=== PATIENT | female | born 1995 | race Caucasian/White ===

== ENCOUNTER 2018-05-13 01:26 | Inpatient (IN) | payer MEDICAID ==
--- NOTE | 2018-05-13 01:53 | ED Physician Chart ---
ED Chief Complaint/HPI - Patient Information Date Seen:: 05/13/18 Time Seen:: 01:49 Chief Complaint:: agitation psychosis History of Present Illness:: 22 yr old female with severe mental retardation and severe psychosis who ihas been putting her hands in her vaginal area and taking blood out and trying to swallow it she has her period Allergies:: Allergies Allergy/AdvReac Type Severity Reaction Status Date / Time No Known Allergies Allergy Verified 05/13/18 01:36 Vitals:: Vital Signs - 8 hr 05/13/18 01:35 Temp 98.7 F HR 72 RR 18 BP 107/53 O2 Sat % 98 ED Review of Systems - Review of Systems General/Constitutional: No fever Eyes: No loss of vision ENT: No earache Neck: No neck pain Cardio Vascular: No chest pain Pulmonary: No SOB GI: No vomiting G/U: No dysuria Endocrine: No polyuria Psychiatric: Prior psych history ED Past Medical History - Past Medical History Past Medical History: Other (convulsions cerebral palsy and severe mental retardation and gtube) Family Medical History - Family Member Mother History Unknown: Yes ED Physical Exam - Physical Examination Other Gen/Cons comments:: pt non verbal Head: Atraumatic ENMT: External ears, nose nl Neck: Nontender Respiratory: Nl effort/Exclusion Cardio Vascular: RRR GI: No tenderness/rebounding/guarding Extremities: No tenderness or effusion ED Assessment - Assessment General Assessment: severe mental retardation cerebral palsy and psychosis and agitation ED Septic Shock - . Is Septic Shock (SBP<90, OR Lactate>4 mmol\L) present?: No - <6hrs of presentation: Vital Signs: Vital Signs - 8 hr 05/13/18 01:35 Temp 98.7 F HR 72 RR 18 BP 107/53 O2 Sat % 98 ED Reassessment (Disposition) - Reassessment Reassessment:: cerebral palsy severe mental retardation psychosis and agitation - Diagnosis Diagnosis:: as above - Patient Disposition Discharge/Transfer:: Acute Care w/in this hosp Condition at Disposition:: Stable
[2018-05-13 02:23] LABS: HEMATOCRIT 42.1 % (41.0-60); HEMOGLOBIN 13.4 gm/dL (12-16); MEAN CELL VOLUME 84.5 fl (81-100); MEAN CORPUSCULAR HEMOGLOBIN 26.9 pg (27.0-31.0); MEAN CORPUSCULAR HGB CONC 31.8 pg (28.0-36.0); MEAN PLATELET VOLUME 8.9 fl; PLATELET COUNT 267 Th/cmm (150-400); RED BLOOD COUNT 4.98 Mil/cmm (3.80-5.10); RED CELL DISTRIBUTION WIDTH 14.8 % (11.5-20.0)
[2018-05-13 02:25] LABS: WHITE BLOOD COUNT 17.3 Th/cmm (4.8-10.8)
[2018-05-13 02:35] LABS: BAND NEUTROPHILE 3 % (0-10); LYMPHOCYTE 4 % (20-50); MONOCYTE 4 % (2-10); NEUTROPHILS 89 % (40-80)
[2018-05-13 02:36] LABS: PLATELET ESTIMATE ADEQUATE (NORMAL)
[2018-05-13 02:42] LABS: ALB/GLOB RATIO 1.2 (1.0-1.8); ALBUMIN 4.4 gm/dL (3.7-5.3); ALKALINE PHOSPHATASE 54 U/L (34-104); ANION GAP 21.4 (7.0-16.0); BILIRUBIN,TOTAL 0.3 mg/dL (0.3-1.0); BUN - UREA NITROGEN 17 mg/dL (7-25); CALCIUM SERUM 9.9 mg/dL (8.6-10.3); CARBON DIOXIDE 17.6 mEq/L (21.0-31.0); CHLORIDE 102 mEq/L (98-107); CREATININE - SERUM 0.5 mg/dL (0.6-1.2); GFR AFRICAN-AMERICAN > 60.0 ml/min (>90); GFR NON AFRICAN-AMERICAN > 60.0 ml/min; GLUCOSE 152 mg/dL (70-105); SGOT 13 U/L (13-39); SGPT/ALT 4 U/L (7-52); SODIUM SERUM 137 mEq/L (136-145); TOTAL PROTEIN,SERUM 8.2 gm/dL (6.0-8.3)
[2018-05-13] MEDS ORDERED: Sodium Chloride 0.9% 1,000 ML IV ONE ×5 (03:34→17:33)
[2018-05-13] MEDS ORDERED: cefTRIAXone 1 GM in Sodium Chloride 0.9% 50 ML IV ONE (03:35)
[2018-05-13 05:22] VITALS: BP 125/74
[2018-05-13] MEDS ORDERED: Piperacillin Sodium/Tazobact 3.375 gm Vial IV ONE (05:37)
[2018-05-13 07:39] LABS: HEMATOCRIT 39.8 % (41.0-60); HEMOGLOBIN 12.5 gm/dL (12-16); LYMPHOCYTE ABSOLUTE 0.5 Th/cmm (1.5-3.0); MEAN CELL VOLUME 82.8 fl (81-100); MEAN CORPUSCULAR HGB CONC 31.4 pg (28.0-36.0); MEAN PLATELET VOLUME 9.6 fl; MONOCYTE ABSOLUTE 0.7 Th/cmm (0.3-1.0); NEUTROPHILE ABSOLUTE 22.2 Th/cmm (1.8-8.0); PLATELET COUNT 224 Th/cmm (150-400); RED CELL DISTRIBUTION WIDTH 14.7 % (11.5-20.0)
[2018-05-13 07:52] LABS: WHITE BLOOD COUNT 23.4 Th/cmm (4.8-10.8)
[2018-05-13 08:09] LABS: NEUTROPHILS 96 % (40-80)
[2018-05-13 08:10] LABS: BAND NEUTROPHILE 0 % (0-10)
[2018-05-13 08:11] LABS: BASOPHIL 0 % (0-3); EOSINOPHIL 0 % (0-5); LYMPHOCYTE 2 % (20-50); MONOCYTE 2 % (2-10)
[2018-05-13 09:08] LABS: ANION GAP 23.2 (7.0-16.0); CARBON DIOXIDE 14.3 mEq/L (21.0-31.0); CHLORIDE 105 mEq/L (98-107); POTASSIUM SERUM 4.5 mEq/L (3.5-5.1); SODIUM SERUM 138 mEq/L (136-145)
[2018-05-13 09:09] LABS: ALB/GLOB RATIO 1.2 (1.0-1.8); ALBUMIN 3.9 gm/dL (3.7-5.3); BILIRUBIN,TOTAL 0.3 mg/dL (0.3-1.0); BUN - UREA NITROGEN 15 mg/dL (7-25); CALCIUM SERUM 9.1 mg/dL (8.6-10.3); CREATININE - SERUM 0.4 mg/dL (0.6-1.2); GFR AFRICAN-AMERICAN > 60.0 ml/min (>90); GFR NON AFRICAN-AMERICAN > 60.0 ml/min; GLUCOSE 148 mg/dL (70-105); SGOT 26 U/L (13-39); SGPT/ALT 3 U/L (7-52); TOTAL PROTEIN,SERUM 7.3 gm/dL (6.0-8.3)
[2018-05-13 09:10] LABS: ALKALINE PHOSPHATASE 46 U/L (34-104)
--- NOTE | 2018-05-13 09:50 | Diagnostic Imaging Report ---
CHEST X-RAY: AP view INDICATION: Sepsis COMPARISON: None FINDINGS: Suboptimal lung volumes are noted. There is no focal consolidation or pleural effusions The heart is normal in size. Gas distended stomach is noted. IMPRESSION: Suboptimal lung volumes with no focal consolidation identified.
[2018-05-13 10:44] LABS: URINE SOURCE RANDOM
[2018-05-13 10:51] LABS: URINE BILIRUBIN NEGATIVE (NEGATIVE); URINE BLOOD LARGE (NEGATIVE); URINE GLUCOSE (UA) NEGATIVE (NEGATIVE); URINE KETONE TRACE mg/dL (NEGATIVE); URINE LEUKOCYTE ESTERASE NEGATIVE (NEGATIVE); URINE MICROSCOPIC INDICATED? YES; URINE NITRATE NEGATIVE (NEGATIVE); URINE PH 5.5 (4.6 - 8.0); URINE PROTEIN 30 mg/dL (NEGATIVE)
[2018-05-13 11:02] LABS: URINE CLARITY CLOUDY (CLEAR); URINE COLOR YELLOW
[2018-05-13 11:04] LABS: URINE BACTERIA MANY /hpf (NONE SEEN); URINE EPITHELIAL CELLS FEW /lpf (FEW); URINE WBC 25-50 /hpf (0-5)
[2018-05-13] MEDS ORDERED: Magnesium Hydroxide (MOM) 30 mL UDC GT PRN (16:34)
[2018-05-13] MEDS ORDERED: Fleet Enema 135 mL RC PRN (16:34)
[2018-05-13] MEDS: Ferrous Sulfate 300 MG/5 ML UDC GT SCH (16:59)
[2018-05-13] MEDS: Levetiracetam 500 mg/5mL 5mL UDSyr *for ORAL USE ONLY GT SCH (16:59)
--- NOTE | 2018-05-13 17:26 | History & Physical ---
ADMIT DATE: 05/13/2018 DICTATED FOR: Dr. Kirby. CHIEF COMPLAINT: Agitation. HISTORY OF PRESENT ILLNESS: This is a 22-year-old female who is admitted to the telemetry unit, who has apparently been putting her hands in the vaginal area and taking blood out and trying to swallow. No reports of any fevers at the intermediate. PAST MEDICAL HISTORY: Convulsion, cerebral palsy, MR. FAMILY HISTORY: Noncontributory. SOCIAL HISTORY: The patient is a intermediate resident, requiring 24-hour nursing care. REVIEW OF SYSTEMS: Unable to obtain, the patient is nonverbal. PHYSICAL EXAMINATION: GENERAL: Young female, awake, alert, nonverbal, no apparent distress. VITAL SIGNS: Temperature 99.6, heart rate of 107, blood pressure 137/86, respirations 18, O2 of 98%. HEENT: Head: Normocephalic, atraumatic. NECK: Supple. No mass. LUNGS: Clear bilaterally. HEART: Regular rhythm. ABDOMEN: Soft, nontender. LABORATORY DATA: WBC 23.4, H and H 12.5 and 39.8, platelets of 224. Sodium 138, potassium 4.5, chloride 105, BUN 15, creatinine 0.4. Whole lactic acid at 3.15. The patient had a urinalysis done, positive for UTI. ASSESSMENT: Sepsis secondary to acute urinary tract infection, cerebral palsy, convulsions, severe mitral regurgitation, G-tube status. PLAN: The patient to be admitted to the telemetry unit. We will have ID consultation. We will send urine for culture. We will await for the patient's blood culture results. We will treat the patient with IV antibiotics of vancomycin and Zosyn. We will get followup labs for tomorrow morning. We will continue to monitor this patient. JOB# [id number]
[2018-05-14 05:41] LABS: HEMOGLOBIN 12.1 gm/dL (12-16)
[2018-05-14 05:47] LABS: MEAN CELL VOLUME 84.1 fl (81-100); MEAN CORPUSCULAR HEMOGLOBIN 27.5 pg (27.0-31.0); MEAN CORPUSCULAR HGB CONC 32.7 pg (28.0-36.0); MEAN PLATELET VOLUME 8.9 fl; RED BLOOD COUNT 4.41 Mil/cmm (3.80-5.10); RED CELL DISTRIBUTION WIDTH 14.9 % (11.5-20.0)
[2018-05-14 05:50] LABS: ALBUMIN 3.2 gm/dL (3.7-5.3); ANION GAP 12.4 (7.0-16.0); BILIRUBIN,TOTAL 0.7 mg/dL (0.3-1.0); CALCIUM SERUM 8.7 mg/dL (8.6-10.3); CARBON DIOXIDE 19.7 mEq/L (21.0-31.0); CREATININE - SERUM 1.5 mg/dL (0.6-1.2); GFR AFRICAN-AMERICAN 55.8 ml/min (>90); GFR NON AFRICAN-AMERICAN 46.2 ml/min; POTASSIUM SERUM 4.1 mEq/L (3.5-5.1); TOTAL PROTEIN,SERUM 6.3 gm/dL (6.0-8.3)
[2018-05-14 05:57] LABS: PLATELET COUNT 158 Th/cmm (150-400); WHITE BLOOD COUNT 23.1 Th/cmm (4.8-10.8)
[2018-05-14 06:32] LABS: BAND NEUTROPHILE 0 % (0-10); LYMPHOCYTE 5 % (20-50); MONOCYTE 4 % (2-10); NEUTROPHILS 90 % (40-80)
[2018-05-14 06:33] LABS: BASOPHIL 0 % (0-3); EOSINOPHIL 1 % (0-5); PLATELET ESTIMATE ADEQUATE (NORMAL)
[2018-05-14] MEDS ORDERED: Sodium Chloride 0.9% 1,000 ML IV SCH ×3 (07:00→21:00)
[2018-05-14] MEDS: Levetiracetam 500 mg/5mL 5mL UDSyr *for ORAL USE ONLY GT SCH ×2 (08:59→16:08)
[2018-05-14] MEDS: Ferrous Sulfate 300 MG/5 ML UDC GT SCH ×2 (08:59→16:08)
--- NOTE | 2018-05-14 09:05 | Internal Medicine Prog Note ---
Internal Medicine Subjective - Subjective Patient is:: confused, other (restless ) Per staff patient has:: confused, other (unable to comprehend commands ) Internal Medicine Objective - Results Result Diagrams: 05/14/18 05:20 05/14/18 05:20 Recent Labs: Laboratory Last Values WBC 23.1 Th/cmm (4.8-10.8) H* 05/14/18 05:20 RBC 4.41 Mil/cmm (3.80-5.10) 05/14/18 05:20 Hgb 12.1 gm/dL (12-16) 05/14/18 05:20 Hct 37.0 % (41.0-60) L 05/14/18 05:20 MCV 84.1 fl (81-100) 05/14/18 05:20 MCH 27.5 pg (27.0-31.0) 05/14/18 05:20 MCHC Differential 32.7 pg (28.0-36.0) 05/14/18 05:20 RDW 14.9 % (11.5-20.0) 05/14/18 05:20 Plt Count 158 Th/cmm (150-400) D 05/14/18 05:20 MPV 8.9 fl 05/14/18 05:20 Add Manual Diff YES 05/14/18 05:20 Band Neutrophils % 0 % (0-10) 05/14/18 05:20 Neutrophils (Manual) 90 % (40-80) H 05/14/18 05:20 Lymphocytes 5 % (20-50) L 05/14/18 05:20 Monocytes 4 % (2-10) 05/14/18 05:20 Eosinophils 1 % (0-5) 05/14/18 05:20 Basophils 0 % (0-3) 05/14/18 05:20 Platelet Estimate ADEQUATE (NORMAL) 05/14/18 05:20 Sodium 140 mEq/L (136-145) 05/14/18 05:20 Potassium 4.1 mEq/L (3.5-5.1) 05/14/18 05:20 Chloride 112 mEq/L (98-107) H 05/14/18 05:20 Carbon Dioxide 19.7 mEq/L (21.0-31.0) L 05/14/18 05:20 Anion Gap 12.4 (7.0-16.0) 05/14/18 05:20 BUN 21 mg/dL (7-25) 05/14/18 05:20 Creatinine 1.5 mg/dL (0.6-1.2) H 05/14/18 05:20 Est GFR ( Amer) 55.8 ml/min (>90) 05/14/18 05:20 Est GFR (Non-Af Amer) 46.2 ml/min 05/14/18 05:20 BUN/Creatinine Ratio 14.0 05/14/18 05:20 Glucose 144 mg/dL (70-105) H 05/14/18 05:20 Whole Bld Lactic Acid 2.35 mmol/L (0.60-1.99) H* 05/14/18 08:00 Calcium 8.7 mg/dL (8.6-10.3) 05/14/18 05:20 Total Bilirubin 0.7 mg/dL (0.3-1.0) 05/14/18 05:20 AST 19 U/L (13-39) 05/14/18 05:20 ALT 4 U/L (7-52) L 05/14/18 05:20 Alkaline Phosphatase 37 U/L (34-104) 05/14/18 05:20 Total Protein 6.3 gm/dL (6.0-8.3) 05/14/18 05:20 Albumin 3.2 gm/dL (3.7-5.3) L 05/14/18 05:20 Globulin 3.1 gm/dL 05/14/18 05:20 Albumin/Globulin Ratio 1.0 (1.0-1.8) 05/14/18 05:20 Urine Source RANDOM 05/13/18 10:35 Urine Color YELLOW 05/13/18 10:35 Urine Clarity CLOUDY (CLEAR) H 05/13/18 10:35 Urine pH 5.5 (4.6 - 8.0) 05/13/18 10:35 Ur Specific [place] >= 1.030 (1.005-1.030) 05/13/18 10:35 Urine Protein 30 mg/dL (NEGATIVE) H 05/13/18 10:35 Urine Glucose (UA) NEGATIVE mg/dL (NEGATIVE) 05/13/18 10:35 Urine Ketones TRACE mg/dL (NEGATIVE) 05/13/18 10:35 Urine Blood LARGE (NEGATIVE) H 05/13/18 10:35 Urine Nitrate NEGATIVE (NEGATIVE) 05/13/18 10:35 Urine Bilirubin NEGATIVE (NEGATIVE) 05/13/18 10:35 Urine Urobilinogen 1.0 E.U./dL (0.2 - 1.0) 05/13/18 10:35 Ur Leukocyte Esterase NEGATIVE (NEGATIVE) 05/13/18 10:35 Urine RBC 2-5 /hpf (0-5) 05/13/18 10:35 Urine WBC 25-50 /hpf (0-5) H 05/13/18 10:35 Ur Epithelial Cells FEW /lpf (FEW) 05/13/18 10:35 Urine Bacteria MANY /hpf (NONE SEEN) H 05/13/18 10:35 Vancomycin Trough 24.5 ug/mL (5-10) H 05/14/18 05:20 - Physical Exam Vitals and I&O: Vital Signs Temp 100.3 F 05/14/18 03:00 Pulse 127 05/14/18 03:00 Resp 20 05/14/18 03:00 BP 124/92 05/14/18 03:00 Pulse Ox 98 05/14/18 03:00 Intake & Output 05/13/18 05/14/18 05/14/18 18:59 06:59 18:59 Intake Total 400 300 0 Balance 400 300 0 Weight (lbs) 58.967 kg Intake: Intake, IV Amount 400 300 Piperacillin Sodium/ 150 50 Tazobact 3.375 gm In Sodium Chloride 0.9% 50 ml @ 100 mls/hr IV Q6HR [facility] Rx#:[id number] Vancomycin HCl 1 gm In 250 250 Sodium Chloride 0.9% 250 ml @ 165 mls/hr IV Q8H [facility] Rx#:[id number] Oral 0 Other: # Voids 4 # Bowel Movements 0 Weight Source Bedscale Active Medications: Current Medications Acetaminophen (Tylenol 650mg/20.3ml Suspension) 650 mg GT Q4HR PRN PRN Reason: Pain or Fever >101 Stop: 07/12/18 16:33 Last Admin: 05/13/18 21:07 Dose: 650 mg Bisacodyl (Dulcolax 10 Mg Supp) 10 mg RC DAILY PRN PRN Reason: Constipation Stop: 07/12/18 16:33 Docusate Sodium (Colace) 100 mg PO DAILY [facility] Stop: 07/13/18 08:59 Last Admin: 05/14/18 08:59 Dose: 100 mg Ferrous Sulfate (Iron) 450 mg GT BID [facility] Stop: 07/12/18 16:59 Last Admin: 05/14/18 08:59 Dose: 450 mg Piperacillin Sod/Tazobactam (Sod 3.375 gm/ Sodium Chloride) 50 mls @ 100 mls/ hr IV Q6HR [facility] Stop: 07/12/18 05:59 Last Admin: 05/14/18 05:49 Dose: 100 mls/hr Sodium Chloride (Nacl 0.9%) 1,000 mls @ 125 mls/hr IV .Q8H [facility] Stop: 07/13/18 06:59 Vancomycin HCl 1.25 gm/ Sodium (Chloride) 250 mls @ 165 mls/hr IV ONCE ONE Stop: 05/14/18 19:30 Vancomycin HCl 1.25 gm/ Sodium (Chloride) 250 mls @ 165 mls/hr IV Q12H [facility] Stop: 07/14/18 08:59 Levetiracetam (Keppra) 500 mg GT BID [facility] Stop: 07/12/18 16:59 Last Admin: 05/14/18 08:59 Dose: 500 mg Lorazepam (Ativan) 1 mg IVP Q6HR PRN; Protocol PRN Reason: Anxiety Stop: 07/12/18 04:24 Last Admin: 05/14/18 00:06 Dose: 1 mg Magnesium Hydroxide (Milk Of Magnesia) 30 ml GT Q72HR PRN PRN Reason: Constipation Stop: 07/12/18 16:33 Miscellaneous (Vancomycin Iv Per Pharmacy) 1 ea MC DAILY [facility] Stop: 07/12/18 08:59 Sodium Phosphate (Fleet Enema) 135 ml RC Q96HR PRN PRN Reason: IF DULCOLAX INEFFECTIVE Stop: 07/12/18 16:33 Valproate Sodium (Depakene) 500 mg GT Q12H [facility]; Protocol Stop: 07/12/18 16:59 Last Admin: 05/14/18 05:49 Dose: 500 mg
--- NOTE | 2018-05-14 09:26 | Consultation ---
DATE OF CONSULTATION: 05/13/2018 NEUROLOGY CONSULTATION REFERRING PHYSICIAN: Sherrell Kirby M.D. REASON FOR CONSULTATION: UTI, sepsis. HISTORY OF PRESENT ILLNESS: The patient is a 22-year-old female with a past medical history of severe mental retardation, psychosis, brought in from nursing facility for waiting for another day while assessing her with another hospitalist. On initial evaluation, the patient's temperature was 98.7. WBC count was 17,400. Lactic acid 5.71. ____ previous history of sepsis and vancomycin and Zosyn was started. IV fluid was started. ID consult was called for antibiotic management. PAST MEDICAL HISTORY: Includes mental retardation, cerebral palsy, seizure disorder, blindness. ALLERGIES: NKDA. MEDICATIONS: Per medication reconciliation sheet. Antibiotic-mooney, the patient is on vancomycin and Zosyn. SOCIAL HISTORY: The patient lives in a nursing facility. No history of smoking, alcohol or drug use. History so far, the patient has no fever. PHYSICAL EXAMINATION: VITAL SIGNS: Temperature is 98.4, pulse is 103, blood pressure is 125/74, oxygen saturation 100%, respiratory rate is 20. GENERAL: The patient is comfortable, in no distress. HEENT: Head is normocephalic, atraumatic. Oral cavity moist, pink. Eyes: No pallor, no icterus. PERRLA, EOMI. NECK: Supple. No JVD, no carotid bruit, no lymphadenopathy. CHEST: Bilateral breath sounds. No crackles or wheezing. HEART: S1, S2 within normal limits. Regular rhythm. No murmur, no gallop. ABDOMEN: Soft, nontender, nondistended. Bowel sounds present. EXTREMITIES: No cyanosis, no clubbing, no edema. NEUROLOGIC: Alert and awake, but unable to communicate. LABORATORY DATA: Current lab shows WBC count is 17,300, hemoglobin 13.4, hematocrit 42.1, platelets are 267,000, neutrophils 89%. Sodium 137, potassium 4, chloride 102, and glucose is 5.70. IMPRESSION: 1. Leukocytosis. 2. Sepsis with lactic acidosis. PLAN AND RECOMMENDATIONS: We will continue vancomycin and Zosyn. IV fluid to 125 mL per hour and check her lactic acid again. Thank you, Dr. Kirby, for involving me in taking care of this patient. JOB# [id number]
--- NOTE | 2018-05-14 23:18 | Infectious Disease Prog Note ---
Infectious Disease Subjective - Review of Systems Service Date: 05/14/18 Subjective: There is no new change, no fever. Infectious Disease Objective - Results Result Diagrams: 05/14/18 05:20 05/14/18 05:20 Recent Labs: Laboratory Last Values WBC 23.1 Th/cmm (4.8-10.8) H* 05/14/18 05:20 RBC 4.41 Mil/cmm (3.80-5.10) 05/14/18 05:20 Hgb 12.1 gm/dL (12-16) 05/14/18 05:20 Hct 37.0 % (41.0-60) L 05/14/18 05:20 MCV 84.1 fl (81-100) 05/14/18 05:20 MCH 27.5 pg (27.0-31.0) 05/14/18 05:20 MCHC Differential 32.7 pg (28.0-36.0) 05/14/18 05:20 RDW 14.9 % (11.5-20.0) 05/14/18 05:20 Plt Count 158 Th/cmm (150-400) D 05/14/18 05:20 MPV 8.9 fl 05/14/18 05:20 Add Manual Diff YES 05/14/18 05:20 Band Neutrophils % 0 % (0-10) 05/14/18 05:20 Neutrophils (Manual) 90 % (40-80) H 05/14/18 05:20 Lymphocytes 5 % (20-50) L 05/14/18 05:20 Monocytes 4 % (2-10) 05/14/18 05:20 Eosinophils 1 % (0-5) 05/14/18 05:20 Basophils 0 % (0-3) 05/14/18 05:20 Platelet Estimate ADEQUATE (NORMAL) 05/14/18 05:20 Sodium 140 mEq/L (136-145) 05/14/18 05:20 Potassium 4.1 mEq/L (3.5-5.1) 05/14/18 05:20 Chloride 112 mEq/L (98-107) H 05/14/18 05:20 Carbon Dioxide 19.7 mEq/L (21.0-31.0) L 05/14/18 05:20 Anion Gap 12.4 (7.0-16.0) 05/14/18 05:20 BUN 21 mg/dL (7-25) 05/14/18 05:20 Creatinine 1.5 mg/dL (0.6-1.2) H 05/14/18 05:20 Est GFR ( Amer) 55.8 ml/min (>90) 05/14/18 05:20 Est GFR (Non-Af Amer) 46.2 ml/min 05/14/18 05:20 BUN/Creatinine Ratio 14.0 05/14/18 05:20 Glucose 144 mg/dL (70-105) H 05/14/18 05:20 Whole Bld Lactic Acid 2.35 mmol/L (0.60-1.99) H* 05/14/18 08:00 Calcium 8.7 mg/dL (8.6-10.3) 05/14/18 05:20 Total Bilirubin 0.7 mg/dL (0.3-1.0) 05/14/18 05:20 AST 19 U/L (13-39) 05/14/18 05:20 ALT 4 U/L (7-52) L 05/14/18 05:20 Alkaline Phosphatase 37 U/L (34-104) 05/14/18 05:20 Total Protein 6.3 gm/dL (6.0-8.3) 05/14/18 05:20 Albumin 3.2 gm/dL (3.7-5.3) L 05/14/18 05:20 Globulin 3.1 gm/dL 05/14/18 05:20 Albumin/Globulin Ratio 1.0 (1.0-1.8) 05/14/18 05:20 Urine Source RANDOM 05/13/18 10:35 Urine Color YELLOW 05/13/18 10:35 Urine Clarity CLOUDY (CLEAR) H 05/13/18 10:35 Urine pH 5.5 (4.6 - 8.0) 05/13/18 10:35 Ur Specific [place] >= 1.030 (1.005-1.030) 05/13/18 10:35 Urine Protein 30 mg/dL (NEGATIVE) H 05/13/18 10:35 Urine Glucose (UA) NEGATIVE mg/dL (NEGATIVE) 05/13/18 10:35 Urine Ketones TRACE mg/dL (NEGATIVE) 05/13/18 10:35 Urine Blood LARGE (NEGATIVE) H 05/13/18 10:35 Urine Nitrate NEGATIVE (NEGATIVE) 05/13/18 10:35 Urine Bilirubin NEGATIVE (NEGATIVE) 05/13/18 10:35 Urine Urobilinogen 1.0 E.U./dL (0.2 - 1.0) 05/13/18 10:35 Ur Leukocyte Esterase NEGATIVE (NEGATIVE) 05/13/18 10:35 Urine RBC 2-5 /hpf (0-5) 05/13/18 10:35 Urine WBC 25-50 /hpf (0-5) H 05/13/18 10:35 Ur Epithelial Cells FEW /lpf (FEW) 05/13/18 10:35 Urine Bacteria MANY /hpf (NONE SEEN) H 05/13/18 10:35 Vancomycin Trough 24.5 ug/mL (5-10) H 05/14/18 05:20 - Physical Exam Vitals and I&O: Vital Signs Temp 99.9 F 05/14/18 18:31 Pulse 97 05/14/18 21:48 Resp 20 05/14/18 18:31 BP 137/97 05/14/18 21:48 Pulse Ox 98 05/14/18 18:31 Intake & Output 05/14/18 05/14/18 05/15/18 06:59 18:59 06:59 Intake Total 350 100 Balance 350 100 Weight (lbs) 58.967 kg Intake: Intake, IV Amount 350 100 Piperacillin Sodium/ 100 100 Tazobact 3.375 gm In Sodium Chloride 0.9% 50 ml @ 100 mls/hr IV Q6HR [facility] Rx#:[id number] Vancomycin HCl 1 gm In 250 Sodium Chloride 0.9% 250 ml @ 165 mls/hr IV Q8H [facility] Rx#:[id number] Oral 0 Other: # Voids 4 # Bowel Movements 0 Weight Source Bedscale Active Medications: Current Medications Acetaminophen (Tylenol 650mg/20.3ml Suspension) 650 mg GT Q4HR PRN PRN Reason: Pain or Fever >101 Stop: 07/12/18 16:33 Last Admin: 05/14/18 10:33 Dose: 650 mg Bisacodyl (Dulcolax 10 Mg Supp) 10 mg RC DAILY PRN PRN Reason: Constipation Stop: 07/12/18 16:33 Docusate Sodium (Colace) 100 mg PO DAILY [facility] Stop: 07/13/18 08:59 Last Admin: 05/14/18 08:59 Dose: 100 mg Ferrous Sulfate (Iron) 450 mg GT BID [facility] Stop: 07/12/18 16:59 Last Admin: 05/14/18 16:08 Dose: 450 mg Piperacillin Sod/Tazobactam (Sod 3.375 gm/ Sodium Chloride) 50 mls @ 100 mls/ hr IV Q6HR [facility] Stop: 07/12/18 05:59 Last Infusion: 05/14/18 17:58 Dose: Infused Vancomycin HCl 1.25 gm/ Sodium (Chloride) 250 mls @ 165 mls/hr IV Q12H [facility] Stop: 07/14/18 08:59 Sodium Chloride (Nacl 0.9%) 1,000 mls @ 100 mls/hr IV .Q10H [facility] Stop: 07/13/18 20:59 Last Admin: 05/14/18 20:44 Dose: 100 mls/hr Levetiracetam (Keppra) 500 mg GT BID [facility] Stop: 07/12/18 16:59 Last Admin: 05/14/18 16:08 Dose: 500 mg Lorazepam (Ativan) 1 mg IVP Q6HR PRN; Protocol PRN Reason: Anxiety Stop: 07/12/18 04:24 Last Admin: 05/14/18 00:06 Dose: 1 mg Magnesium Hydroxide (Milk Of Magnesia) 30 ml GT Q72HR PRN PRN Reason: Constipation Stop: 07/12/18 16:33 Miscellaneous (Vancomycin Iv Per Pharmacy) 1 ea MC DAILY [facility] Stop: 07/12/18 08:59 Mupirocin (Bactroban Oint) 1 appl NS BID [facility] Stop: 05/19/18 17:01 Sodium Phosphate (Fleet Enema) 135 ml RC Q96HR PRN PRN Reason: IF DULCOLAX INEFFECTIVE Stop: 07/12/18 16:33 Valproate Sodium (Depakene) 500 mg GT Q12H [facility]; Protocol Stop: 07/12/18 16:59 Last Admin: 05/14/18 16:09 Dose: 500 mg General: no acute distress, cachectic HEENT: atraumatic, normocephalic, PERRLA, EOMI, moist mucous membrane Neck: supple, no thyromegaly Cardiovascular: S1S2, no regular Lungs: clear to auscultation bilaterally, clear to percussion Abdomen: soft, no tender, no distended Extremities: no cyanosis, no clubbing, no edema Neurological: awake, other (heather interactive.) Infectious Disease Assmt/Plan - Assessment Assessment: 1. Leukocytosis. 2. Sepsis with lactic acidosis. 3. UTI. 4. Tachycardia. 5. cerebral palsy. 6. mental retardation. 7. Seizure disorder. - Plan Plan: Continue vanco IV and Zosyn. Follow up the sepsis w/u.
[2018-05-15] MEDS: Sodium Chloride 0.9% 1,000 ML IV SCH ×2 (02:00→08:30)
[2018-05-15 05:26] LABS: ANION GAP 13.6 (7.0-16.0); CALCIUM SERUM 8.5 mg/dL (8.6-10.3); CARBON DIOXIDE 18.2 mEq/L (21.0-31.0); CREATININE - SERUM 2.1 mg/dL (0.6-1.2); GFR AFRICAN-AMERICAN 37.9 ml/min (>90); GFR NON AFRICAN-AMERICAN 31.3 ml/min; POTASSIUM SERUM 3.8 mEq/L (3.5-5.1)
[2018-05-15 06:30] LABS: EOSINOPHILE ABSOLUTE 0.1 Th/cmm (0.1-0.4); HEMATOCRIT 32.8 % (41.0-60); HEMOGLOBIN 10.7 gm/dL (12-16); LYMPHOCYTE ABSOLUTE 0.7 Th/cmm (1.5-3.0); MEAN CELL VOLUME 83.6 fl (81-100); MEAN CORPUSCULAR HEMOGLOBIN 27.3 pg (27.0-31.0); MEAN CORPUSCULAR HGB CONC 32.7 pg (28.0-36.0); MEAN PLATELET VOLUME 8.8 fl; MONOCYTE ABSOLUTE 1.6 Th/cmm (0.3-1.0); NEUTROPHILE ABSOLUTE 18.4 Th/cmm (1.8-8.0); PLATELET COUNT 132 Th/cmm (150-400); RED BLOOD COUNT 3.92 Mil/cmm (3.80-5.10); RED CELL DISTRIBUTION WIDTH 14.9 % (11.5-20.0)
[2018-05-15 06:41] LABS: WHITE BLOOD COUNT 20.8 Th/cmm (4.8-10.8)
[2018-05-15 07:27] LABS: BAND NEUTROPHILE 7 % (0-10); EOSINOPHIL 1 % (0-5); LYMPHOCYTE 3 % (20-50); MONOCYTE 8 % (2-10); NEUTROPHILS 81 % (40-80); PLATELET ESTIMATE ADEQUATE (NORMAL)
[2018-05-15] MEDS: Levetiracetam 500 mg/5mL 5mL UDSyr *for ORAL USE ONLY GT SCH ×2 (08:31→16:03)
[2018-05-15] MEDS: Ferrous Sulfate 300 MG/5 ML UDC GT SCH ×2 (08:31→16:03)
--- NOTE | 2018-05-15 13:32 | Infectious Disease Prog Note ---
Infectious Disease Subjective - Review of Systems Service Date: 05/15/18 Subjective: There is no new change, no fever. Infectious Disease Objective - Results Result Diagrams: 05/15/18 04:25 05/15/18 04:25 Recent Labs: Laboratory Last Values WBC 20.8 Th/cmm (4.8-10.8) H* 05/15/18 04:25 RBC 3.92 Mil/cmm (3.80-5.10) 05/15/18 04:25 Hgb 10.7 gm/dL (12-16) L 05/15/18 04:25 Hct 32.8 % (41.0-60) L 05/15/18 04:25 MCV 83.6 fl (81-100) 05/15/18 04:25 MCH 27.3 pg (27.0-31.0) 05/15/18 04:25 MCHC Differential 32.7 pg (28.0-36.0) 05/15/18 04:25 RDW 14.9 % (11.5-20.0) 05/15/18 04:25 Plt Count 132 Th/cmm (150-400) L 05/15/18 04:25 MPV 8.8 fl 05/15/18 04:25 Add Manual Diff YES 05/15/18 04:25 Band Neutrophils % 7 % (0-10) 05/15/18 04:25 Neutrophils (Manual) 81 % (40-80) H 05/15/18 04:25 Lymphocytes 3 % (20-50) L 05/15/18 04:25 Monocytes 8 % (2-10) 05/15/18 04:25 Eosinophils 1 % (0-5) 05/15/18 04:25 Basophils 0 % (0-3) 05/14/18 05:20 Platelet Estimate ADEQUATE (NORMAL) 05/15/18 04:25 Sodium 144 mEq/L (136-145) 05/15/18 04:25 Potassium 3.8 mEq/L (3.5-5.1) 05/15/18 04:25 Chloride 116 mEq/L (98-107) H 05/15/18 04:25 Carbon Dioxide 18.2 mEq/L (21.0-31.0) L 05/15/18 04:25 Anion Gap 13.6 (7.0-16.0) 05/15/18 04:25 BUN 26 mg/dL (7-25) H 05/15/18 04:25 Creatinine 2.1 mg/dL (0.6-1.2) H 05/15/18 04:25 Est GFR ( Amer) 37.9 ml/min (>90) 05/15/18 04:25 Est GFR (Non-Af Amer) 31.3 ml/min 05/15/18 04:25 BUN/Creatinine Ratio 12.4 05/15/18 04:25 Glucose 166 mg/dL (70-105) H 05/15/18 04:25 POC Glucose 89 MG/DL (70 - 105) 05/15/18 12:13 Whole Bld Lactic Acid 1.61 mmol/L (0.60-1.99) 05/15/18 04:25 Calcium 8.5 mg/dL (8.6-10.3) L 05/15/18 04:25 Total Bilirubin 0.7 mg/dL (0.3-1.0) 05/14/18 05:20 AST 19 U/L (13-39) 05/14/18 05:20 ALT 4 U/L (7-52) L 05/14/18 05:20 Alkaline Phosphatase 37 U/L (34-104) 05/14/18 05:20 Total Protein 6.3 gm/dL (6.0-8.3) 05/14/18 05:20 Albumin 3.2 gm/dL (3.7-5.3) L 05/14/18 05:20 Globulin 3.1 gm/dL 05/14/18 05:20 Albumin/Globulin Ratio 1.0 (1.0-1.8) 05/14/18 05:20 Urine Source RANDOM 05/13/18 10:35 Urine Color YELLOW 05/13/18 10:35 Urine Clarity CLOUDY (CLEAR) H 05/13/18 10:35 Urine pH 5.5 (4.6 - 8.0) 05/13/18 10:35 Ur Specific [place] >= 1.030 (1.005-1.030) 05/13/18 10:35 Urine Protein 30 mg/dL (NEGATIVE) H 05/13/18 10:35 Urine Glucose (UA) NEGATIVE mg/dL (NEGATIVE) 05/13/18 10:35 Urine Ketones TRACE mg/dL (NEGATIVE) 05/13/18 10:35 Urine Blood LARGE (NEGATIVE) H 05/13/18 10:35 Urine Nitrate NEGATIVE (NEGATIVE) 05/13/18 10:35 Urine Bilirubin NEGATIVE (NEGATIVE) 05/13/18 10:35 Urine Urobilinogen 1.0 E.U./dL (0.2 - 1.0) 05/13/18 10:35 Ur Leukocyte Esterase NEGATIVE (NEGATIVE) 05/13/18 10:35 Urine RBC 2-5 /hpf (0-5) 05/13/18 10:35 Urine WBC 25-50 /hpf (0-5) H 05/13/18 10:35 Ur Epithelial Cells FEW /lpf (FEW) 05/13/18 10:35 Urine Bacteria MANY /hpf (NONE SEEN) H 05/13/18 10:35 Vancomycin Trough 24.5 ug/mL (5-10) H 05/14/18 05:20 - Physical Exam Vitals and I&O: Vital Signs Temp 99.1 F 05/15/18 11:45 Pulse 103 05/15/18 11:45 Resp 20 05/15/18 13:08 BP 135/96 05/15/18 11:45 Pulse Ox 94 05/15/18 11:45 Intake & Output 05/14/18 05/15/18 05/15/18 18:59 06:59 18:59 Intake Total 625 095 8046 Balance 328 971 5730 Weight (lbs) 58.967 kg 58.967 kg Intake: Intake, IV Amount 100 100 975 Piperacillin Sodium/ 100 100 Tazobact 3.375 gm In Sodium Chloride 0.9% 50 ml @ 100 mls/hr IV Q6HR [facility] Rx#:[id number] Sodium Chloride 0.9% 1, 975 000 ml @ 150 mls/hr IV . Q6H40M [facility] Rx#:[id number] Oral 0 0 Tube Feeding 660 Other 200 Other: # Voids 4 3 # Bowel Movements 0 0 Weight Source Bedscale Bedscale Active Medications: Current Medications Acetaminophen (Tylenol 650mg/20.3ml Suspension) 650 mg GT Q4HR PRN PRN Reason: Pain or Fever >101 Stop: 07/12/18 16:33 Last Admin: 05/15/18 01:01 Dose: 650 mg Bisacodyl (Dulcolax 10 Mg Supp) 10 mg RC DAILY PRN PRN Reason: Constipation Stop: 07/12/18 16:33 Docusate Sodium (Colace) 100 mg PO DAILY [facility] Stop: 07/13/18 08:59 Last Admin: 05/15/18 08:31 Dose: 100 mg Ferrous Sulfate (Iron) 450 mg GT BID [facility] Stop: 07/12/18 16:59 Last Admin: 05/15/18 08:31 Dose: 450 mg Piperacillin Sod/Tazobactam (Sod 3.375 gm/ Sodium Chloride) 50 mls @ 100 mls/ hr IV Q6HR [facility] Stop: 07/12/18 05:59 Last Admin: 05/15/18 11:19 Dose: 100 mls/hr Sodium Chloride (Nacl 0.9%) 1,000 mls @ 150 mls/hr IV .Q6H40M [facility] Stop: 07/14/18 01:26 Last Admin: 05/15/18 08:30 Dose: 150 mls/hr Levetiracetam (Keppra) 500 mg GT BID [facility] Stop: 07/12/18 16:59 Last Admin: 05/15/18 08:31 Dose: 500 mg Lorazepam (Ativan) 1 mg IVP Q6HR PRN; Protocol PRN Reason: Anxiety Stop: 07/12/18 04:24 Last Admin: 05/14/18 00:06 Dose: 1 mg Magnesium Hydroxide (Milk Of Magnesia) 30 ml GT Q72HR PRN PRN Reason: Constipation Stop: 07/12/18 16:33 Miscellaneous (Vancomycin Iv Per Pharmacy) 1 ea [facility] DAILY [facility] Stop: 07/12/18 08:59 Mupirocin (Bactroban Oint) 1 appl NS BID [facility] Stop: 05/19/18 17:01 Last Admin: 05/15/18 08:30 Dose: 1 appl Sodium Phosphate (Fleet Enema) 135 ml RC Q96HR PRN PRN Reason: IF DULCOLAX INEFFECTIVE Stop: 07/12/18 16:33 Valproate Sodium (Depakene) 500 mg GT Q12H [facility]; Protocol Stop: 07/12/18 16:59 Last Admin: 05/15/18 05:34 Dose: 500 mg General: no acute distress, other (short stature) HEENT: atraumatic, normocephalic, PERRLA, EOMI Neck: supple, no thyromegaly Cardiovascular: S1S2, regular Lungs: clear to auscultation bilaterally, clear to percussion Abdomen: soft, other (g tube), no tender, no distended Extremities: no cyanosis, no clubbing, no edema Skin: intact Infectious Disease Assmt/Plan - Assessment Assessment: 1. Leukocytosis. 2. Sepsis with lactic acidosis. 3. UTI. 4. Tachycardia. 5. cerebral palsy. 6. mental retardation. 7. Seizure disorder. - Plan Plan: Continue vanco IV and Zosyn. Follow up the sepsis w/u.CT A/p
--- NOTE | 2018-05-15 18:39 | Internal Medicine Prog Note ---
Internal Medicine Subjective - Subjective Service Date: 05/15/18 Patient is:: awake, non-verbal, confused Per staff patient has:: confused, other (unable to comprehend commands ) Internal Medicine Objective - Results Result Diagrams: 05/15/18 04:25 05/15/18 04:25 Recent Labs: Laboratory Last Values WBC 20.8 Th/cmm (4.8-10.8) H* 05/15/18 04:25 RBC 3.92 Mil/cmm (3.80-5.10) 05/15/18 04:25 Hgb 10.7 gm/dL (12-16) L 05/15/18 04:25 Hct 32.8 % (41.0-60) L 05/15/18 04:25 MCV 83.6 fl (81-100) 05/15/18 04:25 MCH 27.3 pg (27.0-31.0) 05/15/18 04:25 MCHC Differential 32.7 pg (28.0-36.0) 05/15/18 04:25 RDW 14.9 % (11.5-20.0) 05/15/18 04:25 Plt Count 132 Th/cmm (150-400) L 05/15/18 04:25 MPV 8.8 fl 05/15/18 04:25 Add Manual Diff YES 05/15/18 04:25 Band Neutrophils % 7 % (0-10) 05/15/18 04:25 Neutrophils (Manual) 81 % (40-80) H 05/15/18 04:25 Lymphocytes 3 % (20-50) L 05/15/18 04:25 Monocytes 8 % (2-10) 05/15/18 04:25 Eosinophils 1 % (0-5) 05/15/18 04:25 Basophils 0 % (0-3) 05/14/18 05:20 Platelet Estimate ADEQUATE (NORMAL) 05/15/18 04:25 Sodium 144 mEq/L (136-145) 05/15/18 04:25 Potassium 3.8 mEq/L (3.5-5.1) 05/15/18 04:25 Chloride 116 mEq/L (98-107) H 05/15/18 04:25 Carbon Dioxide 18.2 mEq/L (21.0-31.0) L 05/15/18 04:25 Anion Gap 13.6 (7.0-16.0) 05/15/18 04:25 BUN 26 mg/dL (7-25) H 05/15/18 04:25 Creatinine 2.1 mg/dL (0.6-1.2) H 05/15/18 04:25 Est GFR ( Amer) 37.9 ml/min (>90) 05/15/18 04:25 Est GFR (Non-Af Amer) 31.3 ml/min 05/15/18 04:25 BUN/Creatinine Ratio 12.4 05/15/18 04:25 Glucose 166 mg/dL (70-105) H 05/15/18 04:25 POC Glucose 120 MG/DL (70 - 105) H 05/15/18 16:58 Whole Bld Lactic Acid 1.61 mmol/L (0.60-1.99) 05/15/18 04:25 Calcium 8.5 mg/dL (8.6-10.3) L 05/15/18 04:25 Total Bilirubin 0.7 mg/dL (0.3-1.0) 05/14/18 05:20 AST 19 U/L (13-39) 05/14/18 05:20 ALT 4 U/L (7-52) L 05/14/18 05:20 Alkaline Phosphatase 37 U/L (34-104) 05/14/18 05:20 Total Protein 6.3 gm/dL (6.0-8.3) 05/14/18 05:20 Albumin 3.2 gm/dL (3.7-5.3) L 05/14/18 05:20 Globulin 3.1 gm/dL 05/14/18 05:20 Albumin/Globulin Ratio 1.0 (1.0-1.8) 05/14/18 05:20 Urine Source RANDOM 05/13/18 10:35 Urine Color YELLOW 05/13/18 10:35 Urine Clarity CLOUDY (CLEAR) H 05/13/18 10:35 Urine pH 5.5 (4.6 - 8.0) 05/13/18 10:35 Ur Specific [place] >= 1.030 (1.005-1.030) 05/13/18 10:35 Urine Protein 30 mg/dL (NEGATIVE) H 05/13/18 10:35 Urine Glucose (UA) NEGATIVE mg/dL (NEGATIVE) 05/13/18 10:35 Urine Ketones TRACE mg/dL (NEGATIVE) 05/13/18 10:35 Urine Blood LARGE (NEGATIVE) H 05/13/18 10:35 Urine Nitrate NEGATIVE (NEGATIVE) 05/13/18 10:35 Urine Bilirubin NEGATIVE (NEGATIVE) 05/13/18 10:35 Urine Urobilinogen 1.0 E.U./dL (0.2 - 1.0) 05/13/18 10:35 Ur Leukocyte Esterase NEGATIVE (NEGATIVE) 05/13/18 10:35 Urine RBC 2-5 /hpf (0-5) 05/13/18 10:35 Urine WBC 25-50 /hpf (0-5) H 05/13/18 10:35 Ur Epithelial Cells FEW /lpf (FEW) 05/13/18 10:35 Urine Bacteria MANY /hpf (NONE SEEN) H 05/13/18 10:35 Vancomycin Trough 24.5 ug/mL (5-10) H 05/14/18 05:20 - Physical Exam Vitals and I&O: Vital Signs Temp 99.3 F 05/15/18 16:12 Pulse 100 05/15/18 16:12 Resp 18 05/15/18 17:00 BP 150/96 05/15/18 16:12 Pulse Ox 94 05/15/18 16:12 Intake & Output 05/14/18 05/15/18 05/15/18 18:59 06:59 18:59 Intake Total 071 030 2742 Balance [phone] Weight (lbs) 130 lb 135 lb Intake: Intake, IV Amount [phone] Piperacillin Sodium/ 100 100 50 Tazobact 3.375 gm In Sodium Chloride 0.9% 50 ml @ 100 mls/hr IV Q6HR [facility] Rx#:[id number] Sodium Chloride 0.9% 1, 975 000 ml @ 150 mls/hr IV . Q6H40M [facility] Rx#:[id number] Oral 0 0 Tube Feeding 1100 Other 200 Other: # Voids 4 6 # Bowel Movements 0 2 Stool Characteristics Soft Weight Source Bedscale Bedscale Active Medications: Current Medications Acetaminophen (Tylenol 650mg/20.3ml Suspension) 650 mg GT Q4HR PRN PRN Reason: Pain or Fever >101 Stop: 07/12/18 16:33 Last Admin: 05/15/18 01:01 Dose: 650 mg Bisacodyl (Dulcolax 10 Mg Supp) 10 mg RC DAILY PRN PRN Reason: Constipation Stop: 07/12/18 16:33 Docusate Sodium (Colace) 100 mg PO DAILY [facility] Stop: 07/13/18 08:59 Last Admin: 05/15/18 08:31 Dose: 100 mg Ferrous Sulfate (Iron) 450 mg GT BID [facility] Stop: 07/12/18 16:59 Last Admin: 05/15/18 16:03 Dose: 450 mg Piperacillin Sod/Tazobactam (Sod 3.375 gm/ Sodium Chloride) 50 mls @ 100 mls/ hr IV Q6HR [facility] Stop: 07/12/18 05:59 Last Admin: 05/15/18 17:14 Dose: 100 mls/hr Sodium Chloride (Nacl 0.9%) 1,000 mls @ 150 mls/hr IV .Q6H40M [facility] Stop: 07/14/18 01:26 Last Admin: 05/15/18 08:30 Dose: 150 mls/hr Levetiracetam (Keppra) 500 mg GT BID [facility] Stop: 07/12/18 16:59 Last Admin: 05/15/18 16:03 Dose: 500 mg Lorazepam (Ativan) 1 mg IVP Q6HR PRN; Protocol PRN Reason: Anxiety Stop: 07/12/18 04:24 Last Admin: 05/14/18 00:06 Dose: 1 mg Magnesium Hydroxide (Milk Of Magnesia) 30 ml GT Q72HR PRN PRN Reason: Constipation Stop: 07/12/18 16:33 Miscellaneous (Vancomycin Iv Per Pharmacy) 1 ea MC DAILY [facility] Stop: 07/12/18 08:59 Mupirocin (Bactroban Oint) 1 appl NS BID [facility] Stop: 05/19/18 17:01 Last Admin: 05/15/18 16:10 Dose: 1 appl Sodium Phosphate (Fleet Enema) 135 ml RC Q96HR PRN PRN Reason: IF DULCOLAX INEFFECTIVE Stop: 07/12/18 16:33 Valproate Sodium (Depakene) 500 mg GT Q12H [facility]; Protocol Stop: 07/12/18 16:59 Last Admin: 05/15/18 16:04 Dose: 500 mg General: weak HEENT: NC/AT, PERRLA Neck: Supple Lungs: CTAB Abdomen: soft, non-tender, non-distended Extremities: excoriation Neurological: unable to follow command Internal Medicine Assmt/Plan - Assessment Assessment: Acute uti sepsis 2/2 above Leukocytosis Cerebral palsy MR seizure disorder - Plan Plan: continue iv vanco and zosyn am labs fall precautions continue current plan of care
[2018-05-16 06:20] LABS: ANION GAP 14.5 (7.0-16.0); CALCIUM SERUM 8.3 mg/dL (8.6-10.3); CARBON DIOXIDE 18.8 mEq/L (21.0-31.0); CREATININE - SERUM 2.4 mg/dL (0.6-1.2); GFR AFRICAN-AMERICAN 32.5 ml/min (>90); GFR NON AFRICAN-AMERICAN 26.8 ml/min; POTASSIUM SERUM 3.3 mEq/L (3.5-5.1)
[2018-05-16] MEDS ORDERED: KCL 20mEq/100mL Premix 20 MEQ/100 ML PIGGYBACK IV ONE (06:56)
[2018-05-16 07:02] LABS: HEMATOCRIT 29.9 % (41.0-60); HEMOGLOBIN 9.9 gm/dL (12-16); MEAN CORPUSCULAR HEMOGLOBIN 27.5 pg (27.0-31.0); MEAN CORPUSCULAR HGB CONC 33.1 pg (28.0-36.0); WHITE BLOOD COUNT 19.9 Th/cmm (4.8-10.8)
[2018-05-16 07:03] LABS: MEAN PLATELET VOLUME 8.6 fl; PLATELET COUNT 144 Th/cmm (150-400)
[2018-05-16 07:17] LABS: BAND NEUTROPHILE 5 % (0-10); BASOPHIL 0 % (0-3); EOSINOPHIL 0 % (0-5); LYMPHOCYTE 5 % (20-50); MONOCYTE 8 % (2-10); NEUTROPHILS 82 % (40-80)
[2018-05-16] MEDS: Ferrous Sulfate 300 MG/5 ML UDC GT SCH ×2 (11:21→17:14)
[2018-05-16] MEDS: Levetiracetam 500 mg/5mL 5mL UDSyr *for ORAL USE ONLY GT SCH ×2 (11:21→17:15)
--- NOTE | 2018-05-16 12:52 | Diagnostic Imaging Report ---
CT scan abdomen and pelvis without intravenous contrast HISTORY: Pain, abscess Total DLP equals 857 CTDI equals 21.0 Axial sections were obtained from the xiphoid process down to the pubic symphysis. Limited sections through the lower chest demonstrate the small to moderate bilateral pleural effusions. Pulmonary parenchymal changes noted within the lower lobes of the lungs consistent with atelectasis and/or consolidation. The liver exhibits a homogeneous parenchyma. No focal lesions. Gastrostomy tube is seen. The spleen appears normal. Small amount of ascites seen throughout the abdomen with somewhat more focal accumulation in the pelvis. Suboptimal delineation of the pancreatic margins. Questionable pancreatic fullness. No discrete focal lesions are seen. Pancreatitis cannot be excluded. Clinical correlation and correlation with laboratory data is needed. No abnormal soft tissue masses seen within the pelvis. IMPRESSION: 1. Limited exam due to patient motion 2. Small amount of ascites 3. Questionable pancreatic fullness. Changes associated with pancreatitis cannot be excluded. Clinical correlation and correlation with laboratory data needed. 4. Gastrostomy tube 5. Small bilateral pleural effusions along with pulmonary parenchymal changes within the lower lobes of the lungs consistent with atelectasis and/or consolidation. 6. Somewhat dilated gallbladder. Significance should be correlated clinically.
--- NOTE | 2018-05-16 14:28 | Internal Medicine Prog Note ---
Internal Medicine Subjective - Subjective Service Date: 05/16/18 Patient seen and examined:: chart reviewed Patient is:: awake, non-verbal, non-interactive, confused, other (restless) Per staff patient has:: noncompliant, confused, other (unable to comprehend commands ) Internal Medicine Objective - Results Result Diagrams: 05/16/18 05:25 05/16/18 05:25 Recent Labs: Laboratory Last Values WBC 19.9 Th/cmm (4.8-10.8) H 05/16/18 05:25 RBC 3.60 Mil/cmm (3.80-5.10) L 05/16/18 05:25 Hgb 9.9 gm/dL (12-16) L 05/16/18 05:25 Hct 29.9 % (41.0-60) L 05/16/18 05:25 MCV 83.0 fl (81-100) 05/16/18 05:25 MCH 27.5 pg (27.0-31.0) 05/16/18 05:25 MCHC Differential 33.1 pg (28.0-36.0) 05/16/18 05:25 RDW 15.0 % (11.5-20.0) 05/16/18 05:25 Plt Count 144 Th/cmm (150-400) L 05/16/18 05:25 MPV 8.6 fl 05/16/18 05:25 Add Manual Diff YES 05/16/18 05:25 Band Neutrophils % 5 % (0-10) 05/16/18 05:25 Neutrophils (Manual) 82 % (40-80) H 05/16/18 05:25 Lymphocytes 5 % (20-50) L 05/16/18 05:25 Monocytes 8 % (2-10) 05/16/18 05:25 Eosinophils 0 % (0-5) 05/16/18 05:25 Basophils 0 % (0-3) 05/16/18 05:25 Platelet Estimate ADEQUATE (NORMAL) 05/15/18 04:25 Sodium 152 mEq/L (136-145) H 05/16/18 05:25 Potassium 3.3 mEq/L (3.5-5.1) L 05/16/18 05:25 Chloride 122 mEq/L (98-107) H 05/16/18 05:25 Carbon Dioxide 18.8 mEq/L (21.0-31.0) L 05/16/18 05:25 Anion Gap 14.5 (7.0-16.0) 05/16/18 05:25 BUN 31 mg/dL (7-25) H 05/16/18 05:25 Creatinine 2.4 mg/dL (0.6-1.2) H 05/16/18 05:25 Est GFR ( Amer) 32.5 ml/min (>90) 05/16/18 05:25 Est GFR (Non-Af Amer) 26.8 ml/min 05/16/18 05:25 BUN/Creatinine Ratio 12.9 05/16/18 05:25 Glucose 102 mg/dL (70-105) 05/16/18 05:25 POC Glucose 120 MG/DL (70 - 105) H 05/15/18 16:58 Whole Bld Lactic Acid 1.61 mmol/L (0.60-1.99) 05/15/18 04:25 Calcium 8.3 mg/dL (8.6-10.3) L 05/16/18 05:25 Total Bilirubin 0.7 mg/dL (0.3-1.0) 05/14/18 05:20 AST 19 U/L (13-39) 05/14/18 05:20 ALT 4 U/L (7-52) L 05/14/18 05:20 Alkaline Phosphatase 37 U/L (34-104) 05/14/18 05:20 Total Protein 6.3 gm/dL (6.0-8.3) 05/14/18 05:20 Albumin 3.2 gm/dL (3.7-5.3) L 05/14/18 05:20 Globulin 3.1 gm/dL 05/14/18 05:20 Albumin/Globulin Ratio 1.0 (1.0-1.8) 05/14/18 05:20 Urine Source RANDOM 05/13/18 10:35 Urine Color YELLOW 05/13/18 10:35 Urine Clarity CLOUDY (CLEAR) H 05/13/18 10:35 Urine pH 5.5 (4.6 - 8.0) 05/13/18 10:35 Ur Specific [place] >= 1.030 (1.005-1.030) 05/13/18 10:35 Urine Protein 30 mg/dL (NEGATIVE) H 05/13/18 10:35 Urine Glucose (UA) NEGATIVE mg/dL (NEGATIVE) 05/13/18 10:35 Urine Ketones TRACE mg/dL (NEGATIVE) 05/13/18 10:35 Urine Blood LARGE (NEGATIVE) H 05/13/18 10:35 Urine Nitrate NEGATIVE (NEGATIVE) 05/13/18 10:35 Urine Bilirubin NEGATIVE (NEGATIVE) 05/13/18 10:35 Urine Urobilinogen 1.0 E.U./dL (0.2 - 1.0) 05/13/18 10:35 Ur Leukocyte Esterase NEGATIVE (NEGATIVE) 05/13/18 10:35 Urine RBC 2-5 /hpf (0-5) 05/13/18 10:35 Urine WBC 25-50 /hpf (0-5) H 05/13/18 10:35 Ur Epithelial Cells FEW /lpf (FEW) 05/13/18 10:35 Urine Bacteria MANY /hpf (NONE SEEN) H 05/13/18 10:35 Vancomycin Trough 42.4 ug/mL (5-10) H 05/15/18 20:00 Random Vancomycin 25.4 ug/mL (5.0-40.0) 05/16/18 05:25 - Physical Exam Vitals and I&O: Vital Signs Temp 98.7 F 05/16/18 12:00 Pulse 85 05/16/18 12:00 Resp 18 05/16/18 13:00 BP 149/97 05/16/18 12:00 Pulse Ox 93 05/16/18 12:00 Intake & Output 05/15/18 05/16/18 05/16/18 18:59 06:59 18:59 Intake Total 2375 100 Balance 2375 100 Weight (lbs) 61.235 kg 61.235 kg Intake: Intake, IV Amount 1075 100 Piperacillin Sodium/ 100 100 Tazobact 3.375 gm In Sodium Chloride 0.9% 50 ml @ 100 mls/hr IV Q6HR [facility] Rx#:[id number] Sodium Chloride 0.9% 1, 975 000 ml @ 150 mls/hr IV . Q6H40M [facility] Rx#:[id number] Oral 0 Tube Feeding 1100 Other 200 Other: # Voids 6 3 # Bowel Movements 2 1 Stool Characteristics Soft Soft Soft Weight Source Bedscale Bedscale Active Medications: Current Medications Acetaminophen (Tylenol 650mg/20.3ml Suspension) 650 mg GT Q4HR PRN PRN Reason: Pain or Fever >101 Stop: 07/12/18 16:33 Last Admin: 05/15/18 22:56 Dose: 650 mg Bisacodyl (Dulcolax 10 Mg Supp) 10 mg RC DAILY PRN PRN Reason: Constipation Stop: 07/12/18 16:33 Docusate Sodium (Colace) 100 mg PO DAILY [facility] Stop: 07/13/18 08:59 Last Admin: 05/16/18 11:22 Dose: 100 mg Ferrous Sulfate (Iron) 450 mg GT BID [facility] Stop: 07/12/18 16:59 Last Admin: 05/16/18 11:21 Dose: 450 mg Piperacillin Sod/Tazobactam (Sod 3.375 gm/ Sodium Chloride) 50 mls @ 100 mls/ hr IV Q6HR [facility] Stop: 07/12/18 05:59 Last Admin: 05/16/18 11:30 Dose: 100 mls/hr Sodium Chloride (Nacl 0.9%) 1,000 mls @ 150 mls/hr IV .Q6H40M [facility] Stop: 07/14/18 01:26 Last Admin: 05/15/18 08:30 Dose: 150 mls/hr Levetiracetam (Keppra) 500 mg GT BID [facility] Stop: 07/12/18 16:59 Last Admin: 05/16/18 11:21 Dose: 500 mg Lorazepam (Ativan) 1 mg IVP Q6HR PRN; Protocol PRN Reason: Anxiety Stop: 07/12/18 04:24 Last Admin: 05/14/18 00:06 Dose: 1 mg Magnesium Hydroxide (Milk Of Magnesia) 30 ml GT Q72HR PRN PRN Reason: Constipation Stop: 07/12/18 16:33 Miscellaneous (Vancomycin Iv Per Pharmacy) 1 ea MC DAILY [facility] Stop: 07/12/18 08:59 Mupirocin (Bactroban Oint) 1 appl NS BID [facility] Stop: 05/19/18 17:01 Last Admin: 05/16/18 08:52 Dose: 1 appl Sodium Phosphate (Fleet Enema) 135 ml RC Q96HR PRN PRN Reason: IF DULCOLAX INEFFECTIVE Stop: 07/12/18 16:33 Valproate Sodium (Depakene) 500 mg GT Q12H [facility]; Protocol Stop: 07/12/18 16:59 Last Admin: 05/16/18 05:24 Dose: Not Given General: weak HEENT: NC/AT, PERRLA Neck: Supple Lungs: CTAB Abdomen: soft, non-tender, non-distended Extremities: excoriation Neurological: unable to follow command
[2018-05-16] MEDS: Sodium Chloride 0.9% 1,000 ML IV SCH (23:40)
--- NOTE | 2018-05-17 00:56 | Infectious Disease Prog Note ---
Infectious Disease Subjective - Review of Systems Service Date: 05/16/18 Subjective: There is no new change, no fever. Infectious Disease Objective - Results Result Diagrams: 05/16/18 05:25 05/16/18 05:25 Recent Labs: Laboratory Last Values WBC 19.9 Th/cmm (4.8-10.8) H 05/16/18 05:25 RBC 3.60 Mil/cmm (3.80-5.10) L 05/16/18 05:25 Hgb 9.9 gm/dL (12-16) L 05/16/18 05:25 Hct 29.9 % (41.0-60) L 05/16/18 05:25 MCV 83.0 fl (81-100) 05/16/18 05:25 MCH 27.5 pg (27.0-31.0) 05/16/18 05:25 MCHC Differential 33.1 pg (28.0-36.0) 05/16/18 05:25 RDW 15.0 % (11.5-20.0) 05/16/18 05:25 Plt Count 144 Th/cmm (150-400) L 05/16/18 05:25 MPV 8.6 fl 05/16/18 05:25 Add Manual Diff YES 05/16/18 05:25 Band Neutrophils % 5 % (0-10) 05/16/18 05:25 Neutrophils (Manual) 82 % (40-80) H 05/16/18 05:25 Lymphocytes 5 % (20-50) L 05/16/18 05:25 Monocytes 8 % (2-10) 05/16/18 05:25 Eosinophils 0 % (0-5) 05/16/18 05:25 Basophils 0 % (0-3) 05/16/18 05:25 Platelet Estimate ADEQUATE (NORMAL) 05/15/18 04:25 Sodium 152 mEq/L (136-145) H 05/16/18 05:25 Potassium 3.3 mEq/L (3.5-5.1) L 05/16/18 05:25 Chloride 122 mEq/L (98-107) H 05/16/18 05:25 Carbon Dioxide 18.8 mEq/L (21.0-31.0) L 05/16/18 05:25 Anion Gap 14.5 (7.0-16.0) 05/16/18 05:25 BUN 31 mg/dL (7-25) H 05/16/18 05:25 Creatinine 2.4 mg/dL (0.6-1.2) H 05/16/18 05:25 Est GFR ( Amer) 32.5 ml/min (>90) 05/16/18 05:25 Est GFR (Non-Af Amer) 26.8 ml/min 05/16/18 05:25 BUN/Creatinine Ratio 12.9 05/16/18 05:25 Glucose 102 mg/dL (70-105) 05/16/18 05:25 POC Glucose 120 MG/DL (70 - 105) H 05/15/18 16:58 Whole Bld Lactic Acid 1.61 mmol/L (0.60-1.99) 05/15/18 04:25 Calcium 8.3 mg/dL (8.6-10.3) L 05/16/18 05:25 Total Bilirubin 0.7 mg/dL (0.3-1.0) 05/14/18 05:20 AST 19 U/L (13-39) 05/14/18 05:20 ALT 4 U/L (7-52) L 05/14/18 05:20 Alkaline Phosphatase 37 U/L (34-104) 05/14/18 05:20 Total Protein 6.3 gm/dL (6.0-8.3) 05/14/18 05:20 Albumin 3.2 gm/dL (3.7-5.3) L 05/14/18 05:20 Globulin 3.1 gm/dL 05/14/18 05:20 Albumin/Globulin Ratio 1.0 (1.0-1.8) 05/14/18 05:20 Urine Source RANDOM 05/13/18 10:35 Urine Color YELLOW 05/13/18 10:35 Urine Clarity CLOUDY (CLEAR) H 05/13/18 10:35 Urine pH 5.5 (4.6 - 8.0) 05/13/18 10:35 Ur Specific [place] >= 1.030 (1.005-1.030) 05/13/18 10:35 Urine Protein 30 mg/dL (NEGATIVE) H 05/13/18 10:35 Urine Glucose (UA) NEGATIVE mg/dL (NEGATIVE) 05/13/18 10:35 Urine Ketones TRACE mg/dL (NEGATIVE) 05/13/18 10:35 Urine Blood LARGE (NEGATIVE) H 05/13/18 10:35 Urine Nitrate NEGATIVE (NEGATIVE) 05/13/18 10:35 Urine Bilirubin NEGATIVE (NEGATIVE) 05/13/18 10:35 Urine Urobilinogen 1.0 E.U./dL (0.2 - 1.0) 05/13/18 10:35 Ur Leukocyte Esterase NEGATIVE (NEGATIVE) 05/13/18 10:35 Urine RBC 2-5 /hpf (0-5) 05/13/18 10:35 Urine WBC 25-50 /hpf (0-5) H 05/13/18 10:35 Ur Epithelial Cells FEW /lpf (FEW) 05/13/18 10:35 Urine Bacteria MANY /hpf (NONE SEEN) H 05/13/18 10:35 Vancomycin Trough 42.4 ug/mL (5-10) H 05/15/18 20:00 Random Vancomycin 25.4 ug/mL (5.0-40.0) 05/16/18 05:25 - Physical Exam Vitals and I&O: Vital Signs Temp 98.7 F 05/17/18 00:02 Pulse 97 05/17/18 00:02 Resp 19 05/17/18 00:02 BP 149/98 05/17/18 00:02 Pulse Ox 93 05/17/18 00:02 Intake & Output 05/16/18 05/16/18 05/17/18 06:59 18:59 06:59 Intake Total 100 100 50 Balance 100 100 50 Weight (lbs) 61.235 kg Intake: Intake, IV Amount 100 100 50 Piperacillin Sodium/ 100 100 50 Tazobact 3.375 gm In Sodium Chloride 0.9% 50 ml @ 100 mls/hr IV Q6HR [facility] Rx#:[id number] Other: # Voids 3 # Bowel Movements 1 Stool Characteristics Soft Soft Soft Weight Source Bedscale Active Medications: Current Medications Acetaminophen (Tylenol 650mg/20.3ml Suspension) 650 mg GT Q4HR PRN PRN Reason: Pain or Fever >101 Stop: 07/12/18 16:33 Last Admin: 05/15/18 22:56 Dose: 650 mg Bisacodyl (Dulcolax 10 Mg Supp) 10 mg RC DAILY PRN PRN Reason: Constipation Stop: 07/12/18 16:33 Docusate Sodium (Colace) 100 mg PO DAILY [facility] Stop: 07/13/18 08:59 Last Admin: 05/16/18 11:22 Dose: 100 mg Ferrous Sulfate (Iron) 450 mg GT BID [facility] Stop: 07/12/18 16:59 Last Admin: 05/16/18 17:14 Dose: 450 mg Piperacillin Sod/Tazobactam (Sod 3.375 gm/ Sodium Chloride) 50 mls @ 100 mls/ hr IV Q6HR [facility] Stop: 07/12/18 05:59 Last Infusion: 05/17/18 00:16 Dose: Infused Sodium Chloride (Nacl 0.9%) 1,000 mls @ 150 mls/hr IV .Q6H40M [facility] Stop: 07/14/18 01:26 Last Admin: 05/16/18 23:40 Dose: 150 mls/hr Levetiracetam (Keppra) 500 mg GT BID [facility] Stop: 07/12/18 16:59 Last Admin: 05/16/18 17:15 Dose: 500 mg Lorazepam (Ativan) 1 mg IVP Q6HR PRN; Protocol PRN Reason: Anxiety Stop: 07/12/18 04:24 Last Admin: 05/14/18 00:06 Dose: 1 mg Magnesium Hydroxide (Milk Of Magnesia) 30 ml GT Q72HR PRN PRN Reason: Constipation Stop: 07/12/18 16:33 Miscellaneous (Vancomycin Iv Per Pharmacy) 1 ea MC DAILY [facility] Stop: 07/12/18 08:59 Mupirocin (Bactroban Oint) 1 appl NS BID [facility] Stop: 05/19/18 17:01 Last Admin: 05/16/18 17:15 Dose: 1 appl Sodium Phosphate (Fleet Enema) 135 ml RC Q96HR PRN PRN Reason: IF DULCOLAX INEFFECTIVE Stop: 07/12/18 16:33 Valproate Sodium (Depakene) 500 mg GT Q12H [facility]; Protocol Stop: 07/12/18 16:59 Last Admin: 05/16/18 17:14 Dose: 500 mg General: no acute distress, well developed, well nourished HEENT: atraumatic, normocephalic, PERRLA, EOMI Neck: supple, no thyromegaly Cardiovascular: S1S2, regular Lungs: clear to auscultation bilaterally, clear to percussion Abdomen: soft, bowel sounds, no tender, no distended Extremities: no cyanosis, no clubbing, no edema Neurological: awake, alert, oriented Skin: intact Infectious Disease Assmt/Plan - Assessment Assessment: 1. Leukocytosis. 2. Sepsis with lactic acidosis. 3. UTI. 4. Tachycardia. 5. cerebral palsy. 6. mental retardation. 7. Seizure disorder. 8. JAYLIN. - Plan Plan: Continue Zosyn. CHELI hestero IV. Follow up the sepsis w/u.
[2018-05-17 05:26] LABS: HEMATOCRIT 28.5 % (41.0-60); HEMOGLOBIN 9.4 gm/dL (12-16); MEAN CELL VOLUME 82.7 fl (81-100); MEAN CORPUSCULAR HEMOGLOBIN 27.3 pg (27.0-31.0); MEAN PLATELET VOLUME 8.4 fl; RED BLOOD COUNT 3.44 Mil/cmm (3.80-5.10); RED CELL DISTRIBUTION WIDTH 15.1 % (11.5-20.0)
[2018-05-17 05:39] LABS: ANION GAP 12.9 (7.0-16.0); CALCIUM SERUM 8.3 mg/dL (8.6-10.3); CARBON DIOXIDE 18.3 mEq/L (21.0-31.0); CREATININE - SERUM 2.5 mg/dL (0.6-1.2); GFR NON AFRICAN-AMERICAN 25.6 ml/min; POTASSIUM SERUM 3.2 mEq/L (3.5-5.1)
[2018-05-17 05:43] LABS: WHITE BLOOD COUNT 17.3 Th/cmm (4.8-10.8)
[2018-05-17 07:09] LABS: BAND NEUTROPHILE 2 % (0-10); BASOPHIL 0 % (0-3); EOSINOPHIL 0 % (0-5); LYMPHOCYTE 6 % (20-50); METAMYELOCYTE 6 % (0-0); MONOCYTE 3 % (2-10); PLATELET COUNT 185 Th/cmm (150-400)
[2018-05-17 07:10] LABS: PLATELET ESTIMATE ADEQUATE (NORMAL)
[2018-05-17 08:38] LABS: NEUTROPHILS 83 % (40-80)
[2018-05-17] MEDS: Ferrous Sulfate 300 MG/5 ML UDC GT SCH ×2 (09:52→17:11)
[2018-05-17] MEDS: Levetiracetam 500 mg/5mL 5mL UDSyr *for ORAL USE ONLY GT SCH ×2 (09:52→17:11)
[2018-05-17] MEDS: Sodium Chloride 0.9% 1,000 ML IV SCH (13:55)
[2018-05-17] MEDS ORDERED: Potassium Chloride Elixir 20 mEq /15 mL UDC GT ONE (23:14)
[2018-05-17] MEDS: Sodium Chloride 0.45% 1,000 ML IV SCH (23:37)
[2018-05-18 06:35] LABS: HEMATOCRIT 28.4 % (41.0-60); HEMOGLOBIN 9.3 gm/dL (12-16); MEAN CORPUSCULAR HEMOGLOBIN 27.1 pg (27.0-31.0); MEAN CORPUSCULAR HGB CONC 32.7 pg (28.0-36.0); PLATELET COUNT 171 Th/cmm (150-400); RED BLOOD COUNT 3.42 Mil/cmm (3.80-5.10); RED CELL DISTRIBUTION WIDTH 15.3 % (11.5-20.0)
[2018-05-18 07:31] LABS: WHITE BLOOD COUNT 21.3 Th/cmm (4.8-10.8)
[2018-05-18 08:28] LABS: BAND NEUTROPHILE 4 % (0-10); BASOPHIL 0 % (0-3); EOSINOPHIL 1 % (0-5); LYMPHOCYTE 8 % (20-50); MONOCYTE 3 % (2-10); NEUTROPHILS 84 % (40-80)
[2018-05-18] MEDS: Levetiracetam 500 mg/5mL 5mL UDSyr *for ORAL USE ONLY GT SCH ×2 (09:25→17:18)
[2018-05-18] MEDS: Ferrous Sulfate 300 MG/5 ML UDC GT SCH ×2 (09:25→17:18)
[2018-05-18 09:29] LABS: ALBUMIN 2.9 gm/dL (3.7-5.3); ANION GAP 19.9 (7.0-16.0); BILIRUBIN,TOTAL 0.6 mg/dL (0.3-1.0); CALCIUM SERUM 8.4 mg/dL (8.6-10.3); CARBON DIOXIDE 13.7 mEq/L (21.0-31.0); CREATININE - SERUM 2.5 mg/dL (0.6-1.2); GFR NON AFRICAN-AMERICAN 25.6 ml/min; MAGNESIUM 2.9 mg/dL (1.9-2.7); POTASSIUM SERUM 3.6 mEq/L (3.5-5.1); TOTAL PROTEIN,SERUM 5.9 gm/dL (6.0-8.3)
[2018-05-18] MEDS: Sodium Chloride 0.45% 1,000 ML IV SCH (11:41)
[2018-05-18] MEDS ORDERED: Sodium Chloride 0.45% 1,000 ML IV SCH (13:00)
--- NOTE | 2018-05-18 13:56 | Internal Medicine Prog Note ---
Internal Medicine Subjective - Subjective Service Date: 05/18/18 Patient is:: awake, non-verbal, non-interactive, confused, other (restless) Per staff patient has:: noncompliant, confused, other (unable to comprehend commands ) Internal Medicine Objective - Results Result Diagrams: 05/18/18 05:35 05/18/18 05:35 Recent Labs: Laboratory Last Values WBC 21.3 Th/cmm (4.8-10.8) H* 05/18/18 05:35 RBC 3.42 Mil/cmm (3.80-5.10) L 05/18/18 05:35 Hgb 9.3 gm/dL (12-16) L 05/18/18 05:35 Hct 28.4 % (41.0-60) L 05/18/18 05:35 MCV 83.0 fl (81-100) 05/18/18 05:35 MCH 27.1 pg (27.0-31.0) 05/18/18 05:35 MCHC Differential 32.7 pg (28.0-36.0) 05/18/18 05:35 RDW 15.3 % (11.5-20.0) 05/18/18 05:35 Plt Count 171 Th/cmm (150-400) 05/18/18 05:35 MPV 9.0 fl 05/18/18 05:35 Add Manual Diff YES 05/18/18 05:35 Neutrophils % AUDIOVISUAL EQUIPMENT OPERATOR 05/17/18 05:00 Band Neutrophils % 4 % (0-10) 05/18/18 05:35 Lymphocytes % AUDIOVISUAL EQUIPMENT OPERATOR 05/17/18 05:00 Monocytes % AUDIOVISUAL EQUIPMENT OPERATOR 05/17/18 05:00 Eosinophils % AUDIOVISUAL EQUIPMENT OPERATOR 05/17/18 05:00 Basophils % AUDIOVISUAL EQUIPMENT OPERATOR 05/17/18 05:00 Neutrophils (Manual) 84 % (40-80) H 05/18/18 05:35 Lymphocytes 8 % (20-50) L 05/18/18 05:35 Monocytes 3 % (2-10) 05/18/18 05:35 Eosinophils 1 % (0-5) 05/18/18 05:35 Basophils 0 % (0-3) 05/18/18 05:35 Metamyelocytes 6 % (0-0) H 05/17/18 05:00 Platelet Estimate ADEQUATE (NORMAL) 05/17/18 05:00 Smear Path Review Y 05/17/18 05:00 Sodium 164 mEq/L (136-145) H* 05/18/18 05:35 Potassium 3.6 mEq/L (3.5-5.1) 05/18/18 05:35 Chloride 134 mEq/L (98-107) H 05/18/18 05:35 Carbon Dioxide 13.7 mEq/L (21.0-31.0) L 05/18/18 05:35 Anion Gap 19.9 (7.0-16.0) H 05/18/18 05:35 BUN 33 mg/dL (7-25) H 05/18/18 05:35 Creatinine 2.5 mg/dL (0.6-1.2) H 05/18/18 05:35 Est GFR ( Amer) 31.0 ml/min (>90) 05/18/18 05:35 Est GFR (Non-Af Amer) 25.6 ml/min 05/18/18 05:35 BUN/Creatinine Ratio 13.2 05/18/18 05:35 Glucose 101 mg/dL (70-105) 05/18/18 05:35 POC Glucose 120 MG/DL (70 - 105) H 05/15/18 16:58 Whole Bld Lactic Acid 1.61 mmol/L (0.60-1.99) 05/15/18 04:25 Calcium 8.4 mg/dL (8.6-10.3) L 05/18/18 05:35 Magnesium 2.9 mg/dL (1.9-2.7) H 05/18/18 05:35 Total Bilirubin 0.6 mg/dL (0.3-1.0) 05/18/18 05:35 AST 24 U/L (13-39) 05/18/18 05:35 ALT 5 U/L (7-52) L 05/18/18 05:35 Alkaline Phosphatase 96 U/L (34-104) 05/18/18 05:35 Total Protein 5.9 gm/dL (6.0-8.3) L 05/18/18 05:35 Albumin 2.9 gm/dL (3.7-5.3) L 05/18/18 05:35 Globulin 3.0 gm/dL 05/18/18 05:35 Albumin/Globulin Ratio 1.0 (1.0-1.8) 05/18/18 05:35 Urine Source RANDOM 05/13/18 10:35 Urine Color YELLOW 05/13/18 10:35 Urine Clarity CLOUDY (CLEAR) H 05/13/18 10:35 Urine pH 5.5 (4.6 - 8.0) 05/13/18 10:35 Ur Specific [place] >= 1.030 (1.005-1.030) 05/13/18 10:35 Urine Protein 30 mg/dL (NEGATIVE) H 05/13/18 10:35 Urine Glucose (UA) NEGATIVE mg/dL (NEGATIVE) 05/13/18 10:35 Urine Ketones TRACE mg/dL (NEGATIVE) 05/13/18 10:35 Urine Blood LARGE (NEGATIVE) H 05/13/18 10:35 Urine Nitrate NEGATIVE (NEGATIVE) 05/13/18 10:35 Urine Bilirubin NEGATIVE (NEGATIVE) 05/13/18 10:35 Urine Urobilinogen 1.0 E.U./dL (0.2 - 1.0) 05/13/18 10:35 Ur Leukocyte Esterase NEGATIVE (NEGATIVE) 05/13/18 10:35 Urine RBC 2-5 /hpf (0-5) 05/13/18 10:35 Urine WBC 25-50 /hpf (0-5) H 05/13/18 10:35 Ur Epithelial Cells FEW /lpf (FEW) 05/13/18 10:35 Urine Bacteria MANY /hpf (NONE SEEN) H 05/13/18 10:35 Vancomycin Trough 42.4 ug/mL (5-10) H 05/15/18 20:00 Random Vancomycin 22.3 ug/mL (5.0-40.0) 05/18/18 05:35 - Physical Exam Vitals and I&O: Vital Signs Temp 99.8 F 05/18/18 13:00 Pulse 102 05/18/18 13:00 Resp 18 05/18/18 13:00 BP 148/103 05/18/18 13:00 Pulse Ox 99 05/18/18 08:00 Intake & Output 05/17/18 05/18/18 05/18/18 18:59 06:59 18:59 Intake Total 877 026 5057 Balance 231 981 9775 Weight (lbs) 135 lb Intake: Intake, IV Amount 823 944 8793 Piperacillin Sodium/ 100 100 Tazobact 3.375 gm In Sodium Chloride 0.9% 50 ml @ 100 mls/hr IV Q6HR [facility] Rx#:[id number] Sodium Chloride 0.45% 1, 1000 000 ml @ 100 mls/hr IV . Q10H [facility] Rx#:[id number] Tube Feeding 540 Other: # Voids 2 # Bowel Movements 1 Stool Characteristics Soft Soft Soft Weight Source Bedscale Active Medications: Current Medications Acetaminophen (Tylenol 650mg/20.3ml Suspension) 650 mg GT Q4HR PRN PRN Reason: Pain or Fever >101 Stop: 07/12/18 16:33 Last Admin: 05/15/18 22:56 Dose: 650 mg Bisacodyl (Dulcolax 10 Mg Supp) 10 mg RC DAILY PRN PRN Reason: Constipation Stop: 07/12/18 16:33 Docusate Sodium (Colace) 100 mg PO DAILY [facility] Stop: 07/13/18 08:59 Last Admin: 05/18/18 09:25 Dose: 100 mg Ferrous Sulfate (Iron) 450 mg GT BID [facility] Stop: 07/12/18 16:59 Last Admin: 05/18/18 09:25 Dose: 450 mg Hydralazine HCl (Apresoline 20 Mg/Ml) 10 mg IV Q4HR PRN PRN Reason: SBP ABOVE 160 Stop: 07/17/18 11:46 Piperacillin Sod/Tazobactam (Sod 3.375 gm/ Sodium Chloride) 50 mls @ 100 mls/ hr IV Q6HR [facility] Stop: 07/12/18 05:59 Last Admin: 05/18/18 11:40 Dose: 100 mls/hr Sodium Chloride (Nacl 0.45%) 1,000 mls @ 500 mls/hr IV .Q2H [facility] Stop: 05/18/18 14:59 Last Admin: 05/18/18 12:34 Dose: 500 mls/hr Dextrose (D5w) 1,000 mls @ 100 mls/hr IV .Q10H [facility] Stop: 07/17/18 12:59 Linezolid (Zyvox) 600 mg in 300 mls @ 300 mls/hr IV Q12HR@0500,1700 [facility] Stop: 07/17/18 16:59 Levetiracetam (Keppra) 500 mg GT BID [facility] Stop: 07/12/18 16:59 Last Admin: 05/18/18 09:25 Dose: 500 mg Lorazepam (Ativan) 1 mg IVP Q6HR PRN; Protocol PRN Reason: Anxiety Stop: 07/12/18 04:24 Last Admin: 05/14/18 00:06 Dose: 1 mg Magnesium Hydroxide (Milk Of Magnesia) 30 ml GT Q72HR PRN PRN Reason: Constipation Stop: 07/12/18 16:33 Mupirocin (Bactroban Oint) 1 appl NS BID [facility] Stop: 05/19/18 17:01 Last Admin: 05/18/18 09:25 Dose: 1 appl Sodium Phosphate (Fleet Enema) 135 ml RC Q96HR PRN PRN Reason: IF DULCOLAX INEFFECTIVE Stop: 07/12/18 16:33 Valproate Sodium (Depakene) 500 mg GT Q12H [facility]; Protocol Stop: 07/12/18 16:59 Last Admin: 05/18/18 05:28 Dose: 500 mg General: weak HEENT: NC/AT, PERRLA Neck: Supple Lungs: CTAB Abdomen: soft, non-tender, non-distended Extremities: excoriation Neurological: unable to follow command Internal Medicine Assmt/Plan - Assessment Assessment: Acute uti sepsis 2/2 above Leukocytosis Cerebral palsy MR seizure disorder - Plan Plan: continue ivabx as per ID am labs fall precautions continue current plan of care
[2018-05-18] MEDS: Dextrose 5% 1,000 ML IV SCH (14:47)
[2018-05-18] MEDS ORDERED: Linezolid 600mg/300mL 600 MG/300 ML BAG IV SCH ×2 (15:00→21:00)
[2018-05-18 15:20] LABS: PaCO2 28.7 mmHg (35.0-45.0); pH 7.409 (7.35-7.45)
[2018-05-18 15:21] LABS: ALLEN TEST Positive; PaO2 60.5 mmHg (80.0-100.0)
[2018-05-18 16:02] LABS: URINE SOURCE MIDSTREAM
[2018-05-18 16:19] LABS: URINE BILIRUBIN NEGATIVE (NEGATIVE); URINE BLOOD LARGE (NEGATIVE); URINE GLUCOSE (UA) NEGATIVE (NEGATIVE); URINE KETONE NEGATIVE (NEGATIVE); URINE LEUKOCYTE ESTERASE NEGATIVE (NEGATIVE); URINE MICROSCOPIC INDICATED? YES; URINE NITRATE NEGATIVE (NEGATIVE); URINE PROTEIN 30 mg/dL (NEGATIVE); URINE UROBILINOGEN 0.2 E.U./dL (0.2 - 1.0)
[2018-05-18 17:13] LABS: URINE CLARITY HAZY (CLEAR); URINE COLOR RED
[2018-05-18 17:14] LABS: URINE BACTERIA MODERATE /hpf (NONE SEEN); URINE EPITHELIAL CELLS FEW /lpf (FEW); URINE RBC 25-50 /hpf (0-5)
[2018-05-18] MEDS: Linezolid 600mg/300mL 600 MG/300 ML BAG IV SCH (17:18)
[2018-05-18 17:59] LABS: EOSINOPHIL SMEAR SOURCE URINE; EOSINOPHILS SMEAR COUNT NONE SEEN (NONE SEEN)
--- NOTE | 2018-05-18 21:48 | Infectious Disease Prog Note ---
Infectious Disease Subjective - Review of Systems Service Date: 05/18/18 Subjective: There is no new change, no fever. Infectious Disease Objective - Results Result Diagrams: 05/18/18 05:35 05/18/18 05:35 Recent Labs: Laboratory Last Values WBC 21.3 Th/cmm (4.8-10.8) H* 05/18/18 05:35 RBC 3.42 Mil/cmm (3.80-5.10) L 05/18/18 05:35 Hgb 9.3 gm/dL (12-16) L 05/18/18 05:35 Hct 28.4 % (41.0-60) L 05/18/18 05:35 MCV 83.0 fl (81-100) 05/18/18 05:35 MCH 27.1 pg (27.0-31.0) 05/18/18 05:35 MCHC Differential 32.7 pg (28.0-36.0) 05/18/18 05:35 RDW 15.3 % (11.5-20.0) 05/18/18 05:35 Plt Count 171 Th/cmm (150-400) 05/18/18 05:35 MPV 9.0 fl 05/18/18 05:35 Add Manual Diff YES 05/18/18 05:35 Neutrophils % PAPER PROCESSING MACHINE HELPER 05/17/18 05:00 Band Neutrophils % 4 % (0-10) 05/18/18 05:35 Lymphocytes % PAPER PROCESSING MACHINE HELPER 05/17/18 05:00 Monocytes % PAPER PROCESSING MACHINE HELPER 05/17/18 05:00 Eosinophils % PAPER PROCESSING MACHINE HELPER 05/17/18 05:00 Basophils % PAPER PROCESSING MACHINE HELPER 05/17/18 05:00 Neutrophils (Manual) 84 % (40-80) H 05/18/18 05:35 Lymphocytes 8 % (20-50) L 05/18/18 05:35 Monocytes 3 % (2-10) 05/18/18 05:35 Eosinophils 1 % (0-5) 05/18/18 05:35 Basophils 0 % (0-3) 05/18/18 05:35 Metamyelocytes 6 % (0-0) H 05/17/18 05:00 Platelet Estimate ADEQUATE (NORMAL) 05/17/18 05:00 Smear Path Review Y 05/17/18 05:00 Eos Smear Source URINE 05/18/18 15:50 Eos Smear Total Cells NONE SEEN (NONE SEEN) 05/18/18 15:50 Specimen Source Arterial 05/18/18 14:48 Sample Site Right Radial 05/18/18 14:48 pH 7.409 (7.35-7.45) 05/18/18 14:48 pCO2 28.7 mmHg (35.0-45.0) L 05/18/18 14:48 pO2 60.5 mmHg (80.0-100.0) L 05/18/18 14:48 HCO3 17.7 mEq/L (20.0-26.0) L 05/18/18 14:48 Base Excess -5.4 mEq/L (-3.0-3.0) L 05/18/18 14:48 O2 Saturation 92.0 % (92.0-100.0) 05/18/18 14:48 Yoel Test Positive 05/18/18 14:48 Vent Rate NA 05/18/18 14:48 Inspired O2 21 05/18/18 14:48 Tidal Volume NA 05/18/18 14:48 PEEP NA 05/18/18 14:48 Pressure (ins/psv/peep) NA 05/18/18 14:48 Critical Value SH 05/18/18 14:48 Sodium 164 mEq/L (136-145) H* 05/18/18 05:35 Potassium 3.6 mEq/L (3.5-5.1) 05/18/18 05:35 Chloride 134 mEq/L (98-107) H 05/18/18 05:35 Carbon Dioxide 13.7 mEq/L (21.0-31.0) L 05/18/18 05:35 Anion Gap 19.9 (7.0-16.0) H 05/18/18 05:35 BUN 33 mg/dL (7-25) H 05/18/18 05:35 Creatinine 2.5 mg/dL (0.6-1.2) H 05/18/18 05:35 Est GFR ( Amer) 31.0 ml/min (>90) 05/18/18 05:35 Est GFR (Non-Af Amer) 25.6 ml/min 05/18/18 05:35 BUN/Creatinine Ratio 13.2 05/18/18 05:35 Glucose 101 mg/dL (70-105) 05/18/18 05:35 POC Glucose 120 MG/DL (70 - 105) H 05/15/18 16:58 Whole Bld Lactic Acid 0.81 mmol/L (0.60-1.99) 05/18/18 14:20 Calcium 8.4 mg/dL (8.6-10.3) L 05/18/18 05:35 Magnesium 2.9 mg/dL (1.9-2.7) H 05/18/18 05:35 Total Bilirubin 0.6 mg/dL (0.3-1.0) 05/18/18 05:35 AST 24 U/L (13-39) 05/18/18 05:35 ALT 5 U/L (7-52) L 05/18/18 05:35 Alkaline Phosphatase 96 U/L (34-104) 05/18/18 05:35 Total Protein 5.9 gm/dL (6.0-8.3) L 05/18/18 05:35 Albumin 2.9 gm/dL (3.7-5.3) L 05/18/18 05:35 Globulin 3.0 gm/dL 05/18/18 05:35 Albumin/Globulin Ratio 1.0 (1.0-1.8) 05/18/18 05:35 Urine Source MIDSTREAM 05/18/18 15:50 Urine Color RED 05/18/18 15:50 Urine Clarity HAZY (CLEAR) 05/18/18 15:50 Urine pH 6.0 (4.6 - 8.0) 05/18/18 15:50 Ur Specific [place] <= 1.005 (1.005-1.030) 05/18/18 15:50 Urine Protein 30 mg/dL (NEGATIVE) H 05/18/18 15:50 Urine Glucose (UA) NEGATIVE mg/dL (NEGATIVE) 05/18/18 15:50 Urine Ketones NEGATIVE mg/dL (NEGATIVE) 05/18/18 15:50 Urine Blood LARGE (NEGATIVE) H 05/18/18 15:50 Urine Nitrate NEGATIVE (NEGATIVE) 05/18/18 15:50 Urine Bilirubin NEGATIVE (NEGATIVE) 05/18/18 15:50 Urine Urobilinogen 0.2 E.U./dL (0.2 - 1.0) 05/18/18 15:50 Ur Leukocyte Esterase NEGATIVE (NEGATIVE) 05/18/18 15:50 Urine RBC 25-50 /hpf (0-5) H 05/18/18 15:50 Urine WBC 6-10 /hpf (0-5) H 05/18/18 15:50 Ur Epithelial Cells FEW /lpf (FEW) 05/18/18 15:50 Urine Bacteria MODERATE /hpf (NONE SEEN) H 05/18/18 15:50 Ur Random Sodium 69 mmol/L 05/18/18 15:50 Urine Creatinine 36.0 mg/dl (28.0-217.0) 05/18/18 15:50 Stool Occult Blood POSITIVE (NEGATIVE) H 05/18/18 15:50 Vancomycin Trough 42.4 ug/mL (5-10) H 05/15/18 20:00 Random Vancomycin 22.3 ug/mL (5.0-40.0) 05/18/18 05:35 - Physical Exam Vitals and I&O: Vital Signs Temp 99.4 F 05/18/18 20:00 Pulse 104 05/18/18 20:00 Resp 19 05/18/18 21:00 BP 144/98 05/18/18 20:00 Pulse Ox 99 05/18/18 20:00 Intake & Output 05/18/18 05/18/18 05/19/18 06:59 18:59 06:59 Intake Total 640 1999 50 Balance 640 1999 50 Weight (lbs) 61.235 kg 61.235 kg Intake: Intake, IV Amount 100 1050 50 Piperacillin Sodium/ 100 50 50 Tazobact 3.375 gm In Sodium Chloride 0.9% 50 ml @ 100 mls/hr IV Q6HR [facility] Rx#:[id number] Sodium Chloride 0.45% 1, 1000 000 ml @ 100 mls/hr IV . Q10H [facility] Rx#:[id number] Tube Feeding 540 650 Other 300 Other: # Voids 2 4 # Bowel Movements 1 2 Stool Characteristics Soft Soft Soft Weight Source Bedscale Bedscale Active Medications: Current Medications Acetaminophen (Tylenol 650mg/20.3ml Suspension) 650 mg GT Q4HR PRN PRN Reason: Pain or Fever >101 Stop: 07/12/18 16:33 Last Admin: 05/15/18 22:56 Dose: 650 mg Bisacodyl (Dulcolax 10 Mg Supp) 10 mg RC DAILY PRN PRN Reason: Constipation Stop: 07/12/18 16:33 Citric Acid/Sodium Citrate (Bicitra) 30 ml PO BID [facility] Stop: 07/17/18 16:59 Last Admin: 05/18/18 17:17 Dose: 30 ml Docusate Sodium (Colace) 100 mg PO DAILY [facility] Stop: 07/13/18 08:59 Last Admin: 05/18/18 09:25 Dose: 100 mg Ferrous Sulfate (Iron) 450 mg GT BID [facility] Stop: 07/12/18 16:59 Last Admin: 05/18/18 17:18 Dose: 450 mg Hydralazine HCl (Apresoline 20 Mg/Ml) 10 mg IV Q4HR PRN PRN Reason: SBP ABOVE 160 Stop: 07/17/18 11:46 Piperacillin Sod/Tazobactam (Sod 3.375 gm/ Sodium Chloride) 50 mls @ 100 mls/ hr IV Q6HR [facility] Stop: 07/12/18 05:59 Last Infusion: 05/18/18 19:37 Dose: Infused Dextrose (D5w) 1,000 mls @ 100 mls/hr IV .Q10H [facility] Stop: 07/17/18 12:59 Last Admin: 05/18/18 14:47 Dose: 100 mls/hr Linezolid (Zyvox) 600 mg in 300 mls @ 300 mls/hr IV Q12HR@0500,1700 [facility] Stop: 07/17/18 16:59 Last Admin: 05/18/18 17:18 Dose: 300 mls/hr Levetiracetam (Keppra) 500 mg GT BID [facility] Stop: 07/12/18 16:59 Last Admin: 05/18/18 17:18 Dose: 500 mg Lorazepam (Ativan) 1 mg IVP Q6HR PRN; Protocol PRN Reason: Anxiety Stop: 07/12/18 04:24 Last Admin: 05/14/18 00:06 Dose: 1 mg Magnesium Hydroxide (Milk Of Magnesia) 30 ml GT Q72HR PRN PRN Reason: Constipation Stop: 07/12/18 16:33 Metoprolol Succinate (Toprol Xl) 25 mg PO DAILY [facility] Stop: 07/17/18 14:44 Last Admin: 05/18/18 14:46 Dose: 25 mg Mupirocin (Bactroban Oint) 1 appl NS BID [facility] Stop: 05/19/18 17:01 Last Admin: 05/18/18 17:19 Dose: 1 appl Sodium Phosphate (Fleet Enema) 135 ml RC Q96HR PRN PRN Reason: IF DULCOLAX INEFFECTIVE Stop: 07/12/18 16:33 Valproate Sodium (Depakene) 500 mg GT Q12H [facility]; Protocol Stop: 07/12/18 16:59 Last Admin: 05/18/18 17:18 Dose: 500 mg General: no acute distress, other (short stature) HEENT: atraumatic, normocephalic, PERRLA Neck: supple, no thyromegaly Cardiovascular: S1S2, regular Lungs: clear to auscultation bilaterally, clear to percussion Abdomen: soft, no tender, no distended Extremities: no cyanosis, no clubbing, no edema Neurological: other (confused.) Skin: intact Infectious Disease Assmt/Plan - Assessment Assessment: 1. Leukocytosis. Sepsis 2. Lactic acidosis improved. 3. UTI. 4. Tachycardia. 5. cerebral palsy. 6. mental retardation. 7. Seizure disorder. 8. JAYLIN. 9. Pancreatitis. - Plan Plan: Continue Zosyn. start zyvox. blood cultures Follow up the sepsis w/u. check amylase and lipase.
[2018-05-19] MEDS: Dextrose 5% 1,000 ML IV SCH (01:00)
--- NOTE | 2018-05-19 04:16 | Consultation ---
DATE OF CONSULTATION: 05/18/2018 ATTENDING: Dr. Coby Kirby. HISTORY OF PRESENT ILLNESS: This is a 22-year-old female with past medical history of developmental delay, who came in because of unusual behavior. A few hours prior to admission, the patient was noted to be performing unusual behavior. Thus, she was brought to the Emergency Room. Her white count was 17.3 on admission, but increased to 23.1 after a few days. This gradually came down to 21.3 today. Her urine and blood culture x 2 were negative. However, she was also seen by Infectious Disease who started her on Zosyn as well as Zyvox. Chest x-ray showed no acute disease. CT scan of the abdomen/pelvis revealed questionable pancreatic fullness. She was admitted with a BUN/creatinine of 70/0.5 and today was up to 34/2.5. Her sodium also increased from 137 to 156. There was no nausea and vomiting nor any form of diarrhea. PAST MEDICAL HISTORY: 1. Developmental delay. 2. Severe intellectual disability. 3. Cerebral palsy. 4. Spina bifida. 5. History of convulsions. 6. Cortical blindness. CURRENT MEDICATIONS: She is currently on acetaminophen, bisacodyl, clonidine, ferrous sulfate, hydralazine, Keppra, linezolid, lorazepam, magnesium hydroxide, metoprolol, , valproic acid, Zosyn. ALLERGIES: No known drug allergies. SOCIAL AND FAMILY HISTORY: I was not able to obtain directly from the patient because she remains nonverbal. REVIEW OF SYSTEMS: Again, I was not able to decipher from the patient because of the same reason. PHYSICAL EXAMINATION: GENERAL: The patient is awake, but nonverbal, not in any distress. VITAL SIGNS: Her blood pressure is 162/103, pulse is 107, and temperature is 99.7 degrees. SKIN: Poor turgor, warm, no rash, no jaundice appreciated. HEENT: Head normocephalic, atraumatic. Eyes: Extraocular muscles intact. Pupils equal, round, reactive to light and accommodates. Anicteric sclerae. Pale conjunctivae. Nose, midline nasal septum. Mouth: Dry mucosa. Poor dentition. NECK: Supple, no adenopathy, no thyromegaly, no bruits. Trachea palpated in the midline. CHEST AND CARDIOVASCULAR: S1, S2, tachycardic, but no rub, murmur, nor gallop appreciated. Point of maximal impulse fifth intercostal space, left midclavicular line. No abdominal or femoral bruits appreciated. LUNGS: Equal expansion. No use of accessory muscles. No supraclavicular retractions. Decreased breath sounds, few rhonchi, but no rales nor wheezes appreciated. BREASTS: Symmetrical without any discharge. ABDOMEN: Globular, soft, positive for bowel sounds. No bruits either diastolic or systolic. RECTAL: Deferred. GENITOURINARY: Deferred. MUSCULOSKELETAL: No effusions present in her joints, but unable to assess her range of motion. EXTREMITIES: No evidence of any edema, cyanosis nor clubbing with palpable femoral, popliteal, and dorsalis pedis pulses. NEUROLOGIC: As mentioned, the patient is awake, but due to developmental delay unable to follow my neuro commands, so I was not able to pursue further my neuro exam. LABORATORY DATA: Did reveal sodium of 164, potassium 3.6, chloride 134, carbon dioxide of 13.7, BUN 33, creatinine 2.5, calcium 8.4, magnesium 2.9, albumin 2.9. White count 17.3, hemoglobin 9.4, hematocrit 28.5, platelets 185, polys 83%. IMPRESSION: 1. Acute kidney injury, MDRD GFR of 25.6 mL per minute. The patient has intellectual disability. Although, she has a G-tube feeding, her fluid intake may not be enough to replenish both sensible and insensible fluid losses. This was confirmed by presence of poor skin turgor, dry oral mucosa on her physical exam. Urinalysis revealed a very concentrated urine. She has prerenal azotemia, which eventually progressed to acute tubular injury. She also came in with a septic-like picture. Although her cultures are negative, she continued to be septic at this point. Thus, due to her ongoing sepsis, she could have developed acute interstitial nephritis. 2. Hyponatremia secondary to dehydration as well as saline infusions. 3. Anion gap metabolic acidosis with non-gap acidosis. 4. Severe malnutrition. 5. Leukocytosis possibly from underlying sepsis in the form of complicated UTI, but also has a concern about leukemoid reaction. The sudden changes in daily white count might be due to sepsis rather than leukemoid reaction. 6. Acute anemia, possibly lower GI bleed. 7. Essential hypertension. 8. Developmental delay. 9. Severe intellectual disability. 10. Cerebral palsy. 11. Spina bifida. 12. Convulsions. 13. Cortical blindness. PLAN: 1. Agree with changing IV fluids to D5W. 2. Urinalysis along with culture and sensitivity. 3. Urine sodium, eosinophils, and creatinine. 4. Renal ultrasound. 5. Sodium bicarbonate. 6. Stool for occult blood. 7. Electrolytes along with CBC. 8. Start the patient on metoprolol due to uncontrolled hypertension along with persistent tachycardia. 9. Start water flushes. JOB# [id number]
[2018-05-19] MEDS: Linezolid 600mg/300mL 600 MG/300 ML BAG IV SCH ×2 (04:27→17:19)
[2018-05-19 06:22] LABS: HEMATOCRIT 25.5 % (41.0-60); HEMOGLOBIN 8.4 gm/dL (12-16); MEAN CELL VOLUME 82.3 fl (81-100); MEAN CORPUSCULAR HGB CONC 32.9 pg (28.0-36.0); MEAN PLATELET VOLUME 8.4 fl; PLATELET COUNT 154 Th/cmm (150-400); RED CELL DISTRIBUTION WIDTH 15.4 % (11.5-20.0)
[2018-05-19 06:38] LABS: ANION GAP 13.9 (7.0-16.0); CARBON DIOXIDE 20.3 mEq/L (21.0-31.0); CREATININE - SERUM 2.6 mg/dL (0.6-1.2); GFR AFRICAN-AMERICAN 29.6 ml/min (>90); GFR NON AFRICAN-AMERICAN 24.5 ml/min; MAGNESIUM 2.7 mg/dL (1.9-2.7); PHOSPHOROUS 4.1 mg/dL (2.5-5.0); POTASSIUM SERUM 3.2 mEq/L (3.5-5.1); URIC ACID 6.3 mg/dL (2.3-6.6)
[2018-05-19 06:39] LABS: WHITE BLOOD COUNT 20.4 Th/cmm (4.8-10.8)
--- NOTE | 2018-05-19 07:54 | Diagnostic Imaging Report ---
Portable chest x-ray HISTORY: Leukocytosis, shortness of breath Compared with the prior exam of May 13, 2018, there is a very poor inspiration. Heart size difficult to assess. There is developed a small right pleural effusion. No focal pulmonary processes. IMPRESSION: 1. Interval development of a small right pleural effusion.
[2018-05-19 08:28] LABS: NEUTROPHILS 80 % (40-80)
[2018-05-19 08:29] LABS: BAND NEUTROPHILE 2 % (0-10); LYMPHOCYTE 8 % (20-50); MONOCYTE 10 % (2-10)
[2018-05-19] MEDS: Levetiracetam 500 mg/5mL 5mL UDSyr *for ORAL USE ONLY GT SCH ×2 (08:36→17:17)
[2018-05-19] MEDS: Ferrous Sulfate 300 MG/5 ML UDC GT SCH ×2 (08:38→17:17)
--- NOTE | 2018-05-19 12:13 | General Progress Note ---
Subjective - Review of Systems Service Date: 05/19/18 Subjective: Patient awake alert no complaints Objective - Results Result Diagrams: 05/19/18 06:11 05/19/18 06:11 Recent Labs: Laboratory Last Values WBC 20.4 Th/cmm (4.8-10.8) H* 05/19/18 06:11 RBC 3.10 Mil/cmm (3.80-5.10) L 05/19/18 06:11 Hgb 8.4 gm/dL (12-16) L 05/19/18 06:11 Hct 25.5 % (41.0-60) L 05/19/18 06:11 MCV 82.3 fl (81-100) 05/19/18 06:11 MCH 27.0 pg (27.0-31.0) 05/19/18 06:11 MCHC Differential 32.9 pg (28.0-36.0) 05/19/18 06:11 RDW 15.4 % (11.5-20.0) 05/19/18 06:11 Plt Count 154 Th/cmm (150-400) 05/19/18 06:11 MPV 8.4 fl 05/19/18 06:11 Add Manual Diff YES 05/19/18 06:11 Neutrophils % STAFF CLIMATE SCIENTIST 05/17/18 05:00 Band Neutrophils % 2 % (0-10) 05/19/18 06:11 Lymphocytes % STAFF CLIMATE SCIENTIST 05/17/18 05:00 Monocytes % STAFF CLIMATE SCIENTIST 05/17/18 05:00 Eosinophils % STAFF CLIMATE SCIENTIST 05/17/18 05:00 Basophils % STAFF CLIMATE SCIENTIST 05/17/18 05:00 Neutrophils (Manual) 80 % (40-80) 05/19/18 06:11 Lymphocytes 8 % (20-50) L 05/19/18 06:11 Monocytes 10 % (2-10) 05/19/18 06:11 Eosinophils 1 % (0-5) 05/18/18 05:35 Basophils 0 % (0-3) 05/18/18 05:35 Metamyelocytes 6 % (0-0) H 05/17/18 05:00 Platelet Estimate ADEQUATE (NORMAL) 05/17/18 05:00 Smear Path Review Y 05/17/18 05:00 Eos Smear Source URINE 05/18/18 15:50 Eos Smear Total Cells NONE SEEN (NONE SEEN) 05/18/18 15:50 Specimen Source Arterial 05/18/18 14:48 Sample Site Right Radial 05/18/18 14:48 pH 7.409 (7.35-7.45) 05/18/18 14:48 pCO2 28.7 mmHg (35.0-45.0) L 05/18/18 14:48 pO2 60.5 mmHg (80.0-100.0) L 05/18/18 14:48 HCO3 17.7 mEq/L (20.0-26.0) L 05/18/18 14:48 Base Excess -5.4 mEq/L (-3.0-3.0) L 05/18/18 14:48 O2 Saturation 92.0 % (92.0-100.0) 05/18/18 14:48 Yoel Test Positive 05/18/18 14:48 Vent Rate NA 05/18/18 14:48 Inspired O2 21 05/18/18 14:48 Tidal Volume NA 05/18/18 14:48 PEEP NA 05/18/18 14:48 Pressure (ins/psv/peep) NA 05/18/18 14:48 Critical Value SH 05/18/18 14:48 Sodium 158 mEq/L (136-145) H 05/19/18 06:11 Potassium 3.2 mEq/L (3.5-5.1) L 05/19/18 06:11 Chloride 127 mEq/L (98-107) H 05/19/18 06:11 Carbon Dioxide 20.3 mEq/L (21.0-31.0) L 05/19/18 06:11 Anion Gap 13.9 (7.0-16.0) 05/19/18 06:11 BUN 30 mg/dL (7-25) H 05/19/18 06:11 Creatinine 2.6 mg/dL (0.6-1.2) H 05/19/18 06:11 Est GFR ( Amer) 29.6 ml/min (>90) 05/19/18 06:11 Est GFR (Non-Af Amer) 24.5 ml/min 05/19/18 06:11 BUN/Creatinine Ratio 11.5 05/19/18 06:11 Glucose 139 mg/dL (70-105) H 05/19/18 06:11 POC Glucose 120 MG/DL (70 - 105) H 05/15/18 16:58 Whole Bld Lactic Acid 0.81 mmol/L (0.60-1.99) 05/18/18 14:20 Uric Acid 6.3 mg/dL (2.3-6.6) 05/19/18 06:11 Calcium 8.0 mg/dL (8.6-10.3) L 05/19/18 06:11 Phosphorus 4.1 mg/dL (2.5-5.0) 05/19/18 06:11 Magnesium 2.7 mg/dL (1.9-2.7) 05/19/18 06:11 Total Bilirubin 0.6 mg/dL (0.3-1.0) 05/18/18 05:35 AST 24 U/L (13-39) 05/18/18 05:35 ALT 5 U/L (7-52) L 05/18/18 05:35 Alkaline Phosphatase 96 U/L (34-104) 05/18/18 05:35 B-Natriuretic Peptide 404.0 pg/mL (5.0-100.0) H 05/19/18 06:11 Total Protein 5.9 gm/dL (6.0-8.3) L 05/18/18 05:35 Albumin 2.9 gm/dL (3.7-5.3) L 05/18/18 05:35 Globulin 3.0 gm/dL 05/18/18 05:35 Albumin/Globulin Ratio 1.0 (1.0-1.8) 05/18/18 05:35 Amylase 167 U/L (29-103) H 05/19/18 06:11 Lipase 364 U/L (11-82) H 05/19/18 06:11 TSH 3.59 uIU/ml (0.34-5.60) 05/19/18 06:11 Urine Source MIDSTREAM 05/18/18 15:50 Urine Color RED 05/18/18 15:50 Urine Clarity HAZY (CLEAR) 05/18/18 15:50 Urine pH 6.0 (4.6 - 8.0) 05/18/18 15:50 Ur Specific [place] <= 1.005 (1.005-1.030) 05/18/18 15:50 Urine Protein 30 mg/dL (NEGATIVE) H 05/18/18 15:50 Urine Glucose (UA) NEGATIVE mg/dL (NEGATIVE) 05/18/18 15:50 Urine Ketones NEGATIVE mg/dL (NEGATIVE) 05/18/18 15:50 Urine Blood LARGE (NEGATIVE) H 05/18/18 15:50 Urine Nitrate NEGATIVE (NEGATIVE) 05/18/18 15:50 Urine Bilirubin NEGATIVE (NEGATIVE) 05/18/18 15:50 Urine Urobilinogen 0.2 E.U./dL (0.2 - 1.0) 05/18/18 15:50 Ur Leukocyte Esterase NEGATIVE (NEGATIVE) 05/18/18 15:50 Urine RBC 25-50 /hpf (0-5) H 05/18/18 15:50 Urine WBC 6-10 /hpf (0-5) H 05/18/18 15:50 Ur Epithelial Cells FEW /lpf (FEW) 05/18/18 15:50 Urine Bacteria MODERATE /hpf (NONE SEEN) H 05/18/18 15:50 Ur Random Sodium 69 mmol/L 05/18/18 15:50 Urine Creatinine 36.0 mg/dl (28.0-217.0) 05/18/18 15:50 Stool Occult Blood POSITIVE (NEGATIVE) H 05/18/18 15:50 Vancomycin Trough 42.4 ug/mL (5-10) H 05/15/18 20:00 Random Vancomycin 11.1 ug/mL (5.0-40.0) 05/19/18 06:11 - Physical Exam Vitals and I&O: Vital Signs Temp 98.9 F 05/19/18 11:18 Pulse 97 05/19/18 11:18 Resp 18 05/19/18 11:18 BP 138/94 05/19/18 11:18 Pulse Ox 97 05/19/18 11:18 Intake & Output 05/18/18 05/19/18 05/19/18 18:59 06:59 18:59 Intake Total 2300 2510 Balance 2300 2510 Weight (lbs) 61.235 kg 61.235 kg Intake: Intake, IV Amount 1350 1450 Dextrose 5% 1,000 ml @ 1000 100 mls/hr IV .Q10H [facility] Rx#:[id number] Linezolid 600mg/300mL 600 300 300 mg In 300 ml @ 300 mls/ hr IV Q12HR@0500,1700 [facility] Rx#:[id number] Piperacillin Sodium/ 50 150 Tazobact 3.375 gm In Sodium Chloride 0.9% 50 ml @ 100 mls/hr IV Q6HR [facility] Rx#:[id number] Sodium Chloride 0.45% 1, 1000 000 ml @ 100 mls/hr IV . Q10H [facility] Rx#:[id number] Tube Feeding 650 660 Albumin 400 Other 300 Other: # Voids 4 2 # Bowel Movements 2 1 Stool Characteristics Soft Soft Soft Liquid Weight Source Bedscale Bedscale Active Medications: Current Medications Acetaminophen (Tylenol 650mg/20.3ml Suspension) 650 mg GT Q4HR PRN PRN Reason: Pain or Fever >101 Stop: 07/12/18 16:33 Last Admin: 05/19/18 02:21 Dose: 650 mg Bisacodyl (Dulcolax 10 Mg Supp) 10 mg RC DAILY PRN PRN Reason: Constipation Stop: 07/12/18 16:33 Citric Acid/Sodium Citrate (Bicitra) 30 ml PO BID [facility] Stop: 07/17/18 16:59 Last Admin: 05/19/18 11:54 Dose: 30 ml Docusate Sodium (Colace) 100 mg PO DAILY [facility] Stop: 07/13/18 08:59 Last Admin: 05/19/18 08:36 Dose: 100 mg Ferrous Sulfate (Iron) 450 mg GT BID [facility] Stop: 07/12/18 16:59 Last Admin: 05/19/18 08:38 Dose: 450 mg Hydralazine HCl (Apresoline 20 Mg/Ml) 10 mg IV Q4HR PRN PRN Reason: SBP ABOVE 160 Stop: 07/17/18 11:46 Piperacillin Sod/Tazobactam (Sod 3.375 gm/ Sodium Chloride) 50 mls @ 100 mls/ hr IV Q6HR [facility] Stop: 07/12/18 05:59 Last Admin: 05/19/18 11:54 Dose: 100 mls/hr Dextrose (D5w) 1,000 mls @ 100 mls/hr IV .Q10H [facility] Stop: 07/17/18 12:59 Last Admin: 05/19/18 01:00 Dose: 100 mls/hr Linezolid (Zyvox) 600 mg in 300 mls @ 300 mls/hr IV Q12HR@0500,1700 [facility] Stop: 07/17/18 16:59 Last Infusion: 05/19/18 05:50 Dose: Infused Levetiracetam (Keppra) 500 mg GT BID [facility] Stop: 07/12/18 16:59 Last Admin: 05/19/18 08:36 Dose: 500 mg Lorazepam (Ativan) 1 mg IVP Q6HR PRN; Protocol PRN Reason: Anxiety Stop: 07/12/18 04:24 Last Admin: 05/14/18 00:06 Dose: 1 mg Magnesium Hydroxide (Milk Of Magnesia) 30 ml GT Q72HR PRN PRN Reason: Constipation Stop: 07/12/18 16:33 Metoprolol Succinate (Toprol Xl) 25 mg PO DAILY [facility] Stop: 07/17/18 14:44 Last Admin: 05/19/18 08:36 Dose: 25 mg Mupirocin (Bactroban Oint) 1 appl NS BID [facility] Stop: 05/19/18 17:01 Last Admin: 05/19/18 08:36 Dose: 1 appl Sodium Phosphate (Fleet Enema) 135 ml RC Q96HR PRN PRN Reason: IF DULCOLAX INEFFECTIVE Stop: 07/12/18 16:33 Valproate Sodium (Depakene) 500 mg GT Q12H [facility]; Protocol Stop: 07/12/18 16:59 Last Admin: 05/19/18 05:00 Dose: 500 mg General: No acute distress HEENT: Mucous membr. 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
--- NOTE | 2018-05-19 12:26 | Internal Medicine Prog Note ---
Internal Medicine Subjective - Subjective Service Date: 05/19/18 (with diarrhea) Patient is:: awake, non-verbal, non-interactive, confused, other (restless) Per staff patient has:: noncompliant, confused, other (unable to comprehend commands ) Internal Medicine Objective - Results Result Diagrams: 05/19/18 06:11 05/19/18 06:11 Recent Labs: Laboratory Last Values WBC 20.4 Th/cmm (4.8-10.8) H* 05/19/18 06:11 RBC 3.10 Mil/cmm (3.80-5.10) L 05/19/18 06:11 Hgb 8.4 gm/dL (12-16) L 05/19/18 06:11 Hct 25.5 % (41.0-60) L 05/19/18 06:11 MCV 82.3 fl (81-100) 05/19/18 06:11 MCH 27.0 pg (27.0-31.0) 05/19/18 06:11 MCHC Differential 32.9 pg (28.0-36.0) 05/19/18 06:11 RDW 15.4 % (11.5-20.0) 05/19/18 06:11 Plt Count 154 Th/cmm (150-400) 05/19/18 06:11 MPV 8.4 fl 05/19/18 06:11 Add Manual Diff YES 05/19/18 06:11 Neutrophils % BORING AND FILLING MACHINE OPERATOR 05/17/18 05:00 Band Neutrophils % 2 % (0-10) 05/19/18 06:11 Lymphocytes % BORING AND FILLING MACHINE OPERATOR 05/17/18 05:00 Monocytes % BORING AND FILLING MACHINE OPERATOR 05/17/18 05:00 Eosinophils % BORING AND FILLING MACHINE OPERATOR 05/17/18 05:00 Basophils % BORING AND FILLING MACHINE OPERATOR 05/17/18 05:00 Neutrophils (Manual) 80 % (40-80) 05/19/18 06:11 Lymphocytes 8 % (20-50) L 05/19/18 06:11 Monocytes 10 % (2-10) 05/19/18 06:11 Eosinophils 1 % (0-5) 05/18/18 05:35 Basophils 0 % (0-3) 05/18/18 05:35 Metamyelocytes 6 % (0-0) H 05/17/18 05:00 Platelet Estimate ADEQUATE (NORMAL) 05/17/18 05:00 Smear Path Review Y 05/17/18 05:00 Eos Smear Source URINE 05/18/18 15:50 Eos Smear Total Cells NONE SEEN (NONE SEEN) 05/18/18 15:50 Specimen Source Arterial 05/18/18 14:48 Sample Site Right Radial 05/18/18 14:48 pH 7.409 (7.35-7.45) 05/18/18 14:48 pCO2 28.7 mmHg (35.0-45.0) L 05/18/18 14:48 pO2 60.5 mmHg (80.0-100.0) L 05/18/18 14:48 HCO3 17.7 mEq/L (20.0-26.0) L 05/18/18 14:48 Base Excess -5.4 mEq/L (-3.0-3.0) L 05/18/18 14:48 O2 Saturation 92.0 % (92.0-100.0) 05/18/18 14:48 Yoel Test Positive 05/18/18 14:48 Vent Rate NA 05/18/18 14:48 Inspired O2 21 05/18/18 14:48 Tidal Volume NA 05/18/18 14:48 PEEP NA 05/18/18 14:48 Pressure (ins/psv/peep) NA 05/18/18 14:48 Critical Value SH 05/18/18 14:48 Sodium 158 mEq/L (136-145) H 05/19/18 06:11 Potassium 3.2 mEq/L (3.5-5.1) L 05/19/18 06:11 Chloride 127 mEq/L (98-107) H 05/19/18 06:11 Carbon Dioxide 20.3 mEq/L (21.0-31.0) L 05/19/18 06:11 Anion Gap 13.9 (7.0-16.0) 05/19/18 06:11 BUN 30 mg/dL (7-25) H 05/19/18 06:11 Creatinine 2.6 mg/dL (0.6-1.2) H 05/19/18 06:11 Est GFR ( Amer) 29.6 ml/min (>90) 05/19/18 06:11 Est GFR (Non-Af Amer) 24.5 ml/min 05/19/18 06:11 BUN/Creatinine Ratio 11.5 05/19/18 06:11 Glucose 139 mg/dL (70-105) H 05/19/18 06:11 POC Glucose 120 MG/DL (70 - 105) H 05/15/18 16:58 Whole Bld Lactic Acid 0.81 mmol/L (0.60-1.99) 05/18/18 14:20 Uric Acid 6.3 mg/dL (2.3-6.6) 05/19/18 06:11 Calcium 8.0 mg/dL (8.6-10.3) L 05/19/18 06:11 Phosphorus 4.1 mg/dL (2.5-5.0) 05/19/18 06:11 Magnesium 2.7 mg/dL (1.9-2.7) 05/19/18 06:11 Total Bilirubin 0.6 mg/dL (0.3-1.0) 05/18/18 05:35 AST 24 U/L (13-39) 05/18/18 05:35 ALT 5 U/L (7-52) L 05/18/18 05:35 Alkaline Phosphatase 96 U/L (34-104) 05/18/18 05:35 B-Natriuretic Peptide 404.0 pg/mL (5.0-100.0) H 05/19/18 06:11 Total Protein 5.9 gm/dL (6.0-8.3) L 05/18/18 05:35 Albumin 2.9 gm/dL (3.7-5.3) L 05/18/18 05:35 Globulin 3.0 gm/dL 05/18/18 05:35 Albumin/Globulin Ratio 1.0 (1.0-1.8) 05/18/18 05:35 Amylase 167 U/L (29-103) H 05/19/18 06:11 Lipase 364 U/L (11-82) H 05/19/18 06:11 TSH 3.59 uIU/ml (0.34-5.60) 05/19/18 06:11 Urine Source MIDSTREAM 05/18/18 15:50 Urine Color RED 05/18/18 15:50 Urine Clarity HAZY (CLEAR) 05/18/18 15:50 Urine pH 6.0 (4.6 - 8.0) 05/18/18 15:50 Ur Specific [place] <= 1.005 (1.005-1.030) 05/18/18 15:50 Urine Protein 30 mg/dL (NEGATIVE) H 05/18/18 15:50 Urine Glucose (UA) NEGATIVE mg/dL (NEGATIVE) 05/18/18 15:50 Urine Ketones NEGATIVE mg/dL (NEGATIVE) 05/18/18 15:50 Urine Blood LARGE (NEGATIVE) H 05/18/18 15:50 Urine Nitrate NEGATIVE (NEGATIVE) 05/18/18 15:50 Urine Bilirubin NEGATIVE (NEGATIVE) 05/18/18 15:50 Urine Urobilinogen 0.2 E.U./dL (0.2 - 1.0) 05/18/18 15:50 Ur Leukocyte Esterase NEGATIVE (NEGATIVE) 05/18/18 15:50 Urine RBC 25-50 /hpf (0-5) H 05/18/18 15:50 Urine WBC 6-10 /hpf (0-5) H 05/18/18 15:50 Ur Epithelial Cells FEW /lpf (FEW) 05/18/18 15:50 Urine Bacteria MODERATE /hpf (NONE SEEN) H 05/18/18 15:50 Ur Random Sodium 69 mmol/L 05/18/18 15:50 Urine Creatinine 36.0 mg/dl (28.0-217.0) 05/18/18 15:50 Stool Occult Blood POSITIVE (NEGATIVE) H 05/18/18 15:50 Vancomycin Trough 42.4 ug/mL (5-10) H 05/15/18 20:00 Random Vancomycin 11.1 ug/mL (5.0-40.0) 05/19/18 06:11 - Physical Exam Vitals and I&O: Vital Signs Temp 98.9 F 05/19/18 11:18 Pulse 97 05/19/18 11:18 Resp 18 05/19/18 11:18 BP 138/94 05/19/18 11:18 Pulse Ox 97 05/19/18 11:18 Intake & Output 05/18/18 05/19/18 05/19/18 18:59 06:59 18:59 Intake Total 2300 2510 Balance 2300 2510 Weight (lbs) 135 lb 135 lb Intake: Intake, IV Amount 1350 1450 Dextrose 5% 1,000 ml @ 1000 100 mls/hr IV .Q10H [facility] Rx#:[id number] Linezolid 600mg/300mL 600 300 300 mg In 300 ml @ 300 mls/ hr IV Q12HR@0500,1700 [facility] Rx#:[id number] Piperacillin Sodium/ 50 150 Tazobact 3.375 gm In Sodium Chloride 0.9% 50 ml @ 100 mls/hr IV Q6HR [facility] Rx#:[id number] Sodium Chloride 0.45% 1, 1000 000 ml @ 100 mls/hr IV . Q10H [facility] Rx#:[id number] Tube Feeding 650 660 Albumin 400 Other 300 Other: # Voids 4 2 # Bowel Movements 2 1 Stool Characteristics Soft Soft Soft Liquid Weight Source Bedscale Bedscale Active Medications: Current Medications Acetaminophen (Tylenol 650mg/20.3ml Suspension) 650 mg GT Q4HR PRN PRN Reason: Pain or Fever >101 Stop: 07/12/18 16:33 Last Admin: 05/19/18 02:21 Dose: 650 mg Bisacodyl (Dulcolax 10 Mg Supp) 10 mg RC DAILY PRN PRN Reason: Constipation Stop: 07/12/18 16:33 Citric Acid/Sodium Citrate (Bicitra) 30 ml PO BID [facility] Stop: 07/17/18 16:59 Last Admin: 05/19/18 11:54 Dose: 30 ml Docusate Sodium (Colace) 100 mg PO DAILY [facility] Stop: 07/13/18 08:59 Last Admin: 05/19/18 08:36 Dose: 100 mg Ferrous Sulfate (Iron) 450 mg GT BID [facility] Stop: 07/12/18 16:59 Last Admin: 05/19/18 08:38 Dose: 450 mg Hydralazine HCl (Apresoline 20 Mg/Ml) 10 mg IV Q4HR PRN PRN Reason: SBP ABOVE 160 Stop: 07/17/18 11:46 Piperacillin Sod/Tazobactam (Sod 3.375 gm/ Sodium Chloride) 50 mls @ 100 mls/ hr IV Q6HR [facility] Stop: 07/12/18 05:59 Last Admin: 05/19/18 11:54 Dose: 100 mls/hr Dextrose (D5w) 1,000 mls @ 100 mls/hr IV .Q10H [facility] Stop: 07/17/18 12:59 Last Admin: 05/19/18 01:00 Dose: 100 mls/hr Linezolid (Zyvox) 600 mg in 300 mls @ 300 mls/hr IV Q12HR@0500,1700 [facility] Stop: 07/17/18 16:59 Last Infusion: 05/19/18 05:50 Dose: Infused Levetiracetam (Keppra) 500 mg GT BID [facility] Stop: 07/12/18 16:59 Last Admin: 05/19/18 08:36 Dose: 500 mg Lorazepam (Ativan) 1 mg IVP Q6HR PRN; Protocol PRN Reason: Anxiety Stop: 07/12/18 04:24 Last Admin: 05/14/18 00:06 Dose: 1 mg Magnesium Hydroxide (Milk Of Magnesia) 30 ml GT Q72HR PRN PRN Reason: Constipation Stop: 07/12/18 16:33 Metoprolol Succinate (Toprol Xl) 25 mg PO DAILY [facility] Stop: 07/17/18 14:44 Last Admin: 05/19/18 08:36 Dose: 25 mg Mupirocin (Bactroban Oint) 1 appl NS BID [facility] Stop: 05/19/18 17:01 Last Admin: 05/19/18 08:36 Dose: 1 appl Sodium Phosphate (Fleet Enema) 135 ml RC Q96HR PRN PRN Reason: IF DULCOLAX INEFFECTIVE Stop: 07/12/18 16:33 Valproate Sodium (Depakene) 500 mg GT Q12H [facility]; Protocol Stop: 07/12/18 16:59 Last Admin: 05/19/18 05:00 Dose: 500 mg General: weak HEENT: NC/AT, PERRLA Neck: Supple Lungs: CTAB Abdomen: soft, non-tender, non-distended Extremities: excoriation Neurological: unable to follow command Internal Medicine Assmt/Plan - Assessment Assessment: Acute uti sepsis 2/2 above Leukocytosis Cerebral palsy MR seizure disorder - Plan Plan: continue ivabx as per ID am labs fall precautions continue current plan of care
[2018-05-19] MEDS ORDERED: Potassium Chloride 20 mEq ER Tab PO ONE (12:27)
--- NOTE | 2018-05-19 13:15 | Diagnostic Imaging Report ---
Renal ultrasound HISTORY: Abnormal renal function test The right kidney is normal in size (10.9 x 6.7 x 6.7 cm). No focal lesions. No hydronephrosis. The left kidney is normal in size (11.8 x 6.7 x 6.2 cm). No focal lesions. No hydronephrosis. No intraluminal abnormality seen within an incompletely distended urinary bladder. IMPRESSION: Negative examination
--- NOTE | 2018-05-19 13:42 | General Progress Note ---
Subjective - Review of Systems Service Date: 05/19/18 Subjective: aleeping, comfortable Objective - Results Result Diagrams: 05/19/18 06:11 05/19/18 06:11 Recent Labs: Laboratory Last Values WBC 20.4 Th/cmm (4.8-10.8) H* 05/19/18 06:11 RBC 3.10 Mil/cmm (3.80-5.10) L 05/19/18 06:11 Hgb 8.4 gm/dL (12-16) L 05/19/18 06:11 Hct 25.5 % (41.0-60) L 05/19/18 06:11 MCV 82.3 fl (81-100) 05/19/18 06:11 MCH 27.0 pg (27.0-31.0) 05/19/18 06:11 MCHC Differential 32.9 pg (28.0-36.0) 05/19/18 06:11 RDW 15.4 % (11.5-20.0) 05/19/18 06:11 Plt Count 154 Th/cmm (150-400) 05/19/18 06:11 MPV 8.4 fl 05/19/18 06:11 Add Manual Diff YES 05/19/18 06:11 Neutrophils % [employer] 05/17/18 05:00 Band Neutrophils % 2 % (0-10) 05/19/18 06:11 Lymphocytes % [employer] 05/17/18 05:00 Monocytes % [employer] 05/17/18 05:00 Eosinophils % [employer] 05/17/18 05:00 Basophils % [employer] 05/17/18 05:00 Neutrophils (Manual) 80 % (40-80) 05/19/18 06:11 Lymphocytes 8 % (20-50) L 05/19/18 06:11 Monocytes 10 % (2-10) 05/19/18 06:11 Eosinophils 1 % (0-5) 05/18/18 05:35 Basophils 0 % (0-3) 05/18/18 05:35 Metamyelocytes 6 % (0-0) H 05/17/18 05:00 Platelet Estimate ADEQUATE (NORMAL) 05/17/18 05:00 Smear Path Review Y 05/17/18 05:00 Eos Smear Source URINE 05/18/18 15:50 Eos Smear Total Cells NONE SEEN (NONE SEEN) 05/18/18 15:50 Specimen Source Arterial 05/18/18 14:48 Sample Site Right Radial 05/18/18 14:48 pH 7.409 (7.35-7.45) 05/18/18 14:48 pCO2 28.7 mmHg (35.0-45.0) L 05/18/18 14:48 pO2 60.5 mmHg (80.0-100.0) L 05/18/18 14:48 HCO3 17.7 mEq/L (20.0-26.0) L 05/18/18 14:48 Base Excess -5.4 mEq/L (-3.0-3.0) L 05/18/18 14:48 O2 Saturation 92.0 % (92.0-100.0) 05/18/18 14:48 Yoel Test Positive 05/18/18 14:48 Vent Rate NA 05/18/18 14:48 Inspired O2 21 05/18/18 14:48 Tidal Volume NA 05/18/18 14:48 PEEP NA 05/18/18 14:48 Pressure (ins/psv/peep) NA 05/18/18 14:48 Critical Value SH 05/18/18 14:48 Sodium 158 mEq/L (136-145) H 05/19/18 06:11 Potassium 3.2 mEq/L (3.5-5.1) L 05/19/18 06:11 Chloride 127 mEq/L (98-107) H 05/19/18 06:11 Carbon Dioxide 20.3 mEq/L (21.0-31.0) L 05/19/18 06:11 Anion Gap 13.9 (7.0-16.0) 05/19/18 06:11 BUN 30 mg/dL (7-25) H 05/19/18 06:11 Creatinine 2.6 mg/dL (0.6-1.2) H 05/19/18 06:11 Est GFR ( Amer) 29.6 ml/min (>90) 05/19/18 06:11 Est GFR (Non-Af Amer) 24.5 ml/min 05/19/18 06:11 BUN/Creatinine Ratio 11.5 05/19/18 06:11 Glucose 139 mg/dL (70-105) H 05/19/18 06:11 POC Glucose 120 MG/DL (70 - 105) H 05/15/18 16:58 Whole Bld Lactic Acid 0.81 mmol/L (0.60-1.99) 05/18/18 14:20 Uric Acid 6.3 mg/dL (2.3-6.6) 05/19/18 06:11 Calcium 8.0 mg/dL (8.6-10.3) L 05/19/18 06:11 Phosphorus 4.1 mg/dL (2.5-5.0) 05/19/18 06:11 Magnesium 2.7 mg/dL (1.9-2.7) 05/19/18 06:11 Total Bilirubin 0.6 mg/dL (0.3-1.0) 05/18/18 05:35 AST 24 U/L (13-39) 05/18/18 05:35 ALT 5 U/L (7-52) L 05/18/18 05:35 Alkaline Phosphatase 96 U/L (34-104) 05/18/18 05:35 B-Natriuretic Peptide 404.0 pg/mL (5.0-100.0) H 05/19/18 06:11 Total Protein 5.9 gm/dL (6.0-8.3) L 05/18/18 05:35 Albumin 2.9 gm/dL (3.7-5.3) L 05/18/18 05:35 Globulin 3.0 gm/dL 05/18/18 05:35 Albumin/Globulin Ratio 1.0 (1.0-1.8) 05/18/18 05:35 Amylase 167 U/L (29-103) H 05/19/18 06:11 Lipase 364 U/L (11-82) H 05/19/18 06:11 TSH 3.59 uIU/ml (0.34-5.60) 05/19/18 06:11 Urine Source MIDSTREAM 05/18/18 15:50 Urine Color RED 05/18/18 15:50 Urine Clarity HAZY (CLEAR) 05/18/18 15:50 Urine pH 6.0 (4.6 - 8.0) 05/18/18 15:50 Ur Specific Kerrick <= 1.005 (1.005-1.030) 05/18/18 15:50 Urine Protein 30 mg/dL (NEGATIVE) H 05/18/18 15:50 Urine Glucose (UA) NEGATIVE mg/dL (NEGATIVE) 05/18/18 15:50 Urine Ketones NEGATIVE mg/dL (NEGATIVE) 05/18/18 15:50 Urine Blood LARGE (NEGATIVE) H 05/18/18 15:50 Urine Nitrate NEGATIVE (NEGATIVE) 05/18/18 15:50 Urine Bilirubin NEGATIVE (NEGATIVE) 05/18/18 15:50 Urine Urobilinogen 0.2 E.U./dL (0.2 - 1.0) 05/18/18 15:50 Ur Leukocyte Esterase NEGATIVE (NEGATIVE) 05/18/18 15:50 Urine RBC 25-50 /hpf (0-5) H 05/18/18 15:50 Urine WBC 6-10 /hpf (0-5) H 05/18/18 15:50 Ur Epithelial Cells FEW /lpf (FEW) 05/18/18 15:50 Urine Bacteria MODERATE /hpf (NONE SEEN) H 05/18/18 15:50 Ur Random Sodium 69 mmol/L 05/18/18 15:50 Urine Creatinine 36.0 mg/dl (28.0-217.0) 05/18/18 15:50 Stool Occult Blood POSITIVE (NEGATIVE) H 05/18/18 15:50 Vancomycin Trough 42.4 ug/mL (5-10) H 05/15/18 20:00 Random Vancomycin 11.1 ug/mL (5.0-40.0) 05/19/18 06:11 - Physical Exam Vitals and I&O: Vital Signs Temp 98.9 F 05/19/18 11:18 Pulse 97 05/19/18 11:18 Resp 18 05/19/18 13:00 BP 138/94 05/19/18 11:18 Pulse Ox 97 05/19/18 11:18 Intake & Output 05/18/18 05/19/18 05/19/18 18:59 06:59 18:59 Intake Total 2300 2510 Balance 2300 2510 Weight (lbs) 61.235 kg 61.235 kg Intake: Intake, IV Amount 1350 1450 Dextrose 5% 1,000 ml @ 1000 100 mls/hr IV .Q10H [facility] Rx#:[id number] Linezolid 600mg/300mL 600 300 300 mg In 300 ml @ 300 mls/ hr IV Q12HR@0500,1700 [facility] Rx#:[id number] Piperacillin Sodium/ 50 150 Tazobact 3.375 gm In Sodium Chloride 0.9% 50 ml @ 100 mls/hr IV Q6HR [facility] Rx#:[id number] Sodium Chloride 0.45% 1, 1000 000 ml @ 100 mls/hr IV . Q10H [facility] Rx#:[id number] Tube Feeding 650 660 Albumin 400 Other 300 Other: # Voids 4 2 # Bowel Movements 2 1 Stool Characteristics Soft Soft Soft Liquid Weight Source Bedscale Bedscale Active Medications: Current Medications Acetaminophen (Tylenol 650mg/20.3ml Suspension) 650 mg GT Q4HR PRN PRN Reason: Pain or Fever >101 Stop: 07/12/18 16:33 Last Admin: 05/19/18 02:21 Dose: 650 mg Bisacodyl (Dulcolax 10 Mg Supp) 10 mg RC DAILY PRN PRN Reason: Constipation Stop: 07/12/18 16:33 Citric Acid/Sodium Citrate (Bicitra) 30 ml PO BID [facility] Stop: 07/17/18 16:59 Last Admin: 05/19/18 11:54 Dose: 30 ml Docusate Sodium (Colace) 100 mg PO DAILY [facility] Stop: 07/13/18 08:59 Last Admin: 05/19/18 08:36 Dose: 100 mg Epoetin Vern (Epogen) 5,000 units SUBQ MoWeFr [facility] Stop: 07/18/18 13:44 Ferrous Sulfate (Iron) 450 mg GT BID [facility] Stop: 07/12/18 16:59 Last Admin: 05/19/18 08:38 Dose: 450 mg Hydralazine HCl (Apresoline 20 Mg/Ml) 10 mg IV Q4HR PRN PRN Reason: SBP ABOVE 160 Stop: 07/17/18 11:46 Piperacillin Sod/Tazobactam (Sod 3.375 gm/ Sodium Chloride) 50 mls @ 100 mls/ hr IV Q6HR [facility] Stop: 07/12/18 05:59 Last Admin: 05/19/18 11:54 Dose: 100 mls/hr Dextrose (D5w) 1,000 mls @ 100 mls/hr IV .Q10H [facility] Stop: 07/17/18 12:59 Last Admin: 05/19/18 01:00 Dose: 100 mls/hr Linezolid (Zyvox) 600 mg in 300 mls @ 300 mls/hr IV Q12HR@0500,1700 [facility] Stop: 07/17/18 16:59 Last Infusion: 05/19/18 05:50 Dose: Infused Levetiracetam (Keppra) 500 mg GT BID [facility] Stop: 07/12/18 16:59 Last Admin: 05/19/18 08:36 Dose: 500 mg Lorazepam (Ativan) 1 mg IVP Q6HR PRN; Protocol PRN Reason: Anxiety Stop: 07/12/18 04:24 Last Admin: 05/14/18 00:06 Dose: 1 mg Magnesium Hydroxide (Milk Of Magnesia) 30 ml GT Q72HR PRN PRN Reason: Constipation Stop: 07/12/18 16:33 Metoprolol Succinate (Toprol Xl) 25 mg PO DAILY [facility] Stop: 07/17/18 14:44 Last Admin: 05/19/18 08:36 Dose: 25 mg Mupirocin (Bactroban Oint) 1 appl NS BID [facility] Stop: 05/19/18 17:01 Last Admin: 05/19/18 08:36 Dose: 1 appl Potassium Chloride (Klor-Con) 20 meq PO DAILY [facility] Stop: 07/18/18 13:44 Sodium Phosphate (Fleet Enema) 135 ml RC Q96HR PRN PRN Reason: IF DULCOLAX INEFFECTIVE Stop: 07/12/18 16:33 Valproate Sodium (Depakene) 500 mg GT Q12H [facility]; Protocol Stop: 07/12/18 16:59 Last Admin: 05/19/18 05:00 Dose: 500 mg General: No acute distress HEENT: Atraumatic, Mucous membr. moist/pink Neck: Supple, JVD, +2 carotid pulse wo bruit (flat) Cardiovascular: Regular rate, Normal S1, Normal S2 Lungs: Clear to auscultation, Normal air movement Abdomen: Bowel sounds, Soft, Other (G-tube in place) Extremities: Pulses (normal) Neurological: Normal tone, Sensation intact, Reflexes 2+ Skin: Rash Psych/Mental Status: Mood NL Assessment/Plan - Assessment Assessment: JAYLIN Hypernatremia 2/2 dehydration Severe Malnutrition Leukocytosis possible LGI Bleed Ess Htn Dev Delay Cerebral Palsy Int. Disability - Plan Plan: Lab - Result Diagrams 05/19/18 06:11 05/19/18 06:11 Current Medications Acetaminophen (Tylenol 650mg/20.3ml Suspension) 650 mg GT Q4HR PRN PRN Reason: Pain or Fever >101 Stop: 07/12/18 16:33 Last Admin: 05/19/18 02:21 Dose: 650 mg Bisacodyl (Dulcolax 10 Mg Supp) 10 mg RC DAILY PRN PRN Reason: Constipation Stop: 07/12/18 16:33 Citric Acid/Sodium Citrate (Bicitra) 30 ml PO BID [facility] Stop: 07/17/18 16:59 Last Admin: 05/19/18 11:54 Dose: 30 ml Docusate Sodium (Colace) 100 mg PO DAILY [facility] Stop: 07/13/18 08:59 Last Admin: 05/19/18 08:36 Dose: 100 mg Epoetin Vern (Epogen) 5,000 units SUBQ MoWeFr [facility] Stop: 07/18/18 13:44 Ferrous Sulfate (Iron) 450 mg GT BID [facility] Stop: 07/12/18 16:59 Last Admin: 05/19/18 08:38 Dose: 450 mg Hydralazine HCl (Apresoline 20 Mg/Ml) 10 mg IV Q4HR PRN PRN Reason: SBP ABOVE 160 Stop: 07/17/18 11:46 Piperacillin Sod/Tazobactam (Sod 3.375 gm/ Sodium Chloride) 50 mls @ 100 mls/ hr IV Q6HR [facility] Stop: 07/12/18 05:59 Last Admin: 05/19/18 11:54 Dose: 100 mls/hr Dextrose (D5w) 1,000 mls @ 100 mls/hr IV .Q10H [facility] Stop: 07/17/18 12:59 Last Admin: 05/19/18 01:00 Dose: 100 mls/hr Linezolid (Zyvox) 600 mg in 300 mls @ 300 mls/hr IV Q12HR@0500,1700 [facility] Stop: 07/17/18 16:59 Last Infusion: 05/19/18 05:50 Dose: Infused Levetiracetam (Keppra) 500 mg GT BID [facility] Stop: 07/12/18 16:59 Last Admin: 05/19/18 08:36 Dose: 500 mg Lorazepam (Ativan) 1 mg IVP Q6HR PRN; Protocol PRN Reason: Anxiety Stop: 07/12/18 04:24 Last Admin: 05/14/18 00:06 Dose: 1 mg Magnesium Hydroxide (Milk Of Magnesia) 30 ml GT Q72HR PRN PRN Reason: Constipation Stop: 07/12/18 16:33 Metoprolol Succinate (Toprol Xl) 25 mg PO DAILY [facility] Stop: 07/17/18 14:44 Last Admin: 05/19/18 08:36 Dose: 25 mg Mupirocin (Bactroban Oint) 1 appl NS BID [facility] Stop: 05/19/18 17:01 Last Admin: 05/19/18 08:36 Dose: 1 appl Potassium Chloride (Klor-Con) 20 meq PO DAILY [facility] Stop: 07/18/18 13:44 Sodium Phosphate (Fleet Enema) 135 ml RC Q96HR PRN PRN Reason: IF DULCOLAX INEFFECTIVE Stop: 07/12/18 16:33 Valproate Sodium (Depakene) 500 mg GT Q12H [facility]; Protocol Stop: 07/12/18 16:59 Last Admin: 05/19/18 05:00 Dose: 500 mg Lab - Result Diagrams 05/19/18 06:11 05/19/18 06:11 Kidney fnc basically the same w/ BUN/CR of 30/2.6 FE Na 3.15% suggestive of intrinc renal involvement Na down to 158 continue water flushes, IVF replace K, start Epoen WBC stable @ 20.4 f/u electrolytes, cbc
[2018-05-19] MEDS ORDERED: Potassium Chloride 20 mEq ER Tab PO SCH (13:45)
[2018-05-19] MEDS: Epoetin Alfa 20000 Units/mL Vial SUBQ SCH (14:21)
--- NOTE | 2018-05-19 22:43 | Consultation ---
DATE OF CONSULTATION: 05/19/2018 INPATIENT GASTROINTESTINAL CONSULTATION CONSULTING PHYSICIAN: Dr. Kirby. REASON FOR CONSULTATION: Fecal occult blood positive stool, anemia. HISTORY OF PRESENT ILLNESS: The patient is a 22-year-old female with past medical history significant for cerebral palsy, severe developmental delay, dysphagia, G-tube dependent, seizure history, who was admitted to the hospital with fevers, leukocytosis, and now found to have fecal occult blood positive stool. The history is obtained almost entirely from the chart and the nursing staff as the patient is nonverbal. Apparently, the patient was admitted on 05/13/2018. At that point, she was noted to possibly be having vaginal bleeding and was exhibiting behaviors of putting her hands down in the vaginal area and come back with blood. Since that time, she has been found to have urinary tract infections, fevers and leukocytosis, and an ID consult has been placed and this patient is on antibiotic therapy. Additionally, her hemoglobin has been in the 8 to 9 range and a fecal occult blood was sent and comes back positive that is why GI consult was placed. There has been no overt GI bleeding, no melena, hematochezia, or hematemesis. Of note, the patient has a G-tube, which she is totally dependent on for feeding. PAST MEDICAL HISTORY: Cerebral palsy, developmental delay, seizure disorder, spina bifida. PAST SURGICAL HISTORY: Placement of a G-tube in the past. FAMILY HISTORY: Noncontributory. SOCIAL HISTORY: The patient is a permanent resident of the nursing facility. No other illicit drugs or alcoholism noted. ALLERGIES: No known drug allergies. REVIEW OF SYSTEMS: Not possible given the patient is not able to participate in the interview. CURRENT MEDICATIONS: Include Tylenol, Dulcolax, Bicitra, IV fluid, Colace, iron, Keppra, linezolid, Ativan, milk of magnesia, metoprolol, Zosyn, Depakote. PHYSICAL EXAMINATION: VITAL SIGNS: The blood pressure is 155/95, pulse 107 beats per minute, temperature 98.0, respiratory rate of 20, oxygenation 96% on 2 liters. GENERAL: The patient is lying in her back. She has 2-point restraints. Not in any acute distress. HEAD, EARS, EYES, NOSE AND THROAT: Normocephalic, atraumatic-appearing head. Pupils appear to be equal and reactive. Extraocular muscles are intact, although she does not track voluntarily. Oral mucous membranes are normal. NECK: Supple. No obvious JVD or thyromegaly. CHEST: There is some crackles bilaterally at the bases. CARDIOVASCULAR: S1, S2 are present, tachycardic. ABDOMEN: Soft and nontender to palpation. No guarding, rebound or fluid distention. EXTREMITIES: There is 1+ pitting edema bilaterally. Pulses are not present. SKIN: There is no obvious jaundice. LABORATORY DATA: White blood cell count 20.4, hemoglobin is 8.4, platelet count is 154. Sodium 158, BUN 30, creatinine 2.6, total bilirubin 0.6, AST 24, ALT 5. Lipase is 362. Occult blood is positive. IMAGING: Abdomen and pelvis CT scan was performed without contrast and this showed small amount of ascites, questionable pancreatic fullness, gastrostomy tube, dilated gallbladder. IMPRESSION: This is a 22-year-old female with history of cerebral palsy, developmental delay, seizure disorder, spina bifida, dysphagia with gastric tube, was admitted to the hospital with leukocytosis, fevers, anemia, possible vaginal bleeding. 1. Cerebral palsy. 2. Developmental delay. 3. Seizure disorder. 4. Spina bifida. 5. Anemia. 6. Dysphagia with a gastric tube. 7. Sepsis. 8. Acute kidney injury versus chronic kidney injury. 9. Hypernatremia. DISCUSSION: In terms of the patient's fecal occult blood test, I doubt this is reflecting an acute GI bleed. The patient is on iron and this could certainly cause test to be positive. Her anemia is very much multifactorial and likely has a strong component of chronic disease as well as acute kidney insufficiency. She is currently admitted with sepsis and leukocytosis and I do think performing upper or lower endoscopies in her best interest in the absence of acute GI bleeding, which would manifest itself overtly. Additionally, there is some history of vaginal bleeding as well, which could certainly also affect the fecal occult blood testing. In terms of the imaging findings of pancreatic fullness, I do not think she has a pancreatitis as she does not have any overt abdominal pain and her lipase is normal. Her gallbladder was bit distended, although her LFTs are normal without any right-sided upper quadrant pain, but I think these are incidental findings. RECOMMENDATIONS: 1. No plan for EGD or colonoscopy without any sign of overt GI bleeding in this debilitated patient. I think the risk outweighs any benefit in this setting. 2. Continue management of the patient's sepsis with antibiotics and ID consultation. 3. IV fluids and continue G-tube feeding, given she still is hypernatremic. Appreciate Nephrology recommendation. 4. I would not get any further fecal occult blood testing as this will surely be positive in the setting of iron use. 5. Trend hemoglobin. If there is overt bleeding in the form of hematochezia, melena or hematemesis, we will then revisit the idea of endoscopy while she is here. Thank you for allowing me to participate in this patient's care. Please call with any further questions. JOB# [id number]
--- NOTE | 2018-05-19 23:03 | Consultation ---
DATE OF CONSULTATION: 05/19/[address] Kirby. HISTORY OF PRESENT ILLNESS: This is a 22-year-old female patient who was brought to the hospital because the patient was found to have unusual behavior. The patient had elevated white count and hence, the patient is admitted. Cardiac consult is requested in view of hypertension. PAST MEDICAL HISTORY: Hyponatremia, iron-deficiency anemia, hypertension, mental retardation, Down syndrome, cerebral palsy, spina bifida, convulsions, cortical blindness, and acute renal failure. FAMILY HISTORY: Unremarkable. SOCIAL HISTORY: No history of smoking, alcohol abuse. ALLERGIES: No known allergies. PHYSICAL EXAMINATION: VITAL SIGNS: Blood pressure 160/80, pulse 70, and respirations 20. HEAD: Normocephalic. No lumps or bumps. EYES: Pupils equal, reactive to light. Fundi show AV nicking, sclerae white, conjunctivae pink. NECK: Carotid 2+. Normal upstroke. JVD flat. Thyroid not palpable. Lymph nodes not palpable. CHEST: Shows increased AP diameter. No kyphosis, scoliosis. LUNGS: Bilateral bronchovesicular breath sounds. Occasional wheeze. No rales. HEART: PMI fifth intercostal space with lateral to midclavicular line. S1, S2, S3, S4, soft systolic murmur. ABDOMEN: Soft. Liver, spleen not palpable. No organomegaly. Bowel sounds active. NEUROLOGIC: Cerebral palsy. EXTREMITIES: Peripheral pulses 1+. No pedal edema. CLINICAL IMPRESSION: Acute renal failure, hypertension, hyponatremia, iron deficiency anemia, mental retardation, Down syndrome, cerebral palsy, spina bifida, convulsions, cortical blindness, acute renal failure, and G-tube with protein calorie malnutrition. PLAN: The patient to continue present medication, IV antibiotics. Control the blood pressure. [facility]# [id number]
[2018-05-20] MEDS: Linezolid 600mg/300mL 600 MG/300 ML BAG IV SCH ×2 (05:46→16:51)
[2018-05-20] MEDS: Dextrose 5% 1,000 ML IV SCH (05:48)
[2018-05-20 06:17] LABS: HEMATOCRIT 25.5 % (41.0-60); HEMOGLOBIN 8.4 gm/dL (12-16); MEAN CELL VOLUME 82.7 fl (81-100); MEAN CORPUSCULAR HEMOGLOBIN 27.1 pg (27.0-31.0); MEAN CORPUSCULAR HGB CONC 32.7 pg (28.0-36.0); MEAN PLATELET VOLUME 8.5 fl; PLATELET COUNT 142 Th/cmm (150-400); RED BLOOD COUNT 3.08 Mil/cmm (3.80-5.10); RED CELL DISTRIBUTION WIDTH 15.5 % (11.5-20.0)
[2018-05-20 06:33] LABS: ANION GAP 14.1 (7.0-16.0); CALCIUM SERUM 8.3 mg/dL (8.6-10.3); CARBON DIOXIDE 23.2 mEq/L (21.0-31.0); CREATININE - SERUM 2.5 mg/dL (0.6-1.2); GFR NON AFRICAN-AMERICAN 25.6 ml/min; POTASSIUM SERUM 3.3 mEq/L (3.5-5.1)
[2018-05-20 07:51] LABS: BAND NEUTROPHILE 5 % (0-10); BASOPHIL 0 % (0-3); EOSINOPHIL 1 % (0-5); LYMPHOCYTE 9 % (20-50); MONOCYTE 5 % (2-10); NEUTROPHILS 80 % (40-80)
[2018-05-20] MEDS: Levetiracetam 500 mg/5mL 5mL UDSyr *for ORAL USE ONLY GT SCH ×2 (09:10→16:52)
[2018-05-20] MEDS: Potassium Chloride 20 mEq ER Tab PO SCH (09:10)
[2018-05-20] MEDS: Ferrous Sulfate 300 MG/5 ML UDC GT SCH ×2 (09:11→16:51)
--- NOTE | 2018-05-20 09:40 | GI Progress Note ---
Subjective - Review of Systems Service Date: 05/20/18 Subjective: RN reporting brown profuse diarrhea. No blood Objective - Results Result Diagrams: 05/20/18 05:30 05/20/18 05:30 Recent Labs: Laboratory Last Values WBC 20.0 Th/cmm (4.8-10.8) H 05/20/18 05:30 RBC 3.08 Mil/cmm (3.80-5.10) L 05/20/18 05:30 Hgb 8.4 gm/dL (12-16) L 05/20/18 05:30 Hct 25.5 % (41.0-60) L 05/20/18 05:30 MCV 82.7 fl (81-100) 05/20/18 05:30 MCH 27.1 pg (27.0-31.0) 05/20/18 05:30 MCHC Differential 32.7 pg (28.0-36.0) 05/20/18 05:30 RDW 15.5 % (11.5-20.0) 05/20/18 05:30 Plt Count 142 Th/cmm (150-400) L 05/20/18 05:30 MPV 8.5 fl 05/20/18 05:30 Add Manual Diff YES 05/20/18 05:30 Neutrophils % REMNANT SORTER 05/17/18 05:00 Band Neutrophils % 5 % (0-10) 05/20/18 05:30 Lymphocytes % REMNANT SORTER 05/17/18 05:00 Monocytes % REMNANT SORTER 05/17/18 05:00 Eosinophils % REMNANT SORTER 05/17/18 05:00 Basophils % REMNANT SORTER 05/17/18 05:00 Neutrophils (Manual) 80 % (40-80) 05/20/18 05:30 Lymphocytes 9 % (20-50) L 05/20/18 05:30 Monocytes 5 % (2-10) 05/20/18 05:30 Eosinophils 1 % (0-5) 05/20/18 05:30 Basophils 0 % (0-3) 05/20/18 05:30 Metamyelocytes 6 % (0-0) H 05/17/18 05:00 Platelet Estimate ADEQUATE (NORMAL) 05/17/18 05:00 Smear Path Review Y 05/17/18 05:00 Eos Smear Source URINE 05/18/18 15:50 Eos Smear Total Cells NONE SEEN (NONE SEEN) 05/18/18 15:50 Specimen Source Arterial 05/18/18 14:48 Sample Site Right Radial 05/18/18 14:48 pH 7.409 (7.35-7.45) 05/18/18 14:48 pCO2 28.7 mmHg (35.0-45.0) L 05/18/18 14:48 pO2 60.5 mmHg (80.0-100.0) L 05/18/18 14:48 HCO3 17.7 mEq/L (20.0-26.0) L 05/18/18 14:48 Base Excess -5.4 mEq/L (-3.0-3.0) L 05/18/18 14:48 O2 Saturation 92.0 % (92.0-100.0) 05/18/18 14:48 Yoel Test Positive 05/18/18 14:48 Vent Rate NA 05/18/18 14:48 Inspired O2 21 05/18/18 14:48 Tidal Volume NA 05/18/18 14:48 PEEP NA 05/18/18 14:48 Pressure (ins/psv/peep) NA 05/18/18 14:48 Critical Value SH 05/18/18 14:48 Sodium 157 mEq/L (136-145) H 05/20/18 05:30 Potassium 3.3 mEq/L (3.5-5.1) L 05/20/18 05:30 Chloride 123 mEq/L (98-107) H 05/20/18 05:30 Carbon Dioxide 23.2 mEq/L (21.0-31.0) 05/20/18 05:30 Anion Gap 14.1 (7.0-16.0) 05/20/18 05:30 BUN 27 mg/dL (7-25) H 05/20/18 05:30 Creatinine 2.5 mg/dL (0.6-1.2) H 05/20/18 05:30 Est GFR ( Amer) 31.0 ml/min (>90) 05/20/18 05:30 Est GFR (Non-Af Amer) 25.6 ml/min 05/20/18 05:30 BUN/Creatinine Ratio 10.8 05/20/18 05:30 Glucose 105 mg/dL (70-105) 05/20/18 05:30 POC Glucose 120 MG/DL (70 - 105) H 05/15/18 16:58 Whole Bld Lactic Acid 0.81 mmol/L (0.60-1.99) 05/18/18 14:20 Uric Acid 6.3 mg/dL (2.3-6.6) 05/19/18 06:11 Calcium 8.3 mg/dL (8.6-10.3) L 05/20/18 05:30 Phosphorus 4.1 mg/dL (2.5-5.0) 05/19/18 06:11 Magnesium 2.7 mg/dL (1.9-2.7) 05/19/18 06:11 Total Bilirubin 0.6 mg/dL (0.3-1.0) 05/18/18 05:35 AST 24 U/L (13-39) 05/18/18 05:35 ALT 5 U/L (7-52) L 05/18/18 05:35 Alkaline Phosphatase 96 U/L (34-104) 05/18/18 05:35 B-Natriuretic Peptide 404.0 pg/mL (5.0-100.0) H 05/19/18 06:11 Total Protein 5.9 gm/dL (6.0-8.3) L 05/18/18 05:35 Albumin 2.9 gm/dL (3.7-5.3) L 05/18/18 05:35 Globulin 3.0 gm/dL 05/18/18 05:35 Albumin/Globulin Ratio 1.0 (1.0-1.8) 05/18/18 05:35 Amylase 167 U/L (29-103) H 05/19/18 06:11 Lipase 364 U/L (11-82) H 05/19/18 06:11 TSH 3.59 uIU/ml (0.34-5.60) 05/19/18 06:11 Urine Source MIDSTREAM 05/18/18 15:50 Urine Color RED 05/18/18 15:50 Urine Clarity HAZY (CLEAR) 05/18/18 15:50 Urine pH 6.0 (4.6 - 8.0) 05/18/18 15:50 Ur Specific [place] <= 1.005 (1.005-1.030) 05/18/18 15:50 Urine Protein 30 mg/dL (NEGATIVE) H 05/18/18 15:50 Urine Glucose (UA) NEGATIVE mg/dL (NEGATIVE) 05/18/18 15:50 Urine Ketones NEGATIVE mg/dL (NEGATIVE) 05/18/18 15:50 Urine Blood LARGE (NEGATIVE) H 05/18/18 15:50 Urine Nitrate NEGATIVE (NEGATIVE) 05/18/18 15:50 Urine Bilirubin NEGATIVE (NEGATIVE) 05/18/18 15:50 Urine Urobilinogen 0.2 E.U./dL (0.2 - 1.0) 05/18/18 15:50 Ur Leukocyte Esterase NEGATIVE (NEGATIVE) 05/18/18 15:50 Urine RBC 25-50 /hpf (0-5) H 05/18/18 15:50 Urine WBC 6-10 /hpf (0-5) H 05/18/18 15:50 Ur Epithelial Cells FEW /lpf (FEW) 05/18/18 15:50 Urine Bacteria MODERATE /hpf (NONE SEEN) H 05/18/18 15:50 Urine Osmolality 171 mOsmol/kg 05/18/18 15:50 Ur Random Sodium 69 mmol/L 05/18/18 15:50 Urine Creatinine 36.0 mg/dl (28.0-217.0) 05/18/18 15:50 Stool Occult Blood POSITIVE (NEGATIVE) H 05/19/18 14:30 Vancomycin Trough 42.4 ug/mL (5-10) H 05/15/18 20:00 Random Vancomycin 11.1 ug/mL (5.0-40.0) 05/19/18 06:11 - Physical Exam Vitals and I&O: Vital Signs Temp 99.2 F 05/20/18 07:52 Pulse 98 05/20/18 09:10 Resp 18 05/20/18 07:52 BP 132/101 05/20/18 09:10 Pulse Ox 96 05/20/18 07:52 Intake & Output 05/19/18 05/20/18 05/20/18 18:59 06:59 18:59 Intake Total 1350 100 Balance 1350 100 Weight (lbs) 61.235 kg Intake: Intake, IV Amount 1350 100 Dextrose 5% 1,000 ml @ 1000 100 mls/hr IV .Q10H [facility] Rx#:[id number] Linezolid 600mg/300mL 600 300 mg In 300 ml @ 300 mls/ hr IV Q12HR@0500,1700 [facility] Rx#:[id number] Piperacillin Sodium/ 50 100 Tazobact 3.375 gm In Sodium Chloride 0.9% 50 ml @ 100 mls/hr IV Q6HR [facility] Rx#:[id number] Other: # Voids 3 # Bowel Movements 1 Stool Characteristics Soft Soft Liquid Liquid Weight Source Bedscale Active Medications: Current Medications Acetaminophen (Tylenol 650mg/20.3ml Suspension) 650 mg GT Q4HR PRN PRN Reason: Pain or Fever >101 Stop: 07/12/18 16:33 Last Admin: 05/19/18 23:26 Dose: 650 mg Bisacodyl (Dulcolax 10 Mg Supp) 10 mg RC DAILY PRN PRN Reason: Constipation Stop: 07/12/18 16:33 Citric Acid/Sodium Citrate (Bicitra) 30 ml PO BID [facility] Stop: 07/17/18 16:59 Last Admin: 05/20/18 09:09 Dose: 30 ml Docusate Sodium (Colace) 100 mg PO DAILY [facility] Stop: 07/13/18 08:59 Last Admin: 05/20/18 09:04 Dose: Not Given Epoetin Vern (Epogen) 5,000 units SUBQ MoWeFr [facility] Stop: 07/18/18 14:59 Last Admin: 05/19/18 14:21 Dose: 5,000 units Ferrous Sulfate (Iron) 450 mg GT BID [facility] Stop: 07/12/18 16:59 Last Admin: 05/20/18 09:11 Dose: 450 mg Hydralazine HCl (Apresoline 20 Mg/Ml) 10 mg IV Q4HR PRN PRN Reason: SBP ABOVE 160 Stop: 07/17/18 11:46 Piperacillin Sod/Tazobactam (Sod 3.375 gm/ Sodium Chloride) 50 mls @ 100 mls/ hr IV Q6HR [facility] Stop: 07/12/18 05:59 Last Admin: 05/20/18 06:51 Dose: 100 mls/hr Dextrose (D5w) 1,000 mls @ 100 mls/hr IV .Q10H [facility] Stop: 07/17/18 12:59 Last Admin: 05/20/18 05:48 Dose: 100 mls/hr Linezolid (Zyvox) 600 mg in 300 mls @ 300 mls/hr IV Q12HR@0500,1700 [facility] Stop: 07/17/18 16:59 Last Admin: 05/20/18 05:46 Dose: 300 mls/hr Levetiracetam (Keppra) 500 mg GT BID [facility] Stop: 07/12/18 16:59 Last Admin: 05/20/18 09:10 Dose: 500 mg Lorazepam (Ativan) 1 mg IVP Q6HR PRN; Protocol PRN Reason: Anxiety Stop: 07/12/18 04:24 Last Admin: 05/20/18 02:52 Dose: 1 mg Magnesium Hydroxide (Milk Of Magnesia) 30 ml GT Q72HR PRN PRN Reason: Constipation Stop: 07/12/18 16:33 Metoprolol Succinate (Toprol Xl) 25 mg PO DAILY [facility] Stop: 07/17/18 14:44 Last Admin: 05/20/18 09:10 Dose: 25 mg Potassium Chloride (Klor-Con) 20 meq PO DAILY [facility] Stop: 07/19/18 08:59 Last Admin: 05/20/18 09:10 Dose: 20 meq Sodium Phosphate (Fleet Enema) 135 ml RC Q96HR PRN PRN Reason: IF DULCOLAX INEFFECTIVE Stop: 07/12/18 16:33 Valproate Sodium (Depakene) 500 mg GT Q12H [facility]; Protocol Stop: 07/12/18 16:59 Last Admin: 05/20/18 05:45 Dose: 500 mg General: No acute distress HEENT: Atraumatic, Mucous membr. moist/pink Neck: Supple, JVD Cardiovascular: Regular rate Lungs: Clear to auscultation, Normal air movement Abdomen: Bowel sounds, Soft, Other (G-tube in place), no Tender, no Hepatomegaly , no Splenomegaly, no Distended, no Rebound, no Mass Extremities: Pulses (normal) Neurological: Normal tone, Sensation intact, Reflexes 2+ Skin: Rash Assessment/Plan - Assessment Assessment: # Anemia # Cerebral palsy # Dysphagia with G tube # Diarrhea # Leukocytosis Acute GI bleed is not suspected given the brown color of her stool. Would advise against using FOB testing as this is notoriously falsely positive for a litany of reasons, one of which being chronic iron therapy. She is having diarrhea, and CDiff should be ruled out given leukocytosis. Plan: - forego endoscopy unless she has overt bleeding - send CDiff from stool - cont tube feeding - sepsis mgmt as per ID
[2018-05-20] MEDS ORDERED: Potassium Chloride 20 mEq ER Tab PO ONE (11:19)
--- NOTE | 2018-05-20 11:19 | General Progress Note ---
Subjective - Review of Systems Service Date: 05/20/18 Subjective: Patient awake alert no complaints Patient has diarrhea Objective - Results Result Diagrams: 05/20/18 05:30 05/20/18 05:30 Recent Labs: Laboratory Last Values WBC 20.0 Th/cmm (4.8-10.8) H 05/20/18 05:30 RBC 3.08 Mil/cmm (3.80-5.10) L 05/20/18 05:30 Hgb 8.4 gm/dL (12-16) L 05/20/18 05:30 Hct 25.5 % (41.0-60) L 05/20/18 05:30 MCV 82.7 fl (81-100) 05/20/18 05:30 MCH 27.1 pg (27.0-31.0) 05/20/18 05:30 MCHC Differential 32.7 pg (28.0-36.0) 05/20/18 05:30 RDW 15.5 % (11.5-20.0) 05/20/18 05:30 Plt Count 142 Th/cmm (150-400) L 05/20/18 05:30 MPV 8.5 fl 05/20/18 05:30 Add Manual Diff YES 05/20/18 05:30 Neutrophils % [employer]INE [employer] OPERATOR 05/17/18 05:00 Band Neutrophils % 5 % (0-10) 05/20/18 05:30 Lymphocytes % [employer] OPERATOR 05/17/18 05:00 Monocytes % [employer] OPERATOR 05/17/18 05:00 Eosinophils % [employer] OPERATOR 05/17/18 05:00 Basophils % [employer] OPER[employer] 05/17/18 05:00 Neutrophils (Manual) 80 % (40-80) 05/20/18 05:30 Lymphocytes 9 % (20-50) L 05/20/18 05:30 Monocytes 5 % (2-10) 05/20/18 05:30 Eosinophils 1 % (0-5) 05/20/18 05:30 Basophils 0 % (0-3) 05/20/18 05:30 Metamyelocytes 6 % (0-0) H 05/17/18 05:00 Platelet Estimate ADEQUATE (NORMAL) 05/17/18 05:00 Smear Path Review Y 05/17/18 05:00 Eos Smear Source URINE 05/18/18 15:50 Eos Smear Total Cells NONE SEEN (NONE SEEN) 05/18/18 15:50 Specimen Source Arterial 05/18/18 14:48 Sample Site Right Radial 05/18/18 14:48 pH 7.409 (7.35-7.45) 05/18/18 14:48 pCO2 28.7 mmHg (35.0-45.0) L 05/18/18 14:48 pO2 60.5 mmHg (80.0-100.0) L 05/18/18 14:48 HCO3 17.7 mEq/L (20.0-26.0) L 05/18/18 14:48 Base Excess -5.4 mEq/L (-3.0-3.0) L 05/18/18 14:48 O2 Saturation 92.0 % (92.0-100.0) 05/18/18 14:48 Yoel Test Positive 05/18/18 14:48 Vent Rate NA 05/18/18 14:48 Inspired O2 21 05/18/18 14:48 Tidal Volume NA 05/18/18 14:48 PEEP NA 05/18/18 14:48 Pressure (ins/psv/peep) NA 05/18/18 14:48 Critical Value SH 05/18/18 14:48 Sodium 157 mEq/L (136-145) H 05/20/18 05:30 Potassium 3.3 mEq/L (3.5-5.1) L 05/20/18 05:30 Chloride 123 mEq/L (98-107) H 05/20/18 05:30 Carbon Dioxide 23.2 mEq/L (21.0-31.0) 05/20/18 05:30 Anion Gap 14.1 (7.0-16.0) 05/20/18 05:30 BUN 27 mg/dL (7-25) H 05/20/18 05:30 Creatinine 2.5 mg/dL (0.6-1.2) H 05/20/18 05:30 Est GFR ( Amer) 31.0 ml/min (>90) 05/20/18 05:30 Est GFR (Non-Af Amer) 25.6 ml/min 05/20/18 05:30 BUN/Creatinine Ratio 10.8 05/20/18 05:30 Glucose 105 mg/dL (70-105) 05/20/18 05:30 POC Glucose 120 MG/DL (70 - 105) H 05/15/18 16:58 Whole Bld Lactic Acid 0.81 mmol/L (0.60-1.99) 05/18/18 14:20 Uric Acid 6.3 mg/dL (2.3-6.6) 05/19/18 06:11 Calcium 8.3 mg/dL (8.6-10.3) L 05/20/18 05:30 Phosphorus 4.1 mg/dL (2.5-5.0) 05/19/18 06:11 Magnesium 2.7 mg/dL (1.9-2.7) 05/19/18 06:11 Total Bilirubin 0.6 mg/dL (0.3-1.0) 05/18/18 05:35 AST 24 U/L (13-39) 05/18/18 05:35 ALT 5 U/L (7-52) L 05/18/18 05:35 Alkaline Phosphatase 96 U/L (34-104) 05/18/18 05:35 B-Natriuretic Peptide 404.0 pg/mL (5.0-100.0) H 05/19/18 06:11 Total Protein 5.9 gm/dL (6.0-8.3) L 05/18/18 05:35 Albumin 2.9 gm/dL (3.7-5.3) L 05/18/18 05:35 Globulin 3.0 gm/dL 05/18/18 05:35 Albumin/Globulin Ratio 1.0 (1.0-1.8) 05/18/18 05:35 Amylase 167 U/L (29-103) H 05/19/18 06:11 Lipase 364 U/L (11-82) H 05/19/18 06:11 TSH 3.59 uIU/ml (0.34-5.60) 05/19/18 06:11 Urine Source MIDSTREAM 05/18/18 15:50 Urine Color RED 05/18/18 15:50 Urine Clarity HAZY (CLEAR) 05/18/18 15:50 Urine pH 6.0 (4.6 - 8.0) 05/18/18 15:50 Ur Specific [place] <= 1.005 (1.005-1.030) 05/18/18 15:50 Urine Protein 30 mg/dL (NEGATIVE) H 05/18/18 15:50 Urine Glucose (UA) NEGATIVE mg/dL (NEGATIVE) 05/18/18 15:50 Urine Ketones NEGATIVE mg/dL (NEGATIVE) 05/18/18 15:50 Urine Blood LARGE (NEGATIVE) H 05/18/18 15:50 Urine Nitrate NEGATIVE (NEGATIVE) 05/18/18 15:50 Urine Bilirubin NEGATIVE (NEGATIVE) 05/18/18 15:50 Urine Urobilinogen 0.2 E.U./dL (0.2 - 1.0) 05/18/18 15:50 Ur Leukocyte Esterase NEGATIVE (NEGATIVE) 05/18/18 15:50 Urine RBC 25-50 /hpf (0-5) H 05/18/18 15:50 Urine WBC 6-10 /hpf (0-5) H 05/18/18 15:50 Ur Epithelial Cells FEW /lpf (FEW) 05/18/18 15:50 Urine Bacteria MODERATE /hpf (NONE SEEN) H 05/18/18 15:50 Urine Osmolality 171 mOsmol/kg 05/18/18 15:50 Ur Random Sodium 69 mmol/L 05/18/18 15:50 Urine Creatinine 36.0 mg/dl (28.0-217.0) 05/18/18 15:50 Stool Occult Blood POSITIVE (NEGATIVE) H 05/20/18 10:20 Vancomycin Trough 42.4 ug/mL (5-10) H 05/15/18 20:00 Random Vancomycin 11.1 ug/mL (5.0-40.0) 05/19/18 06:11 - Physical Exam Vitals and I&O: Vital Signs Temp 99.2 F 05/20/18 07:52 Pulse 98 05/20/18 09:10 Resp 18 05/20/18 07:52 BP 132/101 05/20/18 09:10 Pulse Ox 96 05/20/18 07:52 Intake & Output 05/19/18 05/20/18 05/20/18 18:59 06:59 18:59 Intake Total 1350 100 Balance 1350 100 Weight (lbs) 61.235 kg Intake: Intake, IV Amount 1350 100 Dextrose 5% 1,000 ml @ 1000 100 mls/hr IV .Q10H [facility] Rx#:[id number] Linezolid 600mg/300mL 600 300 mg In 300 ml @ 300 mls/ hr IV Q12HR@0500,1700 [facility] Rx#:[id number] Piperacillin Sodium/ 50 100 Tazobact 3.375 gm In Sodium Chloride 0.9% 50 ml @ 100 mls/hr IV Q6HR [facility] Rx#:[id number] Other: # Voids 3 # Bowel Movements 1 Stool Characteristics Soft Soft Liquid Liquid Weight Source Bedscale Active Medications: Current Medications Acetaminophen (Tylenol 650mg/20.3ml Suspension) 650 mg GT Q4HR PRN PRN Reason: Pain or Fever >101 Stop: 07/12/18 16:33 Last Admin: 05/19/18 23:26 Dose: 650 mg Bisacodyl (Dulcolax 10 Mg Supp) 10 mg RC DAILY PRN PRN Reason: Constipation Stop: 07/12/18 16:33 Citric Acid/Sodium Citrate (Bicitra) 30 ml PO BID [facility] Stop: 07/17/18 16:59 Last Admin: 05/20/18 09:09 Dose: 30 ml Docusate Sodium (Colace) 100 mg PO DAILY [facility] Stop: 07/13/18 08:59 Last Admin: 05/20/18 09:04 Dose: Not Given Epoetin Vern (Epogen) 5,000 units SUBQ MoWeFr [facility] Stop: 07/18/18 14:59 Last Admin: 05/19/18 14:21 Dose: 5,000 units Ferrous Sulfate (Iron) 450 mg GT BID [facility] Stop: 07/12/18 16:59 Last Admin: 05/20/18 09:11 Dose: 450 mg Hydralazine HCl (Apresoline 20 Mg/Ml) 10 mg IV Q4HR PRN PRN Reason: SBP ABOVE 160 Stop: 07/17/18 11:46 Piperacillin Sod/Tazobactam (Sod 3.375 gm/ Sodium Chloride) 50 mls @ 100 mls/ hr IV Q6HR [facility] Stop: 07/12/18 05:59 Last Admin: 05/20/18 06:51 Dose: 100 mls/hr Dextrose (D5w) 1,000 mls @ 100 mls/hr IV .Q10H [facility] Stop: 07/17/18 12:59 Last Admin: 05/20/18 05:48 Dose: 100 mls/hr Linezolid (Zyvox) 600 mg in 300 mls @ 300 mls/hr IV Q12HR@0500,1700 [facility] Stop: 07/17/18 16:59 Last Admin: 05/20/18 05:46 Dose: 300 mls/hr Levetiracetam (Keppra) 500 mg GT BID [facility] Stop: 07/12/18 16:59 Last Admin: 05/20/18 09:10 Dose: 500 mg Lorazepam (Ativan) 1 mg IVP Q6HR PRN; Protocol PRN Reason: Anxiety Stop: 07/12/18 04:24 Last Admin: 05/20/18 02:52 Dose: 1 mg Magnesium Hydroxide (Milk Of Magnesia) 30 ml GT Q72HR PRN PRN Reason: Constipation Stop: 07/12/18 16:33 Metoprolol Succinate (Toprol Xl) 25 mg PO DAILY [facility] Stop: 07/17/18 14:44 Last Admin: 05/20/18 09:10 Dose: 25 mg Potassium Chloride (Klor-Con) 20 meq PO DAILY [facility] Stop: 07/19/18 08:59 Last Admin: 05/20/18 09:10 Dose: 20 meq Sodium Phosphate (Fleet Enema) 135 ml RC Q96HR PRN PRN Reason: IF DULCOLAX INEFFECTIVE Stop: 07/12/18 16:33 Valproate Sodium (Depakene) 500 mg GT Q12H [facility]; Protocol Stop: 07/12/18 16:59 Last Admin: 05/20/18 05:45 Dose: 500 mg General: No acute distress HEENT: Atraumatic, Mucous membr. 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 difficile colitis Hypokalemia - Plan Plan: Continue present management continue IV antibiotics controlled blood pressure Stool for C. difficile colitis potassium supplement
--- NOTE | 2018-05-20 18:38 | General Progress Note ---
Subjective - Review of Systems Service Date: 05/20/18 Subjective: sleeping, comfortable Objective - Results Result Diagrams: 05/20/18 05:30 05/20/18 05:30 Recent Labs: Laboratory Last Values WBC 20.0 Th/cmm (4.8-10.8) H 05/20/18 05:30 RBC 3.08 Mil/cmm (3.80-5.10) L 05/20/18 05:30 Hgb 8.4 gm/dL (12-16) L 05/20/18 05:30 Hct 25.5 % (41.0-60) L 05/20/18 05:30 MCV 82.7 fl (81-100) 05/20/18 05:30 MCH 27.1 pg (27.0-31.0) 05/20/18 05:30 MCHC Differential 32.7 pg (28.0-36.0) 05/20/18 05:30 RDW 15.5 % (11.5-20.0) 05/20/18 05:30 Plt Count 142 Th/cmm (150-400) L 05/20/18 05:30 MPV 8.5 fl 05/20/18 05:30 Add Manual Diff YES 05/20/18 05:30 Neutrophils % CERAMIC CAPACITOR PROCESSOR 05/17/18 05:00 Band Neutrophils % 5 % (0-10) 05/20/18 05:30 Lymphocytes % CERAMIC CAPACITOR PROCESSOR 05/17/18 05:00 Monocytes % CERAMIC CAPACITOR PROCESSOR 05/17/18 05:00 Eosinophils % CERAMIC CAPACITOR PROCESSOR 05/17/18 05:00 Basophils % CERAMIC CAPACITOR PROCESSOR 05/17/18 05:00 Neutrophils (Manual) 80 % (40-80) 05/20/18 05:30 Lymphocytes 9 % (20-50) L 05/20/18 05:30 Monocytes 5 % (2-10) 05/20/18 05:30 Eosinophils 1 % (0-5) 05/20/18 05:30 Basophils 0 % (0-3) 05/20/18 05:30 Metamyelocytes 6 % (0-0) H 05/17/18 05:00 Platelet Estimate ADEQUATE (NORMAL) 05/17/18 05:00 Smear Path Review Y 05/17/18 05:00 Eos Smear Source URINE 05/18/18 15:50 Eos Smear Total Cells NONE SEEN (NONE SEEN) 05/18/18 15:50 Specimen Source Arterial 05/18/18 14:48 Sample Site Right Radial 05/18/18 14:48 pH 7.409 (7.35-7.45) 05/18/18 14:48 pCO2 28.7 mmHg (35.0-45.0) L 05/18/18 14:48 pO2 60.5 mmHg (80.0-100.0) L 05/18/18 14:48 HCO3 17.7 mEq/L (20.0-26.0) L 05/18/18 14:48 Base Excess -5.4 mEq/L (-3.0-3.0) L 05/18/18 14:48 O2 Saturation 92.0 % (92.0-100.0) 05/18/18 14:48 Yoel Test Positive 05/18/18 14:48 Vent Rate NA 05/18/18 14:48 Inspired O2 21 05/18/18 14:48 Tidal Volume NA 05/18/18 14:48 PEEP NA 05/18/18 14:48 Pressure (ins/psv/peep) NA 05/18/18 14:48 Critical Value SH 05/18/18 14:48 Sodium 157 mEq/L (136-145) H 05/20/18 05:30 Potassium 3.3 mEq/L (3.5-5.1) L 05/20/18 05:30 Chloride 123 mEq/L (98-107) H 05/20/18 05:30 Carbon Dioxide 23.2 mEq/L (21.0-31.0) 05/20/18 05:30 Anion Gap 14.1 (7.0-16.0) 05/20/18 05:30 BUN 27 mg/dL (7-25) H 05/20/18 05:30 Creatinine 2.5 mg/dL (0.6-1.2) H 05/20/18 05:30 Est GFR ( Amer) 31.0 ml/min (>90) 05/20/18 05:30 Est GFR (Non-Af Amer) 25.6 ml/min 05/20/18 05:30 BUN/Creatinine Ratio 10.8 05/20/18 05:30 Glucose 105 mg/dL (70-105) 05/20/18 05:30 POC Glucose 120 MG/DL (70 - 105) H 05/15/18 16:58 Whole Bld Lactic Acid 0.81 mmol/L (0.60-1.99) 05/18/18 14:20 Uric Acid 6.3 mg/dL (2.3-6.6) 05/19/18 06:11 Calcium 8.3 mg/dL (8.6-10.3) L 05/20/18 05:30 Phosphorus 4.1 mg/dL (2.5-5.0) 05/19/18 06:11 Magnesium 2.7 mg/dL (1.9-2.7) 05/19/18 06:11 Total Bilirubin 0.6 mg/dL (0.3-1.0) 05/18/18 05:35 AST 24 U/L (13-39) 05/18/18 05:35 ALT 5 U/L (7-52) L 05/18/18 05:35 Alkaline Phosphatase 96 U/L (34-104) 05/18/18 05:35 B-Natriuretic Peptide 404.0 pg/mL (5.0-100.0) H 05/19/18 06:11 Total Protein 5.9 gm/dL (6.0-8.3) L 05/18/18 05:35 Albumin 2.9 gm/dL (3.7-5.3) L 05/18/18 05:35 Globulin 3.0 gm/dL 05/18/18 05:35 Albumin/Globulin Ratio 1.0 (1.0-1.8) 05/18/18 05:35 Amylase 167 U/L (29-103) H 05/19/18 06:11 Lipase 364 U/L (11-82) H 05/19/18 06:11 TSH 3.59 uIU/ml (0.34-5.60) 05/19/18 06:11 Urine Source MIDSTREAM 05/18/18 15:50 Urine Color RED 05/18/18 15:50 Urine Clarity HAZY (CLEAR) 05/18/18 15:50 Urine pH 6.0 (4.6 - 8.0) 05/18/18 15:50 Ur Specific [place] <= 1.005 (1.005-1.030) 05/18/18 15:50 Urine Protein 30 mg/dL (NEGATIVE) H 05/18/18 15:50 Urine Glucose (UA) NEGATIVE mg/dL (NEGATIVE) 05/18/18 15:50 Urine Ketones NEGATIVE mg/dL (NEGATIVE) 05/18/18 15:50 Urine Blood LARGE (NEGATIVE) H 05/18/18 15:50 Urine Nitrate NEGATIVE (NEGATIVE) 05/18/18 15:50 Urine Bilirubin NEGATIVE (NEGATIVE) 05/18/18 15:50 Urine Urobilinogen 0.2 E.U./dL (0.2 - 1.0) 05/18/18 15:50 Ur Leukocyte Esterase NEGATIVE (NEGATIVE) 05/18/18 15:50 Urine RBC 25-50 /hpf (0-5) H 05/18/18 15:50 Urine WBC 6-10 /hpf (0-5) H 05/18/18 15:50 Ur Epithelial Cells FEW /lpf (FEW) 05/18/18 15:50 Urine Bacteria MODERATE /hpf (NONE SEEN) H 05/18/18 15:50 Urine Osmolality 171 mOsmol/kg 05/18/18 15:50 Ur Random Sodium 69 mmol/L 05/18/18 15:50 Urine Creatinine 36.0 mg/dl (28.0-217.0) 05/18/18 15:50 Stool Occult Blood POSITIVE (NEGATIVE) H 05/20/18 10:20 Vancomycin Trough 42.4 ug/mL (5-10) H 05/15/18 20:00 Random Vancomycin 11.1 ug/mL (5.0-40.0) 05/19/18 06:11 - Physical Exam Vitals and I&O: Vital Signs Temp 99.4 F 05/20/18 15:51 Pulse 106 05/20/18 15:51 Resp 18 05/20/18 15:51 BP 141/97 05/20/18 15:51 Pulse Ox 98 05/20/18 15:51 Intake & Output 05/19/18 05/20/18 05/20/18 18:59 06:59 18:59 Intake Total 1350 400 50 Balance 1350 400 50 Weight (lbs) 61.235 kg Intake: Intake, IV Amount 1350 400 50 Dextrose 5% 1,000 ml @ 1000 100 mls/hr IV .Q10H [facility] Rx#:[id number] Linezolid 600mg/300mL 600 300 300 mg In 300 ml @ 300 mls/ hr IV Q12HR@0500,1700 [facility] Rx#:[id number] Piperacillin Sodium/ 50 100 50 Tazobact 3.375 gm In Sodium Chloride 0.9% 50 ml @ 100 mls/hr IV Q6HR [facility] Rx#:[id number] Other: # Voids 3 # Bowel Movements 1 Stool Characteristics Soft Soft Soft Liquid Liquid Liquid Weight Source Bedscale Active Medications: Current Medications Acetaminophen (Tylenol 650mg/20.3ml Suspension) 650 mg GT Q4HR PRN PRN Reason: Pain or Fever >101 Stop: 07/12/18 16:33 Last Admin: 05/19/18 23:26 Dose: 650 mg Bisacodyl (Dulcolax 10 Mg Supp) 10 mg RC DAILY PRN PRN Reason: Constipation Stop: 07/12/18 16:33 Citric Acid/Sodium Citrate (Bicitra) 30 ml PO BID [facility] Stop: 07/17/18 16:59 Last Admin: 05/20/18 16:52 Dose: 30 ml Docusate Sodium (Colace) 100 mg PO DAILY [facility] Stop: 07/13/18 08:59 Last Admin: 05/20/18 09:04 Dose: Not Given Epoetin Vern (Epogen) 5,000 units SUBQ MoWeFr [facility] Stop: 07/18/18 14:59 Last Admin: 05/19/18 14:21 Dose: 5,000 units Ferrous Sulfate (Iron) 450 mg GT BID [facility] Stop: 07/12/18 16:59 Last Admin: 05/20/18 16:51 Dose: 450 mg Hydralazine HCl (Apresoline 20 Mg/Ml) 10 mg IV Q4HR PRN PRN Reason: SBP ABOVE 160 Stop: 07/17/18 11:46 Dextrose (D5w) 1,000 mls @ 100 mls/hr IV .Q10H [facility] Stop: 07/17/18 12:59 Last Admin: 05/20/18 05:48 Dose: 100 mls/hr Linezolid (Zyvox) 600 mg in 300 mls @ 300 mls/hr IV Q12HR@0500,1700 [facility] Stop: 07/17/18 16:59 Last Admin: 05/20/18 16:51 Dose: 300 mls/hr Levetiracetam (Keppra) 500 mg GT BID [facility] Stop: 07/12/18 16:59 Last Admin: 05/20/18 16:52 Dose: 500 mg Magnesium Hydroxide (Milk Of Magnesia) 30 ml GT Q72HR PRN PRN Reason: Constipation Stop: 07/12/18 16:33 Metoprolol Succinate (Toprol Xl) 25 mg PO DAILY [facility] Stop: 07/17/18 14:44 Last Admin: 05/20/18 09:10 Dose: 25 mg Pantoprazole Sodium (Protonix) 40 mg PO DAILY [facility] Stop: 07/19/18 18:44 Potassium Chloride (Klor-Con) 20 meq PO DAILY [facility] Stop: 07/19/18 08:59 Last Admin: 05/20/18 09:10 Dose: 20 meq Sodium Phosphate (Fleet Enema) 135 ml RC Q96HR PRN PRN Reason: IF DULCOLAX INEFFECTIVE Stop: 07/12/18 16:33 Valproate Sodium (Depakene) 500 mg GT Q12H [facility]; Protocol Stop: 07/12/18 16:59 Last Admin: 05/20/18 16:51 Dose: 500 mg General: No acute distress HEENT: Atraumatic, Mucous membr. moist/pink Neck: Supple, JVD Cardiovascular: Regular rate Lungs: Clear to auscultation, Normal air movement Abdomen: Bowel sounds, Soft, Other (G-tube in place), no Tender, no Hepatomegaly , no Splenomegaly, no Distended, no Rebound, no Mass Extremities: Pulses (normal) Neurological: Normal tone, Sensation intact, Reflexes 2+ Skin: Rash Psych/Mental Status: Mood NL Assessment/Plan - Assessment Assessment: JAYLIN Hypernatremia 2/2 dehydration Severe Malnutrition Leukocytosis possible LGI Bleed, C. diff Ess Htn Dev Delay Cerebral Palsy Int. Disability Anemia of CD? - Plan Plan: Lab - Result Diagrams 05/19/18 06:11 05/19/18 06:11 Current Medications Acetaminophen (Tylenol 650mg/20.3ml Suspension) 650 mg GT Q4HR PRN PRN Reason: Pain or Fever >101 Stop: 07/12/18 16:33 Last Admin: 05/19/18 02:21 Dose: 650 mg Bisacodyl (Dulcolax 10 Mg Supp) 10 mg RC DAILY PRN PRN Reason: Constipation Stop: 07/12/18 16:33 Citric Acid/Sodium Citrate (Bicitra) 30 ml PO BID [facility] Stop: 07/17/18 16:59 Last Admin: 05/19/18 11:54 Dose: 30 ml Docusate Sodium (Colace) 100 mg PO DAILY [facility] Stop: 07/13/18 08:59 Last Admin: 05/19/18 08:36 Dose: 100 mg Epoetin Vern (Epogen) 5,000 units SUBQ MoWeFr [facility] Stop: 07/18/18 13:44 Ferrous Sulfate (Iron) 450 mg GT BID [facility] Stop: 07/12/18 16:59 Last Admin: 05/19/18 08:38 Dose: 450 mg Hydralazine HCl (Apresoline 20 Mg/Ml) 10 mg IV Q4HR PRN PRN Reason: SBP ABOVE 160 Stop: 07/17/18 11:46 Piperacillin Sod/Tazobactam (Sod 3.375 gm/ Sodium Chloride) 50 mls @ 100 mls/ hr IV Q6HR [facility] Stop: 07/12/18 05:59 Last Admin: 05/19/18 11:54 Dose: 100 mls/hr Dextrose (D5w) 1,000 mls @ 100 mls/hr IV .Q10H [facility] Stop: 07/17/18 12:59 Last Admin: 05/19/18 01:00 Dose: 100 mls/hr Linezolid (Zyvox) 600 mg in 300 mls @ 300 mls/hr IV Q12HR@0500,1700 [facility] Stop: 07/17/18 16:59 Last Infusion: 05/19/18 05:50 Dose: Infused Levetiracetam (Keppra) 500 mg GT BID [facility] Stop: 07/12/18 16:59 Last Admin: 05/19/18 08:36 Dose: 500 mg Lorazepam (Ativan) 1 mg IVP Q6HR PRN; Protocol PRN Reason: Anxiety Stop: 07/12/18 04:24 Last Admin: 05/14/18 00:06 Dose: 1 mg Magnesium Hydroxide (Milk Of Magnesia) 30 ml GT Q72HR PRN PRN Reason: Constipation Stop: 07/12/18 16:33 Metoprolol Succinate (Toprol Xl) 25 mg PO DAILY [facility] Stop: 07/17/18 14:44 Last Admin: 05/19/18 08:36 Dose: 25 mg Mupirocin (Bactroban Oint) 1 appl NS BID [facility] Stop: 05/19/18 17:01 Last Admin: 05/19/18 08:36 Dose: 1 appl Potassium Chloride (Klor-Con) 20 meq PO DAILY [facility] Stop: 07/18/18 13:44 Sodium Phosphate (Fleet Enema) 135 ml RC Q96HR PRN PRN Reason: IF DULCOLAX INEFFECTIVE Stop: 07/12/18 16:33 Valproate Sodium (Depakene) 500 mg GT Q12H [facility]; Protocol Stop: 07/12/18 16:59 Last Admin: 05/19/18 05:00 Dose: 500 mg Lab - Result Diagrams 05/20/18 05:30 05/20/18 05:30 Kidney fnc basically the same w/ BUN/CR of 27/2.5 FE Na 3.15% suggestive of intrinc renal involvement Na down to 157 continue water flushes, IVF w/ D5W replace K WBC stable @ 20.4 Hgb/Hct 8.4/25.5 on Protonix, Epo f/u electrolytes, cbc
[2018-05-21] MEDS: Pantoprazole 40 mg EC Tab PO SCH ×2 (02:25→08:36)
[2018-05-21] MEDS: Linezolid 600mg/300mL 600 MG/300 ML BAG IV SCH ×2 (05:00→16:06)
[2018-05-21 06:32] LABS: CALCIUM SERUM 8.4 mg/dL (8.6-10.3); CARBON DIOXIDE 25.5 mEq/L (21.0-31.0); CREATININE - SERUM 2.5 mg/dL (0.6-1.2); GFR NON AFRICAN-AMERICAN 25.6 ml/min; POTASSIUM SERUM 3.5 mEq/L (3.5-5.1)
[2018-05-21 06:37] LABS: HEMATOCRIT 21.3 % (41.0-60); RED CELL DISTRIBUTION WIDTH 15.7 % (11.5-20.0)
[2018-05-21 06:40] LABS: MEAN CELL VOLUME 81.9 fl (81-100); MEAN CORPUSCULAR HEMOGLOBIN 26.9 pg (27.0-31.0); MEAN CORPUSCULAR HGB CONC 32.9 pg (28.0-36.0); MEAN PLATELET VOLUME 8.8 fl; PLATELET COUNT 144 Th/cmm (150-400)
[2018-05-21 07:41] LABS: BAND NEUTROPHILE 2 % (0-10); LYMPHOCYTE 9 % (20-50); MONOCYTE 6 % (2-10); NEUTROPHILS 80 % (40-80)
[2018-05-21 07:42] LABS: BASOPHIL 0 % (0-3); EOSINOPHIL 3 % (0-5)
--- NOTE | 2018-05-21 08:25 | Infectious Disease Prog Note ---
Infectious Disease Subjective - Review of Systems Service Date: 05/21/18 Subjective: There is no new change, no fever. Infectious Disease Objective - Results Result Diagrams: 05/21/18 05:25 05/21/18 05:25 Recent Labs: Laboratory Last Values WBC 19.0 Th/cmm (4.8-10.8) H 05/21/18 05:25 RBC 2.60 Mil/cmm (3.80-5.10) L 05/21/18 05:25 Hgb 7.0 gm/dL (12-16) L* 05/21/18 05:25 Hct 21.3 % (41.0-60) L 05/21/18 05:25 MCV 81.9 fl (81-100) 05/21/18 05:25 MCH 26.9 pg (27.0-31.0) L 05/21/18 05:25 MCHC Differential 32.9 pg (28.0-36.0) 05/21/18 05:25 RDW 15.7 % (11.5-20.0) 05/21/18 05:25 Plt Count 144 Th/cmm (150-400) L 05/21/18 05:25 MPV 8.8 fl 05/21/18 05:25 Add Manual Diff YES 05/21/18 05:25 Neutrophils % STRATEGY DIRECTOR 05/17/18 05:00 Band Neutrophils % 2 % (0-10) 05/21/18 05:25 Lymphocytes % STRATEGY DIRECTOR 05/17/18 05:00 Monocytes % STRATEGY DIRECTOR 05/17/18 05:00 Eosinophils % STRATEGY DIRECTOR 05/17/18 05:00 Basophils % STRATEGY DIRECTOR 05/17/18 05:00 Neutrophils (Manual) 80 % (40-80) 05/21/18 05:25 Lymphocytes 9 % (20-50) L 05/21/18 05:25 Monocytes 6 % (2-10) 05/21/18 05:25 Eosinophils 3 % (0-5) 05/21/18 05:25 Basophils 0 % (0-3) 05/21/18 05:25 Metamyelocytes 6 % (0-0) H 05/17/18 05:00 Platelet Estimate ADEQUATE (NORMAL) 05/17/18 05:00 Smear Path Review 05/21/18 05:25 Eos Smear Source URINE 05/18/18 15:50 Eos Smear Total Cells NONE SEEN (NONE SEEN) 05/18/18 15:50 Specimen Source Arterial 05/18/18 14:48 Sample Site Right Radial 05/18/18 14:48 pH 7.409 (7.35-7.45) 05/18/18 14:48 pCO2 28.7 mmHg (35.0-45.0) L 05/18/18 14:48 pO2 60.5 mmHg (80.0-100.0) L 05/18/18 14:48 HCO3 17.7 mEq/L (20.0-26.0) L 05/18/18 14:48 Base Excess -5.4 mEq/L (-3.0-3.0) L 05/18/18 14:48 O2 Saturation 92.0 % (92.0-100.0) 05/18/18 14:48 Yoel Test Positive 05/18/18 14:48 Vent Rate NA 05/18/18 14:48 Inspired O2 21 05/18/18 14:48 Tidal Volume NA 05/18/18 14:48 PEEP NA 05/18/18 14:48 Pressure (ins/psv/peep) NA 05/18/18 14:48 Critical Value SH 05/18/18 14:48 Sodium 160 mEq/L (136-145) H* 05/21/18 05:25 Potassium 3.5 mEq/L (3.5-5.1) 05/21/18 05:25 Chloride 124 mEq/L (98-107) H 05/21/18 05:25 Carbon Dioxide 25.5 mEq/L (21.0-31.0) 05/21/18 05:25 Anion Gap 14.0 (7.0-16.0) 05/21/18 05:25 BUN 29 mg/dL (7-25) H 05/21/18 05:25 Creatinine 2.5 mg/dL (0.6-1.2) H 05/21/18 05:25 Est GFR ( Amer) 31.0 ml/min (>90) 05/21/18 05:25 Est GFR (Non-Af Amer) 25.6 ml/min 05/21/18 05:25 BUN/Creatinine Ratio 11.6 05/21/18 05:25 Glucose 170 mg/dL (70-105) H 05/21/18 05:25 POC Glucose 120 MG/DL (70 - 105) H 05/15/18 16:58 Whole Bld Lactic Acid 0.81 mmol/L (0.60-1.99) 05/18/18 14:20 Uric Acid 6.3 mg/dL (2.3-6.6) 05/19/18 06:11 Calcium 8.4 mg/dL (8.6-10.3) L 05/21/18 05:25 Phosphorus 4.1 mg/dL (2.5-5.0) 05/19/18 06:11 Magnesium 2.7 mg/dL (1.9-2.7) 05/19/18 06:11 Total Bilirubin 0.6 mg/dL (0.3-1.0) 05/18/18 05:35 AST 24 U/L (13-39) 05/18/18 05:35 ALT 5 U/L (7-52) L 05/18/18 05:35 Alkaline Phosphatase 96 U/L (34-104) 05/18/18 05:35 B-Natriuretic Peptide 404.0 pg/mL (5.0-100.0) H 05/19/18 06:11 Total Protein 5.9 gm/dL (6.0-8.3) L 05/18/18 05:35 Albumin 2.9 gm/dL (3.7-5.3) L 05/18/18 05:35 Globulin 3.0 gm/dL 05/18/18 05:35 Albumin/Globulin Ratio 1.0 (1.0-1.8) 05/18/18 05:35 Amylase 167 U/L (29-103) H 05/19/18 06:11 Lipase 364 U/L (11-82) H 05/19/18 06:11 TSH 3.59 uIU/ml (0.34-5.60) 05/19/18 06:11 Urine Source MIDSTREAM 05/18/18 15:50 Urine Color RED 05/18/18 15:50 Urine Clarity HAZY (CLEAR) 05/18/18 15:50 Urine pH 6.0 (4.6 - 8.0) 05/18/18 15:50 Ur Specific [place] <= 1.005 (1.005-1.030) 05/18/18 15:50 Urine Protein 30 mg/dL (NEGATIVE) H 05/18/18 15:50 Urine Glucose (UA) NEGATIVE mg/dL (NEGATIVE) 05/18/18 15:50 Urine Ketones NEGATIVE mg/dL (NEGATIVE) 05/18/18 15:50 Urine Blood LARGE (NEGATIVE) H 05/18/18 15:50 Urine Nitrate NEGATIVE (NEGATIVE) 05/18/18 15:50 Urine Bilirubin NEGATIVE (NEGATIVE) 05/18/18 15:50 Urine Urobilinogen 0.2 E.U./dL (0.2 - 1.0) 05/18/18 15:50 Ur Leukocyte Esterase NEGATIVE (NEGATIVE) 05/18/18 15:50 Urine RBC 25-50 /hpf (0-5) H 05/18/18 15:50 Urine WBC 6-10 /hpf (0-5) H 05/18/18 15:50 Ur Epithelial Cells FEW /lpf (FEW) 05/18/18 15:50 Urine Bacteria MODERATE /hpf (NONE SEEN) H 05/18/18 15:50 Urine Osmolality 171 mOsmol/kg 05/18/18 15:50 Ur Random Sodium 69 mmol/L 05/18/18 15:50 Urine Creatinine 36.0 mg/dl (28.0-217.0) 05/18/18 15:50 Stool Occult Blood POSITIVE (NEGATIVE) H 05/20/18 10:20 Vancomycin Trough 42.4 ug/mL (5-10) H 05/15/18 20:00 Random Vancomycin 11.1 ug/mL (5.0-40.0) 05/19/18 06:11 - Physical Exam Vitals and I&O: Vital Signs Temp 98.8 F 05/21/18 07:50 Pulse 93 05/21/18 07:50 Resp 17 05/21/18 07:50 BP 134/89 05/21/18 07:50 Pulse Ox 96 05/21/18 07:50 Intake & Output 05/20/18 05/21/18 05/21/18 18:59 06:59 18:59 Intake Total 950 2260 Balance 950 2260 Weight (lbs) 61.235 kg 61.235 kg Intake: Intake, IV Amount 350 300 Linezolid 600mg/300mL 600 300 300 mg In 300 ml @ 300 mls/ hr IV Q12HR@0500,1700 [facility] Rx#:[id number] Piperacillin Sodium/ 50 Tazobact 3.375 gm In Sodium Chloride 0.9% 50 ml @ 100 mls/hr IV Q6HR [facility] Rx#:[id number] Tube Feeding 600 660 Other 1300 Other: # Voids 3 3 # Bowel Movements 1 1 Stool Characteristics Soft Soft Liquid Liquid Weight Source Bedscale Bedscale Active Medications: Current Medications Acetaminophen (Tylenol 650mg/20.3ml Suspension) 650 mg GT Q4HR PRN PRN Reason: Pain or Fever >101 Stop: 07/12/18 16:33 Last Admin: 05/21/18 02:27 Dose: 650 mg Bisacodyl (Dulcolax 10 Mg Supp) 10 mg RC DAILY PRN PRN Reason: Constipation Stop: 07/12/18 16:33 Citric Acid/Sodium Citrate (Bicitra) 30 ml PO BID [facility] Stop: 07/17/18 16:59 Last Admin: 05/20/18 16:52 Dose: 30 ml Docusate Sodium (Colace) 100 mg PO DAILY [facility] Stop: 07/13/18 08:59 Last Admin: 05/20/18 09:04 Dose: Not Given Epoetin Vern (Epogen) 5,000 units SUBQ MoWeFr [facility] Stop: 07/18/18 14:59 Last Admin: 05/19/18 14:21 Dose: 5,000 units Ferrous Sulfate (Iron) 450 mg GT BID [facility] Stop: 07/12/18 16:59 Last Admin: 05/20/18 16:51 Dose: 450 mg Hydralazine HCl (Apresoline 20 Mg/Ml) 10 mg IV Q4HR PRN PRN Reason: SBP ABOVE 160 Stop: 07/17/18 11:46 Dextrose (D5w) 1,000 mls @ 100 mls/hr IV .Q10H [facility] Stop: 07/17/18 12:59 Last Admin: 05/20/18 05:48 Dose: 100 mls/hr Linezolid (Zyvox) 600 mg in 300 mls @ 300 mls/hr IV Q12HR@0500,1700 [facility] Stop: 07/17/18 16:59 Last Infusion: 05/21/18 06:10 Dose: Infused Levetiracetam (Keppra) 500 mg GT BID [facility] Stop: 07/12/18 16:59 Last Admin: 04/09/19 16:52 Dose: 500 mg Magnesium Hydroxide (Milk Of Magnesia) 30 ml GT Q72HR PRN PRN Reason: Constipation Stop: 07/12/18 16:33 Metoprolol Succinate (Toprol Xl) 25 mg PO DAILY [facility] Stop: 07/17/18 14:44 Last Admin: 05/20/18 09:10 Dose: 25 mg Pantoprazole Sodium (Protonix) 40 mg PO DAILY [facility] Stop: 07/19/18 19:59 Last Admin: 05/21/18 02:25 Dose: Not Given Potassium Chloride (Klor-Con) 20 meq PO DAILY [facility] Stop: 07/19/18 08:59 Last Admin: 05/20/18 09:10 Dose: 20 meq Sodium Phosphate (Fleet Enema) 135 ml RC Q96HR PRN PRN Reason: IF DULCOLAX INEFFECTIVE Stop: 07/12/18 16:33 Valproate Sodium (Depakene) 500 mg GT Q12H [facility]; Protocol Stop: 07/12/18 16:59 Last Admin: 05/21/18 05:00 Dose: 500 mg General: no acute distress, well developed, well nourished, other (short staute) HEENT: atraumatic, normocephalic, PERRLA, EOMI Neck: supple, no thyromegaly Cardiovascular: S1S2, regular Lungs: clear to auscultation bilaterally, clear to percussion Abdomen: soft, no tender, no distended, no mass, no hepatomegaly Extremities: no cyanosis, no clubbing, no edema Neurological: other (unable to communicate.) Skin: intact Infectious Disease Assmt/Plan - Assessment Assessment: 1. Leukocytosis. Sepsis 2. Lactic acidosis improved. 3. UTI. 4. Tachycardia. 5. cerebral palsy. 6. mental retardation. 7. Seizure disorder. 8. JAYLIN. 9. Pancreatitis. - Plan Plan: Continue Zosyn. continue zyvox. blood cultures Follow up the sepsis w/u. check amylase and lipase.
[2018-05-21] MEDS: Ferrous Sulfate 300 MG/5 ML UDC GT SCH ×2 (08:35→16:08)
[2018-05-21] MEDS: Potassium Chloride 20 mEq ER Tab PO SCH (08:36)
[2018-05-21] MEDS: Levetiracetam 500 mg/5mL 5mL UDSyr *for ORAL USE ONLY GT SCH ×2 (08:36→16:08)
--- NOTE | 2018-05-21 09:44 | GI Progress Note ---
Subjective - Review of Systems Service Date: 05/21/18 Subjective: Soft stool continues, no overt bleed Objective - Results Result Diagrams: 05/21/18 05:25 05/21/18 05:25 Recent Labs: Laboratory Last Values WBC 19.0 Th/cmm (4.8-10.8) H 05/21/18 05:25 RBC 2.60 Mil/cmm (3.80-5.10) L 05/21/18 05:25 Hgb 7.0 gm/dL (12-16) L* 05/21/18 05:25 Hct 21.3 % (41.0-60) L 05/21/18 05:25 MCV 81.9 fl (81-100) 05/21/18 05:25 MCH 26.9 pg (27.0-31.0) L 05/21/18 05:25 MCHC Differential 32.9 pg (28.0-36.0) 05/21/18 05:25 RDW 15.7 % (11.5-20.0) 05/21/18 05:25 Plt Count 144 Th/cmm (150-400) L 05/21/18 05:25 MPV 8.8 fl 05/21/18 05:25 Add Manual Diff YES 05/21/18 05:25 Neutrophils % INTERIOR DESIGNER 05/17/18 05:00 Band Neutrophils % 2 % (0-10) 05/21/18 05:25 Lymphocytes % INTERIOR DESIGNER 05/17/18 05:00 Monocytes % INTERIOR DESIGNER 05/17/18 05:00 Eosinophils % INTERIOR DESIGNER 05/17/18 05:00 Basophils % INTERIOR DESIGNER 05/17/18 05:00 Neutrophils (Manual) 80 % (40-80) 05/21/18 05:25 Lymphocytes 9 % (20-50) L 05/21/18 05:25 Monocytes 6 % (2-10) 05/21/18 05:25 Eosinophils 3 % (0-5) 05/21/18 05:25 Basophils 0 % (0-3) 05/21/18 05:25 Metamyelocytes 6 % (0-0) H 05/17/18 05:00 Platelet Estimate ADEQUATE (NORMAL) 05/17/18 05:00 Smear Path Review 05/21/18 05:25 Eos Smear Source URINE 05/18/18 15:50 Eos Smear Total Cells NONE SEEN (NONE SEEN) 05/18/18 15:50 Specimen Source Arterial 05/18/18 14:48 Sample Site Right Radial 05/18/18 14:48 pH 7.409 (7.35-7.45) 05/18/18 14:48 pCO2 28.7 mmHg (35.0-45.0) L 05/18/18 14:48 pO2 60.5 mmHg (80.0-100.0) L 05/18/18 14:48 HCO3 17.7 mEq/L (20.0-26.0) L 05/18/18 14:48 Base Excess -5.4 mEq/L (-3.0-3.0) L 05/18/18 14:48 O2 Saturation 92.0 % (92.0-100.0) 05/18/18 14:48 Yoel Test Positive 05/18/18 14:48 Vent Rate NA 05/18/18 14:48 Inspired O2 21 05/18/18 14:48 Tidal Volume NA 05/18/18 14:48 PEEP NA 05/18/18 14:48 Pressure (ins/psv/peep) NA 05/18/18 14:48 Critical Value SH 05/18/18 14:48 Sodium 160 mEq/L (136-145) H* 05/21/18 05:25 Potassium 3.5 mEq/L (3.5-5.1) 05/21/18 05:25 Chloride 124 mEq/L (98-107) H 05/21/18 05:25 Carbon Dioxide 25.5 mEq/L (21.0-31.0) 05/21/18 05:25 Anion Gap 14.0 (7.0-16.0) 05/21/18 05:25 BUN 29 mg/dL (7-25) H 05/21/18 05:25 Creatinine 2.5 mg/dL (0.6-1.2) H 05/21/18 05:25 Est GFR ( Amer) 31.0 ml/min (>90) 05/21/18 05:25 Est GFR (Non-Af Amer) 25.6 ml/min 05/21/18 05:25 BUN/Creatinine Ratio 11.6 05/21/18 05:25 Glucose 170 mg/dL (70-105) H 05/21/18 05:25 POC Glucose 120 MG/DL (70 - 105) H 05/15/18 16:58 Whole Bld Lactic Acid 0.81 mmol/L (0.60-1.99) 05/18/18 14:20 Uric Acid 6.3 mg/dL (2.3-6.6) 05/19/18 06:11 Calcium 8.4 mg/dL (8.6-10.3) L 05/21/18 05:25 Phosphorus 4.1 mg/dL (2.5-5.0) 05/19/18 06:11 Magnesium 2.7 mg/dL (1.9-2.7) 05/19/18 06:11 Total Bilirubin 0.6 mg/dL (0.3-1.0) 05/18/18 05:35 AST 24 U/L (13-39) 05/18/18 05:35 ALT 5 U/L (7-52) L 05/18/18 05:35 Alkaline Phosphatase 96 U/L (34-104) 05/18/18 05:35 B-Natriuretic Peptide 404.0 pg/mL (5.0-100.0) H 05/19/18 06:11 Total Protein 5.9 gm/dL (6.0-8.3) L 05/18/18 05:35 Albumin 2.9 gm/dL (3.7-5.3) L 05/18/18 05:35 Globulin 3.0 gm/dL 05/18/18 05:35 Albumin/Globulin Ratio 1.0 (1.0-1.8) 05/18/18 05:35 Amylase 167 U/L (29-103) H 05/19/18 06:11 Lipase 364 U/L (11-82) H 05/19/18 06:11 TSH 3.59 uIU/ml (0.34-5.60) 05/19/18 06:11 Urine Source MIDSTREAM 05/18/18 15:50 Urine Color RED 05/18/18 15:50 Urine Clarity HAZY (CLEAR) 05/18/18 15:50 Urine pH 6.0 (4.6 - 8.0) 05/18/18 15:50 Ur Specific [place] <= 1.005 (1.005-1.030) 05/18/18 15:50 Urine Protein 30 mg/dL (NEGATIVE) H 05/18/18 15:50 Urine Glucose (UA) NEGATIVE mg/dL (NEGATIVE) 05/18/18 15:50 Urine Ketones NEGATIVE mg/dL (NEGATIVE) 05/18/18 15:50 Urine Blood LARGE (NEGATIVE) H 05/18/18 15:50 Urine Nitrate NEGATIVE (NEGATIVE) 05/18/18 15:50 Urine Bilirubin NEGATIVE (NEGATIVE) 05/18/18 15:50 Urine Urobilinogen 0.2 E.U./dL (0.2 - 1.0) 05/18/18 15:50 Ur Leukocyte Esterase NEGATIVE (NEGATIVE) 05/18/18 15:50 Urine RBC 25-50 /hpf (0-5) H 05/18/18 15:50 Urine WBC 6-10 /hpf (0-5) H 05/18/18 15:50 Ur Epithelial Cells FEW /lpf (FEW) 05/18/18 15:50 Urine Bacteria MODERATE /hpf (NONE SEEN) H 05/18/18 15:50 Urine Osmolality 171 mOsmol/kg 05/18/18 15:50 Ur Random Sodium 69 mmol/L 05/18/18 15:50 Urine Creatinine 36.0 mg/dl (28.0-217.0) 05/18/18 15:50 Stool Occult Blood POSITIVE (NEGATIVE) H 05/20/18 10:20 Vancomycin Trough 42.4 ug/mL (5-10) H 05/15/18 20:00 Random Vancomycin 11.1 ug/mL (5.0-40.0) 05/19/18 06:11 - Physical Exam Vitals and I&O: Vital Signs Temp 98.8 F 05/21/18 07:50 Pulse 81 05/21/18 08:34 Resp 17 05/21/18 07:50 BP 134/76 05/21/18 08:34 Pulse Ox 96 05/21/18 07:50 Intake & Output 05/20/18 05/21/18 05/21/18 18:59 06:59 18:59 Intake Total 950 2260 Balance 950 2260 Weight (lbs) 61.235 kg 61.235 kg Intake: Intake, IV Amount 350 300 Linezolid 600mg/300mL 600 300 300 mg In 300 ml @ 300 mls/ hr IV Q12HR@0500,1700 [facility] Rx#:[id number] Piperacillin Sodium/ 50 Tazobact 3.375 gm In Sodium Chloride 0.9% 50 ml @ 100 mls/hr IV Q6HR [facility] Rx#:[id number] Tube Feeding 600 660 Other 1300 Other: # Voids 3 3 # Bowel Movements 1 1 Stool Characteristics Soft Soft Liquid Liquid Weight Source Bedscale Bedscale Active Medications: Current Medications Acetaminophen (Tylenol 650mg/20.3ml Suspension) 650 mg GT Q4HR PRN PRN Reason: Pain or Fever >101 Stop: 07/12/18 16:33 Last Admin: 05/21/18 02:27 Dose: 650 mg Bisacodyl (Dulcolax 10 Mg Supp) 10 mg RC DAILY PRN PRN Reason: Constipation Stop: 07/12/18 16:33 Citric Acid/Sodium Citrate (Bicitra) 30 ml PO BID [facility] Stop: 07/17/18 16:59 Last Admin: 05/21/18 08:53 Dose: 30 ml Docusate Sodium (Colace) 100 mg PO DAILY [facility] Stop: 07/13/18 08:59 Last Admin: 05/21/18 08:54 Dose: Not Given Epoetin Vern (Epogen) 5,000 units SUBQ MoWeFr [facility] Stop: 07/18/18 14:59 Last Admin: 05/19/18 14:21 Dose: 5,000 units Ferrous Sulfate (Iron) 450 mg GT BID [facility] Stop: 07/12/18 16:59 Last Admin: 05/21/18 08:35 Dose: 450 mg Hydralazine HCl (Apresoline 20 Mg/Ml) 10 mg IV Q4HR PRN PRN Reason: SBP ABOVE 160 Stop: 07/17/18 11:46 Dextrose (D5w) 1,000 mls @ 100 mls/hr IV .Q10H [facility] Stop: 07/17/18 12:59 Last Admin: 05/20/18 05:48 Dose: 100 mls/hr Linezolid (Zyvox) 600 mg in 300 mls @ 300 mls/hr IV Q12HR@0500,1700 [facility] Stop: 07/17/18 16:59 Last Infusion: 05/21/18 06:10 Dose: Infused Levetiracetam (Keppra) 500 mg GT BID [facility] Stop: 07/12/18 16:59 Last Admin: 05/21/18 08:36 Dose: 500 mg Magnesium Hydroxide (Milk Of Magnesia) 30 ml GT Q72HR PRN PRN Reason: Constipation Stop: 07/12/18 16:33 Metoprolol Succinate (Toprol Xl) 25 mg PO DAILY [facility] Stop: 07/17/18 14:44 Last Admin: 05/21/18 08:34 Dose: 25 mg Pantoprazole Sodium (Protonix) 40 mg PO DAILY [facility] Stop: 07/19/18 19:59 Last Admin: 05/21/18 08:36 Dose: 40 mg Potassium Chloride (Klor-Con) 20 meq PO DAILY [facility] Stop: 07/19/18 08:59 Last Admin: 05/21/18 08:36 Dose: 20 meq Sodium Phosphate (Fleet Enema) 135 ml RC Q96HR PRN PRN Reason: IF DULCOLAX INEFFECTIVE Stop: 07/12/18 16:33 Valproate Sodium (Depakene) 500 mg GT Q12H [facility]; Protocol Stop: 07/12/18 16:59 Last Admin: 05/21/18 05:00 Dose: 500 mg General: No acute distress HEENT: Atraumatic, Mucous membr. moist/pink Neck: Supple, JVD Cardiovascular: Regular rate Lungs: Clear to auscultation, Normal air movement Abdomen: Bowel sounds, Soft, Other (G-tube in place), no Tender, no Hepatomegaly , no Splenomegaly, no Distended, no Rebound, no Mass Extremities: Pulses (normal) Neurological: Normal tone, Sensation intact, Reflexes 2+ Skin: Rash Psych/Mental Status: Mood NL Assessment/Plan - Assessment Assessment: # Anemia # Cerebral palsy # Dysphagia with G tube # Diarrhea # Leukocytosis Acute GI bleed is not suspected given the brown color of her stool. Would advise against using FOB testing as this is notoriously falsely positive for a litany of reasons, one of which being chronic iron therapy. If diarrhea recurrs, will need to rule out CDiff As her anemia is worse, we will plan for EGD/colo due to the drop in hgb from 8.4 to 7.0 Plan: - CBC later today - plan for EGD and colo tomorrow with bowel prep tonight - send CDiff from stool if diarrhea - NPO at midnight - sepsis mgmt as per ID
[2018-05-21] MEDS ORDERED: Diatrizoate Meglumine/Diatri 30 mL Sol PO ONE (10:12)
--- NOTE | 2018-05-21 11:15 | Diagnostic Imaging Report ---
Upper GI with Gastrografin HISTORY: G-tube confirmation COMPARISON: None FINDINGS: Structural Welder view demonstrates generalized gas-filled loops of bowel. The second image demonstrates contrast opacification of the stomach and small bowel loops. IMPRESSION: Intraluminal confirmation of patient's percutaneous gastric feeding tube. Probable ileus.
[2018-05-21] MEDS: Dextrose 5% 1,000 ML IV SCH ×2 (11:46→16:19)
--- NOTE | 2018-05-21 13:41 | General Progress Note ---
Subjective - Review of Systems Service Date: 05/21/18 Subjective: Patient awake alert no complaints Patient has diarrhea Stool for occult blood positive Objective - Results Result Diagrams: 05/21/18 05:25 05/21/18 05:25 Recent Labs: Laboratory Last Values WBC 19.0 Th/cmm (4.8-10.8) H 05/21/18 05:25 RBC 2.60 Mil/cmm (3.80-5.10) L 05/21/18 05:25 Hgb 7.0 gm/dL (12-16) L* 05/21/18 05:25 Hct 21.3 % (41.0-60) L 05/21/18 05:25 MCV 81.9 fl (81-100) 05/21/18 05:25 MCH 26.9 pg (27.0-31.0) L 05/21/18 05:25 MCHC Differential 32.9 pg (28.0-36.0) 05/21/18 05:25 RDW 15.7 % (11.5-20.0) 05/21/18 05:25 Plt Count 144 Th/cmm (150-400) L 05/21/18 05:25 MPV 8.8 fl 05/21/18 05:25 Add Manual Diff YES 05/21/18 05:25 Neutrophils % MOTOR T[employer]E UP SPECIALIST 05/17/18 05:00 Band Neutrophils % 2 % (0-10) 05/21/18 05:25 Lymphocytes % [employer] T[employer]E UP SPECIALIST 05/17/18 05:00 Monocytes % MOTOR TUNE UP SPECIALIST 05/17/18 05:00 Eosinophils % [employer] T[employer]E UP SPECIALIST 05/17/18 05:00 Basophils % MOTOR TUNE UP SPECIALIST 05/17/18 05:00 Neutrophils (Manual) 80 % (40-80) 05/21/18 05:25 Lymphocytes 9 % (20-50) L 05/21/18 05:25 Monocytes 6 % (2-10) 05/21/18 05:25 Eosinophils 3 % (0-5) 05/21/18 05:25 Basophils 0 % (0-3) 05/21/18 05:25 Metamyelocytes 6 % (0-0) H 05/17/18 05:00 Platelet Estimate ADEQUATE (NORMAL) 05/17/18 05:00 Smear Path Review 05/21/18 05:25 Eos Smear Source URINE 05/18/18 15:50 Eos Smear Total Cells NONE SEEN (NONE SEEN) 05/18/18 15:50 Specimen Source Arterial 05/18/18 14:48 Sample Site Right Radial 05/18/18 14:48 pH 7.409 (7.35-7.45) 05/18/18 14:48 pCO2 28.7 mmHg (35.0-45.0) L 05/18/18 14:48 pO2 60.5 mmHg (80.0-100.0) L 05/18/18 14:48 HCO3 17.7 mEq/L (20.0-26.0) L 05/18/18 14:48 Base Excess -5.4 mEq/L (-3.0-3.0) L 05/18/18 14:48 O2 Saturation 92.0 % (92.0-100.0) 05/18/18 14:48 Yoel Test Positive 05/18/18 14:48 Vent Rate NA 05/18/18 14:48 Inspired O2 21 05/18/18 14:48 Tidal Volume NA 05/18/18 14:48 PEEP NA 05/18/18 14:48 Pressure (ins/psv/peep) NA 05/18/18 14:48 Critical Value SH 05/18/18 14:48 Sodium 160 mEq/L (136-145) H* 05/21/18 05:25 Potassium 3.5 mEq/L (3.5-5.1) 05/21/18 05:25 Chloride 124 mEq/L (98-107) H 05/21/18 05:25 Carbon Dioxide 25.5 mEq/L (21.0-31.0) 05/21/18 05:25 Anion Gap 14.0 (7.0-16.0) 05/21/18 05:25 BUN 29 mg/dL (7-25) H 05/21/18 05:25 Creatinine 2.5 mg/dL (0.6-1.2) H 05/21/18 05:25 Est GFR ( Amer) 31.0 ml/min (>90) 05/21/18 05:25 Est GFR (Non-Af Amer) 25.6 ml/min 05/21/18 05:25 BUN/Creatinine Ratio 11.6 05/21/18 05:25 Glucose 170 mg/dL (70-105) H 05/21/18 05:25 POC Glucose 120 MG/DL (70 - 105) H 05/15/18 16:58 Whole Bld Lactic Acid 0.81 mmol/L (0.60-1.99) 05/18/18 14:20 Uric Acid 6.3 mg/dL (2.3-6.6) 05/19/18 06:11 Calcium 8.4 mg/dL (8.6-10.3) L 05/21/18 05:25 Phosphorus 4.1 mg/dL (2.5-5.0) 05/19/18 06:11 Magnesium 2.7 mg/dL (1.9-2.7) 05/19/18 06:11 Total Bilirubin 0.6 mg/dL (0.3-1.0) 05/18/18 05:35 AST 24 U/L (13-39) 05/18/18 05:35 ALT 5 U/L (7-52) L 05/18/18 05:35 Alkaline Phosphatase 96 U/L (34-104) 05/18/18 05:35 B-Natriuretic Peptide 404.0 pg/mL (5.0-100.0) H 05/19/18 06:11 Total Protein 5.9 gm/dL (6.0-8.3) L 05/18/18 05:35 Albumin 2.9 gm/dL (3.7-5.3) L 05/18/18 05:35 Globulin 3.0 gm/dL 05/18/18 05:35 Albumin/Globulin Ratio 1.0 (1.0-1.8) 05/18/18 05:35 Amylase 167 U/L (29-103) H 05/19/18 06:11 Lipase 364 U/L (11-82) H 05/19/18 06:11 TSH 3.59 uIU/ml (0.34-5.60) 05/19/18 06:11 Urine Source MIDSTREAM 05/18/18 15:50 Urine Color RED 05/18/18 15:50 Urine Clarity HAZY (CLEAR) 05/18/18 15:50 Urine pH 6.0 (4.6 - 8.0) 05/18/18 15:50 Ur Specific [place] <= 1.005 (1.005-1.030) 05/18/18 15:50 Urine Protein 30 mg/dL (NEGATIVE) H 05/18/18 15:50 Urine Glucose (UA) NEGATIVE mg/dL (NEGATIVE) 05/18/18 15:50 Urine Ketones NEGATIVE mg/dL (NEGATIVE) 05/18/18 15:50 Urine Blood LARGE (NEGATIVE) H 05/18/18 15:50 Urine Nitrate NEGATIVE (NEGATIVE) 05/18/18 15:50 Urine Bilirubin NEGATIVE (NEGATIVE) 05/18/18 15:50 Urine Urobilinogen 0.2 E.U./dL (0.2 - 1.0) 05/18/18 15:50 Ur Leukocyte Esterase NEGATIVE (NEGATIVE) 05/18/18 15:50 Urine RBC 25-50 /hpf (0-5) H 05/18/18 15:50 Urine WBC 6-10 /hpf (0-5) H 05/18/18 15:50 Ur Epithelial Cells FEW /lpf (FEW) 05/18/18 15:50 Urine Bacteria MODERATE /hpf (NONE SEEN) H 05/18/18 15:50 Urine Osmolality 171 mOsmol/kg 05/18/18 15:50 Ur Random Sodium 69 mmol/L 05/18/18 15:50 Urine Creatinine 36.0 mg/dl (28.0-217.0) 05/18/18 15:50 Stool Occult Blood POSITIVE (NEGATIVE) H 05/20/18 10:20 Vancomycin Trough 42.4 ug/mL (5-10) H 05/15/18 20:00 Random Vancomycin 11.1 ug/mL (5.0-40.0) 05/19/18 06:11 Blood Type A POSITIVE 05/21/18 10:25 Antibody Screen NEGATIVE 05/21/18 10:25 Crossmatch See Detail 05/21/18 10:25 - Physical Exam Vitals and I&O: Vital Signs Temp 99 F 05/21/18 11:33 Pulse 96 05/21/18 11:33 Resp 18 05/21/18 11:33 BP 136/92 05/21/18 11:33 Pulse Ox 95 05/21/18 11:33 Intake & Output 05/20/18 05/21/18 05/21/18 18:59 06:59 18:59 Intake Total 1999 2259 Balance 1999 226 Weight (lbs) 61.235 kg 61.235 kg 61.144 kg Intake: Intake, IV Amount 1400 300 Dextrose 5% 1,000 ml @ 1000 100 mls/hr IV .Q10H [facility] Rx#:[id number] Linezolid 600mg/300mL 600 300 300 mg In 300 ml @ 300 mls/ hr IV Q12HR@0500,1700 [facility] Rx#:[id number] Piperacillin Sodium/ 100 Tazobact 3.375 gm In Sodium Chloride 0.9% 50 ml @ 100 mls/hr IV Q6HR [facility] Rx#:[id number] Tube Feeding 600 660 Other 1300 Other: # Voids 3 3 # Bowel Movements 1 1 Stool Characteristics Soft Soft Soft Liquid Liquid Liquid Weight Source Bedscale Bedscale Bedscale Active Medications: Current Medications Acetaminophen (Tylenol 650mg/20.3ml Suspension) 650 mg GT Q4HR PRN PRN Reason: Pain or Fever >101 Stop: 07/12/18 16:33 Last Admin: 05/21/18 02:27 Dose: 650 mg Bisacodyl (Dulcolax 10 Mg Supp) 10 mg RC DAILY PRN PRN Reason: Constipation Stop: 07/12/18 16:33 Bisacodyl (Dulcolax 5 Mg Ec Tab) 10 mg PO X1 ONE Stop: 05/21/18 16:01 Citric Acid/Sodium Citrate (Bicitra) 30 ml PO BID [facility] Stop: 07/17/18 16:59 Last Admin: 05/21/18 08:53 Dose: 30 ml Docusate Sodium (Colace) 100 mg PO DAILY [facility] Stop: 07/13/18 08:59 Last Admin: 05/21/18 08:54 Dose: Not Given Epoetin Vern (Epogen) 5,000 units SUBQ MoWeFr [facility] Stop: 07/18/18 14:59 Last Admin: 05/19/18 14:21 Dose: 5,000 units Ferrous Sulfate (Iron) 450 mg GT BID [facility] Stop: 07/12/18 16:59 Last Admin: 05/21/18 08:35 Dose: 450 mg Hydralazine HCl (Apresoline 20 Mg/Ml) 10 mg IV Q4HR PRN PRN Reason: SBP ABOVE 160 Stop: 07/17/18 11:46 Dextrose (D5w) 1,000 mls @ 100 mls/hr IV .Q10H [facility] Stop: 07/17/18 12:59 Last Admin: 05/21/18 11:46 Dose: 100 mls/hr Linezolid (Zyvox) 600 mg in 300 mls @ 300 mls/hr IV Q12HR@0500,1700 [facility] Stop: 07/17/18 16:59 Last Infusion: 05/21/18 06:10 Dose: Infused Levetiracetam (Keppra) 500 mg GT BID [facility] Stop: 07/12/18 16:59 Last Admin: 05/21/18 08:36 Dose: 500 mg Magnesium Hydroxide (Milk Of Magnesia) 30 ml GT Q72HR PRN PRN Reason: Constipation Stop: 07/12/18 16:33 Metoprolol Succinate (Toprol Xl) 25 mg PO DAILY [facility] Stop: 07/17/18 14:44 Last Admin: 05/21/18 08:34 Dose: 25 mg Pantoprazole Sodium (Protonix) 40 mg PO DAILY [facility] Stop: 07/19/18 19:59 Last Admin: 05/21/18 08:36 Dose: 40 mg Potassium Chloride (Klor-Con) 20 meq PO DAILY [facility] Stop: 07/19/18 08:59 Last Admin: 05/21/18 08:36 Dose: 20 meq Sodium Phosphate (Fleet Enema) 135 ml RC Q96HR PRN PRN Reason: IF DULCOLAX INEFFECTIVE Stop: 07/12/18 16:33 Valproate Sodium (Depakene) 500 mg GT Q12H [facility]; Protocol Stop: 07/12/18 16:59 Last Admin: 05/21/18 05:00 Dose: 500 mg General: No acute distress HEENT: Atraumatic, Mucous membr. 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 difficile colitis Hypokalemia - Plan Plan: Continue present management continue IV antibiotics controlled blood pressure Stool for C. difficile colitis potassium supplement A GI workup EGD colonoscope [place] transfusion
--- NOTE | 2018-05-21 14:28 | General Progress Note ---
Subjective - Review of Systems Service Date: 05/21/18 Subjective: sleeping, comfortable Objective - Results Result Diagrams: 05/21/18 05:25 05/21/18 05:25 Recent Labs: Laboratory Last Values WBC 19.0 Th/cmm (4.8-10.8) H 05/21/18 05:25 RBC 2.60 Mil/cmm (3.80-5.10) L 05/21/18 05:25 Hgb 7.0 gm/dL (12-16) L* 05/21/18 05:25 Hct 21.3 % (41.0-60) L 05/21/18 05:25 MCV 81.9 fl (81-100) 05/21/18 05:25 MCH 26.9 pg (27.0-31.0) L 05/21/18 05:25 MCHC Differential 32.9 pg (28.0-36.0) 05/21/18 05:25 RDW 15.7 % (11.5-20.0) 05/21/18 05:25 Plt Count 144 Th/cmm (150-400) L 05/21/18 05:25 MPV 8.8 fl 05/21/18 05:25 Add Manual Diff YES 05/21/18 05:25 Neutrophils % CERAMIC TILE SETTER 05/17/18 05:00 Band Neutrophils % 2 % (0-10) 05/21/18 05:25 Lymphocytes % CERAMIC TILE SETTER 05/17/18 05:00 Monocytes % CERAMIC TILE SETTER 05/17/18 05:00 Eosinophils % CERAMIC TILE SETTER 05/17/18 05:00 Basophils % CERAMIC TILE SETTER 05/17/18 05:00 Neutrophils (Manual) 80 % (40-80) 05/21/18 05:25 Lymphocytes 9 % (20-50) L 05/21/18 05:25 Monocytes 6 % (2-10) 05/21/18 05:25 Eosinophils 3 % (0-5) 05/21/18 05:25 Basophils 0 % (0-3) 05/21/18 05:25 Metamyelocytes 6 % (0-0) H 05/17/18 05:00 Platelet Estimate ADEQUATE (NORMAL) 05/17/18 05:00 Smear Path Review 05/21/18 05:25 Eos Smear Source URINE 05/18/18 15:50 Eos Smear Total Cells NONE SEEN (NONE SEEN) 05/18/18 15:50 Specimen Source Arterial 05/18/18 14:48 Sample Site Right Radial 05/18/18 14:48 pH 7.409 (7.35-7.45) 05/18/18 14:48 pCO2 28.7 mmHg (35.0-45.0) L 05/18/18 14:48 pO2 60.5 mmHg (80.0-100.0) L 05/18/18 14:48 HCO3 17.7 mEq/L (20.0-26.0) L 05/18/18 14:48 Base Excess -5.4 mEq/L (-3.0-3.0) L 05/18/18 14:48 O2 Saturation 92.0 % (92.0-100.0) 05/18/18 14:48 Yoel Test Positive 05/18/18 14:48 Vent Rate NA 05/18/18 14:48 Inspired O2 21 05/18/18 14:48 Tidal Volume NA 05/18/18 14:48 PEEP NA 05/18/18 14:48 Pressure (ins/psv/peep) NA 05/18/18 14:48 Critical Value SH 05/18/18 14:48 Sodium 160 mEq/L (136-145) H* 05/21/18 05:25 Potassium 3.5 mEq/L (3.5-5.1) 05/21/18 05:25 Chloride 124 mEq/L (98-107) H 05/21/18 05:25 Carbon Dioxide 25.5 mEq/L (21.0-31.0) 05/21/18 05:25 Anion Gap 14.0 (7.0-16.0) 05/21/18 05:25 BUN 29 mg/dL (7-25) H 05/21/18 05:25 Creatinine 2.5 mg/dL (0.6-1.2) H 05/21/18 05:25 Est GFR ( Amer) 31.0 ml/min (>90) 05/21/18 05:25 Est GFR (Non-Af Amer) 25.6 ml/min 05/21/18 05:25 BUN/Creatinine Ratio 11.6 05/21/18 05:25 Glucose 170 mg/dL (70-105) H 05/21/18 05:25 POC Glucose 120 MG/DL (70 - 105) H 05/15/18 16:58 Whole Bld Lactic Acid 0.81 mmol/L (0.60-1.99) 05/18/18 14:20 Uric Acid 6.3 mg/dL (2.3-6.6) 05/19/18 06:11 Calcium 8.4 mg/dL (8.6-10.3) L 05/21/18 05:25 Phosphorus 4.1 mg/dL (2.5-5.0) 05/19/18 06:11 Magnesium 2.7 mg/dL (1.9-2.7) 05/19/18 06:11 Total Bilirubin 0.6 mg/dL (0.3-1.0) 05/18/18 05:35 AST 24 U/L (13-39) 05/18/18 05:35 ALT 5 U/L (7-52) L 05/18/18 05:35 Alkaline Phosphatase 96 U/L (34-104) 05/18/18 05:35 B-Natriuretic Peptide 404.0 pg/mL (5.0-100.0) H 05/19/18 06:11 Total Protein 5.9 gm/dL (6.0-8.3) L 05/18/18 05:35 Albumin 2.9 gm/dL (3.7-5.3) L 05/18/18 05:35 Globulin 3.0 gm/dL 05/18/18 05:35 Albumin/Globulin Ratio 1.0 (1.0-1.8) 05/18/18 05:35 Amylase 167 U/L (29-103) H 05/19/18 06:11 Lipase 364 U/L (11-82) H 05/19/18 06:11 TSH 3.59 uIU/ml (0.34-5.60) 05/19/18 06:11 Urine Source MIDSTREAM 05/18/18 15:50 Urine Color RED 05/18/18 15:50 Urine Clarity HAZY (CLEAR) 05/18/18 15:50 Urine pH 6.0 (4.6 - 8.0) 05/18/18 15:50 Ur Specific [place] <= 1.005 (1.005-1.030) 05/18/18 15:50 Urine Protein 30 mg/dL (NEGATIVE) H 05/18/18 15:50 Urine Glucose (UA) NEGATIVE mg/dL (NEGATIVE) 05/18/18 15:50 Urine Ketones NEGATIVE mg/dL (NEGATIVE) 05/18/18 15:50 Urine Blood LARGE (NEGATIVE) H 05/18/18 15:50 Urine Nitrate NEGATIVE (NEGATIVE) 05/18/18 15:50 Urine Bilirubin NEGATIVE (NEGATIVE) 05/18/18 15:50 Urine Urobilinogen 0.2 E.U./dL (0.2 - 1.0) 05/18/18 15:50 Ur Leukocyte Esterase NEGATIVE (NEGATIVE) 05/18/18 15:50 Urine RBC 25-50 /hpf (0-5) H 05/18/18 15:50 Urine WBC 6-10 /hpf (0-5) H 05/18/18 15:50 Ur Epithelial Cells FEW /lpf (FEW) 05/18/18 15:50 Urine Bacteria MODERATE /hpf (NONE SEEN) H 05/18/18 15:50 Urine Osmolality 171 mOsmol/kg 05/18/18 15:50 Ur Random Sodium 69 mmol/L 05/18/18 15:50 Urine Creatinine 36.0 mg/dl (28.0-217.0) 05/18/18 15:50 Stool Occult Blood POSITIVE (NEGATIVE) H 05/20/18 10:20 Vancomycin Trough 42.4 ug/mL (5-10) H 05/15/18 20:00 Random Vancomycin 11.1 ug/mL (5.0-40.0) 05/19/18 06:11 Blood Type A POSITIVE 05/21/18 10:25 Antibody Screen NEGATIVE 05/21/18 10:25 Crossmatch See Detail 05/21/18 10:25 - Physical Exam Vitals and I&O: Vital Signs Temp 99 F 05/21/18 11:33 Pulse 96 05/21/18 11:33 Resp 18 05/21/18 11:33 BP 136/92 05/21/18 11:33 Pulse Ox 95 05/21/18 11:33 Intake & Output 05/20/18 05/21/18 05/21/18 18:59 06:59 18:59 Intake Total 1999 2259 Balance 1999 226 Weight (lbs) 61.235 kg 61.235 kg 61.144 kg Intake: Intake, IV Amount 1400 300 Dextrose 5% 1,000 ml @ 1000 100 mls/hr IV .Q10H [facility] Rx#:[id number] Linezolid 600mg/300mL 600 300 300 mg In 300 ml @ 300 mls/ hr IV Q12HR@0500,1700 [facility] Rx#:[id number] Piperacillin Sodium/ 100 Tazobact 3.375 gm In Sodium Chloride 0.9% 50 ml @ 100 mls/hr IV Q6HR [facility] Rx#:[id number] Tube Feeding 600 660 Other 1300 Other: # Voids 3 3 # Bowel Movements 1 1 Stool Characteristics Soft Soft Soft Liquid Liquid Liquid Weight Source Bedscale Bedscale Bedscale Active Medications: Current Medications Acetaminophen (Tylenol 650mg/20.3ml Suspension) 650 mg GT Q4HR PRN PRN Reason: Pain or Fever >101 Stop: 07/12/18 16:33 Last Admin: 05/21/18 02:27 Dose: 650 mg Bisacodyl (Dulcolax 10 Mg Supp) 10 mg RC DAILY PRN PRN Reason: Constipation Stop: 07/12/18 16:33 Bisacodyl (Dulcolax 5 Mg Ec Tab) 10 mg PO X1 ONE Stop: 05/21/18 16:01 Citric Acid/Sodium Citrate (Bicitra) 30 ml PO BID [facility] Stop: 07/17/18 16:59 Last Admin: 05/21/18 08:53 Dose: 30 ml Docusate Sodium (Colace) 100 mg PO DAILY [facility] Stop: 07/13/18 08:59 Last Admin: 05/21/18 08:54 Dose: Not Given Epoetin Vern (Epogen) 5,000 units SUBQ MoWeFr [facility] Stop: 07/18/18 14:59 Last Admin: 05/19/18 14:21 Dose: 5,000 units Ferrous Sulfate (Iron) 450 mg GT BID [facility] Stop: 07/12/18 16:59 Last Admin: 05/21/18 08:35 Dose: 450 mg Hydralazine HCl (Apresoline 20 Mg/Ml) 10 mg IV Q4HR PRN PRN Reason: SBP ABOVE 160 Stop: 07/17/18 11:46 Linezolid (Zyvox) 600 mg in 300 mls @ 300 mls/hr IV Q12HR@0500,1700 [facility] Stop: 07/17/18 16:59 Last Infusion: 05/21/18 06:10 Dose: Infused Dextrose (D5w) 1,000 mls @ 125 mls/hr IV .Q8H [facility] Stop: 07/20/18 14:29 Levetiracetam (Keppra) 500 mg GT BID [facility] Stop: 07/12/18 16:59 Last Admin: 05/21/18 08:36 Dose: 500 mg Magnesium Hydroxide (Milk Of Magnesia) 30 ml GT Q72HR PRN PRN Reason: Constipation Stop: 07/12/18 16:33 Metoprolol Succinate (Toprol Xl) 25 mg PO DAILY [facility] Stop: 07/17/18 14:44 Last Admin: 05/21/18 08:34 Dose: 25 mg Pantoprazole Sodium (Protonix) 40 mg PO DAILY [facility] Stop: 07/19/18 19:59 Last Admin: 05/21/18 08:36 Dose: 40 mg Potassium Chloride (Klor-Con) 20 meq PO DAILY [facility] Stop: 07/19/18 08:59 Last Admin: 05/21/18 08:36 Dose: 20 meq Sodium Phosphate (Fleet Enema) 135 ml RC Q96HR PRN PRN Reason: IF DULCOLAX INEFFECTIVE Stop: 07/12/18 16:33 Valproate Sodium (Depakene) 500 mg GT Q12H [facility]; Protocol Stop: 07/12/18 16:59 Last Admin: 05/21/18 05:00 Dose: 500 mg General: No acute distress HEENT: Atraumatic, Mucous membr. moist/pink Neck: Supple, JVD Cardiovascular: Regular rate Lungs: Clear to auscultation, Normal air movement Abdomen: Bowel sounds, Soft, Other (G-tube in place), no Tender, no Hepatomegaly , no Splenomegaly, no Distended, no Rebound, no Mass Extremities: Pulses (normal) Neurological: Normal tone, Sensation intact, Reflexes 2+ Skin: Rash Psych/Mental Status: Mood NL Assessment/Plan - Assessment Assessment: JAYLIN Hypernatremia 2/2 dehydration Severe Malnutrition Leukocytosis possible LGI Bleed, C. diff Ess Htn Dev Delay Cerebral Palsy Int. Disability Anemia of CD? - Plan Plan: Lab - Result Diagrams 05/19/18 06:11 05/19/18 06:11 Current Medications Acetaminophen (Tylenol 650mg/20.3ml Suspension) 650 mg GT Q4HR PRN PRN Reason: Pain or Fever >101 Stop: 07/12/18 16:33 Last Admin: 05/19/18 02:21 Dose: 650 mg Bisacodyl (Dulcolax 10 Mg Supp) 10 mg RC DAILY PRN PRN Reason: Constipation Stop: 07/12/18 16:33 Citric Acid/Sodium Citrate (Bicitra) 30 ml PO BID [facility] Stop: 07/17/18 16:59 Last Admin: 05/19/18 11:54 Dose: 30 ml Docusate Sodium (Colace) 100 mg PO DAILY [facility] Stop: 07/13/18 08:59 Last Admin: 05/19/18 08:36 Dose: 100 mg Epoetin Vern (Epogen) 5,000 units SUBQ MoWeFr [facility] Stop: 07/18/18 13:44 Ferrous Sulfate (Iron) 450 mg GT BID [facility] Stop: 07/12/18 16:59 Last Admin: 05/19/18 08:38 Dose: 450 mg Hydralazine HCl (Apresoline 20 Mg/Ml) 10 mg IV Q4HR PRN PRN Reason: SBP ABOVE 160 Stop: 07/17/18 11:46 Piperacillin Sod/Tazobactam (Sod 3.375 gm/ Sodium Chloride) 50 mls @ 100 mls/ hr IV Q6HR [facility] Stop: 07/12/18 05:59 Last Admin: 05/19/18 11:54 Dose: 100 mls/hr Dextrose (D5w) 1,000 mls @ 100 mls/hr IV .Q10H [facility] Stop: 07/17/18 12:59 Last Admin: 05/19/18 01:00 Dose: 100 mls/hr Linezolid (Zyvox) 600 mg in 300 mls @ 300 mls/hr IV Q12HR@0500,1700 [facility] Stop: 07/17/18 16:59 Last Infusion: 05/19/18 05:50 Dose: Infused Levetiracetam (Keppra) 500 mg GT BID [facility] Stop: 07/12/18 16:59 Last Admin: 05/19/18 08:36 Dose: 500 mg Lorazepam (Ativan) 1 mg IVP Q6HR PRN; Protocol PRN Reason: Anxiety Stop: 07/12/18 04:24 Last Admin: 05/14/18 00:06 Dose: 1 mg Magnesium Hydroxide (Milk Of Magnesia) 30 ml GT Q72HR PRN PRN Reason: Constipation Stop: 07/12/18 16:33 Metoprolol Succinate (Toprol Xl) 25 mg PO DAILY [facility] Stop: 07/17/18 14:44 Last Admin: 05/19/18 08:36 Dose: 25 mg Mupirocin (Bactroban Oint) 1 appl NS BID [facility] Stop: 05/19/18 17:01 Last Admin: 05/19/18 08:36 Dose: 1 appl Potassium Chloride (Klor-Con) 20 meq PO DAILY [facility] Stop: 07/18/18 13:44 Sodium Phosphate (Fleet Enema) 135 ml RC Q96HR PRN PRN Reason: IF DULCOLAX INEFFECTIVE Stop: 07/12/18 16:33 Valproate Sodium (Depakene) 500 mg GT Q12H [facility]; Protocol Stop: 07/12/18 16:59 Last Admin: 05/19/18 05:00 Dose: 500 mg Lab - Result Diagrams 05/21/18 05:25 05/21/18 05:25 Kidney fnc basically the same w/ BUN/CR of 29/2.5 FE Na 3.15% suggestive of intrinc renal involvement Na uo to 160 increase water flushes, IVF w/ D5W replace K WBC stable @ 19 Hgb/Hct 7/21.3, for transfusion f/u electrolytes, cbc
[2018-05-21] MEDS: Epoetin Alfa 20000 Units/mL Vial SUBQ SCH (15:25)
--- NOTE | 2018-05-21 20:04 | Internal Medicine Prog Note ---
Internal Medicine Subjective - Subjective Service Date: 05/20/18 Patient seen and examined:: with staff, chart reviewed Patient is:: awake, non-verbal, non-interactive, confused, other (hx of cerebral pasy, developmetal delay.) Patient Complaints of:: other (weakness.) Per staff patient has:: no adverse event, no episodes of fall, noncompliant, confused, other (unable to comprehend commands ) Internal Medicine Objective - Results Result Diagrams: 05/21/18 05:25 05/21/18 05:25 Recent Labs: Laboratory Last Values WBC 19.0 Th/cmm (4.8-10.8) H 05/21/18 05:25 RBC 2.60 Mil/cmm (3.80-5.10) L 05/21/18 05:25 Hgb 7.0 gm/dL (12-16) L* 05/21/18 05:25 Hct 21.3 % (41.0-60) L 05/21/18 05:25 MCV 81.9 fl (81-100) 05/21/18 05:25 MCH 26.9 pg (27.0-31.0) L 05/21/18 05:25 MCHC Differential 32.9 pg (28.0-36.0) 05/21/18 05:25 RDW 15.7 % (11.5-20.0) 05/21/18 05:25 Plt Count 144 Th/cmm (150-400) L 05/21/18 05:25 MPV 8.8 fl 05/21/18 05:25 Add Manual Diff YES 05/21/18 05:25 Neutrophils % MULT AU MATIC OPERATOR 05/17/18 05:00 Band Neutrophils % 2 % (0-10) 05/21/18 05:25 Lymphocytes % MULT AU MATIC OPERATOR 05/17/18 05:00 Monocytes % MULT AU MATIC OPERATOR 05/17/18 05:00 Eosinophils % MULT AU MATIC OPERATOR 05/17/18 05:00 Basophils % MULT AU MATIC OPERATOR 05/17/18 05:00 Neutrophils (Manual) 80 % (40-80) 05/21/18 05:25 Lymphocytes 9 % (20-50) L 05/21/18 05:25 Monocytes 6 % (2-10) 05/21/18 05:25 Eosinophils 3 % (0-5) 05/21/18 05:25 Basophils 0 % (0-3) 05/21/18 05:25 Metamyelocytes 6 % (0-0) H 05/17/18 05:00 Platelet Estimate ADEQUATE (NORMAL) 05/17/18 05:00 Smear Path Review 05/21/18 05:25 Eos Smear Source URINE 05/18/18 15:50 Eos Smear Total Cells NONE SEEN (NONE SEEN) 05/18/18 15:50 Specimen Source Arterial 05/18/18 14:48 Sample Site Right Radial 05/18/18 14:48 pH 7.409 (7.35-7.45) 05/18/18 14:48 pCO2 28.7 mmHg (35.0-45.0) L 05/18/18 14:48 pO2 60.5 mmHg (80.0-100.0) L 05/18/18 14:48 HCO3 17.7 mEq/L (20.0-26.0) L 05/18/18 14:48 Base Excess -5.4 mEq/L (-3.0-3.0) L 05/18/18 14:48 O2 Saturation 92.0 % (92.0-100.0) 05/18/18 14:48 Yoel Test Positive 05/18/18 14:48 Vent Rate NA 05/18/18 14:48 Inspired O2 21 05/18/18 14:48 Tidal Volume NA 05/18/18 14:48 PEEP NA 05/18/18 14:48 Pressure (ins/psv/peep) NA 05/18/18 14:48 Critical Value SH 05/18/18 14:48 Sodium 160 mEq/L (136-145) H* 05/21/18 05:25 Potassium 3.5 mEq/L (3.5-5.1) 05/21/18 05:25 Chloride 124 mEq/L (98-107) H 05/21/18 05:25 Carbon Dioxide 25.5 mEq/L (21.0-31.0) 05/21/18 05:25 Anion Gap 14.0 (7.0-16.0) 05/21/18 05:25 BUN 29 mg/dL (7-25) H 05/21/18 05:25 Creatinine 2.5 mg/dL (0.6-1.2) H 05/21/18 05:25 Est GFR ( Amer) 31.0 ml/min (>90) 05/21/18 05:25 Est GFR (Non-Af Amer) 25.6 ml/min 05/21/18 05:25 BUN/Creatinine Ratio 11.6 05/21/18 05:25 Glucose 170 mg/dL (70-105) H 05/21/18 05:25 POC Glucose 120 MG/DL (70 - 105) H 05/15/18 16:58 Whole Bld Lactic Acid 0.81 mmol/L (0.60-1.99) 05/18/18 14:20 Uric Acid 6.3 mg/dL (2.3-6.6) 05/19/18 06:11 Calcium 8.4 mg/dL (8.6-10.3) L 05/21/18 05:25 Phosphorus 4.1 mg/dL (2.5-5.0) 05/19/18 06:11 Magnesium 2.7 mg/dL (1.9-2.7) 05/19/18 06:11 Total Bilirubin 0.6 mg/dL (0.3-1.0) 05/18/18 05:35 AST 24 U/L (13-39) 05/18/18 05:35 ALT 5 U/L (7-52) L 05/18/18 05:35 Alkaline Phosphatase 96 U/L (34-104) 05/18/18 05:35 B-Natriuretic Peptide 404.0 pg/mL (5.0-100.0) H 05/19/18 06:11 Total Protein 5.9 gm/dL (6.0-8.3) L 05/18/18 05:35 Albumin 2.9 gm/dL (3.7-5.3) L 05/18/18 05:35 Globulin 3.0 gm/dL 05/18/18 05:35 Albumin/Globulin Ratio 1.0 (1.0-1.8) 05/18/18 05:35 Amylase 167 U/L (29-103) H 05/19/18 06:11 Lipase 364 U/L (11-82) H 05/19/18 06:11 TSH 3.59 uIU/ml (0.34-5.60) 05/19/18 06:11 Urine Source MIDSTREAM 05/18/18 15:50 Urine Color RED 05/18/18 15:50 Urine Clarity HAZY (CLEAR) 05/18/18 15:50 Urine pH 6.0 (4.6 - 8.0) 05/18/18 15:50 Ur Specific [place] <= 1.005 (1.005-1.030) 05/18/18 15:50 Urine Protein 30 mg/dL (NEGATIVE) H 05/18/18 15:50 Urine Glucose (UA) NEGATIVE mg/dL (NEGATIVE) 05/18/18 15:50 Urine Ketones NEGATIVE mg/dL (NEGATIVE) 05/18/18 15:50 Urine Blood LARGE (NEGATIVE) H 05/18/18 15:50 Urine Nitrate NEGATIVE (NEGATIVE) 05/18/18 15:50 Urine Bilirubin NEGATIVE (NEGATIVE) 05/18/18 15:50 Urine Urobilinogen 0.2 E.U./dL (0.2 - 1.0) 05/18/18 15:50 Ur Leukocyte Esterase NEGATIVE (NEGATIVE) 05/18/18 15:50 Urine RBC 25-50 /hpf (0-5) H 05/18/18 15:50 Urine WBC 6-10 /hpf (0-5) H 05/18/18 15:50 Ur Epithelial Cells FEW /lpf (FEW) 05/18/18 15:50 Urine Bacteria MODERATE /hpf (NONE SEEN) H 05/18/18 15:50 Urine Osmolality 171 mOsmol/kg 05/18/18 15:50 Ur Random Sodium 69 mmol/L 05/18/18 15:50 Urine Creatinine 36.0 mg/dl (28.0-217.0) 05/18/18 15:50 Stool Occult Blood POSITIVE (NEGATIVE) H 05/20/18 10:20 Vancomycin Trough 42.4 ug/mL (5-10) H 05/15/18 20:00 Random Vancomycin 11.1 ug/mL (5.0-40.0) 05/19/18 06:11 Blood Type A POSITIVE 05/21/18 10:25 Antibody Screen NEGATIVE 05/21/18 10:25 Crossmatch See Detail 05/21/18 10:25 - Physical Exam Vitals and I&O: Vital Signs Temp 98.3 F 05/21/18 19:56 Pulse 98 05/21/18 19:56 Resp 18 05/21/18 19:56 BP 143/79 05/21/18 19:56 Pulse Ox 99 05/21/18 19:56 Intake & Output 05/21/18 05/21/18 05/22/18 06:59 18:59 06:59 Intake Total 2260 300 Balance 2260 300 Weight (lbs) 61.235 kg 61.144 kg Intake: Intake, IV Amount 300 300 Linezolid 600mg/300mL 600 300 300 mg In 300 ml @ 300 mls/ hr IV Q12HR@0500,1700 [facility] Rx#:[id number] Tube Feeding 660 Other 1300 Other: # Voids 3 # Bowel Movements 1 Stool Characteristics Soft Soft Liquid Liquid Weight Source Bedscale Bedscale Active Medications: Current Medications Acetaminophen (Tylenol 650mg/20.3ml Suspension) 650 mg GT Q4HR PRN PRN Reason: Pain or Fever >101 Stop: 07/12/18 16:33 Last Admin: 05/21/18 17:56 Dose: 650 mg Bisacodyl (Dulcolax 10 Mg Supp) 10 mg RC DAILY PRN PRN Reason: Constipation Stop: 07/12/18 16:33 Citric Acid/Sodium Citrate (Bicitra) 30 ml PO BID [facility] Stop: 07/17/18 16:59 Last Admin: 05/21/18 17:27 Dose: 30 ml Docusate Sodium (Colace) 100 mg PO DAILY [facility] Stop: 07/13/18 08:59 Last Admin: 05/21/18 08:54 Dose: Not Given Epoetin Vern (Epogen) 5,000 units SUBQ MoWeFr [facility] Stop: 07/18/18 14:59 Last Admin: 05/21/18 15:25 Dose: 5,000 units Ferrous Sulfate (Iron) 450 mg GT BID [facility] Stop: 07/12/18 16:59 Last Admin: 05/21/18 16:08 Dose: 450 mg Hydralazine HCl (Apresoline 20 Mg/Ml) 10 mg IV Q4HR PRN PRN Reason: SBP ABOVE 160 Stop: 07/17/18 11:46 Linezolid (Zyvox) 600 mg in 300 mls @ 300 mls/hr IV Q12HR@0500,1700 [facility] Stop: 07/17/18 16:59 Last Infusion: 05/21/18 17:06 Dose: Infused Dextrose (D5w) 1,000 mls @ 125 mls/hr IV .Q8H [facility] Stop: 07/20/18 14:29 Last Admin: 05/21/18 16:19 Dose: 125 mls/hr Levetiracetam (Keppra) 500 mg GT BID [facility] Stop: 07/12/18 16:59 Last Admin: 05/21/18 16:08 Dose: 500 mg Magnesium Hydroxide (Milk Of Magnesia) 30 ml GT Q72HR PRN PRN Reason: Constipation Stop: 07/12/18 16:33 Metoprolol Succinate (Toprol Xl) 25 mg PO DAILY [facility] Stop: 07/17/18 14:44 Last Admin: 05/21/18 08:34 Dose: 25 mg Pantoprazole Sodium (Protonix) 40 mg PO DAILY [facility] Stop: 07/19/18 19:59 Last Admin: 05/21/18 08:36 Dose: 40 mg Potassium Chloride (Klor-Con) 20 meq PO DAILY [facility] Stop: 07/19/18 08:59 Last Admin: 05/21/18 08:36 Dose: 20 meq Sodium Phosphate (Fleet Enema) 135 ml RC Q96HR PRN PRN Reason: IF DULCOLAX INEFFECTIVE Stop: 07/12/18 16:33 Valproate Sodium (Depakene) 500 mg GT Q12H [facility]; Protocol Stop: 07/12/18 16:59 Last Admin: 05/21/18 16:08 Dose: 500 mg Physical Exam: 22 y/o female patient has generalized weakness, severe malnutrition. General: weak HEENT: NC/AT, PERRLA Neck: Supple Lungs: CTAB Abdomen: soft, non-tender, non-distended Extremities: excoriation Neurological: no change, unable to follow command Internal Medicine Assmt/Plan - Assessment Assessment: JAYLIN Hypernatremia Severe Malnutrition Leukocytosis HTN Cerebral Palsy Intellectual Disability Developmental Delay Anemia - Plan Plan: Continuation of care continue present meds as directed Monitor vitals and diet fall precaution supportive care Continue present care management. Nutritional Asmnt/Malnutr-PDOC - Dietary Evaluation Malnutrition Findings (Please click <Entered> for more info): see orders
[2018-05-22] MEDS: Linezolid 600mg/300mL 600 MG/300 ML BAG IV SCH ×2 (04:42→16:53)
[2018-05-22] MEDS: Dextrose 5% 1,000 ML IV SCH ×3 (04:42→17:33)
[2018-05-22 06:27] LABS: EOSINOPHILE ABSOLUTE 0.3 Th/cmm (0.1-0.4); HEMATOCRIT 32.8 % (41.0-60); HEMOGLOBIN 10.8 gm/dL (12-16); LYMPHOCYTE ABSOLUTE 1.2 Th/cmm (1.5-3.0); MEAN CELL VOLUME 84.7 fl (81-100); MEAN PLATELET VOLUME 8.9 fl; MONOCYTE ABSOLUTE 0.9 Th/cmm (0.3-1.0); NEUTROPHILE ABSOLUTE 18.5 Th/cmm (1.8-8.0); PLATELET COUNT 138 Th/cmm (150-400); RED BLOOD COUNT 3.87 Mil/cmm (3.80-5.10); RED CELL DISTRIBUTION WIDTH 14.2 % (11.5-20.0)
[2018-05-22 06:30] LABS: WHITE BLOOD COUNT 20.9 Th/cmm (4.8-10.8)
[2018-05-22 06:44] LABS: INR 0.99 (0.5-1.4); PROTHROMBIN TIME (TEST) 10.3 SECONDS (9.5-11.5)
[2018-05-22 07:01] LABS: BAND NEUTROPHILE 1 % (0-10); EOSINOPHIL 1 % (0-5); LYMPHOCYTE 8 % (20-50); MONOCYTE 3 % (2-10); NEUTROPHILS 87 % (40-80); PLATELET ESTIMATE ADEQUATE (NORMAL)
[2018-05-22] MEDS ORDERED: Lidocaine 2% Gel 5 mL TP ONE (08:30)
[2018-05-22] MEDS ORDERED: Propofol 10 mg/mL 20mL Vial **SURGERY USE ONLY IV ONE (08:30)
[2018-05-22] MEDS: Levetiracetam 500 mg/5mL 5mL UDSyr *for ORAL USE ONLY GT SCH ×3 (08:37→16:58)
[2018-05-22] MEDS: Ferrous Sulfate 300 MG/5 ML UDC GT SCH ×2 (08:37→16:47)
[2018-05-22] MEDS: Potassium Chloride 20 mEq ER Tab PO SCH ×4 (08:38→17:28)
[2018-05-22] MEDS: Pantoprazole 40 mg EC Tab PO SCH ×2 (08:38→10:34)
--- NOTE | 2018-05-22 10:56 | Operative Report ---
DATE OF SURGERY: 05/22/2018 INPATIENT EGD AND COLONOSCOPY REPORT PROCEDURE PERFORMED: EGD with biopsy and colonoscopy with biopsy. ENDOSCOPIST: Kiet Jeffers MD PREOPERATIVE DIAGNOSES: Anemia, fecal occult blood positive stool. POSTOPERATIVE DIAGNOSES: Gastritis, proctitis, rectal polyp, internal hemorrhoids. INDICATION: The patient is a 22-year-old female with cerebral palsy, developmental delay, dysphagia with G-tube dependency, who is admitted to the hospital with signs of sepsis, possible colitis. However, the patient has been having progressive worsening anemia with hemoglobin down to 7.0 and fecal occult blood positive stool. Thus, GI is requested for an evaluation with EGD and colonoscopy. CONSENT: Informed consent was obtained from the patient's healthcare proxy. The risks and benefits of the procedure were discussed including but not limited to infection, bleeding, perforation, need for surgery, cardiopulmonary complications, missed pathology and . The healthcare proxy indicated their understanding of these risks and wished to go forward with the procedure and signed the consent form. ANESTHESIA: The procedure was done in the operating room under the assistance of an anesthesiologist providing propofol. PROCEDURE IN DETAIL: The patient was subjected to appropriate monitoring devices including blood pressure, pulse and pulse oximetry. An IV was in place. Oxygen was delivered via nasal cannula and facemask during the entire procedure. Sedation was then administered by the anesthesiologist. DESCRIPTION OF PROCEDURE: The patient was in supine position. Mouthpiece inserted and secured. A gastroscope introduced into the mouth and guided under direct visualization into the level of the esophagus, stomach and then duodenum. The scope was slowly and carefully withdrawn with continuous imaging of the entire mucosa in a careful and systematic fashion. Next, the patient was repositioned to the colonoscopy position. A rectal exam was performed. The scope was introduced into the anus and guided under direct visualization to the level of the cecum, which was confirmed by the presence of appendiceal orifice and IC valve, which were photographed. The scope was slowly and carefully withdrawn looking to examine the entire mucosa in careful and systematic fashion. Retroflexion was performed in the rectum prior to scope straightening and withdrawal from the body. There was no obvious sign of complication at the end of the procedure. FINDINGS: EGD PORTION: Esophagus: The GE junction was located at 35 cm from the incisors. There was no esophagitis or esophageal lesion, otherwise. Stomach portion: There was gastritis in the gastric body region extending into the antrum. The cardia and fundus appeared endoscopically normal. There was an intact G-tube with the balloon inflated in the gastric body without any ulceration. There was no other mass lesion noted anywhere in the stomach. Biopsies were taken from the antrum for H. pylori evaluation. Duodenum: Duodenal bulb and second portion appeared endoscopically normal and biopsy was taken for celiac evaluation. COLONOSCOPY PORTION: The Brewster bowel prep score was 3 in all segments of the colon. The terminal ileum was intubated and appeared endoscopically normal. There was no evidence of any colitis. The colon itself, there were no diverticulosis. However, in the rectum, there appeared to be an area that extended from the dentate line proximally about 3 cm consistent with either proctitis or an ulcerative polyp. It was unclear what this area actually represented although most likely I think it is going to be either inflamed hemorrhoid or proctitis that has been ulcerated. Biopsies were taken from this area. There was some surrounding proctitis surrounding the area as well. No other mass lesion was found. IMPRESSION: 1. Gastritis. 2. Intact gastric tube. 3. Rectal polyp versus an area of proctitis versus inflamed hemorrhoid. RECOMMENDATIONS: 1. We will follow up the biopsy results from the stomach. If there is H. pylori, we will treat this accordingly. 2. Restart the tube feeds today. 3. We will follow up the rectal biopsies. If this is an adenomatous area, then the patient will need to have a repeat flexible sigmoidoscopy in 1 month or 2 months in order to try to remove this area. If this is inflammatory tissue, then another repeat procedure is likely not necessary and in that case, she may do well with steroid suppository to prevent further inflammation. Thank you for allowing me to participate in this patient's care. Please call with any further questions. PSYCHIATRIC# [id number]
[2018-05-22 11:22] LABS: CALCIUM SERUM 8.6 mg/dL (8.6-10.3); CREATININE - SERUM 2.3 mg/dL (0.6-1.2); GFR AFRICAN-AMERICAN 34.1 ml/min (>90); GFR NON AFRICAN-AMERICAN 28.2 ml/min
[2018-05-22] MEDS ORDERED: Potassium Chloride 20 mEq ER Tab PO ONE (11:40)
--- NOTE | 2018-05-22 11:40 | General Progress Note ---
Subjective - Review of Systems Service Date: 05/22/18 Subjective: Patient awake alert no complaints Patient has diarrhea Stool for occult blood positive EGD and colonoscopy done Objective - Results Result Diagrams: 05/22/18 06:10 05/22/18 06:10 Recent Labs: Laboratory Last Values WBC 20.9 Th/cmm (4.8-10.8) H* 05/22/18 06:10 RBC 3.87 Mil/cmm (3.80-5.10) 05/22/18 06:10 Hgb 10.8 gm/dL (12-16) L 05/22/18 06:10 Hct 32.8 % (41.0-60) L 05/22/18 06:10 MCV 84.7 fl (81-100) 05/22/18 06:10 MCH 28.0 pg (27.0-31.0) 05/22/18 06:10 MCHC Differential 33.0 pg (28.0-36.0) 05/22/18 06:10 RDW 14.2 % (11.5-20.0) 05/22/18 06:10 Plt Count 138 Th/cmm (150-400) L 05/22/18 06:10 MPV 8.9 fl 05/22/18 06:10 Add Manual Diff YES 05/22/18 06:10 Neutrophils % ONLINE MEDIA DIRECTOR 05/17/18 05:00 Band Neutrophils % 1 % (0-10) 05/22/18 06:10 Lymphocytes % ONLINE MEDIA DIRECTOR 05/17/18 05:00 Monocytes % ONLINE MEDIA DIRECTOR 05/17/18 05:00 Eosinophils % ONLINE MEDIA DIRECTOR 05/17/18 05:00 Basophils % ONLINE MEDIA DIRECTOR 05/17/18 05:00 Neutrophils (Manual) 87 % (40-80) H 05/22/18 06:10 Lymphocytes 8 % (20-50) L 05/22/18 06:10 Monocytes 3 % (2-10) 05/22/18 06:10 Eosinophils 1 % (0-5) 05/22/18 06:10 Basophils 0 % (0-3) 05/21/18 05:25 Metamyelocytes 6 % (0-0) H 05/17/18 05:00 Platelet Estimate ADEQUATE (NORMAL) 05/22/18 06:10 Smear Path Review 05/21/18 05:25 Eos Smear Source URINE 05/18/18 15:50 Eos Smear Total Cells NONE SEEN (NONE SEEN) 05/18/18 15:50 PT 10.3 SECONDS (9.5-11.5) 05/22/18 06:10 INR 0.99 (0.5-1.4) 05/22/18 06:10 PTT (Actin FS) 29.8 SECONDS (26.0-38.0) 05/22/18 06:10 Specimen Source Arterial 05/18/18 14:48 Sample Site Right Radial 05/18/18 14:48 pH 7.409 (7.35-7.45) 05/18/18 14:48 pCO2 28.7 mmHg (35.0-45.0) L 05/18/18 14:48 pO2 60.5 mmHg (80.0-100.0) L 05/18/18 14:48 HCO3 17.7 mEq/L (20.0-26.0) L 05/18/18 14:48 Base Excess -5.4 mEq/L (-3.0-3.0) L 05/18/18 14:48 O2 Saturation 92.0 % (92.0-100.0) 05/18/18 14:48 Yoel Test Positive 05/18/18 14:48 Vent Rate NA 05/18/18 14:48 Inspired O2 21 05/18/18 14:48 Tidal Volume NA 05/18/18 14:48 PEEP NA 05/18/18 14:48 Pressure (ins/psv/peep) NA 05/18/18 14:48 Critical Value SH 05/18/18 14:48 Sodium 159 mEq/L (136-145) H* 05/22/18 06:10 Potassium 3.0 mEq/L (3.5-5.1) L 05/22/18 06:10 Chloride 119 mEq/L (98-107) H 05/22/18 06:10 Carbon Dioxide 17.0 mEq/L (21.0-31.0) L 05/22/18 06:10 Anion Gap 26.0 (7.0-16.0) H 05/22/18 06:10 BUN 28 mg/dL (7-25) H 05/22/18 06:10 Creatinine 2.3 mg/dL (0.6-1.2) H 05/22/18 06:10 Est GFR ( Amer) 34.1 ml/min (>90) 05/22/18 06:10 Est GFR (Non-Af Amer) 28.2 ml/min 05/22/18 06:10 BUN/Creatinine Ratio 12.2 05/22/18 06:10 Glucose 118 mg/dL (70-105) H 05/22/18 06:10 POC Glucose 116 MG/DL (70 - 105) H 05/22/18 06:42 Whole Bld Lactic Acid 0.81 mmol/L (0.60-1.99) 05/18/18 14:20 Uric Acid 6.3 mg/dL (2.3-6.6) 05/19/18 06:11 Calcium 8.6 mg/dL (8.6-10.3) 05/22/18 06:10 Phosphorus 4.1 mg/dL (2.5-5.0) 05/19/18 06:11 Magnesium 2.7 mg/dL (1.9-2.7) 05/19/18 06:11 Total Bilirubin 0.6 mg/dL (0.3-1.0) 05/18/18 05:35 AST 24 U/L (13-39) 05/18/18 05:35 ALT 5 U/L (7-52) L 05/18/18 05:35 Alkaline Phosphatase 96 U/L (34-104) 05/18/18 05:35 B-Natriuretic Peptide 404.0 pg/mL (5.0-100.0) H 05/19/18 06:11 Total Protein 5.9 gm/dL (6.0-8.3) L 05/18/18 05:35 Albumin 2.9 gm/dL (3.7-5.3) L 05/18/18 05:35 Globulin 3.0 gm/dL 05/18/18 05:35 Albumin/Globulin Ratio 1.0 (1.0-1.8) 05/18/18 05:35 Amylase 167 U/L (29-103) H 05/19/18 06:11 Lipase 364 U/L (11-82) H 05/19/18 06:11 TSH 3.59 uIU/ml (0.34-5.60) 05/19/18 06:11 Urine Source MIDSTREAM 05/18/18 15:50 Urine Color RED 05/18/18 15:50 Urine Clarity HAZY (CLEAR) 05/18/18 15:50 Urine pH 6.0 (4.6 - 8.0) 05/18/18 15:50 Ur Specific [place] <= 1.005 (1.005-1.030) 05/18/18 15:50 Urine Protein 30 mg/dL (NEGATIVE) H 05/18/18 15:50 Urine Glucose (UA) NEGATIVE mg/dL (NEGATIVE) 05/18/18 15:50 Urine Ketones NEGATIVE mg/dL (NEGATIVE) 05/18/18 15:50 Urine Blood LARGE (NEGATIVE) H 05/18/18 15:50 Urine Nitrate NEGATIVE (NEGATIVE) 05/18/18 15:50 Urine Bilirubin NEGATIVE (NEGATIVE) 05/18/18 15:50 Urine Urobilinogen 0.2 E.U./dL (0.2 - 1.0) 05/18/18 15:50 Ur Leukocyte Esterase NEGATIVE (NEGATIVE) 05/18/18 15:50 Urine RBC 25-50 /hpf (0-5) H 05/18/18 15:50 Urine WBC 6-10 /hpf (0-5) H 05/18/18 15:50 Ur Epithelial Cells FEW /lpf (FEW) 05/18/18 15:50 Urine Bacteria MODERATE /hpf (NONE SEEN) H 05/18/18 15:50 Urine Osmolality 171 mOsmol/kg 05/18/18 15:50 Ur Random Sodium 69 mmol/L 05/18/18 15:50 Urine Creatinine 36.0 mg/dl (28.0-217.0) 05/18/18 15:50 Stool Occult Blood POSITIVE (NEGATIVE) H 05/20/18 10:20 Vancomycin Trough 42.4 ug/mL (5-10) H 05/15/18 20:00 Random Vancomycin 11.1 ug/mL (5.0-40.0) 05/19/18 06:11 Blood Type A POSITIVE 05/21/18 10:25 Antibody Screen NEGATIVE 05/21/18 10:25 Crossmatch See Detail 05/21/18 10:25 - Physical Exam Vitals and I&O: Vital Signs Temp 97.3 F 05/22/18 09:17 Pulse 102 05/22/18 10:34 Resp 18 05/22/18 11:00 BP 155/105 05/22/18 10:34 Pulse Ox 95 04/11/19 09:17 Intake & Output 05/21/18 05/22/18 05/22/18 18:59 06:59 18:59 Intake Total 300 5300 Output Total 3 Balance 300 5297 Weight (lbs) 61.144 kg 60.781 kg Intake: Intake, IV Amount 300 1300 Dextrose 5% 1,000 ml @ 1000 125 mls/hr IV .Q8H [facility] Rx #:[id number] Linezolid 600mg/300mL 600 300 300 mg In 300 ml @ 300 mls/ hr IV Q12HR@0500,1700 [facility] Rx#:[id number] Albumin 4000 Output: Urine 3 Other: # Voids 3 # Bowel Movements 1 Stool Characteristics Soft Soft Soft Liquid Liquid Liquid Weight Source Bedscale Bedscale Active Medications: Current Medications Acetaminophen (Tylenol 650mg/20.3ml Suspension) 650 mg GT Q4HR PRN PRN Reason: Pain or Fever >101 Stop: 07/12/18 16:33 Last Admin: 05/21/18 17:56 Dose: 650 mg Bisacodyl (Dulcolax 10 Mg Supp) 10 mg RC DAILY PRN PRN Reason: Constipation Stop: 07/12/18 16:33 Citric Acid/Sodium Citrate (Bicitra) 30 ml PO BID [facility] Stop: 07/17/18 16:59 Last Admin: 05/22/18 08:37 Dose: Not Given Docusate Sodium (Colace) 100 mg PO DAILY [facility] Stop: 07/13/18 08:59 Last Admin: 05/22/18 08:37 Dose: Not Given Epoetin Vern (Epogen) 5,000 units SUBQ MoWeFr [facility] Stop: 07/18/18 14:59 Last Admin: 05/21/18 15:25 Dose: 5,000 units Ferrous Sulfate (Iron) 450 mg GT BID [facility] Stop: 07/12/18 16:59 Last Admin: 05/22/18 08:37 Dose: Not Given Hydralazine HCl (Apresoline 20 Mg/Ml) 10 mg IV Q4HR PRN PRN Reason: SBP ABOVE 160 Stop: 07/17/18 11:46 Linezolid (Zyvox) 600 mg in 300 mls @ 300 mls/hr IV Q12HR@0500,1700 [facility] Stop: 07/17/18 16:59 Last Infusion: 05/22/18 06:12 Dose: Infused Dextrose (D5w) 1,000 mls @ 125 mls/hr IV .Q8H [facility] Stop: 07/20/18 14:29 Last Admin: 05/22/18 04:42 Dose: 125 mls/hr Levetiracetam (Keppra) 500 mg GT BID [facility] Stop: 07/12/18 16:59 Last Admin: 05/22/18 10:36 Dose: 500 mg Magnesium Hydroxide (Milk Of Magnesia) 30 ml GT Q72HR PRN PRN Reason: Constipation Stop: 07/12/18 16:33 Metoprolol Succinate (Toprol Xl) 25 mg PO DAILY [facility] Stop: 07/17/18 14:44 Last Admin: 05/22/18 10:34 Dose: 25 mg Pantoprazole Sodium (Protonix) 40 mg PO DAILY [facility] Stop: 07/19/18 19:59 Last Admin: 05/22/18 10:34 Dose: 40 mg Potassium Chloride (Klor-Con) 20 meq PO DAILY [facility] Stop: 07/19/18 08:59 Last Admin: 05/22/18 10:34 Dose: 20 meq Sodium Phosphate (Fleet Enema) 135 ml RC Q96HR PRN PRN Reason: IF DULCOLAX INEFFECTIVE Stop: 07/12/18 16:33 Valproate Sodium (Depakene) 500 mg GT Q12H [facility]; Protocol Stop: 07/12/18 16:59 Last Admin: 05/22/18 05:34 Dose: Not Given General: No acute distress HEENT: Atraumatic, Mucous membr. 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 difficile colitis Hypokalemia - Plan Plan: Continue present management continue IV antibiotics controlled blood pressure Stool for C. difficile colitis potassium supplement A GI workup EGD colonoscope transfusion
--- NOTE | 2018-05-22 13:32 | Infectious Disease Prog Note ---
Infectious Disease Subjective - Review of Systems Service Date: 05/22/18 Subjective: There is no new change, no fever. Infectious Disease Objective - Results Result Diagrams: 05/22/18 06:10 05/22/18 06:10 Recent Labs: Laboratory Last Values WBC 20.9 Th/cmm (4.8-10.8) H* 05/22/18 06:10 RBC 3.87 Mil/cmm (3.80-5.10) 05/22/18 06:10 Hgb 10.8 gm/dL (12-16) L 05/22/18 06:10 Hct 32.8 % (41.0-60) L 05/22/18 06:10 MCV 84.7 fl (81-100) 05/22/18 06:10 MCH 28.0 pg (27.0-31.0) 05/22/18 06:10 MCHC Differential 33.0 pg (28.0-36.0) 05/22/18 06:10 RDW 14.2 % (11.5-20.0) 05/22/18 06:10 Plt Count 138 Th/cmm (150-400) L 05/22/18 06:10 MPV 8.9 fl 05/22/18 06:10 Add Manual Diff YES 05/22/18 06:10 Neutrophils % STATISTICAL TECHNICIAN 05/17/18 05:00 Band Neutrophils % 1 % (0-10) 05/22/18 06:10 Lymphocytes % STATISTICAL TECHNICIAN 05/17/18 05:00 Monocytes % STATISTICAL TECHNICIAN 05/17/18 05:00 Eosinophils % STATISTICAL TECHNICIAN 05/17/18 05:00 Basophils % STATISTICAL TECHNICIAN 05/17/18 05:00 Neutrophils (Manual) 87 % (40-80) H 05/22/18 06:10 Lymphocytes 8 % (20-50) L 05/22/18 06:10 Monocytes 3 % (2-10) 05/22/18 06:10 Eosinophils 1 % (0-5) 05/22/18 06:10 Basophils 0 % (0-3) 05/21/18 05:25 Metamyelocytes 6 % (0-0) H 05/17/18 05:00 Platelet Estimate ADEQUATE (NORMAL) 05/22/18 06:10 Smear Path Review 05/21/18 05:25 Eos Smear Source URINE 05/18/18 15:50 Eos Smear Total Cells NONE SEEN (NONE SEEN) 05/18/18 15:50 PT 10.3 SECONDS (9.5-11.5) 05/22/18 06:10 INR 0.99 (0.5-1.4) 05/22/18 06:10 PTT (Actin FS) 29.8 SECONDS (26.0-38.0) 05/22/18 06:10 Specimen Source Arterial 05/18/18 14:48 Sample Site Right Radial 05/18/18 14:48 pH 7.409 (7.35-7.45) 05/18/18 14:48 pCO2 28.7 mmHg (35.0-45.0) L 05/18/18 14:48 pO2 60.5 mmHg (80.0-100.0) L 05/18/18 14:48 HCO3 17.7 mEq/L (20.0-26.0) L 05/18/18 14:48 Base Excess -5.4 mEq/L (-3.0-3.0) L 05/18/18 14:48 O2 Saturation 92.0 % (92.0-100.0) 05/18/18 14:48 Yoel Test Positive 05/18/18 14:48 Vent Rate NA 05/18/18 14:48 Inspired O2 21 05/18/18 14:48 Tidal Volume NA 05/18/18 14:48 PEEP NA 05/18/18 14:48 Pressure (ins/psv/peep) NA 05/18/18 14:48 Critical Value SH 05/18/18 14:48 Sodium 159 mEq/L (136-145) H* 05/22/18 06:10 Potassium 3.0 mEq/L (3.5-5.1) L 05/22/18 06:10 Chloride 119 mEq/L (98-107) H 05/22/18 06:10 Carbon Dioxide 17.0 mEq/L (21.0-31.0) L 05/22/18 06:10 Anion Gap 26.0 (7.0-16.0) H 05/22/18 06:10 BUN 28 mg/dL (7-25) H 05/22/18 06:10 Creatinine 2.3 mg/dL (0.6-1.2) H 05/22/18 06:10 Est GFR ( Amer) 34.1 ml/min (>90) 05/22/18 06:10 Est GFR (Non-Af Amer) 28.2 ml/min 05/22/18 06:10 BUN/Creatinine Ratio 12.2 05/22/18 06:10 Glucose 118 mg/dL (70-105) H 05/22/18 06:10 POC Glucose 116 MG/DL (70 - 105) H 05/22/18 06:42 Whole Bld Lactic Acid 0.81 mmol/L (0.60-1.99) 05/18/18 14:20 Uric Acid 6.3 mg/dL (2.3-6.6) 05/19/18 06:11 Calcium 8.6 mg/dL (8.6-10.3) 05/22/18 06:10 Phosphorus 4.1 mg/dL (2.5-5.0) 05/19/18 06:11 Magnesium 2.7 mg/dL (1.9-2.7) 05/19/18 06:11 Total Bilirubin 0.6 mg/dL (0.3-1.0) 05/18/18 05:35 AST 24 U/L (13-39) 05/18/18 05:35 ALT 5 U/L (7-52) L 05/18/18 05:35 Alkaline Phosphatase 96 U/L (34-104) 05/18/18 05:35 B-Natriuretic Peptide 404.0 pg/mL (5.0-100.0) H 05/19/18 06:11 Total Protein 5.9 gm/dL (6.0-8.3) L 05/18/18 05:35 Albumin 2.9 gm/dL (3.7-5.3) L 05/18/18 05:35 Globulin 3.0 gm/dL 05/18/18 05:35 Albumin/Globulin Ratio 1.0 (1.0-1.8) 05/18/18 05:35 Amylase 167 U/L (29-103) H 05/19/18 06:11 Lipase 364 U/L (11-82) H 05/19/18 06:11 TSH 3.59 uIU/ml (0.34-5.60) 05/19/18 06:11 Urine Source MIDSTREAM 05/18/18 15:50 Urine Color RED 05/18/18 15:50 Urine Clarity HAZY (CLEAR) 05/18/18 15:50 Urine pH 6.0 (4.6 - 8.0) 05/18/18 15:50 Ur Specific [place] <= 1.005 (1.005-1.030) 05/18/18 15:50 Urine Protein 30 mg/dL (NEGATIVE) H 05/18/18 15:50 Urine Glucose (UA) NEGATIVE mg/dL (NEGATIVE) 05/18/18 15:50 Urine Ketones NEGATIVE mg/dL (NEGATIVE) 05/18/18 15:50 Urine Blood LARGE (NEGATIVE) H 05/18/18 15:50 Urine Nitrate NEGATIVE (NEGATIVE) 05/18/18 15:50 Urine Bilirubin NEGATIVE (NEGATIVE) 05/18/18 15:50 Urine Urobilinogen 0.2 E.U./dL (0.2 - 1.0) 05/18/18 15:50 Ur Leukocyte Esterase NEGATIVE (NEGATIVE) 05/18/18 15:50 Urine RBC 25-50 /hpf (0-5) H 05/18/18 15:50 Urine WBC 6-10 /hpf (0-5) H 05/18/18 15:50 Ur Epithelial Cells FEW /lpf (FEW) 05/18/18 15:50 Urine Bacteria MODERATE /hpf (NONE SEEN) H 05/18/18 15:50 Urine Osmolality 171 mOsmol/kg 05/18/18 15:50 Ur Random Sodium 69 mmol/L 05/18/18 15:50 Urine Creatinine 36.0 mg/dl (28.0-217.0) 05/18/18 15:50 Stool Occult Blood POSITIVE (NEGATIVE) H 05/20/18 10:20 Vancomycin Trough 42.4 ug/mL (5-10) H 05/15/18 20:00 Random Vancomycin 11.1 ug/mL (5.0-40.0) 05/19/18 06:11 Blood Type A POSITIVE 05/21/18 10:25 Antibody Screen NEGATIVE 05/21/18 10:25 Crossmatch See Detail 05/21/18 10:25 - Physical Exam Vitals and I&O: Vital Signs Temp 97.8 F 05/22/18 12:22 Pulse 80 05/22/18 12:22 Resp 18 05/22/18 12:22 BP 150/102 05/22/18 12:22 Pulse Ox 96 05/22/18 12:22 Intake & Output 05/21/18 05/22/18 05/22/18 18:59 06:59 18:59 Intake Total 300 5300 916.667 Output Total 3 Balance 300 5297 916.667 Weight (lbs) 61.144 kg 60.781 kg Intake: Intake, IV Amount 300 1300 916.667 Dextrose 5% 1,000 ml @ 1000 916.667 125 mls/hr IV .Q8H [facility] Rx #:[id number] Linezolid 600mg/300mL 600 300 300 mg In 300 ml @ 300 mls/ hr IV Q12HR@0500,1700 [facility] Rx#:[id number] Albumin 4000 Output: Urine 3 Other: # Voids 3 # Bowel Movements 1 Stool Characteristics Soft Soft Soft Liquid Liquid Liquid Weight [facility] Active Medications: Current Medications Acetaminophen (Tylenol 650mg/20.3ml Suspension) 650 mg GT Q4HR PRN PRN Reason: Pain or Fever >101 Stop: 07/12/18 16:33 Last Admin: 05/21/18 17:56 Dose: 650 mg Bisacodyl (Dulcolax 10 Mg Supp) 10 mg RC DAILY PRN PRN Reason: Constipation Stop: 07/12/18 16:33 Citric Acid/Sodium Citrate (Bicitra) 30 ml PO BID [facility] Stop: 07/17/18 16:59 Last Admin: 05/22/18 08:37 Dose: Not Given Docusate Sodium (Colace) 100 mg PO DAILY [facility] Stop: 07/13/18 08:59 Last Admin: 05/22/18 08:37 Dose: Not Given Epoetin Vern (Epogen) 5,000 units SUBQ MoWeFr [facility] Stop: 07/18/18 14:59 Last Admin: 05/21/18 15:25 Dose: 5,000 units Ferrous Sulfate (Iron) 450 mg GT BID [facility] Stop: 07/12/18 16:59 Last Admin: 05/22/18 08:37 Dose: Not Given Hydralazine HCl (Apresoline 20 Mg/Ml) 10 mg IV Q4HR PRN PRN Reason: SBP ABOVE 160 Stop: 07/17/18 11:46 Linezolid (Zyvox) 600 mg in 300 mls @ 300 mls/hr IV Q12HR@0500,1700 [facility] Stop: 07/17/18 16:59 Last Infusion: 05/22/18 06:12 Dose: Infused Dextrose (D5w) 1,000 mls @ 125 mls/hr IV .Q8H [facility] Stop: 07/20/18 14:29 Last Admin: 05/22/18 12:02 Dose: 125 mls/hr Levetiracetam (Keppra) 500 mg GT BID [facility] Stop: 07/12/18 16:59 Last Admin: 05/22/18 10:36 Dose: 500 mg Magnesium Hydroxide (Milk Of Magnesia) 30 ml GT Q72HR PRN PRN Reason: Constipation Stop: 07/12/18 16:33 Metoprolol Succinate (Toprol Xl) 25 mg PO DAILY [facility] Stop: 07/17/18 14:44 Last Admin: 05/22/18 10:34 Dose: 25 mg Pantoprazole Sodium (Protonix) 40 mg PO DAILY [facility] Stop: 07/19/18 19:59 Last Admin: 05/22/18 10:34 Dose: 40 mg Potassium Chloride (Klor-Con) 20 meq PO DAILY [facility] Stop: 07/19/18 08:59 Last Admin: 05/22/18 10:34 Dose: 20 meq Sodium Phosphate (Fleet Enema) 135 ml RC Q96HR PRN PRN Reason: IF DULCOLAX INEFFECTIVE Stop: 07/12/18 16:33 Valproate Sodium (Depakene) 500 mg GT Q12H [facility]; Protocol Stop: 07/12/18 16:59 Last Admin: 05/22/18 05:34 Dose: Not Given General: no acute distress, other (short stature.) HEENT: atraumatic, normocephalic, PERRLA, EOMI Neck: supple, no thyromegaly Cardiovascular: S1S2, regular Lungs: clear to auscultation bilaterally, clear to percussion Abdomen: soft, no tender, no distended, no rebound Extremities: no cyanosis, no clubbing, no edema Skin: intact Infectious Disease Assmt/Plan - Assessment Assessment: 1. Leukocytosis. Sepsis 2. Lactic acidosis improved. 3. UTI. 4. Tachycardia. 5. cerebral palsy. 6. mental retardation. 7. Seizure disorder. 8. JAYLIN. 9. Pancreatitis. - Plan Plan: Continue Zosyn for few more days. continue zyvox for few more days. blood cultures Follow up the sepsis w/u. Hematology consult.
--- NOTE | 2018-05-22 15:24 | General Progress Note ---
Subjective - Review of Systems Service Date: 05/22/18 Subjective: sleeping, comfortable Objective - Results Result Diagrams: 05/22/18 06:10 05/22/18 06:10 Recent Labs: Laboratory Last Values WBC 20.9 Th/cmm (4.8-10.8) H* 05/22/18 06:10 RBC 3.87 Mil/cmm (3.80-5.10) 05/22/18 06:10 Hgb 10.8 gm/dL (12-16) L 05/22/18 06:10 Hct 32.8 % (41.0-60) L 05/22/18 06:10 MCV 84.7 fl (81-100) 05/22/18 06:10 MCH 28.0 pg (27.0-31.0) 05/22/18 06:10 MCHC Differential 33.0 pg (28.0-36.0) 05/22/18 06:10 RDW 14.2 % (11.5-20.0) 05/22/18 06:10 Plt Count 138 Th/cmm (150-400) L 05/22/18 06:10 MPV 8.9 fl 05/22/18 06:10 Add Manual Diff YES 05/22/18 06:10 Neutrophils % LINER ASSEMBLER 05/17/18 05:00 Band Neutrophils % 1 % (0-10) 05/22/18 06:10 Lymphocytes % LINER ASSEMBLER 05/17/18 05:00 Monocytes % LINER ASSEMBLER 05/17/18 05:00 Eosinophils % LINER ASSEMBLER 05/17/18 05:00 Basophils % LINER ASSEMBLER 05/17/18 05:00 Neutrophils (Manual) 87 % (40-80) H 05/22/18 06:10 Lymphocytes 8 % (20-50) L 05/22/18 06:10 Monocytes 3 % (2-10) 05/22/18 06:10 Eosinophils 1 % (0-5) 05/22/18 06:10 Basophils 0 % (0-3) 05/21/18 05:25 Metamyelocytes 6 % (0-0) H 05/17/18 05:00 Platelet Estimate ADEQUATE (NORMAL) 05/22/18 06:10 Smear Path Review 05/21/18 05:25 Eos Smear Source URINE 05/18/18 15:50 Eos Smear Total Cells NONE SEEN (NONE SEEN) 05/18/18 15:50 PT 10.3 SECONDS (9.5-11.5) 05/22/18 06:10 INR 0.99 (0.5-1.4) 05/22/18 06:10 PTT (Actin FS) 29.8 SECONDS (26.0-38.0) 05/22/18 06:10 Specimen Source Arterial 05/18/18 14:48 Sample Site Right Radial 05/18/18 14:48 pH 7.409 (7.35-7.45) 05/18/18 14:48 pCO2 28.7 mmHg (35.0-45.0) L 05/18/18 14:48 pO2 60.5 mmHg (80.0-100.0) L 05/18/18 14:48 HCO3 17.7 mEq/L (20.0-26.0) L 05/18/18 14:48 Base Excess -5.4 mEq/L (-3.0-3.0) L 05/18/18 14:48 O2 Saturation 92.0 % (92.0-100.0) 05/18/18 14:48 Yoel Test Positive 05/18/18 14:48 Vent Rate NA 05/18/18 14:48 Inspired O2 21 05/18/18 14:48 Tidal Volume NA 05/18/18 14:48 PEEP NA 05/18/18 14:48 Pressure (ins/psv/peep) NA 05/18/18 14:48 Critical Value SH 05/18/18 14:48 Sodium 159 mEq/L (136-145) H* 05/22/18 06:10 Potassium 3.0 mEq/L (3.5-5.1) L 05/22/18 06:10 Chloride 119 mEq/L (98-107) H 05/22/18 06:10 Carbon Dioxide 17.0 mEq/L (21.0-31.0) L 05/22/18 06:10 Anion Gap 26.0 (7.0-16.0) H 05/22/18 06:10 BUN 28 mg/dL (7-25) H 05/22/18 06:10 Creatinine 2.3 mg/dL (0.6-1.2) H 05/22/18 06:10 Est GFR ( Amer) 34.1 ml/min (>90) 05/22/18 06:10 Est GFR (Non-Af Amer) 28.2 ml/min 05/22/18 06:10 BUN/Creatinine Ratio 12.2 05/22/18 06:10 Glucose 118 mg/dL (70-105) H 05/22/18 06:10 POC Glucose 116 MG/DL (70 - 105) H 05/22/18 06:42 Whole Bld Lactic Acid 0.81 mmol/L (0.60-1.99) 05/18/18 14:20 Uric Acid 6.3 mg/dL (2.3-6.6) 05/19/18 06:11 Calcium 8.6 mg/dL (8.6-10.3) 05/22/18 06:10 Phosphorus 4.1 mg/dL (2.5-5.0) 05/19/18 06:11 Magnesium 2.7 mg/dL (1.9-2.7) 05/19/18 06:11 Total Bilirubin 0.6 mg/dL (0.3-1.0) 05/18/18 05:35 AST 24 U/L (13-39) 05/18/18 05:35 ALT 5 U/L (7-52) L 05/18/18 05:35 Alkaline Phosphatase 96 U/L (34-104) 05/18/18 05:35 B-Natriuretic Peptide 404.0 pg/mL (5.0-100.0) H 05/19/18 06:11 Total Protein 5.9 gm/dL (6.0-8.3) L 05/18/18 05:35 Albumin 2.9 gm/dL (3.7-5.3) L 05/18/18 05:35 Globulin 3.0 gm/dL 05/18/18 05:35 Albumin/Globulin Ratio 1.0 (1.0-1.8) 05/18/18 05:35 Amylase 167 U/L (29-103) H 05/19/18 06:11 Lipase 364 U/L (11-82) H 05/19/18 06:11 TSH 3.59 uIU/ml (0.34-5.60) 05/19/18 06:11 Urine Source MIDSTREAM 05/18/18 15:50 Urine Color RED 05/18/18 15:50 Urine Clarity HAZY (CLEAR) 05/18/18 15:50 Urine pH 6.0 (4.6 - 8.0) 05/18/18 15:50 Ur Specific [place] <= 1.005 (1.005-1.030) 05/18/18 15:50 Urine Protein 30 mg/dL (NEGATIVE) H 05/18/18 15:50 Urine Glucose (UA) NEGATIVE mg/dL (NEGATIVE) 05/18/18 15:50 Urine Ketones NEGATIVE mg/dL (NEGATIVE) 05/18/18 15:50 Urine Blood LARGE (NEGATIVE) H 05/18/18 15:50 Urine Nitrate NEGATIVE (NEGATIVE) 05/18/18 15:50 Urine Bilirubin NEGATIVE (NEGATIVE) 05/18/18 15:50 Urine Urobilinogen 0.2 E.U./dL (0.2 - 1.0) 05/18/18 15:50 Ur Leukocyte Esterase NEGATIVE (NEGATIVE) 05/18/18 15:50 Urine RBC 25-50 /hpf (0-5) H 05/18/18 15:50 Urine WBC 6-10 /hpf (0-5) H 05/18/18 15:50 Ur Epithelial Cells FEW /lpf (FEW) 05/18/18 15:50 Urine Bacteria MODERATE /hpf (NONE SEEN) H 05/18/18 15:50 Urine Osmolality 171 mOsmol/kg 05/18/18 15:50 Ur Random Sodium 69 mmol/L 05/18/18 15:50 Urine Creatinine 36.0 mg/dl (28.0-217.0) 05/18/18 15:50 Stool Occult Blood POSITIVE (NEGATIVE) H 05/20/18 10:20 Vancomycin Trough 42.4 ug/mL (5-10) H 05/15/18 20:00 Random Vancomycin 11.1 ug/mL (5.0-40.0) 05/19/18 06:11 Blood Type A POSITIVE 05/21/18 10:25 Antibody Screen NEGATIVE 05/21/18 10:25 Crossmatch See Detail 05/21/18 10:25 - Physical Exam Vitals and I&O: Vital Signs Temp 97.8 F 05/22/18 12:22 Pulse 80 05/22/18 12:22 Resp 18 05/22/18 12:22 BP 150/102 05/22/18 12:22 Pulse Ox 96 05/22/18 12:22 Intake & Output 05/21/18 05/22/18 05/22/18 18:59 06:59 18:59 Intake Total 300 5300 916.667 Output Total 3 Balance 300 5297 916.667 Weight (lbs) 61.144 kg 60.781 kg Intake: Intake, IV Amount 300 1300 916.667 Dextrose 5% 1,000 ml @ 1000 916.667 125 mls/hr IV .Q8H [facility] Rx #:[id number] Linezolid 600mg/300mL 600 300 300 mg In 300 ml @ 300 mls/ hr IV Q12HR@0500,1700 [facility] Rx#:[id number] Albumin 4000 Output: Urine 3 Other: # Voids 3 # Bowel Movements 1 Stool Characteristics Soft Soft Soft Liquid Liquid Liquid Weight Source Bedscale Bedscale Active Medications: Current Medications Acetaminophen (Tylenol 650mg/20.3ml Suspension) 650 mg GT Q4HR PRN PRN Reason: Pain or Fever >101 Stop: 07/12/18 16:33 Last Admin: 05/21/18 17:56 Dose: 650 mg Bisacodyl (Dulcolax 10 Mg Supp) 10 mg RC DAILY PRN PRN Reason: Constipation Stop: 07/12/18 16:33 Citric Acid/Sodium Citrate (Bicitra) 30 ml PO BID [facility] Stop: 07/17/18 16:59 Last Admin: 05/22/18 08:37 Dose: Not Given Docusate Sodium (Colace) 100 mg PO DAILY [facility] Stop: 07/13/18 08:59 Last Admin: 05/22/18 08:37 Dose: Not Given Epoetin Vern (Epogen) 5,000 units SUBQ MoWeFr [facility] Stop: 07/18/18 14:59 Last Admin: 05/21/18 15:25 Dose: 5,000 units Ferrous Sulfate (Iron) 450 mg GT BID [facility] Stop: 07/12/18 16:59 Last Admin: 05/22/18 08:37 Dose: Not Given Hydralazine HCl (Apresoline 20 Mg/Ml) 10 mg IV Q4HR PRN PRN Reason: SBP ABOVE 160 Stop: 07/17/18 11:46 Linezolid (Zyvox) 600 mg in 300 mls @ 300 mls/hr IV Q12HR@0500,1700 [facility] Stop: 07/17/18 16:59 Last Infusion: 05/22/18 06:12 Dose: Infused Dextrose (D5w) 1,000 mls @ 125 mls/hr IV .Q8H [facility] Stop: 07/20/18 14:29 Last Admin: 05/22/18 12:02 Dose: 125 mls/hr Levetiracetam (Keppra) 500 mg GT BID [facility] Stop: 07/12/18 16:59 Last Admin: 05/22/18 10:36 Dose: 500 mg Magnesium Hydroxide (Milk Of Magnesia) 30 ml GT Q72HR PRN PRN Reason: Constipation Stop: 07/12/18 16:33 Metoprolol Succinate (Toprol Xl) 25 mg PO DAILY [facility] Stop: 07/17/18 14:44 Last Admin: 05/22/18 10:34 Dose: 25 mg Pantoprazole Sodium (Protonix) 40 mg PO DAILY [facility] Stop: 07/19/18 19:59 Last Admin: 05/22/18 10:34 Dose: 40 mg Potassium Chloride (Klor-Con) 20 meq PO BID [facility] Stop: 07/21/18 15:29 Sodium Phosphate (Fleet Enema) 135 ml RC Q96HR PRN PRN Reason: IF DULCOLAX INEFFECTIVE Stop: 07/12/18 16:33 Valproate Sodium (Depakene) 500 mg GT Q12H [facility]; Protocol Stop: 07/12/18 16:59 Last Admin: 05/22/18 05:34 Dose: Not Given General: No acute distress HEENT: Atraumatic, Mucous membr. moist/pink Neck: Supple, JVD Cardiovascular: Regular rate Lungs: Clear to auscultation, Normal air movement Abdomen: Bowel sounds, Soft, Other (G-tube in place), no Tender, no Hepatomegaly , no Splenomegaly, no Distended, no Rebound, no Mass Extremities: Pulses (normal) Neurological: Normal tone, Sensation intact, Reflexes 2+ Skin: Rash Psych/Mental Status: Mood NL - Procedures Procedures: Procedures Procedure Code Date EXCISION OF DUODENUM, ENDO, DIAGN [id number] 05/13/18 EXCISION OF RECTUM, ENDO, DIAGN [id number] 05/13/18 EXCISION OF STOMACH, PYLORUS, ENDO, DIAGN [id number] 05/13/18 Assessment/Plan - Assessment Assessment: JAYLIN Hypernatremia 2/2 dehydration Severe Malnutrition Leukocytosis possible LGI Bleed, C. diff Ess Htn Dev Delay Cerebral Palsy Int. Disability Anemia of CD? - Plan Plan: Lab - Result Diagrams 05/19/18 06:11 05/19/18 06:11 Current Medications Acetaminophen (Tylenol 650mg/20.3ml Suspension) 650 mg GT Q4HR PRN PRN Reason: Pain or Fever >101 Stop: 07/12/18 16:33 Last Admin: 05/19/18 02:21 Dose: 650 mg Bisacodyl (Dulcolax 10 Mg Supp) 10 mg RC DAILY PRN PRN Reason: Constipation Stop: 07/12/18 16:33 Citric Acid/Sodium Citrate (Bicitra) 30 ml PO BID [facility] Stop: 07/17/18 16:59 Last Admin: 05/19/18 11:54 Dose: 30 ml Docusate Sodium (Colace) 100 mg PO DAILY [facility] Stop: 07/13/18 08:59 Last Admin: 05/19/18 08:36 Dose: 100 mg Epoetin Vern (Epogen) 5,000 units SUBQ MoWeFr [facility] Stop: 07/18/18 13:44 Ferrous Sulfate (Iron) 450 mg GT BID [facility] Stop: 07/12/18 16:59 Last Admin: 05/19/18 08:38 Dose: 450 mg Hydralazine HCl (Apresoline 20 Mg/Ml) 10 mg IV Q4HR PRN PRN Reason: SBP ABOVE 160 Stop: 07/17/18 11:46 Piperacillin Sod/Tazobactam (Sod 3.375 gm/ Sodium Chloride) 50 mls @ 100 mls/ hr IV Q6HR [facility] Stop: 07/12/18 05:59 Last Admin: 05/19/18 11:54 Dose: 100 mls/hr Dextrose (D5w) 1,000 mls @ 100 mls/hr IV .Q10H [facility] Stop: 07/17/18 12:59 Last Admin: 05/19/18 01:00 Dose: 100 mls/hr Linezolid (Zyvox) 600 mg in 300 mls @ 300 mls/hr IV Q12HR@0500,1700 [facility] Stop: 07/17/18 16:59 Last Infusion: 05/19/18 05:50 Dose: Infused Levetiracetam (Keppra) 500 mg GT BID [facility] Stop: 07/12/18 16:59 Last Admin: 05/19/18 08:36 Dose: 500 mg Lorazepam (Ativan) 1 mg IVP Q6HR PRN; Protocol PRN Reason: Anxiety Stop: 07/12/18 04:24 Last Admin: 05/14/18 00:06 Dose: 1 mg Magnesium Hydroxide (Milk Of Magnesia) 30 ml GT Q72HR PRN PRN Reason: Constipation Stop: 07/12/18 16:33 Metoprolol Succinate (Toprol Xl) 25 mg PO DAILY [facility] Stop: 07/17/18 14:44 Last Admin: 05/19/18 08:36 Dose: 25 mg Mupirocin (Bactroban Oint) 1 appl NS BID [facility] Stop: 05/19/18 17:01 Last Admin: 05/19/18 08:36 Dose: 1 appl Potassium Chloride (Klor-Con) 20 meq PO DAILY [facility] Stop: 07/18/18 13:44 Sodium Phosphate (Fleet Enema) 135 ml RC Q96HR PRN PRN Reason: IF DULCOLAX INEFFECTIVE Stop: 07/12/18 16:33 Valproate Sodium (Depakene) 500 mg GT Q12H [facility]; Protocol Stop: 07/12/18 16:59 Last Admin: 05/19/18 05:00 Dose: 500 mg Lab - Result Diagrams 05/22/18 06:10 05/22/18 06:10 Kidney fnc basically the same w/ BUN/CR of 28/2.3 FE Na 3.15% suggestive of intrinc renal involvement Na up to 159 increase water flushes, IVF w/ D5W replace K WBC stable @ 20 Hgb/Hct improved to 10.8/ 32.8 post transfusion f/u electrolytes, cbc
[2018-05-22] MEDS ORDERED: KCL 20mEq/100mL Premix 20 MEQ/100 ML PIGGYBACK IV ONE (16:36)
[2018-05-22] MEDS: KCL 20mEq/100mL Premix 20 MEQ/100 ML PIGGYBACK IV SCH ×2 (17:27→21:00)
--- NOTE | 2018-05-22 22:26 | Internal Medicine Prog Note ---
Internal Medicine Subjective - Subjective Service Date: 05/22/18 Patient is:: awake, non-verbal, non-interactive, confused, other (hx of cerebral pasy, developmetal delay.) Patient Complaints of:: other (weakness.) Per staff patient has:: no adverse event, no episodes of fall, noncompliant, confused, other (unable to comprehend commands ) Internal Medicine Objective - Results Result Diagrams: 05/22/18 06:10 05/22/18 06:10 Recent Labs: Laboratory Last Values WBC 20.9 Th/cmm (4.8-10.8) H* 05/22/18 06:10 RBC 3.87 Mil/cmm (3.80-5.10) 05/22/18 06:10 Hgb 10.8 gm/dL (12-16) L 05/22/18 06:10 Hct 32.8 % (41.0-60) L 05/22/18 06:10 MCV 84.7 fl (81-100) 05/22/18 06:10 MCH 28.0 pg (27.0-31.0) 05/22/18 06:10 MCHC Differential 33.0 pg (28.0-36.0) 05/22/18 06:10 RDW 14.2 % (11.5-20.0) 05/22/18 06:10 Plt Count 138 Th/cmm (150-400) L 05/22/18 06:10 MPV 8.9 fl 05/22/18 06:10 Add Manual Diff YES 05/22/18 06:10 Neutrophils % TRAY CHECKER 05/17/18 05:00 Band Neutrophils % 1 % (0-10) 05/22/18 06:10 Lymphocytes % TRAY CHECKER 05/17/18 05:00 Monocytes % TRAY CHECKER 05/17/18 05:00 Eosinophils % TRAY CHECKER 05/17/18 05:00 Basophils % TRAY CHECKER 05/17/18 05:00 Neutrophils (Manual) 87 % (40-80) H 05/22/18 06:10 Lymphocytes 8 % (20-50) L 05/22/18 06:10 Monocytes 3 % (2-10) 05/22/18 06:10 Eosinophils 1 % (0-5) 05/22/18 06:10 Basophils 0 % (0-3) 05/21/18 05:25 Metamyelocytes 6 % (0-0) H 05/17/18 05:00 Platelet Estimate ADEQUATE (NORMAL) 05/22/18 06:10 Smear Path Review 05/21/18 05:25 Eos Smear Source URINE 05/18/18 15:50 Eos Smear Total Cells NONE SEEN (NONE SEEN) 05/18/18 15:50 PT 10.3 SECONDS (9.5-11.5) 05/22/18 06:10 INR 0.99 (0.5-1.4) 05/22/18 06:10 PTT (Actin FS) 29.8 SECONDS (26.0-38.0) 05/22/18 06:10 Specimen Source Arterial 05/18/18 14:48 Sample Site Right Radial 05/18/18 14:48 pH 7.409 (7.35-7.45) 05/18/18 14:48 pCO2 28.7 mmHg (35.0-45.0) L 05/18/18 14:48 pO2 60.5 mmHg (80.0-100.0) L 05/18/18 14:48 HCO3 17.7 mEq/L (20.0-26.0) L 05/18/18 14:48 Base Excess -5.4 mEq/L (-3.0-3.0) L 05/18/18 14:48 O2 Saturation 92.0 % (92.0-100.0) 05/18/18 14:48 Yoel Test Positive 05/18/18 14:48 Vent Rate NA 05/18/18 14:48 Inspired O2 21 05/18/18 14:48 Tidal Volume NA 05/18/18 14:48 PEEP NA 05/18/18 14:48 Pressure (ins/psv/peep) NA 05/18/18 14:48 Critical Value SH 05/18/18 14:48 Sodium 159 mEq/L (136-145) H* 05/22/18 06:10 Potassium 3.0 mEq/L (3.5-5.1) L 05/22/18 06:10 Chloride 119 mEq/L (98-107) H 05/22/18 06:10 Carbon Dioxide 17.0 mEq/L (21.0-31.0) L 05/22/18 06:10 Anion Gap 26.0 (7.0-16.0) H 05/22/18 06:10 BUN 28 mg/dL (7-25) H 05/22/18 06:10 Creatinine 2.3 mg/dL (0.6-1.2) H 05/22/18 06:10 Est GFR ( Amer) 34.1 ml/min (>90) 05/22/18 06:10 Est GFR (Non-Af Amer) 28.2 ml/min 05/22/18 06:10 BUN/Creatinine Ratio 12.2 05/22/18 06:10 Glucose 118 mg/dL (70-105) H 05/22/18 06:10 POC Glucose 116 MG/DL (70 - 105) H 05/22/18 06:42 Whole Bld Lactic Acid 0.81 mmol/L (0.60-1.99) 05/18/18 14:20 Uric Acid 6.3 mg/dL (2.3-6.6) 05/19/18 06:11 Calcium 8.6 mg/dL (8.6-10.3) 05/22/18 06:10 Phosphorus 4.1 mg/dL (2.5-5.0) 05/19/18 06:11 Magnesium 2.7 mg/dL (1.9-2.7) 05/19/18 06:11 Total Bilirubin 0.6 mg/dL (0.3-1.0) 05/18/18 05:35 AST 24 U/L (13-39) 05/18/18 05:35 ALT 5 U/L (7-52) L 05/18/18 05:35 Alkaline Phosphatase 96 U/L (34-104) 05/18/18 05:35 B-Natriuretic Peptide 404.0 pg/mL (5.0-100.0) H 05/19/18 06:11 Total Protein 5.9 gm/dL (6.0-8.3) L 05/18/18 05:35 Albumin 2.9 gm/dL (3.7-5.3) L 05/18/18 05:35 Globulin 3.0 gm/dL 05/18/18 05:35 Albumin/Globulin Ratio 1.0 (1.0-1.8) 05/18/18 05:35 Amylase 167 U/L (29-103) H 05/19/18 06:11 Lipase 364 U/L (11-82) H 05/19/18 06:11 TSH 3.59 uIU/ml (0.34-5.60) 05/19/18 06:11 Urine Source MIDSTREAM 05/18/18 15:50 Urine Color RED 05/18/18 15:50 Urine Clarity HAZY (CLEAR) 05/18/18 15:50 Urine pH 6.0 (4.6 - 8.0) 05/18/18 15:50 Ur Specific [place] <= 1.005 (1.005-1.030) 05/18/18 15:50 Urine Protein 30 mg/dL (NEGATIVE) H 05/18/18 15:50 Urine Glucose (UA) NEGATIVE mg/dL (NEGATIVE) 05/18/18 15:50 Urine Ketones NEGATIVE mg/dL (NEGATIVE) 05/18/18 15:50 Urine Blood LARGE (NEGATIVE) H 05/18/18 15:50 Urine Nitrate NEGATIVE (NEGATIVE) 05/18/18 15:50 Urine Bilirubin NEGATIVE (NEGATIVE) 05/18/18 15:50 Urine Urobilinogen 0.2 E.U./dL (0.2 - 1.0) 05/18/18 15:50 Ur Leukocyte Esterase NEGATIVE (NEGATIVE) 05/18/18 15:50 Urine RBC 25-50 /hpf (0-5) H 05/18/18 15:50 Urine WBC 6-10 /hpf (0-5) H 05/18/18 15:50 Ur Epithelial Cells FEW /lpf (FEW) 05/18/18 15:50 Urine Bacteria MODERATE /hpf (NONE SEEN) H 05/18/18 15:50 Urine Osmolality 171 mOsmol/kg 05/18/18 15:50 Ur Random Sodium 69 mmol/L 05/18/18 15:50 Urine Creatinine 36.0 mg/dl (28.0-217.0) 05/18/18 15:50 Stool Occult Blood POSITIVE (NEGATIVE) H 05/20/18 10:20 Vancomycin Trough 42.4 ug/mL (5-10) H 05/15/18 20:00 Random Vancomycin 11.1 ug/mL (5.0-40.0) 05/19/18 06:11 Blood Type A POSITIVE 05/21/18 10:25 Antibody Screen NEGATIVE 05/21/18 10:25 Crossmatch See Detail 05/21/18 10:25 - Physical Exam Vitals and I&O: Vital Signs Temp 98.8 F 05/22/18 20:00 Pulse 96 05/22/18 20:00 Resp 18 05/22/18 20:00 BP 143/97 05/22/18 20:00 Pulse Ox 92 05/22/18 20:00 Intake & Output 05/22/18 05/22/18 05/23/18 06:59 18:59 06:59 Intake Total 5300 1906.250 205 Output Total 3 Balance 5297 1906.250 205 Weight (lbs) 60.781 kg 60.781 kg Intake: Intake, IV Amount 1300 1906.250 205 Dextrose 5% 1,000 ml @ 1000 1606.250 125 mls/hr IV .Q8H [facility] Rx #:[id number] KCL 20mEq/100mL Premix 20 100 meq In 100 ml @ 50 mls/ hr IV Q2H [facility] Rx#: [id number] Levetiracetam 500 mg In 105 Sodium Chloride 0.9% 100 ml @ 400 mls/hr IV Q12H [facility] Rx#:[id number] Linezolid 600mg/300mL 600 300 300 mg In 300 ml @ 300 mls/ hr IV Q12HR@0500,1700 [facility] Rx#:[id number] Albumin 4000 Output: Urine 3 Other: # Voids 3 2 # Bowel Movements 1 1 Stool Characteristics Soft Soft Soft Liquid Liquid Liquid Weight Source Bedscale Bedscale Active Medications: Current Medications Acetaminophen (Tylenol 650mg/20.3ml Suspension) 650 mg GT Q4HR PRN PRN Reason: Pain or Fever >101 Stop: 07/12/18 16:33 Last Admin: 05/21/18 17:56 Dose: 650 mg Bisacodyl (Dulcolax 10 Mg Supp) 10 mg RC DAILY PRN PRN Reason: Constipation Stop: 07/12/18 16:33 Citric Acid/Sodium Citrate (Bicitra) 30 ml PO BID [facility] Stop: 07/17/18 16:59 Last Admin: 05/22/18 16:46 Dose: Not Given Docusate Sodium (Colace) 100 mg PO DAILY [facility] Stop: 07/13/18 08:59 Last Admin: 05/22/18 08:37 Dose: Not Given Epoetin Vern (Epogen) 5,000 units SUBQ MoWeFr [facility] Stop: 07/18/18 14:59 Last Admin: 05/21/18 15:25 Dose: 5,000 units Ferrous Sulfate (Iron) 450 mg GT BID [facility] Stop: 07/12/18 16:59 Last Admin: 05/22/18 16:47 Dose: Not Given Hydralazine HCl (Apresoline 20 Mg/Ml) 10 mg IV Q4HR PRN PRN Reason: SBP ABOVE 160 Stop: 07/17/18 11:46 Linezolid (Zyvox) 600 mg in 300 mls @ 300 mls/hr IV Q12HR@0500,1700 [facility] Stop: 07/17/18 16:59 Last Infusion: 05/22/18 18:42 Dose: Infused Dextrose (D5w) 1,000 mls @ 125 mls/hr IV .Q8H [facility] Stop: 07/20/18 14:29 Last Admin: 05/22/18 17:33 Dose: 125 mls/hr Levetiracetam 500 mg/ Sodium (Chloride) 105 mls @ 400 mls/hr IV Q12H [facility] Stop: 07/21/18 16:59 Last Infusion: 05/22/18 20:09 Dose: Infused Levetiracetam (Keppra) 500 mg GT BID [facility] Stop: 07/12/18 16:59 Last Admin: 05/22/18 16:58 Dose: Not Given Magnesium Hydroxide (Milk Of Magnesia) 30 ml GT Q72HR PRN PRN Reason: Constipation Stop: 07/12/18 16:33 Metoprolol Succinate (Toprol Xl) 25 mg PO DAILY [facility] Stop: 07/17/18 14:44 Last Admin: 05/22/18 10:34 Dose: 25 mg Pantoprazole Sodium (Protonix) 40 mg PO DAILY [facility] Stop: 07/19/18 19:59 Last Admin: 05/22/18 10:34 Dose: 40 mg Potassium Chloride (Klor-Con) 20 meq PO BID [facility] Stop: 07/21/18 15:29 Last Admin: 05/22/18 17:28 Dose: Not Given Sodium Phosphate (Fleet Enema) 135 ml RC Q96HR PRN PRN Reason: IF DULCOLAX INEFFECTIVE Stop: 07/12/18 16:33 Valproate Sodium (Depakene) 500 mg GT Q12H [facility]; Protocol Stop: 07/12/18 16:59 Last Admin: 05/22/18 16:58 Dose: Not Given Physical Exam: 22 y/o female patient has generalized weakness, severe malnutrition. General: weak HEENT: NC/AT, PERRLA Neck: Supple Lungs: CTAB Abdomen: soft, non-tender, non-distended Extremities: excoriation Neurological: no change, unable to follow command - Procedures Procedures: Procedures Procedure Code Date EXCISION OF DUODENUM, ENDO, DIAGN [id number] 05/13/18 EXCISION OF RECTUM, ENDO, DIAGN [id number] 05/13/18 EXCISION OF STOMACH, PYLORUS, ENDO, DIAGN [id number] 05/13/18 Internal Medicine Assmt/Plan - Assessment Assessment: JAYLIN Hypernatremia Severe Malnutrition Leukocytosis HTN Cerebral Palsy Intellectual Disability Developmental Delay Anemia - Plan Plan: Continuation of care continue present meds as directed Monitor vitals and diet fall precaution supportive care Continue present care management.
[2018-05-23] MEDS: Dextrose 5% 1,000 ML IV SCH ×2 (02:34→12:51)
[2018-05-23] MEDS: Linezolid 600mg/300mL 600 MG/300 ML BAG IV SCH ×2 (05:14→17:09)
[2018-05-23 05:17] LABS: HEMATOCRIT 32.4 % (41.0-60); HEMOGLOBIN 10.7 gm/dL (12-16); MEAN CELL VOLUME 85.2 fl (81-100); MEAN CORPUSCULAR HEMOGLOBIN 28.2 pg (27.0-31.0); MEAN CORPUSCULAR HGB CONC 33.1 pg (28.0-36.0); MEAN PLATELET VOLUME 8.3 fl; PLATELET COUNT 136 Th/cmm (150-400); RED BLOOD COUNT 3.81 Mil/cmm (3.80-5.10); RED CELL DISTRIBUTION WIDTH 14.6 % (11.5-20.0)
[2018-05-23 05:29] LABS: CALCIUM SERUM 8.9 mg/dL (8.6-10.3); CARBON DIOXIDE 24.2 mEq/L (21.0-31.0); CREATININE - SERUM 2.1 mg/dL (0.6-1.2); GFR AFRICAN-AMERICAN 37.9 ml/min (>90); GFR NON AFRICAN-AMERICAN 31.3 ml/min; POTASSIUM SERUM 3.2 mEq/L (3.5-5.1)
[2018-05-23 05:45] LABS: WHITE BLOOD COUNT 22.2 Th/cmm (4.8-10.8)
[2018-05-23 07:37] LABS: BAND NEUTROPHILE 5 % (0-10); LYMPHOCYTE 8 % (20-50); NEUTROPHILS 81 % (40-80)
[2018-05-23 07:38] LABS: BASOPHIL 0 % (0-3); EOSINOPHIL 1 % (0-5); MONOCYTE 5 % (2-10)
--- NOTE | 2018-05-23 09:29 | GI Progress Note ---
Subjective - Review of Systems Service Date: 05/23/18 Subjective: G tube clogged yesterday, no overnight events Objective - Results Result Diagrams: 05/23/18 04:55 05/23/18 04:55 Recent Labs: Laboratory Last Values WBC 22.2 Th/cmm (4.8-10.8) H* 05/23/18 04:55 RBC 3.81 Mil/cmm (3.80-5.10) 05/23/18 04:55 Hgb 10.7 gm/dL (12-16) L 05/23/18 04:55 Hct 32.4 % (41.0-60) L 05/23/18 04:55 MCV 85.2 fl (81-100) 05/23/18 04:55 MCH 28.2 pg (27.0-31.0) 05/23/18 04:55 MCHC Differential 33.1 pg (28.0-36.0) 05/23/18 04:55 RDW 14.6 % (11.5-20.0) 05/23/18 04:55 Plt Count 136 Th/cmm (150-400) L 05/23/18 04:55 MPV 8.3 fl 05/23/18 04:55 Add Manual Diff YES 05/23/18 04:55 Neutrophils % MEDICINAL CHEMIST 05/17/18 05:00 Band Neutrophils % 5 % (0-10) 05/23/18 04:55 Lymphocytes % MEDICINAL CHEMIST 05/17/18 05:00 Monocytes % MEDICINAL CHEMIST 05/17/18 05:00 Eosinophils % MEDICINAL CHEMIST 05/17/18 05:00 Basophils % MEDICINAL CHEMIST 05/17/18 05:00 Neutrophils (Manual) 81 % (40-80) H 05/23/18 04:55 Lymphocytes 8 % (20-50) L 05/23/18 04:55 Monocytes 5 % (2-10) 05/23/18 04:55 Eosinophils 1 % (0-5) 05/23/18 04:55 Basophils 0 % (0-3) 05/23/18 04:55 Metamyelocytes 6 % (0-0) H 05/17/18 05:00 Platelet Estimate ADEQUATE (NORMAL) 05/22/18 06:10 Smear Path Review 05/21/18 05:25 Eos Smear Source URINE 05/18/18 15:50 Eos Smear Total Cells NONE SEEN (NONE SEEN) 05/18/18 15:50 PT 10.3 SECONDS (9.5-11.5) 05/22/18 06:10 INR 0.99 (0.5-1.4) 05/22/18 06:10 PTT (Actin FS) 29.8 SECONDS (26.0-38.0) 05/22/18 06:10 Specimen Source Arterial 05/18/18 14:48 Sample Site Right Radial 05/18/18 14:48 pH 7.409 (7.35-7.45) 05/18/18 14:48 pCO2 28.7 mmHg (35.0-45.0) L 05/18/18 14:48 pO2 60.5 mmHg (80.0-100.0) L 05/18/18 14:48 HCO3 17.7 mEq/L (20.0-26.0) L 05/18/18 14:48 Base Excess -5.4 mEq/L (-3.0-3.0) L 05/18/18 14:48 O2 Saturation 92.0 % (92.0-100.0) 05/18/18 14:48 Yoel Test Positive 05/18/18 14:48 Vent Rate NA 05/18/18 14:48 Inspired O2 21 05/18/18 14:48 Tidal Volume NA 05/18/18 14:48 PEEP NA 05/18/18 14:48 Pressure (ins/psv/peep) NA 05/18/18 14:48 Critical Value SH 05/18/18 14:48 Sodium 155 mEq/L (136-145) H 05/23/18 04:55 Potassium 3.2 mEq/L (3.5-5.1) L 05/23/18 04:55 Chloride 120 mEq/L (98-107) H 05/23/18 04:55 Carbon Dioxide 24.2 mEq/L (21.0-31.0) 05/23/18 04:55 Anion Gap 14.0 (7.0-16.0) 05/23/18 04:55 BUN 28 mg/dL (7-25) H 05/23/18 04:55 Creatinine 2.1 mg/dL (0.6-1.2) H 05/23/18 04:55 Est GFR ( Amer) 37.9 ml/min (>90) 05/23/18 04:55 Est GFR (Non-Af Amer) 31.3 ml/min 05/23/18 04:55 BUN/Creatinine Ratio 13.3 05/23/18 04:55 Glucose 111 mg/dL (70-105) H 05/23/18 04:55 POC Glucose 116 MG/DL (70 - 105) H 05/22/18 06:42 Whole Bld Lactic Acid 0.81 mmol/L (0.60-1.99) 05/18/18 14:20 Uric Acid 6.3 mg/dL (2.3-6.6) 05/19/18 06:11 Calcium 8.9 mg/dL (8.6-10.3) 05/23/18 04:55 Phosphorus 4.1 mg/dL (2.5-5.0) 05/19/18 06:11 Magnesium 2.7 mg/dL (1.9-2.7) 05/19/18 06:11 Total Bilirubin 0.6 mg/dL (0.3-1.0) 05/18/18 05:35 AST 24 U/L (13-39) 05/18/18 05:35 ALT 5 U/L (7-52) L 05/18/18 05:35 Alkaline Phosphatase 96 U/L (34-104) 05/18/18 05:35 B-Natriuretic Peptide 404.0 pg/mL (5.0-100.0) H 05/19/18 06:11 Total Protein 5.9 gm/dL (6.0-8.3) L 05/18/18 05:35 Albumin 2.9 gm/dL (3.7-5.3) L 05/18/18 05:35 Globulin 3.0 gm/dL 05/18/18 05:35 Albumin/Globulin Ratio 1.0 (1.0-1.8) 05/18/18 05:35 Amylase 167 U/L (29-103) H 05/19/18 06:11 Lipase 364 U/L (11-82) H 05/19/18 06:11 TSH 3.59 uIU/ml (0.34-5.60) 05/19/18 06:11 Urine Source MIDSTREAM 05/18/18 15:50 Urine Color RED 05/18/18 15:50 Urine Clarity HAZY (CLEAR) 05/18/18 15:50 Urine pH 6.0 (4.6 - 8.0) 05/18/18 15:50 Ur Specific [place] <= 1.005 (1.005-1.030) 05/18/18 15:50 Urine Protein 30 mg/dL (NEGATIVE) H 05/18/18 15:50 Urine Glucose (UA) NEGATIVE mg/dL (NEGATIVE) 05/18/18 15:50 Urine Ketones NEGATIVE mg/dL (NEGATIVE) 05/18/18 15:50 Urine Blood LARGE (NEGATIVE) H 05/18/18 15:50 Urine Nitrate NEGATIVE (NEGATIVE) 05/18/18 15:50 Urine Bilirubin NEGATIVE (NEGATIVE) 05/18/18 15:50 Urine Urobilinogen 0.2 E.U./dL (0.2 - 1.0) 05/18/18 15:50 Ur Leukocyte Esterase NEGATIVE (NEGATIVE) 05/18/18 15:50 Urine RBC 25-50 /hpf (0-5) H 05/18/18 15:50 Urine WBC 6-10 /hpf (0-5) H 05/18/18 15:50 Ur Epithelial Cells FEW /lpf (FEW) 05/18/18 15:50 Urine Bacteria MODERATE /hpf (NONE SEEN) H 05/18/18 15:50 Urine Osmolality 171 mOsmol/kg 05/18/18 15:50 Ur Random Sodium 69 mmol/L 05/18/18 15:50 Urine Creatinine 36.0 mg/dl (28.0-217.0) 05/18/18 15:50 Stool Occult Blood POSITIVE (NEGATIVE) H 05/20/18 10:20 Vancomycin Trough 42.4 ug/mL (5-10) H 05/15/18 20:00 Random Vancomycin 11.1 ug/mL (5.0-40.0) 05/19/18 06:11 Blood Type A POSITIVE 05/21/18 10:25 Antibody Screen NEGATIVE 05/21/18 10:25 Crossmatch See Detail 05/21/18 10:25 - Physical Exam Vitals and I&O: Vital Signs Temp 97.4 F 05/23/18 08:59 Pulse 89 05/23/18 08:59 Resp 19 05/23/18 08:59 BP 135/93 05/23/18 08:59 Pulse Ox 96 05/23/18 08:59 Intake & Output 05/22/18 05/23/18 05/23/18 18:59 06:59 18:59 Intake Total 4177.568 5099 300 Balance 3218.818 6053 300 Weight (lbs) 65.771 kg Intake: Intake, IV Amount 3193.525 1396 300 Dextrose 5% 1,000 ml @ 7807.907 0217 125 mls/hr IV .Q8H [facility] Rx #:[id number] KCL 20mEq/100mL Premix 20 100 meq In 100 ml @ 50 mls/ hr IV Q2H [facility] Rx#: [id number] Levetiracetam 500 mg In 210 Sodium Chloride 0.9% 100 ml @ 400 mls/hr IV Q12H [facility] Rx#:[id number] Linezolid 600mg/300mL 600 300 300 mg In 300 ml @ 300 mls/ hr IV Q12HR@0500,1700 [facility] Rx#:[id number] Other: # Voids 2 # Bowel Movements 0 Stool Characteristics Soft Soft Liquid Liquid Weight Source Bedscale Active Medications: Current Medications Acetaminophen (Tylenol 650mg/20.3ml Suspension) 650 mg GT Q4HR PRN PRN Reason: Pain or Fever >101 Stop: 07/12/18 16:33 Last Admin: 05/21/18 17:56 Dose: 650 mg Bisacodyl (Dulcolax 10 Mg Supp) 10 mg RC DAILY PRN PRN Reason: Constipation Stop: 07/12/18 16:33 Citric Acid/Sodium Citrate (Bicitra) 30 ml PO BID [facility] Stop: 07/17/18 16:59 Last Admin: 05/22/18 16:46 Dose: Not Given Docusate Sodium (Colace) 100 mg PO DAILY [facility] Stop: 07/13/18 08:59 Last Admin: 05/22/18 08:37 Dose: Not Given Epoetin Vern (Epogen) 5,000 units SUBQ MoWeFr [facility] Stop: 07/18/18 14:59 Last Admin: 05/21/18 15:25 Dose: 5,000 units Ferrous Sulfate (Iron) 450 mg GT BID [facility] Stop: 07/12/18 16:59 Last Admin: 05/22/18 16:47 Dose: Not Given Hydralazine HCl (Apresoline 20 Mg/Ml) 10 mg IV Q4HR PRN PRN Reason: SBP ABOVE 160 Stop: 07/17/18 11:46 Linezolid (Zyvox) 600 mg in 300 mls @ 300 mls/hr IV Q12HR@0500,1700 [facility] Stop: 07/17/18 16:59 Last Infusion: 05/23/18 08:19 Dose: Infused Dextrose (D5w) 1,000 mls @ 125 mls/hr IV .Q8H [facility] Stop: 07/20/18 14:29 Last Admin: 05/23/18 02:34 Dose: 125 mls/hr Levetiracetam 500 mg/ Sodium (Chloride) 105 mls @ 400 mls/hr IV Q12H [facility] Stop: 07/21/18 16:59 Last Infusion: 05/23/18 05:50 Dose: Infused Levetiracetam (Keppra) 500 mg GT BID [facility] Stop: 07/12/18 16:59 Last Admin: 05/22/18 16:58 Dose: Not Given Magnesium Hydroxide (Milk Of Magnesia) 30 ml GT Q72HR PRN PRN Reason: Constipation Stop: 07/12/18 16:33 Metoprolol Succinate (Toprol Xl) 25 mg PO DAILY [facility] Stop: 07/17/18 14:44 Last Admin: 05/22/18 10:34 Dose: 25 mg Pantoprazole Sodium (Protonix) 40 mg PO DAILY [facility] Stop: 07/19/18 19:59 Last Admin: 05/22/18 10:34 Dose: 40 mg Potassium Chloride (Klor-Con) 20 meq PO BID [facility] Stop: 07/21/18 15:29 Last Admin: 05/22/18 17:28 Dose: Not Given Sodium Phosphate (Fleet Enema) 135 ml RC Q96HR PRN PRN Reason: IF DULCOLAX INEFFECTIVE Stop: 07/12/18 16:33 Valproate Sodium (Depakene) 500 mg GT Q12H [facility]; Protocol Stop: 07/12/18 16:59 Last Admin: 05/23/18 04:38 Dose: Not Given General: No acute distress HEENT: Atraumatic, Mucous membr. moist/pink Neck: Supple, JVD Cardiovascular: Regular rate Lungs: Clear to auscultation, Normal air movement Abdomen: Bowel sounds, Soft, Other (G-tube in place), no Tender, no Hepatomegaly , no Splenomegaly, no Distended, no Rebound, no Mass Extremities: Pulses (normal) Neurological: Normal tone, Sensation intact, Reflexes 2+ Skin: Rash Psych/Mental Status: Mood NL - Procedures Procedures: Procedures Procedure Code Date EXCISION OF DUODENUM, ENDO, DIAGN [id number] 05/13/18 EXCISION OF RECTUM, ENDO, DIAGN [id number] 05/13/18 EXCISION OF STOMACH, PYLORUS, ENDO, DIAGN [id number] 05/13/18 Assessment/Plan - Assessment Assessment: # Anemia # Cerebral palsy # Dysphagia with G tube # Diarrhea # Leukocytosis Acute GI bleed is not suspected given the brown color of her stool. Would advise against using FOB testing as this is notoriously falsely positive for a litany of reasons, one of which being chronic iron therapy. If diarrhea recurrs, will need to rule out CDiff EGD/colo on 05/22 showed gastritis, and procitis with a possible rectal polyp vs thrombosed hemorrhoid. Biopsies taken G tube changed to 20f on 05/23 Plan: - follow biopsies, specifically of the rectal polyp. If this is non adenamotous , then pt can be treated with 1 week of hydrocortisone spp. If this is adenoma, will recommend repeat flex sig in 4-6 weeks for attempt at removal - restart feeding if G tube confirmed - send CDiff from stool if diarrhea - sepsis mgmt as per ID
[2018-05-23] MEDS ORDERED: Diatrizoate Meglumine/Diatri 30 mL Sol PO ONE (09:30)
[2018-05-23] MEDS: Levetiracetam 500 mg/5mL 5mL UDSyr *for ORAL USE ONLY GT SCH ×2 (10:39→16:48)
[2018-05-23] MEDS: Ferrous Sulfate 300 MG/5 ML UDC GT SCH ×2 (10:39→16:45)
[2018-05-23] MEDS: Pantoprazole 40 mg EC Tab PO SCH (10:41)
[2018-05-23] MEDS: Potassium Chloride 20 mEq ER Tab PO SCH (10:42)
--- NOTE | 2018-05-23 10:54 | Diagnostic Imaging Report ---
Exam: Gastrostomy tube placement HISTORY: Verify gastrostomy tube placement. Findings: Injection of contrast material into gastrostomy tube there is normal opacification of the stomach. IMPRESSION: Gastrostomy tube in the stomach.
--- NOTE | 2018-05-23 13:31 | General Progress Note ---
Subjective - Review of Systems Service Date: 05/23/18 Subjective: sleeping, comfortable Objective - Results Result Diagrams: 05/23/18 04:55 05/23/18 04:55 Recent Labs: Laboratory Last Values WBC 22.2 Th/cmm (4.8-10.8) H* 05/23/18 04:55 RBC 3.81 Mil/cmm (3.80-5.10) 05/23/18 04:55 Hgb 10.7 gm/dL (12-16) L 05/23/18 04:55 Hct 32.4 % (41.0-60) L 05/23/18 04:55 MCV 85.2 fl (81-100) 05/23/18 04:55 MCH 28.2 pg (27.0-31.0) 05/23/18 04:55 MCHC Differential 33.1 pg (28.0-36.0) 05/23/18 04:55 RDW 14.6 % (11.5-20.0) 05/23/18 04:55 Plt Count 136 Th/cmm (150-400) L 05/23/18 04:55 MPV 8.3 fl 05/23/18 04:55 Add Manual Diff YES 05/23/18 04:55 Neutrophils % TUBE TEST TECHNICIAN 05/17/18 05:00 Band Neutrophils % 5 % (0-10) 05/23/18 04:55 Lymphocytes % TUBE TEST TECHNICIAN 05/17/18 05:00 Monocytes % TUBE TEST TECHNICIAN 05/17/18 05:00 Eosinophils % TUBE TEST TECHNICIAN 05/17/18 05:00 Basophils % TUBE TEST TECHNICIAN 05/17/18 05:00 Neutrophils (Manual) 81 % (40-80) H 05/23/18 04:55 Lymphocytes 8 % (20-50) L 05/23/18 04:55 Monocytes 5 % (2-10) 05/23/18 04:55 Eosinophils 1 % (0-5) 05/23/18 04:55 Basophils 0 % (0-3) 05/23/18 04:55 Metamyelocytes 6 % (0-0) H 05/17/18 05:00 Platelet Estimate ADEQUATE (NORMAL) 05/22/18 06:10 Smear Path Review 05/21/18 05:25 Eos Smear Source URINE 05/18/18 15:50 Eos Smear Total Cells NONE SEEN (NONE SEEN) 05/18/18 15:50 PT 10.3 SECONDS (9.5-11.5) 05/22/18 06:10 INR 0.99 (0.5-1.4) 05/22/18 06:10 PTT (Actin FS) 29.8 SECONDS (26.0-38.0) 05/22/18 06:10 Specimen Source Arterial 05/18/18 14:48 Sample Site Right Radial 05/18/18 14:48 pH 7.409 (7.35-7.45) 05/18/18 14:48 pCO2 28.7 mmHg (35.0-45.0) L 05/18/18 14:48 pO2 60.5 mmHg (80.0-100.0) L 05/18/18 14:48 HCO3 17.7 mEq/L (20.0-26.0) L 05/18/18 14:48 Base Excess -5.4 mEq/L (-3.0-3.0) L 05/18/18 14:48 O2 Saturation 92.0 % (92.0-100.0) 05/18/18 14:48 Yoel Test Positive 05/18/18 14:48 Vent Rate NA 05/18/18 14:48 Inspired O2 21 05/18/18 14:48 Tidal Volume NA 05/18/18 14:48 PEEP NA 05/18/18 14:48 Pressure (ins/psv/peep) NA 05/18/18 14:48 Critical Value SH 05/18/18 14:48 Sodium 155 mEq/L (136-145) H 05/23/18 04:55 Potassium 3.2 mEq/L (3.5-5.1) L 05/23/18 04:55 Chloride 120 mEq/L (98-107) H 05/23/18 04:55 Carbon Dioxide 24.2 mEq/L (21.0-31.0) 05/23/18 04:55 Anion Gap 14.0 (7.0-16.0) 05/23/18 04:55 BUN 28 mg/dL (7-25) H 05/23/18 04:55 Creatinine 2.1 mg/dL (0.6-1.2) H 05/23/18 04:55 Est GFR ( Amer) 37.9 ml/min (>90) 05/23/18 04:55 Est GFR (Non-Af Amer) 31.3 ml/min 05/23/18 04:55 BUN/Creatinine Ratio 13.3 05/23/18 04:55 Glucose 111 mg/dL (70-105) H 05/23/18 04:55 POC Glucose 116 MG/DL (70 - 105) H 05/22/18 06:42 Whole Bld Lactic Acid 0.81 mmol/L (0.60-1.99) 05/18/18 14:20 Uric Acid 6.3 mg/dL (2.3-6.6) 05/19/18 06:11 Calcium 8.9 mg/dL (8.6-10.3) 05/23/18 04:55 Phosphorus 4.1 mg/dL (2.5-5.0) 05/19/18 06:11 Magnesium 2.7 mg/dL (1.9-2.7) 05/19/18 06:11 Total Bilirubin 0.6 mg/dL (0.3-1.0) 05/18/18 05:35 AST 24 U/L (13-39) 05/18/18 05:35 ALT 5 U/L (7-52) L 05/18/18 05:35 Alkaline Phosphatase 96 U/L (34-104) 05/18/18 05:35 B-Natriuretic Peptide 404.0 pg/mL (5.0-100.0) H 05/19/18 06:11 Total Protein 5.9 gm/dL (6.0-8.3) L 05/18/18 05:35 Albumin 2.9 gm/dL (3.7-5.3) L 05/18/18 05:35 Globulin 3.0 gm/dL 05/18/18 05:35 Albumin/Globulin Ratio 1.0 (1.0-1.8) 05/18/18 05:35 Amylase 167 U/L (29-103) H 05/19/18 06:11 Lipase 364 U/L (11-82) H 05/19/18 06:11 TSH 3.59 uIU/ml (0.34-5.60) 05/19/18 06:11 Urine Source MIDSTREAM 05/18/18 15:50 Urine Color RED 05/18/18 15:50 Urine Clarity HAZY (CLEAR) 05/18/18 15:50 Urine pH 6.0 (4.6 - 8.0) 05/18/18 15:50 Ur Specific [place] <= 1.005 (1.005-1.030) 05/18/18 15:50 Urine Protein 30 mg/dL (NEGATIVE) H 05/18/18 15:50 Urine Glucose (UA) NEGATIVE mg/dL (NEGATIVE) 05/18/18 15:50 Urine Ketones NEGATIVE mg/dL (NEGATIVE) 05/18/18 15:50 Urine Blood LARGE (NEGATIVE) H 05/18/18 15:50 Urine Nitrate NEGATIVE (NEGATIVE) 05/18/18 15:50 Urine Bilirubin NEGATIVE (NEGATIVE) 05/18/18 15:50 Urine Urobilinogen 0.2 E.U./dL (0.2 - 1.0) 05/18/18 15:50 Ur Leukocyte Esterase NEGATIVE (NEGATIVE) 05/18/18 15:50 Urine RBC 25-50 /hpf (0-5) H 05/18/18 15:50 Urine WBC 6-10 /hpf (0-5) H 05/18/18 15:50 Ur Epithelial Cells FEW /lpf (FEW) 05/18/18 15:50 Urine Bacteria MODERATE /hpf (NONE SEEN) H 05/18/18 15:50 Urine Osmolality 171 mOsmol/kg 05/18/18 15:50 Ur Random Sodium 69 mmol/L 05/18/18 15:50 Urine Creatinine 36.0 mg/dl (28.0-217.0) 05/18/18 15:50 Stool Occult Blood POSITIVE (NEGATIVE) H 05/20/18 10:20 Vancomycin Trough 42.4 ug/mL (5-10) H 05/15/18 20:00 Random Vancomycin 11.1 ug/mL (5.0-40.0) 05/19/18 06:11 Blood Type A POSITIVE 05/21/18 10:25 Antibody Screen NEGATIVE 05/21/18 10:25 Crossmatch See Detail 05/21/18 10:25 - Physical Exam Vitals and I&O: Vital Signs Temp 97.0 F 05/23/18 12:11 Pulse 80 05/23/18 12:11 Resp 19 05/23/18 12:11 BP 128/91 05/23/18 12:11 Pulse Ox 97 05/23/18 12:11 Intake & Output 05/22/18 05/23/18 05/23/18 18:59 06:59 18:59 Intake Total 9969.315 8571 1300 Balance 0580.847 5513 1300 Weight (lbs) 65.771 kg Intake: Intake, IV Amount 6717.408 6403 1300 Dextrose 5% 1,000 ml @ 8080.954 0983 1000 125 mls/hr IV .Q8H [facility] Rx #:[id number] KCL 20mEq/100mL Premix 20 100 meq In 100 ml @ 50 mls/ hr IV Q2H [facility] Rx#: [id number] Levetiracetam 500 mg In 210 Sodium Chloride 0.9% 100 ml @ 400 mls/hr IV Q12H [facility] Rx#:[id number] Linezolid 600mg/300mL 600 300 300 mg In 300 ml @ 300 mls/ hr IV Q12HR@0500,1700 [facility] Rx#:[id number] Other: # Voids 2 # Bowel Movements 0 Stool Characteristics Soft Soft Soft Liquid Liquid Liquid Weight Source Bedscale Active Medications: Current Medications Acetaminophen (Tylenol 650mg/20.3ml Suspension) 650 mg GT Q4HR PRN PRN Reason: Pain or Fever >101 Stop: 07/12/18 16:33 Last Admin: 05/21/18 17:56 Dose: 650 mg Bisacodyl (Dulcolax 10 Mg Supp) 10 mg RC DAILY PRN PRN Reason: Constipation Stop: 07/12/18 16:33 Citric Acid/Sodium Citrate (Bicitra) 30 ml PO BID [facility] Stop: 07/17/18 16:59 Last Admin: 05/23/18 10:39 Dose: Not Given Docusate Sodium (Colace) 100 mg PO DAILY [facility] Stop: 07/13/18 08:59 Last Admin: 05/23/18 10:39 Dose: Not Given Epoetin Vern (Epogen) 5,000 units SUBQ MoWeFr [facility] Stop: 07/18/18 14:59 Last Admin: 05/21/18 15:25 Dose: 5,000 units Ferrous Sulfate (Iron) 450 mg GT BID [facility] Stop: 07/12/18 16:59 Last Admin: 05/23/18 10:39 Dose: Not Given Hydralazine HCl (Apresoline 20 Mg/Ml) 10 mg IV Q4HR PRN PRN Reason: SBP ABOVE 160 Stop: 07/17/18 11:46 Linezolid (Zyvox) 600 mg in 300 mls @ 300 mls/hr IV Q12HR@0500,1700 [facility] Stop: 07/17/18 16:59 Last Infusion: 05/23/18 08:19 Dose: Infused Dextrose (D5w) 1,000 mls @ 125 mls/hr IV .Q8H [facility] Stop: 07/20/18 14:29 Last Admin: 05/23/18 12:51 Dose: 125 mls/hr Levetiracetam 500 mg/ Sodium (Chloride) 105 mls @ 400 mls/hr IV Q12H [facility] Stop: 07/21/18 16:59 Last Infusion: 05/23/18 05:50 Dose: Infused Levetiracetam (Keppra) 500 mg GT BID [facility] Stop: 07/12/18 16:59 Last Admin: 05/23/18 10:39 Dose: Not Given Magnesium Hydroxide (Milk Of Magnesia) 30 ml GT Q72HR PRN PRN Reason: Constipation Stop: 07/12/18 16:33 Metoprolol Succinate (Toprol Xl) 25 mg PO DAILY [facility] Stop: 07/17/18 14:44 Last Admin: 05/23/18 10:39 Dose: Not Given Pantoprazole Sodium (Protonix) 40 mg PO DAILY [facility] Stop: 07/19/18 19:59 Last Admin: 05/23/18 10:41 Dose: Not Given Potassium Chloride (Klor-Con) 20 meq PO BID [facility] Stop: 07/21/18 15:29 Last Admin: 05/23/18 10:42 Dose: Not Given Sodium Phosphate (Fleet Enema) 135 ml RC Q96HR PRN PRN Reason: IF DULCOLAX INEFFECTIVE Stop: 07/12/18 16:33 Valproate Sodium (Depakene) 500 mg GT Q12H [facility]; Protocol Stop: 07/12/18 16:59 Last Admin: 05/23/18 04:38 Dose: Not Given General: No acute distress HEENT: Atraumatic, Mucous membr. moist/pink Neck: Supple, JVD Cardiovascular: Regular rate Lungs: Clear to auscultation, Normal air movement Abdomen: Bowel sounds, Soft, Other (G-tube in place), no Tender, no Hepatomegaly , no Splenomegaly, no Distended, no Rebound, no Mass Extremities: Pulses (normal) Neurological: Normal tone, Sensation intact, Reflexes 2+ Skin: Rash Psych/Mental Status: Mood NL - Procedures Procedures: Procedures Procedure Code Date EXCISION OF DUODENUM, ENDO, DIAGN [id number] 05/13/18 EXCISION OF RECTUM, ENDO, DIAGN [id number] 05/13/18 EXCISION OF STOMACH, PYLORUS, ENDO, DIAGN [id number] 05/13/18 Assessment/Plan - Assessment Assessment: JAYLIN Hypernatremia 2/2 dehydration Severe Malnutrition Leukocytosis possible LGI Bleed, C. diff Ess Htn Dev Delay Cerebral Palsy Int. Disability Anemia of CD? - Plan Plan: Lab - Result Diagrams 05/19/18 06:11 05/19/18 06:11 Current Medications Acetaminophen (Tylenol 650mg/20.3ml Suspension) 650 mg GT Q4HR PRN PRN Reason: Pain or Fever >101 Stop: 07/12/18 16:33 Last Admin: 05/19/18 02:21 Dose: 650 mg Bisacodyl (Dulcolax 10 Mg Supp) 10 mg RC DAILY PRN PRN Reason: Constipation Stop: 07/12/18 16:33 Citric Acid/Sodium Citrate (Bicitra) 30 ml PO BID [facility] Stop: 07/17/18 16:59 Last Admin: 05/19/18 11:54 Dose: 30 ml Docusate Sodium (Colace) 100 mg PO DAILY [facility] Stop: 07/13/18 08:59 Last Admin: 05/19/18 08:36 Dose: 100 mg Epoetin Vern (Epogen) 5,000 units SUBQ MoWeFr [facility] Stop: 07/18/18 13:44 Ferrous Sulfate (Iron) 450 mg GT BID [facility] Stop: 07/12/18 16:59 Last Admin: 05/19/18 08:38 Dose: 450 mg Hydralazine HCl (Apresoline 20 Mg/Ml) 10 mg IV Q4HR PRN PRN Reason: SBP ABOVE 160 Stop: 07/17/18 11:46 Piperacillin Sod/Tazobactam (Sod 3.375 gm/ Sodium Chloride) 50 mls @ 100 mls/ hr IV Q6HR [facility] Stop: 07/12/18 05:59 Last Admin: 05/19/18 11:54 Dose: 100 mls/hr Dextrose (D5w) 1,000 mls @ 100 mls/hr IV .Q10H YOVANNY Stop: 07/17/18 12:59 Last Admin: 05/19/18 01:00 Dose: 100 mls/hr Linezolid (Zyvox) 600 mg in 300 mls @ 300 mls/hr IV Q12HR@0500,1700 YOVANNY Stop: 07/17/18 16:59 Last Infusion: 05/19/18 05:50 Dose: Infused Levetiracetam (Keppra) 500 mg GT BID YOVANNY Stop: 07/12/18 16:59 Last Admin: 05/19/18 08:36 Dose: 500 mg Lorazepam (Ativan) 1 mg IVP Q6HR PRN; Protocol PRN Reason: Anxiety Stop: 07/12/18 04:24 Last Admin: 05/14/18 00:06 Dose: 1 mg Magnesium Hydroxide (Milk Of Magnesia) 30 ml GT Q72HR PRN PRN Reason: Constipation Stop: 07/12/18 16:33 Metoprolol Succinate (Toprol Xl) 25 mg PO DAILY YOVANNY Stop: 07/17/18 14:44 Last Admin: 05/19/18 08:36 Dose: 25 mg Mupirocin (Bactroban Oint) 1 appl NS BID YOVANNY Stop: 05/19/18 17:01 Last Admin: 05/19/18 08:36 Dose: 1 appl Potassium Chloride (Klor-Con) 20 meq PO DAILY YOVANNY Stop: 07/18/18 13:44 Sodium Phosphate (Fleet Enema) 135 ml RC Q96HR PRN PRN Reason: IF DULCOLAX INEFFECTIVE Stop: 07/12/18 16:33 Valproate Sodium (Depakene) 500 mg GT Q12H YOVANNY; Protocol Stop: 07/12/18 16:59 Last Admin: 05/19/18 05:00 Dose: 500 m Lab - Result Diagrams 05/23/18 04:55 05/23/18 04:55 Kidney fnc basically the same w/ BUN/CR of 28/2.1 FE Na 3.15% suggestive of intrinc renal involvement Na down to 155 increase water flushes, IVF w/ D5W replace K WBC up to 22 Hgb/Hct improved to 10.7/ 32.4 post transfusion f/u electrolytes, cbc
--- NOTE | 2018-05-23 13:43 | General Progress Note ---
Subjective - Review of Systems Service Date: 05/23/18 Subjective: Patient awake alert no complaints Patient has diarrhea Stool for occult blood positive EGD and colonoscopy done Objective - Results Result Diagrams: 05/23/18 04:55 05/23/18 04:55 Recent Labs: Laboratory Last Values WBC 22.2 Th/cmm (4.8-10.8) H* 05/23/18 04:55 RBC 3.81 Mil/cmm (3.80-5.10) 05/23/18 04:55 Hgb 10.7 gm/dL (12-16) L 05/23/18 04:55 Hct 32.4 % (41.0-60) L 05/23/18 04:55 MCV 85.2 fl (81-100) 05/23/18 04:55 MCH 28.2 pg (27.0-31.0) 05/23/18 04:55 MCHC Differential 33.1 pg (28.0-36.0) 05/23/18 04:55 RDW 14.6 % (11.5-20.0) 05/23/18 04:55 Plt Count 136 Th/cmm (150-400) L 05/23/18 04:55 MPV 8.3 fl 05/23/18 04:55 Add Manual Diff YES 05/23/18 04:55 Neutrophils % OFFSET SECOND PRESS OPERATOR 05/17/18 05:00 Band Neutrophils % 5 % (0-10) 05/23/18 04:55 Lymphocytes % OFFSET SECOND PRESS OPERATOR 05/17/18 05:00 Monocytes % OFFSET SECOND PRESS OPERATOR 05/17/18 05:00 Eosinophils % OFFSET SECOND PRESS OPERATOR 05/17/18 05:00 Basophils % OFFSET SECOND PRESS OPERATOR 05/17/18 05:00 Neutrophils (Manual) 81 % (40-80) H 05/23/18 04:55 Lymphocytes 8 % (20-50) L 05/23/18 04:55 Monocytes 5 % (2-10) 05/23/18 04:55 Eosinophils 1 % (0-5) 05/23/18 04:55 Basophils 0 % (0-3) 05/23/18 04:55 Metamyelocytes 6 % (0-0) H 05/17/18 05:00 Platelet Estimate ADEQUATE (NORMAL) 05/22/18 06:10 Smear Path Review 05/21/18 05:25 Eos Smear Source URINE 05/18/18 15:50 Eos Smear Total Cells NONE SEEN (NONE SEEN) 05/18/18 15:50 PT 10.3 SECONDS (9.5-11.5) 05/22/18 06:10 INR 0.99 (0.5-1.4) 05/22/18 06:10 PTT (Actin FS) 29.8 SECONDS (26.0-38.0) 05/22/18 06:10 Specimen Source Arterial 05/18/18 14:48 Sample Site Right Radial 05/18/18 14:48 pH 7.409 (7.35-7.45) 05/18/18 14:48 pCO2 28.7 mmHg (35.0-45.0) L 05/18/18 14:48 pO2 60.5 mmHg (80.0-100.0) L 05/18/18 14:48 HCO3 17.7 mEq/L (20.0-26.0) L 05/18/18 14:48 Base Excess -5.4 mEq/L (-3.0-3.0) L 05/18/18 14:48 O2 Saturation 92.0 % (92.0-100.0) 05/18/18 14:48 Yoel Test Positive 05/18/18 14:48 Vent Rate NA 05/18/18 14:48 Inspired O2 21 05/18/18 14:48 Tidal Volume NA 05/18/18 14:48 PEEP NA 05/18/18 14:48 Pressure (ins/psv/peep) NA 05/18/18 14:48 Critical Value SH 05/18/18 14:48 Sodium 155 mEq/L (136-145) H 05/23/18 04:55 Potassium 3.2 mEq/L (3.5-5.1) L 05/23/18 04:55 Chloride 120 mEq/L (98-107) H 05/23/18 04:55 Carbon Dioxide 24.2 mEq/L (21.0-31.0) 05/23/18 04:55 Anion Gap 14.0 (7.0-16.0) 05/23/18 04:55 BUN 28 mg/dL (7-25) H 05/23/18 04:55 Creatinine 2.1 mg/dL (0.6-1.2) H 05/23/18 04:55 Est GFR ( Amer) 37.9 ml/min (>90) 05/23/18 04:55 Est GFR (Non-Af Amer) 31.3 ml/min 05/23/18 04:55 BUN/Creatinine Ratio 13.3 05/23/18 04:55 Glucose 111 mg/dL (70-105) H 05/23/18 04:55 POC Glucose 116 MG/DL (70 - 105) H 05/22/18 06:42 Whole Bld Lactic Acid 0.81 mmol/L (0.60-1.99) 05/18/18 14:20 Uric Acid 6.3 mg/dL (2.3-6.6) 05/19/18 06:11 Calcium 8.9 mg/dL (8.6-10.3) 05/23/18 04:55 Phosphorus 4.1 mg/dL (2.5-5.0) 05/19/18 06:11 Magnesium 2.7 mg/dL (1.9-2.7) 05/19/18 06:11 Total Bilirubin 0.6 mg/dL (0.3-1.0) 05/18/18 05:35 AST 24 U/L (13-39) 05/18/18 05:35 ALT 5 U/L (7-52) L 05/18/18 05:35 Alkaline Phosphatase 96 U/L (34-104) 05/18/18 05:35 B-Natriuretic Peptide 404.0 pg/mL (5.0-100.0) H 05/19/18 06:11 Total Protein 5.9 gm/dL (6.0-8.3) L 05/18/18 05:35 Albumin 2.9 gm/dL (3.7-5.3) L 05/18/18 05:35 Globulin 3.0 gm/dL 05/18/18 05:35 Albumin/Globulin Ratio 1.0 (1.0-1.8) 05/18/18 05:35 Amylase 167 U/L (29-103) H 05/19/18 06:11 Lipase 364 U/L (11-82) H 05/19/18 06:11 TSH 3.59 uIU/ml (0.34-5.60) 05/19/18 06:11 Urine Source MIDSTREAM 05/18/18 15:50 Urine Color RED 05/18/18 15:50 Urine Clarity HAZY (CLEAR) 05/18/18 15:50 Urine pH 6.0 (4.6 - 8.0) 05/18/18 15:50 Ur Specific [place] <= 1.005 (1.005-1.030) 05/18/18 15:50 Urine Protein 30 mg/dL (NEGATIVE) H 05/18/18 15:50 Urine Glucose (UA) NEGATIVE mg/dL (NEGATIVE) 05/18/18 15:50 Urine Ketones NEGATIVE mg/dL (NEGATIVE) 05/18/18 15:50 Urine Blood LARGE (NEGATIVE) H 05/18/18 15:50 Urine Nitrate NEGATIVE (NEGATIVE) 05/18/18 15:50 Urine Bilirubin NEGATIVE (NEGATIVE) 05/18/18 15:50 Urine Urobilinogen 0.2 E.U./dL (0.2 - 1.0) 05/18/18 15:50 Ur Leukocyte Esterase NEGATIVE (NEGATIVE) 05/18/18 15:50 Urine RBC 25-50 /hpf (0-5) H 05/18/18 15:50 Urine WBC 6-10 /hpf (0-5) H 05/18/18 15:50 Ur Epithelial Cells FEW /lpf (FEW) 05/18/18 15:50 Urine Bacteria MODERATE /hpf (NONE SEEN) H 05/18/18 15:50 Urine Osmolality 171 mOsmol/kg 05/18/18 15:50 Ur Random Sodium 69 mmol/L 05/18/18 15:50 Urine Creatinine 36.0 mg/dl (28.0-217.0) 05/18/18 15:50 Stool Occult Blood POSITIVE (NEGATIVE) H 05/20/18 10:20 Vancomycin Trough 42.4 ug/mL (5-10) H 05/15/18 20:00 Random Vancomycin 11.1 ug/mL (5.0-40.0) 05/19/18 06:11 Blood Type A POSITIVE 05/21/18 10:25 Antibody Screen NEGATIVE 05/21/18 10:25 Crossmatch See Detail 05/21/18 10:25 - Physical Exam Vitals and I&O: Vital Signs Temp 97.0 F 05/23/18 12:11 Pulse 80 05/23/18 12:11 Resp 18 05/23/18 13:32 BP 128/91 05/23/18 12:11 Pulse Ox 97 05/23/18 12:11 Intake & Output 05/22/18 05/23/18 05/23/18 18:59 06:59 18:59 Intake Total 5308.457 5199 1300 Balance 1689.030 3597 1300 Weight (lbs) 65.771 kg Intake: Intake, IV Amount 1917.329 9599 1300 Dextrose 5% 1,000 ml @ 1683.166 7088 1000 125 mls/hr IV .Q8H [facility] Rx #:[id number] KCL 20mEq/100mL Premix 20 100 meq In 100 ml @ 50 mls/ hr IV Q2H [facility] Rx#: [id number] Levetiracetam 500 mg In 210 Sodium Chloride 0.9% 100 ml @ 400 mls/hr IV Q12H [facility] Rx#:[id number] Linezolid 600mg/300mL 600 300 300 mg In 300 ml @ 300 mls/ hr IV Q12HR@0500,1700 [facility] Rx#:[id number] Other: # Voids 2 # Bowel Movements 0 Stool Characteristics Soft Soft Soft Liquid Liquid Weight Source Bedscale Active Medications: Current Medications Acetaminophen (Tylenol 650mg/20.3ml Suspension) 650 mg GT Q4HR PRN PRN Reason: Pain or Fever >101 Stop: 07/12/18 16:33 Last Admin: 05/21/18 17:56 Dose: 650 mg Bisacodyl (Dulcolax 10 Mg Supp) 10 mg RC DAILY PRN PRN Reason: Constipation Stop: 07/12/18 16:33 Citric Acid/Sodium Citrate (Bicitra) 30 ml PO BID [facility] Stop: 07/17/18 16:59 Last Admin: 05/23/18 10:39 Dose: Not Given Docusate Sodium (Colace) 100 mg PO DAILY [facility] Stop: 07/13/18 08:59 Last Admin: 05/23/18 10:39 Dose: Not Given Epoetin Vern (Epogen) 5,000 units SUBQ MoWeFr [facility] Stop: 07/18/18 14:59 Last Admin: 05/21/18 15:25 Dose: 5,000 units Ferrous Sulfate (Iron) 450 mg GT BID [facility] Stop: 07/12/18 16:59 Last Admin: 05/23/18 10:39 Dose: Not Given Hydralazine HCl (Apresoline 20 Mg/Ml) 10 mg IV Q4HR PRN PRN Reason: SBP ABOVE 160 Stop: 07/17/18 11:46 Linezolid (Zyvox) 600 mg in 300 mls @ 300 mls/hr IV Q12HR@0500,1700 [facility] Stop: 07/17/18 16:59 Last Infusion: 05/23/18 08:19 Dose: Infused Dextrose (D5w) 1,000 mls @ 125 mls/hr IV .Q8H [facility] Stop: 07/20/18 14:29 Last Admin: 05/23/18 12:51 Dose: 125 mls/hr Levetiracetam 500 mg/ Sodium (Chloride) 105 mls @ 400 mls/hr IV Q12H [facility] Stop: 07/21/18 16:59 Last Infusion: 05/23/18 05:50 Dose: Infused Levetiracetam (Keppra) 500 mg GT BID [facility] Stop: 07/12/18 16:59 Last Admin: 05/23/18 10:39 Dose: Not Given Magnesium Hydroxide (Milk Of Magnesia) 30 ml GT Q72HR PRN PRN Reason: Constipation Stop: 07/12/18 16:33 Metoprolol Succinate (Toprol Xl) 25 mg PO DAILY [facility] Stop: 07/17/18 14:44 Last Admin: 05/23/18 10:39 Dose: Not Given Pantoprazole Sodium (Protonix) 40 mg PO DAILY [facility] Stop: 07/19/18 19:59 Last Admin: 05/23/18 10:41 Dose: Not Given Potassium Chloride (Klor-Con) 20 meq PO TID [facility] Stop: 07/22/18 13:44 Sodium Phosphate (Fleet Enema) 135 ml RC Q96HR PRN PRN Reason: IF DULCOLAX INEFFECTIVE Stop: 07/12/18 16:33 Valproate Sodium (Depakene) 500 mg GT Q12H [facility]; Protocol Stop: 07/12/18 16:59 Last Admin: 05/23/18 04:38 Dose: Not Given General: No acute distress HEENT: Atraumatic, Mucous membr. moist/pink Neck: Supple, JVD Cardiovascular: Regular rate Lungs: Clear to auscultation, Normal air movement Abdomen: Bowel sounds, Soft, Other (G-tube in place), no Tender, no Hepatomegaly , no Splenomegaly, no Distended, no Rebound, no Mass Extremities: Pulses (normal) Neurological: Normal tone, Sensation intact, Reflexes 2+ Skin: Rash Psych/Mental Status: Mood NL - Procedures Procedures: Procedures Procedure Code Date EXCISION OF DUODENUM, ENDO, DIAGN [id number] 05/13/18 EXCISION OF RECTUM, ENDO, DIAGN [id number] 05/13/18 EXCISION OF STOMACH, PYLORUS, ENDO, DIAGN [id number] 05/13/18 Assessment/Plan - Assessment Assessment: Acute renal failure Hypertension Hyponatremia 9 deficiency anemia Mental retardation Down syndrome Cerebral palsy 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 difficile colitis Hypokalemia - Plan Plan: Continue present management continue IV antibiotics controlled blood pressure Stool for C. difficile colitis potassium supplement A GI workup EGD colonoscope transfusion
[2018-05-23] MEDS ORDERED: Potassium Chloride 20 mEq ER Tab PO SCH (14:30)
--- NOTE | 2018-05-23 14:41 | Pathology Report ---
[id number] Collection Date: 05/22/2018 Surgeon: Dr. Calixto Jeffers Specimen Description: 1. Antrum biopsy. 2. Duodenum biopsy. 3. Rectal biopsy. Gross Description: Part I: Received in formalin are three mukherjee soft tissue fragments each measuring 0.1 cm in greatest dimension. Totally submitted in one cassette labeled A. Gross Description: Part II: Received in formalin is a single mukherjee soft tissue fragment measuring 0.2 cm in greatest dimension. Totally submitted in one cassette labeled B. Gross Description: Part III: Received in formalin are three mukherjee soft tissue fragments ranging from 0.1 to 0.2 cm in greatest dimension. Totally submitted in one cassette labeled C. Microscopic Description: Part I: The histologic sections show gastric mucosa with chronic inflammation present consisting of increased numbers of lymphocytes and plasma cells. The Giemsa stain shows no evidence for Helicobacter pylori. Diagnosis: Part I: 1. Chronic gastritis, antrum biopsy. 2. The Giemsa stain is negative for Helicobacter pylori. Microscopic Description: Part II: The histologic sections show duodenal mucosa with mostly intact intestinal villi, showing no significant villous abnormality. Diagnosis: Part II: No evidence for celiac disease/sprue (duodenal biopsy). Microscopic Description: Part III: The histologic sections show ulcerated rectal mucosa with areas of mucinous/inflammatory exudate with increased numbers of inflammatory cells consisting of neutrophils and lymphocytes. The inflammatory changes and ulceration present are consistent with rectal ulcer and proctitis. Diagnosis: Part III: Rectal ulcer with associated inflammatory changes, consistent with acute and chronic proctitis. [facility]# [id number] [facility] CENTERNeida
--- NOTE | 2018-05-23 14:58 | Internal Medicine Prog Note ---
Internal Medicine Subjective - Subjective Service Date: 05/23/18 Patient seen and examined:: with staff Patient is:: awake, non-verbal, non-interactive, confused, other (hx of cerebral pasy, developmetal delay.) Patient Complaints of:: other (weakness.) Per staff patient has:: no adverse event, no episodes of fall, noncompliant, confused, other (unable to comprehend commands ) Internal Medicine Objective - Results Result Diagrams: 05/23/18 04:55 05/23/18 04:55 Recent Labs: Laboratory Last Values WBC 22.2 Th/cmm (4.8-10.8) H* 05/23/18 04:55 RBC 3.81 Mil/cmm (3.80-5.10) 05/23/18 04:55 Hgb 10.7 gm/dL (12-16) L 05/23/18 04:55 Hct 32.4 % (41.0-60) L 05/23/18 04:55 MCV 85.2 fl (81-100) 05/23/18 04:55 MCH 28.2 pg (27.0-31.0) 05/23/18 04:55 MCHC Differential 33.1 pg (28.0-36.0) 05/23/18 04:55 RDW 14.6 % (11.5-20.0) 05/23/18 04:55 Plt Count 136 Th/cmm (150-400) L 05/23/18 04:55 MPV 8.3 fl 05/23/18 04:55 Add Manual Diff YES 05/23/18 04:55 Neutrophils % COSTUMER ASSISTANT 05/17/18 05:00 Band Neutrophils % 5 % (0-10) 05/23/18 04:55 Lymphocytes % COSTUMER ASSISTANT 05/17/18 05:00 Monocytes % COSTUMER ASSISTANT 05/17/18 05:00 Eosinophils % COSTUMER ASSISTANT 05/17/18 05:00 Basophils % COSTUMER ASSISTANT 05/17/18 05:00 Neutrophils (Manual) 81 % (40-80) H 05/23/18 04:55 Lymphocytes 8 % (20-50) L 05/23/18 04:55 Monocytes 5 % (2-10) 05/23/18 04:55 Eosinophils 1 % (0-5) 05/23/18 04:55 Basophils 0 % (0-3) 05/23/18 04:55 Metamyelocytes 6 % (0-0) H 05/17/18 05:00 Platelet Estimate ADEQUATE (NORMAL) 05/22/18 06:10 Smear Path Review 05/21/18 05:25 Eos Smear Source URINE 05/18/18 15:50 Eos Smear Total Cells NONE SEEN (NONE SEEN) 05/18/18 15:50 PT 10.3 SECONDS (9.5-11.5) 05/22/18 06:10 INR 0.99 (0.5-1.4) 05/22/18 06:10 PTT (Actin FS) 29.8 SECONDS (26.0-38.0) 05/22/18 06:10 Specimen Source Arterial 05/18/18 14:48 Sample Site Right Radial 05/18/18 14:48 pH 7.409 (7.35-7.45) 05/18/18 14:48 pCO2 28.7 mmHg (35.0-45.0) L 05/18/18 14:48 pO2 60.5 mmHg (80.0-100.0) L 05/18/18 14:48 HCO3 17.7 mEq/L (20.0-26.0) L 05/18/18 14:48 Base Excess -5.4 mEq/L (-3.0-3.0) L 05/18/18 14:48 O2 Saturation 92.0 % (92.0-100.0) 05/18/18 14:48 Yoel Test Positive 05/18/18 14:48 Vent Rate NA 05/18/18 14:48 Inspired O2 21 05/18/18 14:48 Tidal Volume NA 05/18/18 14:48 PEEP NA 05/18/18 14:48 Pressure (ins/psv/peep) NA 05/18/18 14:48 Critical Value SH 05/18/18 14:48 Sodium 155 mEq/L (136-145) H 05/23/18 04:55 Potassium 3.2 mEq/L (3.5-5.1) L 05/23/18 04:55 Chloride 120 mEq/L (98-107) H 05/23/18 04:55 Carbon Dioxide 24.2 mEq/L (21.0-31.0) 05/23/18 04:55 Anion Gap 14.0 (7.0-16.0) 05/23/18 04:55 BUN 28 mg/dL (7-25) H 05/23/18 04:55 Creatinine 2.1 mg/dL (0.6-1.2) H 05/23/18 04:55 Est GFR ( Amer) 37.9 ml/min (>90) 05/23/18 04:55 Est GFR (Non-Af Amer) 31.3 ml/min 05/23/18 04:55 BUN/Creatinine Ratio 13.3 05/23/18 04:55 Glucose 111 mg/dL (70-105) H 05/23/18 04:55 POC Glucose 116 MG/DL (70 - 105) H 05/22/18 06:42 Whole Bld Lactic Acid 0.81 mmol/L (0.60-1.99) 05/18/18 14:20 Uric Acid 6.3 mg/dL (2.3-6.6) 05/19/18 06:11 Calcium 8.9 mg/dL (8.6-10.3) 05/23/18 04:55 Phosphorus 4.1 mg/dL (2.5-5.0) 05/19/18 06:11 Magnesium 2.7 mg/dL (1.9-2.7) 05/19/18 06:11 Total Bilirubin 0.6 mg/dL (0.3-1.0) 05/18/18 05:35 AST 24 U/L (13-39) 05/18/18 05:35 ALT 5 U/L (7-52) L 05/18/18 05:35 Alkaline Phosphatase 96 U/L (34-104) 05/18/18 05:35 B-Natriuretic Peptide 404.0 pg/mL (5.0-100.0) H 05/19/18 06:11 Total Protein 5.9 gm/dL (6.0-8.3) L 05/18/18 05:35 Albumin 2.9 gm/dL (3.7-5.3) L 05/18/18 05:35 Globulin 3.0 gm/dL 05/18/18 05:35 Albumin/Globulin Ratio 1.0 (1.0-1.8) 05/18/18 05:35 Amylase 167 U/L (29-103) H 05/19/18 06:11 Lipase 364 U/L (11-82) H 05/19/18 06:11 TSH 3.59 uIU/ml (0.34-5.60) 05/19/18 06:11 Urine Source MIDSTREAM 05/18/18 15:50 Urine Color RED 05/18/18 15:50 Urine Clarity HAZY (CLEAR) 05/18/18 15:50 Urine pH 6.0 (4.6 - 8.0) 05/18/18 15:50 Ur Specific [place] <= 1.005 (1.005-1.030) 05/18/18 15:50 Urine Protein 30 mg/dL (NEGATIVE) H 05/18/18 15:50 Urine Glucose (UA) NEGATIVE mg/dL (NEGATIVE) 05/18/18 15:50 Urine Ketones NEGATIVE mg/dL (NEGATIVE) 05/18/18 15:50 Urine Blood LARGE (NEGATIVE) H 05/18/18 15:50 Urine Nitrate NEGATIVE (NEGATIVE) 05/18/18 15:50 Urine Bilirubin NEGATIVE (NEGATIVE) 05/18/18 15:50 Urine Urobilinogen 0.2 E.U./dL (0.2 - 1.0) 05/18/18 15:50 Ur Leukocyte Esterase NEGATIVE (NEGATIVE) 05/18/18 15:50 Urine RBC 25-50 /hpf (0-5) H 05/18/18 15:50 Urine WBC 6-10 /hpf (0-5) H 05/18/18 15:50 Ur Epithelial Cells FEW /lpf (FEW) 05/18/18 15:50 Urine Bacteria MODERATE /hpf (NONE SEEN) H 05/18/18 15:50 Urine Osmolality 171 mOsmol/kg 05/18/18 15:50 Ur Random Sodium 69 mmol/L 05/18/18 15:50 Urine Creatinine 36.0 mg/dl (28.0-217.0) 05/18/18 15:50 Stool Occult Blood POSITIVE (NEGATIVE) H 05/20/18 10:20 Vancomycin Trough 42.4 ug/mL (5-10) H 05/15/18 20:00 Random Vancomycin 11.1 ug/mL (5.0-40.0) 05/19/18 06:11 Blood Type A POSITIVE 05/21/18 10:25 Antibody Screen NEGATIVE 05/21/18 10:25 Crossmatch See Detail 05/21/18 10:25 - Physical Exam Vitals and I&O: Vital Signs Temp 97.0 F 05/23/18 12:11 Pulse 80 05/23/18 12:11 Resp 18 05/23/18 13:32 BP 128/91 05/23/18 12:11 Pulse Ox 97 05/23/18 12:11 Intake & Output 05/22/18 05/23/18 05/23/18 18:59 06:59 18:59 Intake Total 6127.173 5770 1300 Balance 2539.392 3825 1300 Weight (lbs) 65.771 kg Intake: Intake, IV Amount 0347.914 3511 1300 Dextrose 5% 1,000 ml @ 3352.818 3942 1000 125 mls/hr IV .Q8H [facility] Rx #:[id number] KCL 20mEq/100mL Premix 20 100 meq In 100 ml @ 50 mls/ hr IV Q2H [facility] Rx#: [id number] Levetiracetam 500 mg In 210 Sodium Chloride 0.9% 100 ml @ 400 mls/hr IV Q12H [facility] Rx#:[id number] Linezolid 600mg/300mL 600 300 300 mg In 300 ml @ 300 mls/ hr IV Q12HR@0500,1700 [facility] Rx#:[id number] Other: # Voids 2 # Bowel Movements 0 Stool Characteristics Soft Soft Soft Liquid Liquid Weight Source Bedscale Active Medications: Current Medications Acetaminophen (Tylenol 650mg/20.3ml Suspension) 650 mg GT Q4HR PRN PRN Reason: Pain or Fever >101 Stop: 07/12/18 16:33 Last Admin: 05/21/18 17:56 Dose: 650 mg Bisacodyl (Dulcolax 10 Mg Supp) 10 mg RC DAILY PRN PRN Reason: Constipation Stop: 07/12/18 16:33 Citric Acid/Sodium Citrate (Bicitra) 30 ml PO BID [facility] Stop: 07/17/18 16:59 Last Admin: 05/23/18 10:39 Dose: Not Given Docusate Sodium (Colace) 100 mg PO DAILY [facility] Stop: 07/13/18 08:59 Last Admin: 05/23/18 10:39 Dose: Not Given Epoetin Vern (Epogen) 5,000 units SUBQ MoWeFr [facility] Stop: 07/18/18 14:59 Last Admin: 05/21/18 15:25 Dose: 5,000 units Ferrous Sulfate (Iron) 450 mg GT BID [facility] Stop: 07/12/18 16:59 Last Admin: 05/23/18 10:39 Dose: Not Given Hydralazine HCl (Apresoline 20 Mg/Ml) 10 mg IV Q4HR PRN PRN Reason: SBP ABOVE 160 Stop: 07/17/18 11:46 Linezolid (Zyvox) 600 mg in 300 mls @ 300 mls/hr IV Q12HR@0500,1700 [facility] Stop: 07/17/18 16:59 Last Infusion: 05/23/18 08:19 Dose: Infused Dextrose (D5w) 1,000 mls @ 125 mls/hr IV .Q8H [facility] Stop: 07/20/18 14:29 Last Admin: 05/23/18 12:51 Dose: 125 mls/hr Levetiracetam 500 mg/ Sodium (Chloride) 105 mls @ 400 mls/hr IV Q12H [facility] Stop: 07/21/18 16:59 Last Infusion: 05/23/18 05:50 Dose: Infused Levetiracetam (Keppra) 500 mg GT BID [facility] Stop: 07/12/18 16:59 Last Admin: 05/23/18 10:39 Dose: Not Given Magnesium Hydroxide (Milk Of Magnesia) 30 ml GT Q72HR PRN PRN Reason: Constipation Stop: 07/12/18 16:33 Metoprolol Succinate (Toprol Xl) 25 mg PO DAILY [facility] Stop: 07/17/18 14:44 Last Admin: 05/23/18 10:39 Dose: Not Given Pantoprazole Sodium (Protonix) 40 mg PO DAILY [facility] Stop: 07/19/18 19:59 Last Admin: 05/23/18 10:41 Dose: Not Given Potassium Chloride (Klor-Con) 20 meq PO TID [facility] Stop: 07/22/18 14:29 Sodium Phosphate (Fleet Enema) 135 ml RC Q96HR PRN PRN Reason: IF DULCOLAX INEFFECTIVE Stop: 07/12/18 16:33 Valproate Sodium (Depakene) 500 mg GT Q12H [facility]; Protocol Stop: 07/12/18 16:59 Last Admin: 05/23/18 04:38 Dose: Not Given Physical Exam: 22 y/o female patient has generalized weakness, severe malnutrition. General: weak HEENT: NC/AT, PERRLA Neck: Supple Lungs: CTAB Abdomen: soft, non-tender, non-distended Extremities: excoriation Neurological: no change, unable to follow command - Procedures Procedures: Procedures Procedure Code Date EXCISION OF DUODENUM, ENDO, DIAGN [id number] 05/13/18 EXCISION OF RECTUM, ENDO, DIAGN [id number] 05/13/18 EXCISION OF STOMACH, PYLORUS, ENDO, DIAGN [id number] 05/13/18 TRANSFUSE NONAUT RED BLOOD CELLS IN PERIPH VEIN, PERC [id number] 05/13/18 Internal Medicine Assmt/Plan - Assessment Assessment: JAYLIN Hypernatremia Severe Malnutrition Leukocytosis HTN Cerebral Palsy Intellectual Disability Developmental Delay Anemia - Plan Plan: Continuation of care continue present meds as directed Monitor vitals and diet fall precaution supportive care Continue present care management. Nutritional Asmnt/Malnutr-PDOC - Dietary Evaluation Malnutrition Findings (Please click <Entered> for more info): see orders
[2018-05-23] MEDS: Epoetin Alfa 20000 Units/mL Vial SUBQ SCH (16:44)
[2018-05-23] MEDS ORDERED: Potassium Chloride Elixir 20 mEq /15 mL UDC GT SCH (16:45)
[2018-05-23] MEDS: Potassium Chloride Elixir 20 mEq /15 mL UDC GT SCH ×2 (16:56→21:44)
[2018-05-23] MEDS ORDERED: Dextrose 5% 1,000 ML IV SCH (18:46)
[2018-05-24] MEDS: Linezolid 600mg/300mL 600 MG/300 ML BAG IV SCH ×2 (05:03→17:00)
[2018-05-24] MEDS: Potassium Chloride Elixir 20 mEq /15 mL UDC GT SCH ×3 (09:24→20:36)
[2018-05-24] MEDS: Ferrous Sulfate 300 MG/5 ML UDC GT SCH ×2 (09:24→16:45)
[2018-05-24] MEDS: Levetiracetam 500 mg/5mL 5mL UDSyr *for ORAL USE ONLY GT SCH ×2 (09:24→16:45)
[2018-05-24] MEDS: Pantoprazole 40 mg EC Tab PO SCH (09:24)
--- NOTE | 2018-05-24 09:25 | GI Progress Note ---
Subjective - Review of Systems Service Date: 05/24/18 Subjective: TOLERATING TUBE FEEDS. Objective - Results Result Diagrams: 05/23/18 04:55 05/23/18 04:55 Recent Labs: Laboratory Last Values WBC 22.2 Th/cmm (4.8-10.8) H* 05/23/18 04:55 RBC 3.81 Mil/cmm (3.80-5.10) 05/23/18 04:55 Hgb 10.7 gm/dL (12-16) L 05/23/18 04:55 Hct 32.4 % (41.0-60) L 05/23/18 04:55 MCV 85.2 fl (81-100) 05/23/18 04:55 MCH 28.2 pg (27.0-31.0) 05/23/18 04:55 MCHC Differential 33.1 pg (28.0-36.0) 05/23/18 04:55 RDW 14.6 % (11.5-20.0) 05/23/18 04:55 Plt Count 136 Th/cmm (150-400) L 05/23/18 04:55 MPV 8.3 fl 05/23/18 04:55 Add Manual Diff YES 05/23/18 04:55 Neutrophils % [employer]IVE SERVICE MANAGEMENT TEACHER 05/17/18 05:00 Band Neutrophils % 5 % (0-10) 05/23/18 04:55 Lymphocytes % AUT[employer]OTIVE SERVICE MANAGEMENT TEACHER 05/17/18 05:00 Monocytes % AUTOMOTIVE SERVICE MANAGEMENT TEACHER 05/17/18 05:00 Eosinophils % AUT[employer]OTIVE SERVICE MANAGEMENT TEACHER 05/17/18 05:00 Basophils % AUT[employer]OTIVE SERVICE MANAGEMENT TEACHER 05/17/18 05:00 Neutrophils (Manual) 81 % (40-80) H 05/23/18 04:55 Lymphocytes 8 % (20-50) L 05/23/18 04:55 Monocytes 5 % (2-10) 05/23/18 04:55 Eosinophils 1 % (0-5) 05/23/18 04:55 Basophils 0 % (0-3) 05/23/18 04:55 Metamyelocytes 6 % (0-0) H 05/17/18 05:00 Platelet Estimate ADEQUATE (NORMAL) 05/22/18 06:10 Smear Path Review 05/21/18 05:25 Eos Smear Source URINE 05/18/18 15:50 Eos Smear Total Cells NONE SEEN (NONE SEEN) 05/18/18 15:50 PT 10.3 SECONDS (9.5-11.5) 05/22/18 06:10 INR 0.99 (0.5-1.4) 05/22/18 06:10 PTT (Actin FS) 29.8 SECONDS (26.0-38.0) 05/22/18 06:10 Specimen Source Arterial 05/18/18 14:48 Sample Site Right Radial 05/18/18 14:48 pH 7.409 (7.35-7.45) 05/18/18 14:48 pCO2 28.7 mmHg (35.0-45.0) L 05/18/18 14:48 pO2 60.5 mmHg (80.0-100.0) L 05/18/18 14:48 HCO3 17.7 mEq/L (20.0-26.0) L 05/18/18 14:48 Base Excess -5.4 mEq/L (-3.0-3.0) L 05/18/18 14:48 O2 Saturation 92.0 % (92.0-100.0) 05/18/18 14:48 Yoel Test Positive 05/18/18 14:48 Vent Rate NA 05/18/18 14:48 Inspired O2 21 05/18/18 14:48 Tidal Volume NA 05/18/18 14:48 PEEP NA 05/18/18 14:48 Pressure (ins/psv/peep) NA 05/18/18 14:48 Critical Value SH 05/18/18 14:48 Sodium 155 mEq/L (136-145) H 05/23/18 04:55 Potassium 3.2 mEq/L (3.5-5.1) L 05/23/18 04:55 Chloride 120 mEq/L (98-107) H 05/23/18 04:55 Carbon Dioxide 24.2 mEq/L (21.0-31.0) 05/23/18 04:55 Anion Gap 14.0 (7.0-16.0) 05/23/18 04:55 BUN 28 mg/dL (7-25) H 05/23/18 04:55 Creatinine 2.1 mg/dL (0.6-1.2) H 05/23/18 04:55 Est GFR ( Amer) 37.9 ml/min (>90) 05/23/18 04:55 Est GFR (Non-Af Amer) 31.3 ml/min 05/23/18 04:55 BUN/Creatinine Ratio 13.3 05/23/18 04:55 Glucose 111 mg/dL (70-105) H 05/23/18 04:55 POC Glucose 116 MG/DL (70 - 105) H 05/22/18 06:42 Whole Bld Lactic Acid 0.81 mmol/L (0.60-1.99) 05/18/18 14:20 Uric Acid 6.3 mg/dL (2.3-6.6) 05/19/18 06:11 Calcium 8.9 mg/dL (8.6-10.3) 05/23/18 04:55 Phosphorus 4.1 mg/dL (2.5-5.0) 05/19/18 06:11 Magnesium 2.7 mg/dL (1.9-2.7) 05/19/18 06:11 Total Bilirubin 0.6 mg/dL (0.3-1.0) 05/18/18 05:35 AST 24 U/L (13-39) 05/18/18 05:35 ALT 5 U/L (7-52) L 05/18/18 05:35 Alkaline Phosphatase 96 U/L (34-104) 05/18/18 05:35 B-Natriuretic Peptide 404.0 pg/mL (5.0-100.0) H 05/19/18 06:11 Total Protein 5.9 gm/dL (6.0-8.3) L 05/18/18 05:35 Albumin 2.9 gm/dL (3.7-5.3) L 05/18/18 05:35 Globulin 3.0 gm/dL 05/18/18 05:35 Albumin/Globulin Ratio 1.0 (1.0-1.8) 05/18/18 05:35 Amylase 167 U/L (29-103) H 05/19/18 06:11 Lipase 364 U/L (11-82) H 05/19/18 06:11 TSH 3.59 uIU/ml (0.34-5.60) 05/19/18 06:11 Urine Source MIDSTREAM 05/18/18 15:50 Urine Color RED 05/18/18 15:50 Urine Clarity HAZY (CLEAR) 05/18/18 15:50 Urine pH 6.0 (4.6 - 8.0) 05/18/18 15:50 Ur Specific [place] <= 1.005 (1.005-1.030) 05/18/18 15:50 Urine Protein 30 mg/dL (NEGATIVE) H 05/18/18 15:50 Urine Glucose (UA) NEGATIVE mg/dL (NEGATIVE) 05/18/18 15:50 Urine Ketones NEGATIVE mg/dL (NEGATIVE) 05/18/18 15:50 Urine Blood LARGE (NEGATIVE) H 05/18/18 15:50 Urine Nitrate NEGATIVE (NEGATIVE) 05/18/18 15:50 Urine Bilirubin NEGATIVE (NEGATIVE) 05/18/18 15:50 Urine Urobilinogen 0.2 E.U./dL (0.2 - 1.0) 05/18/18 15:50 Ur Leukocyte Esterase NEGATIVE (NEGATIVE) 05/18/18 15:50 Urine RBC 25-50 /hpf (0-5) H 05/18/18 15:50 Urine WBC 6-10 /hpf (0-5) H 05/18/18 15:50 Ur Epithelial Cells FEW /lpf (FEW) 05/18/18 15:50 Urine Bacteria MODERATE /hpf (NONE SEEN) H 05/18/18 15:50 Urine Osmolality 171 mOsmol/kg 05/18/18 15:50 Ur Random Sodium 69 mmol/L 05/18/18 15:50 Urine Creatinine 36.0 mg/dl (28.0-217.0) 05/18/18 15:50 Stool Occult Blood POSITIVE (NEGATIVE) H 05/20/18 10:20 Vancomycin Trough 42.4 ug/mL (5-10) H 05/15/18 20:00 Random Vancomycin 11.1 ug/mL (5.0-40.0) 05/19/18 06:11 Blood Type A POSITIVE 05/21/18 10:25 Antibody Screen NEGATIVE 05/21/18 10:25 Crossmatch See Detail 05/21/18 10:25 - Physical Exam Vitals and I&O: Vital Signs Temp 98.5 F 05/24/18 08:00 Pulse 110 05/24/18 08:00 Resp 18 05/24/18 08:00 BP 121/83 05/24/18 08:00 Pulse Ox 98 05/24/18 08:00 Intake & Output 05/23/18 05/24/18 05/24/18 18:59 06:59 18:59 Intake Total 2305 920 Balance 2305 920 Weight (lbs) 65.771 kg 65.771 kg Intake: Intake, IV Amount 1705 Dextrose 5% 1,000 ml @ 1000 125 mls/hr IV .Q8H [facility] Rx #:[id number] Levetiracetam 500 mg In 105 Sodium Chloride 0.9% 100 ml @ 400 mls/hr IV Q12H [facility] Rx#:[id number] Linezolid 600mg/300mL 600 600 mg In 300 ml @ 300 mls/ hr IV Q12HR@0500,1700 [facility] Rx#:[id number] Tube Feeding 400 720 Other 200 200 Other: # Voids 3 # Bowel Movements 2 Stool Characteristics Soft Soft Weight Source Bedscale Bedscale Active Medications: Current Medications Acetaminophen (Tylenol 650mg/20.3ml Suspension) 650 mg GT Q4HR PRN PRN Reason: Pain or Fever >101 Stop: 07/12/18 16:33 Last Admin: 05/21/18 17:56 Dose: 650 mg Bisacodyl (Dulcolax 10 Mg Supp) 10 mg RC DAILY PRN PRN Reason: Constipation Stop: 07/12/18 16:33 Citric Acid/Sodium Citrate (Bicitra) 30 ml PO BID [facility] Stop: 07/17/18 16:59 Last Admin: 05/23/18 16:47 Dose: 30 ml Docusate Sodium (Colace) 100 mg PO DAILY [facility] Stop: 07/13/18 08:59 Last Admin: 05/23/18 10:39 Dose: Not Given Epoetin Vern (Epogen) 5,000 units SUBQ MoWeFr [facility] Stop: 07/18/18 14:59 Last Admin: 05/23/18 16:44 Dose: 5,000 units Ferrous Sulfate (Iron) 450 mg GT BID [facility] Stop: 07/12/18 16:59 Last Admin: 05/23/18 16:45 Dose: 450 mg Hydralazine HCl (Apresoline 20 Mg/Ml) 10 mg IV Q4HR PRN PRN Reason: SBP ABOVE 160 Stop: 07/17/18 11:46 Linezolid (Zyvox) 600 mg in 300 mls @ 300 mls/hr IV Q12HR@0500,1700 [facility] Stop: 07/17/18 16:59 Last Admin: 05/24/18 05:03 Dose: 300 mls/hr Levetiracetam 500 mg/ Sodium (Chloride) 105 mls @ 400 mls/hr IV Q12H [facility] Stop: 07/21/18 16:59 Last Admin: 05/24/18 05:03 Dose: 400 mls/hr Dextrose (D5w) 1,000 mls @ 75 mls/hr IV .[id number] [facility] Stop: 07/22/18 18:45 Levetiracetam (Keppra) 500 mg GT BID [facility] Stop: 07/12/18 16:59 Last Admin: 05/23/18 16:48 Dose: 500 mg Magnesium Hydroxide (Milk Of Magnesia) 30 ml GT Q72HR PRN PRN Reason: Constipation Stop: 07/12/18 16:33 Metoprolol Succinate (Toprol Xl) 25 mg PO DAILY [facility] Stop: 07/17/18 14:44 Last Admin: 05/23/18 10:39 Dose: Not Given Miscellaneous (Clinical Monitoring) 1 ea MC DAILY PRN PRN Reason: RENAL DOSING Stop: 07/23/18 08:29 Pantoprazole Sodium (Protonix) 40 mg PO DAILY [facility] Stop: 07/19/18 19:59 Last Admin: 05/23/18 10:41 Dose: Not Given Potassium Chloride (Potassium Chloride Elixir) 20 meq GT TID [facility] Stop: 07/22/18 16:44 Last Admin: 05/23/18 21:44 Dose: 20 meq Sodium Phosphate (Fleet Enema) 135 ml RC Q96HR PRN PRN Reason: IF DULCOLAX INEFFECTIVE Stop: 07/12/18 16:33 Valproate Sodium (Depakene) 500 mg GT Q12H [facility]; Protocol Stop: 07/12/18 16:59 Last Admin: 05/24/18 05:06 Dose: Not Given General: No acute distress Cardiovascular: Regular rate Lungs: Clear to auscultation, Normal air movement Abdomen: Bowel sounds, Soft, Other (G-tube in place), no Tender, no Hepatomegaly , no Splenomegaly, no Distended, no Rebound, no Mass Extremities: Pulses (normal) - Procedures Procedures: Procedures Procedure Code Date EXCISION OF DUODENUM, ENDO, DIAGN [id number] 05/13/18 EXCISION OF RECTUM, ENDO, DIAGN [id number] 05/13/18 EXCISION OF STOMACH, PYLORUS, ENDO, DIAGN [id number] 05/13/18 TRANSFUSE NONAUT RED BLOOD CELLS IN PERIPH VEIN, PERC [id number] 05/13/18 Assessment/Plan - Assessment Assessment: # Anemia # Cerebral palsy # Dysphagia with G tube # Diarrhea # Leukocytosis Acute GI bleed is not suspected given the brown color of her stool. Would advise against using FOB testing as this is notoriously falsely positive for a litany of reasons, one of which being chronic iron therapy. If diarrhea recurs, will need to rule out CDiff EGD/colo on 05/22 showed gastritis, and proctitis with a possible rectal polyp vs thrombosed hemorrhoid. Biopsies taken. G tube changed to 20f on 05/23 Plan: - follow biopsies, specifically of the rectal polyp. If this is non adenamotous , then pt can be treated with 1 week of hydrocortisone supp. If this is adenoma , will recommend repeat flex sig in 4-6 weeks for attempt at removal - continue G tube feeding - send CDiff from stool if diarrhea - sepsis mgmt as per ID GI [facility]
--- NOTE | 2018-05-24 12:35 | General Progress Note ---
Subjective - Review of Systems Service Date: 05/24/18 Subjective: sleeping, comfortable Objective - Results Result Diagrams: 05/23/18 04:55 05/23/18 04:55 Recent Labs: Laboratory Last Values WBC 22.2 Th/cmm (4.8-10.8) H* 05/23/18 04:55 RBC 3.81 Mil/cmm (3.80-5.10) 05/23/18 04:55 Hgb 10.7 gm/dL (12-16) L 05/23/18 04:55 Hct 32.4 % (41.0-60) L 05/23/18 04:55 MCV 85.2 fl (81-100) 05/23/18 04:55 MCH 28.2 pg (27.0-31.0) 05/23/18 04:55 MCHC Differential 33.1 pg (28.0-36.0) 05/23/18 04:55 RDW 14.6 % (11.5-20.0) 05/23/18 04:55 Plt Count 136 Th/cmm (150-400) L 05/23/18 04:55 MPV 8.3 fl 05/23/18 04:55 Add Manual Diff YES 05/23/18 04:55 Neutrophils % CONTINUOUS STILL OPERATOR 05/17/18 05:00 Band Neutrophils % 5 % (0-10) 05/23/18 04:55 Lymphocytes % CONTINUOUS STILL OPERATOR 05/17/18 05:00 Monocytes % CONTINUOUS STILL OPERATOR 05/17/18 05:00 Eosinophils % CONTINUOUS STILL OPERATOR 05/17/18 05:00 Basophils % CONTINUOUS STILL OPERATOR 05/17/18 05:00 Neutrophils (Manual) 81 % (40-80) H 05/23/18 04:55 Lymphocytes 8 % (20-50) L 05/23/18 04:55 Monocytes 5 % (2-10) 05/23/18 04:55 Eosinophils 1 % (0-5) 05/23/18 04:55 Basophils 0 % (0-3) 05/23/18 04:55 Metamyelocytes 6 % (0-0) H 05/17/18 05:00 Platelet Estimate ADEQUATE (NORMAL) 05/22/18 06:10 Smear Path Review 05/21/18 05:25 Eos Smear Source URINE 05/18/18 15:50 Eos Smear Total Cells NONE SEEN (NONE SEEN) 05/18/18 15:50 PT 10.3 SECONDS (9.5-11.5) 05/22/18 06:10 INR 0.99 (0.5-1.4) 05/22/18 06:10 PTT (Actin FS) 29.8 SECONDS (26.0-38.0) 05/22/18 06:10 Specimen Source Arterial 05/18/18 14:48 Sample Site Right Radial 05/18/18 14:48 pH 7.409 (7.35-7.45) 05/18/18 14:48 pCO2 28.7 mmHg (35.0-45.0) L 05/18/18 14:48 pO2 60.5 mmHg (80.0-100.0) L 05/18/18 14:48 HCO3 17.7 mEq/L (20.0-26.0) L 05/18/18 14:48 Base Excess -5.4 mEq/L (-3.0-3.0) L 05/18/18 14:48 O2 Saturation 92.0 % (92.0-100.0) 05/18/18 14:48 Yoel Test Positive 05/18/18 14:48 Vent Rate NA 05/18/18 14:48 Inspired O2 21 05/18/18 14:48 Tidal Volume NA 05/18/18 14:48 PEEP NA 05/18/18 14:48 Pressure (ins/psv/peep) NA 05/18/18 14:48 Critical Value SH 05/18/18 14:48 Sodium 155 mEq/L (136-145) H 05/23/18 04:55 Potassium 3.2 mEq/L (3.5-5.1) L 05/23/18 04:55 Chloride 120 mEq/L (98-107) H 05/23/18 04:55 Carbon Dioxide 24.2 mEq/L (21.0-31.0) 05/23/18 04:55 Anion Gap 14.0 (7.0-16.0) 05/23/18 04:55 BUN 28 mg/dL (7-25) H 05/23/18 04:55 Creatinine 2.1 mg/dL (0.6-1.2) H 05/23/18 04:55 Est GFR ( Amer) 37.9 ml/min (>90) 05/23/18 04:55 Est GFR (Non-Af Amer) 31.3 ml/min 05/23/18 04:55 BUN/Creatinine Ratio 13.3 05/23/18 04:55 Glucose 111 mg/dL (70-105) H 05/23/18 04:55 POC Glucose 116 MG/DL (70 - 105) H 05/22/18 06:42 Whole Bld Lactic Acid 0.81 mmol/L (0.60-1.99) 05/18/18 14:20 Uric Acid 6.3 mg/dL (2.3-6.6) 05/19/18 06:11 Calcium 8.9 mg/dL (8.6-10.3) 05/23/18 04:55 Phosphorus 4.1 mg/dL (2.5-5.0) 05/19/18 06:11 Magnesium 2.7 mg/dL (1.9-2.7) 05/19/18 06:11 Total Bilirubin 0.6 mg/dL (0.3-1.0) 05/18/18 05:35 AST 24 U/L (13-39) 05/18/18 05:35 ALT 5 U/L (7-52) L 05/18/18 05:35 Alkaline Phosphatase 96 U/L (34-104) 05/18/18 05:35 B-Natriuretic Peptide 404.0 pg/mL (5.0-100.0) H 05/19/18 06:11 Total Protein 5.9 gm/dL (6.0-8.3) L 05/18/18 05:35 Albumin 2.9 gm/dL (3.7-5.3) L 05/18/18 05:35 Globulin 3.0 gm/dL 05/18/18 05:35 Albumin/Globulin Ratio 1.0 (1.0-1.8) 05/18/18 05:35 Amylase 167 U/L (29-103) H 05/19/18 06:11 Lipase 364 U/L (11-82) H 05/19/18 06:11 TSH 3.59 uIU/ml (0.34-5.60) 05/19/18 06:11 Urine Source MIDSTREAM 05/18/18 15:50 Urine Color RED 05/18/18 15:50 Urine Clarity HAZY (CLEAR) 05/18/18 15:50 Urine pH 6.0 (4.6 - 8.0) 05/18/18 15:50 Ur Specific [place] <= 1.005 (1.005-1.030) 05/18/18 15:50 Urine Protein 30 mg/dL (NEGATIVE) H 05/18/18 15:50 Urine Glucose (UA) NEGATIVE mg/dL (NEGATIVE) 05/18/18 15:50 Urine Ketones NEGATIVE mg/dL (NEGATIVE) 05/18/18 15:50 Urine Blood LARGE (NEGATIVE) H 05/18/18 15:50 Urine Nitrate NEGATIVE (NEGATIVE) 05/18/18 15:50 Urine Bilirubin NEGATIVE (NEGATIVE) 05/18/18 15:50 Urine Urobilinogen 0.2 E.U./dL (0.2 - 1.0) 05/18/18 15:50 Ur Leukocyte Esterase NEGATIVE (NEGATIVE) 05/18/18 15:50 Urine RBC 25-50 /hpf (0-5) H 05/18/18 15:50 Urine WBC 6-10 /hpf (0-5) H 05/18/18 15:50 Ur Epithelial Cells FEW /lpf (FEW) 05/18/18 15:50 Urine Bacteria MODERATE /hpf (NONE SEEN) H 05/18/18 15:50 Urine Osmolality 171 mOsmol/kg 05/18/18 15:50 Ur Random Sodium 69 mmol/L 05/18/18 15:50 Urine Creatinine 36.0 mg/dl (28.0-217.0) 05/18/18 15:50 Stool Occult Blood POSITIVE (NEGATIVE) H 05/20/18 10:20 Vancomycin Trough 42.4 ug/mL (5-10) H 05/15/18 20:00 Random Vancomycin 11.1 ug/mL (5.0-40.0) 05/19/18 06:11 Blood Type A POSITIVE 05/21/18 10:25 Antibody Screen NEGATIVE 05/21/18 10:25 Crossmatch See Detail 05/21/18 10:25 - Physical Exam Vitals and I&O: Vital Signs Temp 99.1 F 05/24/18 11:46 Pulse 108 05/24/18 11:46 Resp 18 05/24/18 11:46 BP 120/84 05/24/18 11:46 Pulse Ox 98 05/24/18 11:46 Intake & Output 05/23/18 05/24/18 05/24/18 18:59 06:59 18:59 Intake Total 2305 920 Balance 2305 920 Weight (lbs) 65.771 kg 65.771 kg Intake: Intake, IV Amount 1705 Dextrose 5% 1,000 ml @ 1000 125 mls/hr IV .Q8H [facility] Rx #:[id number] Levetiracetam 500 mg In 105 Sodium Chloride 0.9% 100 ml @ 400 mls/hr IV Q12H [facility] Rx#:[id number] Linezolid 600mg/300mL 600 600 mg In 300 ml @ 300 mls/ hr IV Q12HR@0500,1700 [facility] Rx#:[id number] Tube Feeding 400 720 Other 200 200 Other: # Voids 3 # Bowel Movements 2 Stool Characteristics Soft Soft Soft Weight Source Bedscale Bedscale Active Medications: Current Medications Acetaminophen (Tylenol 650mg/20.3ml Suspension) 650 mg GT Q4HR PRN PRN Reason: Pain or Fever >101 Stop: 07/12/18 16:33 Last Admin: 05/21/18 17:56 Dose: 650 mg Bisacodyl (Dulcolax 10 Mg Supp) 10 mg RC DAILY PRN PRN Reason: Constipation Stop: 07/12/18 16:33 Citric Acid/Sodium Citrate (Bicitra) 30 ml PO BID [facility] Stop: 07/17/18 16:59 Last Admin: 05/24/18 09:26 Dose: 30 ml Docusate Sodium (Colace) 100 mg PO DAILY [facility] Stop: 07/13/18 08:59 Last Admin: 05/24/18 09:26 Dose: 100 mg Epoetin Vern (Epogen) 5,000 units SUBQ MoWeFr [facility] Stop: 07/18/18 14:59 Last Admin: 05/23/18 16:44 Dose: 5,000 units Ferrous Sulfate (Iron) 450 mg GT BID [facility] Stop: 07/12/18 16:59 Last Admin: 05/24/18 09:24 Dose: 450 mg Hydralazine HCl (Apresoline 20 Mg/Ml) 10 mg IV Q4HR PRN PRN Reason: SBP ABOVE 160 Stop: 07/17/18 11:46 Linezolid (Zyvox) 600 mg in 300 mls @ 300 mls/hr IV Q12HR@0500,1700 [facility] Stop: 07/17/18 16:59 Last Admin: 05/24/18 05:03 Dose: 300 mls/hr Levetiracetam 500 mg/ Sodium (Chloride) 105 mls @ 400 mls/hr IV Q12H [facility] Stop: 07/21/18 16:59 Last Admin: 05/24/18 05:03 Dose: 400 mls/hr Dextrose (D5w) 1,000 mls @ 125 mls/hr IV .Q8H [facility] Stop: 07/23/18 12:44 Levetiracetam (Keppra) 500 mg GT BID [facility] Stop: 07/12/18 16:59 Last Admin: 05/24/18 09:24 Dose: 500 mg Magnesium Hydroxide (Milk Of Magnesia) 30 ml GT Q72HR PRN PRN Reason: Constipation Stop: 07/12/18 16:33 Metoprolol Succinate (Toprol Xl) 25 mg PO DAILY [facility] Stop: 07/17/18 14:44 Last Admin: 05/24/18 09:25 Dose: 25 mg Miscellaneous (Clinical Monitoring) 1 ea MC DAILY PRN PRN Reason: RENAL DOSING Stop: 07/23/18 08:29 Pantoprazole Sodium (Protonix) 40 mg PO DAILY [facility] Stop: 07/19/18 19:59 Last Admin: 05/24/18 09:24 Dose: 40 mg Potassium Chloride (Potassium Chloride Elixir) 20 meq GT TID [facility] Stop: 07/22/18 16:44 Last Admin: 05/24/18 09:24 Dose: 20 meq Sodium Phosphate (Fleet Enema) 135 ml RC Q96HR PRN PRN Reason: IF DULCOLAX INEFFECTIVE Stop: 07/12/18 16:33 Valproate Sodium (Depakene) 500 mg GT Q12H [facility]; Protocol Stop: 07/12/18 16:59 Last Admin: 05/24/18 05:06 Dose: Not Given General: No acute distress HEENT: Atraumatic, Mucous membr. moist/pink Neck: Supple, JVD Cardiovascular: Regular rate Lungs: Clear to auscultation, Normal air movement Abdomen: Bowel sounds, Soft, Other (G-tube in place), no Tender, no Hepatomegaly , no Splenomegaly, no Distended, no Rebound, no Mass Extremities: Pulses (normal) Neurological: Normal tone, Sensation intact, Reflexes 2+ Skin: Rash Psych/Mental Status: Mood NL - Procedures Procedures: Procedures Procedure Code Date EXCISION OF DUODENUM, ENDO, DIAGN [id number] 05/13/18 EXCISION OF RECTUM, ENDO, DIAGN [id number] 05/13/18 EXCISION OF STOMACH, PYLORUS, ENDO, DIAGN [id number] 05/13/18 TRANSFUSE NONAUT RED BLOOD CELLS IN PERIPH VEIN, PERC [id number] 05/13/18 Assessment/Plan - Assessment Assessment: JAYLIN Hypernatremia 2/2 dehydration Severe Malnutrition Leukocytosis possible LGI Bleed, C. diff Ess Htn Dev Delay Cerebral Palsy Int. Disability Anemia of CD? - Plan Plan: Lab - Result Diagrams 05/19/18 06:11 05/19/18 06:11 Current Medications Acetaminophen (Tylenol 650mg/20.3ml Suspension) 650 mg GT Q4HR PRN PRN Reason: Pain or Fever >101 Stop: 07/12/18 16:33 Last Admin: 05/19/18 02:21 Dose: 650 mg Bisacodyl (Dulcolax 10 Mg Supp) 10 mg RC DAILY PRN PRN Reason: Constipation Stop: 07/12/18 16:33 Citric Acid/Sodium Citrate (Bicitra) 30 ml PO BID [facility] Stop: 07/17/18 16:59 Last Admin: 05/19/18 11:54 Dose: 30 ml Docusate Sodium (Colace) 100 mg PO DAILY [facility] Stop: 07/13/18 08:59 Last Admin: 05/19/18 08:36 Dose: 100 mg Epoetin Vern (Epogen) 5,000 units SUBQ MoWeFr [facility] Stop: 07/18/18 13:44 Ferrous Sulfate (Iron) 450 mg GT BID [facility] Stop: 07/12/18 16:59 Last Admin: 05/19/18 08:38 Dose: 450 mg Hydralazine HCl (Apresoline 20 Mg/Ml) 10 mg IV Q4HR PRN PRN Reason: SBP ABOVE 160 Stop: 07/17/18 11:46 Piperacillin Sod/Tazobactam (Sod 3.375 gm/ Sodium Chloride) 50 mls @ 100 mls/ hr IV Q6HR [facility] Stop: 07/12/18 05:59 Last Admin: 05/19/18 11:54 Dose: 100 mls/hr Dextrose (D5w) 1,000 mls @ 100 mls/hr IV .Q10H [facility] Stop: 07/17/18 12:59 Last Admin: 05/19/18 01:00 Dose: 100 mls/hr Linezolid (Zyvox) 600 mg in 300 mls @ 300 mls/hr IV Q12HR@0500,1700 [facility]OVANNY Stop: 07/17/18 16:59 Last Infusion: 05/19/18 05:50 Dose: Infused Levetiracetam (Keppra) 500 mg GT BID [facility] Stop: 07/12/18 16:59 Last Admin: 05/19/18 08:36 Dose: 500 mg Lorazepam (Ativan) 1 mg IVP Q6HR PRN; Protocol PRN Reason: Anxiety Stop: 07/12/18 04:24 Last Admin: 05/14/18 00:06 Dose: 1 mg Magnesium Hydroxide (Milk Of Magnesia) 30 ml GT Q72HR PRN PRN Reason: Constipation Stop: 07/12/18 16:33 Metoprolol Succinate (Toprol Xl) 25 mg PO DAILY [facility] Stop: 07/17/18 14:44 Last Admin: 05/19/18 08:36 Dose: 25 mg Mupirocin (Bactroban Oint) 1 appl NS BID [facility]ANNY Stop: 05/19/18 17:01 Last Admin: 05/19/18 08:36 Dose: 1 appl Potassium Chloride (Klor-Con) 20 meq PO DAILY [facility]AN[facility] Stop: 07/18/18 13:44 Sodium Phosphate (Fleet Enema) 135 ml RC Q96HR PRN PRN Reason: IF DULCOLAX INEFFECTIVE Stop: 07/12/18 16:33 Valproate Sodium (Depakene) 500 mg GT Q12H YOVANNY; Protocol Stop: 07/12/18 16:59 Last Admin: 05/19/18 05:00 Dose: 500 m Lab - Result Diagrams 05/23/18 04:55 05/23/18 04:55 Kidney fnc basically the same w/ BUN/CR of 28/2.1 FE Na 3.15% suggestive of intrinc renal involvement Na down to 155 increase water flushes, IVF & increase D5W back to 125 ml/hr due to persistent hypernatremia replace K WBC up to 22 Hgb/Hct improved to 10.7/ 32.4 post transfusion f/u electrolytes, cbc
[2018-05-24] MEDS: Dextrose 5% 1,000 ML IV SCH (14:04)
--- NOTE | 2018-05-24 18:25 | Consultation ---
DATE OF CONSULTATION: HEMATOLOGY ONCOLOGY CONSULTATION REFERRING PHYSICIAN: Dr. Kirby. REASON FOR CONSULTATION: Leukocytosis. HISTORY OF PRESENT ILLNESS: The patient is a 22-year-old female who is mentally challenged and was admitted for possible GI bleeding and it turned out that the patient has urinary tract infection and leukocytosis. There was no evidence of bleeding from the rectum. The patient was found to have persistent leukocytosis; therefore, I was asked to evaluate. PAST MEDICAL HISTORY: Mentally challenged, cerebral palsy, seizure disorder, blindness. SOCIAL HISTORY: Nursing facility. MEDICATIONS: Reviewed. She is on Epogen, Colace, ferrous sulfate, hydralazine, Keppra, Zyvox, pantoprazole, valproic acid. PHYSICAL EXAMINATION: GENERAL: She is awake, noncommunicative. VITAL SIGNS: Temperature 97.4, blood pressure 116/85. HEENT: Microcephaly. NECK: No lymphadenopathy. CHEST: Good air entry. ABDOMEN: Obese, gastric tube in place. EXTREMITIES: Atrophic muscles. LABORATORY DATA: Sodium 155, potassium 3.2, creatinine 2.1. Stool occult blood positive. Her white count 2.2, hemoglobin 10.7, platelets 136. Coagulation panel normal. ASSESSMENT: 1. Leukocytosis, which is mainly neutrophils and this is reactive to the urinary tract infection. The patient had high white count and bacteria, blood in the urine consistent with urinary tract infection, and I expect improvement of the leukocytosis with improvement of the infection. 2. Stool occult blood positive. The patient is on iron, which can give false positive test. Monitor the hemoglobin for now and obtain anemia workup. Thank you Dr. Kirby for the opportunity to participate in the care of this interesting case. JOB# [id number]
[2018-05-25] MEDS: Linezolid 600mg/300mL 600 MG/300 ML BAG IV SCH ×2 (04:05→17:06)
[2018-05-25 05:29] LABS: BASOPHILE ABSOLUTE 0.2 Th/cumm (0-0.2); EOSINOPHILE ABSOLUTE 0.3 Th/cmm (0.1-0.4); HEMATOCRIT 29.9 % (41.0-60); HEMOGLOBIN 9.8 gm/dL (12-16); LYMPHOCYTE ABSOLUTE 1.5 Th/cmm (1.5-3.0); MEAN CELL VOLUME 86.1 fl (81-100); MEAN CORPUSCULAR HEMOGLOBIN 28.3 pg (27.0-31.0); MEAN CORPUSCULAR HGB CONC 32.9 pg (28.0-36.0); MEAN PLATELET VOLUME 9.3 fl; MONOCYTE ABSOLUTE 0.7 Th/cmm (0.3-1.0); PLATELET COUNT 173 Th/cmm (150-400); RED BLOOD COUNT 3.47 Mil/cmm (3.80-5.10); RED CELL DISTRIBUTION WIDTH 14.8 % (11.5-20.0)
[2018-05-25 06:21] LABS: WHITE BLOOD COUNT 22.7 Th/cmm (4.8-10.8)
[2018-05-25 06:30] LABS: ANION GAP 14.6 (7.0-16.0); CALCIUM SERUM 8.5 mg/dL (8.6-10.3); CARBON DIOXIDE 22.9 mEq/L (21.0-31.0); CREATININE - SERUM 1.7 mg/dL (0.6-1.2); GFR AFRICAN-AMERICAN 48.3 ml/min (>90); GFR NON AFRICAN-AMERICAN 39.9 ml/min; POTASSIUM SERUM 3.5 mEq/L (3.5-5.1)
--- NOTE | 2018-05-25 06:40 | Progress Notes ---
DATE: 05/25/2018 HISTORY OF PRESENT ILLNESS: This 22-year-old patient was seen and examined. The patient's status remains the same. PHYSICAL EXAMINATION: VITAL SIGNS: The heart rate was 102, blood pressure was 150/94, pulse ox 95, respirations 18, temperature 97.3. SKIN: Normal. HEAD: Normocephalic. EYES: Conjunctivae were pink. There is no icterus in the eyes. Pupils reacting to light. NECK: There was no increased jugular venous distention, no thyromegaly, no lymphadenopathy. Carotids equal both sides. CHEST: Bilaterally symmetrical, moves well with respiration. Respiratory movements equal both sides. Trachea is central. There is note to percussion. Breath sound reveals rales. CARDIOVASCULAR SYSTEM: PMI not well localized. There is no positional thrill. No parasternal heave. S1 normal, S2 physiologic. There was no S3, no rub. ABDOMEN: Soft, no tenderness, no rigidity, no guarding or organomegaly. Bowel sounds normal. EXTREMITIES: Peripheral pulses okay. IMPRESSION AND PLAN: Acute renal failure, hypertension, electrolyte imbalance, anemia, mental retardation, Down syndrome, cerebral palsy, history of convulsion, cortical blindness, status post percutaneous endoscopic gastrostomy, protein calorie malnutrition, diarrhea and so she will continue present management. [facility]# [id number]
[2018-05-25 08:06] LABS: EOSINOPHIL 1 % (0-5); LYMPHOCYTE 5 % (20-50); MONOCYTE 4 % (2-10); NEUTROPHILS 90 % (40-80); PLATELET ESTIMATE ADEQUATE (NORMAL)
[2018-05-25] MEDS: Potassium Chloride Elixir 20 mEq /15 mL UDC GT SCH ×3 (09:55→20:32)
[2018-05-25] MEDS: Ferrous Sulfate 300 MG/5 ML UDC GT SCH ×2 (09:55→17:07)
[2018-05-25] MEDS: Levetiracetam 500 mg/5mL 5mL UDSyr *for ORAL USE ONLY GT SCH ×2 (09:56→17:07)
[2018-05-25] MEDS: Pantoprazole 40 mg EC Tab PO SCH (09:56)
--- NOTE | 2018-05-25 10:08 | GI Progress Note ---
Subjective - Review of Systems Service Date: 05/25/18 Subjective: TOLERATING TUBE FEEDS. Objective - Results Result Diagrams: 05/25/18 05:10 05/25/18 05:10 Recent Labs: Laboratory Last Values WBC 22.7 Th/cmm (4.8-10.8) H* 05/25/18 05:10 RBC 3.47 Mil/cmm (3.80-5.10) L 05/25/18 05:10 Hgb 9.8 gm/dL (12-16) L 05/25/18 05:10 Hct 29.9 % (41.0-60) L 05/25/18 05:10 MCV 86.1 fl (81-100) 05/25/18 05:10 MCH 28.3 pg (27.0-31.0) 05/25/18 05:10 MCHC Differential 32.9 pg (28.0-36.0) 05/25/18 05:10 RDW 14.8 % (11.5-20.0) 05/25/18 05:10 Plt Count 173 Th/cmm (150-400) 05/25/18 05:10 MPV 9.3 fl 05/25/18 05:10 Add Manual Diff YES 05/25/18 05:10 Neutrophils % FIELD SPEC 05/17/18 05:00 Band Neutrophils % 5 % (0-10) 05/23/18 04:55 Lymphocytes % FIELD SPEC 05/17/18 05:00 Monocytes % FIELD SPEC 05/17/18 05:00 Eosinophils % FIELD SPEC 05/17/18 05:00 Basophils % FIELD SPEC 05/17/18 05:00 Neutrophils (Manual) 90 % (40-80) H 05/25/18 05:10 Lymphocytes 5 % (20-50) L 05/25/18 05:10 Monocytes 4 % (2-10) 05/25/18 05:10 Eosinophils 1 % (0-5) 05/25/18 05:10 Basophils 0 % (0-3) 05/23/18 04:55 Metamyelocytes 6 % (0-0) H 05/17/18 05:00 Platelet Estimate ADEQUATE (NORMAL) 05/25/18 05:10 Smear Path Review 05/21/18 05:25 Eos Smear Source URINE 05/18/18 15:50 Eos Smear Total Cells NONE SEEN (NONE SEEN) 05/18/18 15:50 PT 10.3 SECONDS (9.5-11.5) 05/22/18 06:10 INR 0.99 (0.5-1.4) 05/22/18 06:10 PTT (Actin FS) 29.8 SECONDS (26.0-38.0) 05/22/18 06:10 Specimen Source Arterial 05/18/18 14:48 Sample Site Right Radial 05/18/18 14:48 pH 7.409 (7.35-7.45) 05/18/18 14:48 pCO2 28.7 mmHg (35.0-45.0) L 05/18/18 14:48 pO2 60.5 mmHg (80.0-100.0) L 05/18/18 14:48 HCO3 17.7 mEq/L (20.0-26.0) L 05/18/18 14:48 Base Excess -5.4 mEq/L (-3.0-3.0) L 05/18/18 14:48 O2 Saturation 92.0 % (92.0-100.0) 05/18/18 14:48 Yoel Test Positive 05/18/18 14:48 Vent Rate NA 05/18/18 14:48 Inspired O2 21 05/18/18 14:48 Tidal Volume NA 05/18/18 14:48 PEEP NA 05/18/18 14:48 Pressure (ins/psv/peep) NA 05/18/18 14:48 Critical Value SH 05/18/18 14:48 Sodium 143 mEq/L (136-145) 05/25/18 05:10 Potassium 3.5 mEq/L (3.5-5.1) 05/25/18 05:10 Chloride 109 mEq/L (98-107) H 05/25/18 05:10 Carbon Dioxide 22.9 mEq/L (21.0-31.0) 05/25/18 05:10 Anion Gap 14.6 (7.0-16.0) 05/25/18 05:10 BUN 20 mg/dL (7-25) 05/25/18 05:10 Creatinine 1.7 mg/dL (0.6-1.2) H 05/25/18 05:10 Est GFR ( Amer) 48.3 ml/min (>90) 05/25/18 05:10 Est GFR (Non-Af Amer) 39.9 ml/min 05/25/18 05:10 BUN/Creatinine Ratio 11.8 05/25/18 05:10 Glucose 161 mg/dL (70-105) H 05/25/18 05:10 POC Glucose 116 MG/DL (70 - 105) H 05/22/18 06:42 Whole Bld Lactic Acid 0.81 mmol/L (0.60-1.99) 05/18/18 14:20 Uric Acid 6.3 mg/dL (2.3-6.6) 05/19/18 06:11 Calcium 8.5 mg/dL (8.6-10.3) L 05/25/18 05:10 Phosphorus 4.1 mg/dL (2.5-5.0) 05/19/18 06:11 Magnesium 2.7 mg/dL (1.9-2.7) 05/19/18 06:11 Total Bilirubin 0.6 mg/dL (0.3-1.0) 05/18/18 05:35 AST 24 U/L (13-39) 05/18/18 05:35 ALT 5 U/L (7-52) L 05/18/18 05:35 Alkaline Phosphatase 96 U/L (34-104) 05/18/18 05:35 B-Natriuretic Peptide 404.0 pg/mL (5.0-100.0) H 05/19/18 06:11 Total Protein 5.9 gm/dL (6.0-8.3) L 05/18/18 05:35 Albumin 2.9 gm/dL (3.7-5.3) L 05/18/18 05:35 Globulin 3.0 gm/dL 05/18/18 05:35 Albumin/Globulin Ratio 1.0 (1.0-1.8) 05/18/18 05:35 Amylase 167 U/L (29-103) H 05/19/18 06:11 Lipase 364 U/L (11-82) H 05/19/18 06:11 TSH 3.59 uIU/ml (0.34-5.60) 05/19/18 06:11 Urine Source MIDSTREAM 05/18/18 15:50 Urine Color RED 05/18/18 15:50 Urine Clarity HAZY (CLEAR) 05/18/18 15:50 Urine pH 6.0 (4.6 - 8.0) 05/18/18 15:50 Ur Specific [place] <= 1.005 (1.005-1.030) 05/18/18 15:50 Urine Protein 30 mg/dL (NEGATIVE) H 05/18/18 15:50 Urine Glucose (UA) NEGATIVE mg/dL (NEGATIVE) 05/18/18 15:50 Urine Ketones NEGATIVE mg/dL (NEGATIVE) 05/18/18 15:50 Urine Blood LARGE (NEGATIVE) H 05/18/18 15:50 Urine Nitrate NEGATIVE (NEGATIVE) 05/18/18 15:50 Urine Bilirubin NEGATIVE (NEGATIVE) 05/18/18 15:50 Urine Urobilinogen 0.2 E.U./dL (0.2 - 1.0) 05/18/18 15:50 Ur Leukocyte Esterase NEGATIVE (NEGATIVE) 05/18/18 15:50 Urine RBC 25-50 /hpf (0-5) H 05/18/18 15:50 Urine WBC 6-10 /hpf (0-5) H 05/18/18 15:50 Ur Epithelial Cells FEW /lpf (FEW) 05/18/18 15:50 Urine Bacteria MODERATE /hpf (NONE SEEN) H 05/18/18 15:50 Urine Osmolality 171 mOsmol/kg 05/18/18 15:50 Ur Random Sodium 69 mmol/L 05/18/18 15:50 Urine Creatinine 36.0 mg/dl (28.0-217.0) 05/18/18 15:50 Stool Occult Blood POSITIVE (NEGATIVE) H 05/20/18 10:20 Vancomycin Trough 42.4 ug/mL (5-10) H 05/15/18 20:00 Random Vancomycin 11.1 ug/mL (5.0-40.0) 05/19/18 06:11 Blood Type A POSITIVE 05/21/18 10:25 Antibody Screen NEGATIVE 05/21/18 10:25 Crossmatch See Detail 05/21/18 10:25 - Physical Exam Vitals and I&O: Vital Signs Temp 98.0 F 05/25/18 07:49 Pulse 95 05/25/18 07:49 Resp 18 05/25/18 07:49 BP 115/83 05/25/18 07:49 Pulse Ox 96 05/25/18 07:49 Intake & Output 05/24/18 05/25/18 05/25/18 18:59 06:59 18:59 Intake Total 1775 Balance 1775 Weight (lbs) 65.771 kg 62.596 kg Intake: Intake, IV Amount 405 Levetiracetam 500 mg In 105 Sodium Chloride 0.9% 100 ml @ 400 mls/hr IV Q12H [facility] Rx#:[id number] Linezolid 600mg/300mL 600 300 mg In 300 ml @ 300 mls/ hr IV Q12HR@0500,1700 [facility] Rx#:[id number] Tube Feeding 1370 Other: # Voids 3 3 # Bowel Movements 3 Stool Characteristics Soft Soft Weight Source Bedscale Bedscale Active Medications: Current Medications Acetaminophen (Tylenol 650mg/20.3ml Suspension) 650 mg GT Q4HR PRN PRN Reason: Pain or Fever >101 Stop: 07/12/18 16:33 Last Admin: 05/21/18 17:56 Dose: 650 mg Bisacodyl (Dulcolax 10 Mg Supp) 10 mg RC DAILY PRN PRN Reason: Constipation Stop: 07/12/18 16:33 Citric Acid/Sodium Citrate (Bicitra) 30 ml PO BID [facility] Stop: 07/17/18 16:59 Last Admin: 05/25/18 09:55 Dose: 30 ml Docusate Sodium (Colace) 100 mg PO DAILY [facility] Stop: 07/13/18 08:59 Last Admin: 05/25/18 09:55 Dose: 100 mg Epoetin Vern (Epogen) 5,000 units SUBQ MoWeFr [facility] Stop: 07/18/18 14:59 Last Admin: 05/23/18 16:44 Dose: 5,000 units Ferrous Sulfate (Iron) 450 mg GT BID [facility] Stop: 07/12/18 16:59 Last Admin: 05/25/18 09:55 Dose: 450 mg Hydralazine HCl (Apresoline 20 Mg/Ml) 10 mg IV Q4HR PRN PRN Reason: SBP ABOVE 160 Stop: 07/17/18 11:46 Linezolid (Zyvox) 600 mg in 300 mls @ 300 mls/hr IV Q12HR@0500,1700 [facility] Stop: 07/17/18 16:59 Last Admin: 05/25/18 04:05 Dose: 300 mls/hr Levetiracetam 500 mg/ Sodium (Chloride) 105 mls @ 400 mls/hr IV Q12H [facility] Stop: 07/21/18 16:59 Last Admin: 05/25/18 05:11 Dose: 400 mls/hr Dextrose (D5w) 1,000 mls @ 125 mls/hr IV .Q8H [facility] Stop: 07/23/18 12:44 Last Admin: 05/24/18 14:04 Dose: 125 mls/hr Levetiracetam (Keppra) 500 mg GT BID [facility] Stop: 07/12/18 16:59 Last Admin: 05/25/18 09:56 Dose: 500 mg Magnesium Hydroxide (Milk Of Magnesia) 30 ml GT Q72HR PRN PRN Reason: Constipation Stop: 07/12/18 16:33 Metoprolol Succinate (Toprol Xl) 25 mg PO DAILY [facility] Stop: 07/17/18 14:44 Last Admin: 05/24/18 09:25 Dose: 25 mg Miscellaneous (Clinical Monitoring) 1 ea MC DAILY PRN PRN Reason: RENAL DOSING Stop: 07/23/18 08:29 Pantoprazole Sodium (Protonix) 40 mg PO DAILY [facility] Stop: 07/19/18 19:59 Last Admin: 05/25/18 09:56 Dose: 40 mg Potassium Chloride (Potassium Chloride Elixir) 20 meq GT TID [facility] Stop: 07/22/18 16:44 Last Admin: 05/25/18 09:55 Dose: 20 meq Sodium Phosphate (Fleet Enema) 135 ml RC Q96HR PRN PRN Reason: IF DULCOLAX INEFFECTIVE Stop: 07/12/18 16:33 Valproate Sodium (Depakene) 500 mg GT Q12H [facility]; Protocol Stop: 07/12/18 16:59 Last Admin: 05/25/18 05:10 Dose: Not Given General: No acute distress HEENT: Atraumatic, Mucous membr. moist/pink Neck: Supple, JVD Cardiovascular: Regular rate Lungs: Clear to auscultation, Normal air movement Abdomen: Bowel sounds, Soft, Other (G-tube in place), no Tender, no Hepatomegaly , no Splenomegaly, no Distended, no Rebound, no Mass Extremities: Pulses (normal) Neurological: Normal tone, Sensation intact, Reflexes 2+ Skin: Rash Psych/Mental Status: Mood NL - Procedures Procedures: Procedures Procedure Code Date EXCISION OF DUODENUM, ENDO, DIAGN [id number] 05/13/18 EXCISION OF RECTUM, ENDO, DIAGN [id number] 05/13/18 EXCISION OF STOMACH, PYLORUS, ENDO, DIAGN [id number] 05/13/18 TRANSFUSE NONAUT RED BLOOD CELLS IN PERIPH VEIN, PERC 53748J9 05/13/18 Assessment/Plan - Assessment Assessment: # Anemia # Cerebral palsy # Dysphagia with G tube # Diarrhea # Leukocytosis Acute GI bleed is not suspected given the brown color of her stool. Would advise against using FOB testing as this is notoriously falsely positive for a litany of reasons, one of which being chronic iron therapy. If diarrhea recurs, will need to rule out CDiff EGD/colo on 05/22 showed gastritis, and proctitis with a possible rectal polyp vs thrombosed hemorrhoid. Biopsies taken. G tube changed to 20f on 05/23 Plan: - follow biopsies, specifically of the rectal polyp. If this is non adenamotous , then pt can be treated with 1 week of hydrocortisone supp. If this is adenoma , will recommend repeat flex sig in 4-6 weeks for attempt at removal - continue G tube feeding - send CDiff from stool if diarrhea - sepsis mgmt as per ID GI [facility]
--- NOTE | 2018-05-25 11:52 | Internal Medicine Prog Note ---
Internal Medicine Subjective - Subjective Patient is:: awake, non-verbal, non-interactive, confused, other (hx of cerebral pasy, developmetal delay tolerating tube feeding well ) Patient Complaints of:: other (weakness.) Per staff patient has:: no adverse event, no episodes of fall, noncompliant, confused, other (unable to comprehend commands ) Internal Medicine Objective - Results Result Diagrams: 05/25/18 05:10 05/25/18 05:10 Recent Labs: Laboratory Last Values WBC 22.7 Th/cmm (4.8-10.8) H* 05/25/18 05:10 RBC 3.47 Mil/cmm (3.80-5.10) L 05/25/18 05:10 Hgb 9.8 gm/dL (12-16) L 05/25/18 05:10 Hct 29.9 % (41.0-60) L 05/25/18 05:10 MCV 86.1 fl (81-100) 05/25/18 05:10 MCH 28.3 pg (27.0-31.0) 05/25/18 05:10 MCHC Differential 32.9 pg (28.0-36.0) 05/25/18 05:10 RDW 14.8 % (11.5-20.0) 05/25/18 05:10 Plt Count 173 Th/cmm (150-400) 05/25/18 05:10 MPV 9.3 fl 05/25/18 05:10 Add Manual Diff YES 05/25/18 05:10 Neutrophils % GEODETIC ENGINEER 05/17/18 05:00 Band Neutrophils % 5 % (0-10) 05/23/18 04:55 Lymphocytes % GEODETIC ENGINEER 05/17/18 05:00 Monocytes % GEODETIC ENGINEER 05/17/18 05:00 Eosinophils % GEODETIC ENGINEER 05/17/18 05:00 Basophils % GEODETIC ENGINEER 05/17/18 05:00 Neutrophils (Manual) 90 % (40-80) H 05/25/18 05:10 Lymphocytes 5 % (20-50) L 05/25/18 05:10 Monocytes 4 % (2-10) 05/25/18 05:10 Eosinophils 1 % (0-5) 05/25/18 05:10 Basophils 0 % (0-3) 05/23/18 04:55 Metamyelocytes 6 % (0-0) H 05/17/18 05:00 Platelet Estimate ADEQUATE (NORMAL) 05/25/18 05:10 Smear Path Review 05/21/18 05:25 Eos Smear Source URINE 05/18/18 15:50 Eos Smear Total Cells NONE SEEN (NONE SEEN) 05/18/18 15:50 PT 10.3 SECONDS (9.5-11.5) 05/22/18 06:10 INR 0.99 (0.5-1.4) 05/22/18 06:10 PTT (Actin FS) 29.8 SECONDS (26.0-38.0) 05/22/18 06:10 Specimen Source Arterial 05/18/18 14:48 Sample Site Right Radial 05/18/18 14:48 pH 7.409 (7.35-7.45) 05/18/18 14:48 pCO2 28.7 mmHg (35.0-45.0) L 05/18/18 14:48 pO2 60.5 mmHg (80.0-100.0) L 05/18/18 14:48 HCO3 17.7 mEq/L (20.0-26.0) L 05/18/18 14:48 Base Excess -5.4 mEq/L (-3.0-3.0) L 05/18/18 14:48 O2 Saturation 92.0 % (92.0-100.0) 05/18/18 14:48 Yoel Test Positive 05/18/18 14:48 Vent Rate NA 05/18/18 14:48 Inspired O2 21 05/18/18 14:48 Tidal Volume NA 05/18/18 14:48 PEEP NA 05/18/18 14:48 Pressure (ins/psv/peep) NA 05/18/18 14:48 Critical Value SH 05/18/18 14:48 Sodium 143 mEq/L (136-145) 05/25/18 05:10 Potassium 3.5 mEq/L (3.5-5.1) 05/25/18 05:10 Chloride 109 mEq/L (98-107) H 05/25/18 05:10 Carbon Dioxide 22.9 mEq/L (21.0-31.0) 05/25/18 05:10 Anion Gap 14.6 (7.0-16.0) 05/25/18 05:10 BUN 20 mg/dL (7-25) 05/25/18 05:10 Creatinine 1.7 mg/dL (0.6-1.2) H 05/25/18 05:10 Est GFR ( Amer) 48.3 ml/min (>90) 05/25/18 05:10 Est GFR (Non-Af Amer) 39.9 ml/min 05/25/18 05:10 BUN/Creatinine Ratio 11.8 05/25/18 05:10 Glucose 161 mg/dL (70-105) H 05/25/18 05:10 POC Glucose 116 MG/DL (70 - 105) H 05/22/18 06:42 Whole Bld Lactic Acid 0.81 mmol/L (0.60-1.99) 05/18/18 14:20 Uric Acid 6.3 mg/dL (2.3-6.6) 05/19/18 06:11 Calcium 8.5 mg/dL (8.6-10.3) L 05/25/18 05:10 Phosphorus 4.1 mg/dL (2.5-5.0) 05/19/18 06:11 Magnesium 2.7 mg/dL (1.9-2.7) 05/19/18 06:11 Total Bilirubin 0.6 mg/dL (0.3-1.0) 05/18/18 05:35 AST 24 U/L (13-39) 05/18/18 05:35 ALT 5 U/L (7-52) L 05/18/18 05:35 Alkaline Phosphatase 96 U/L (34-104) 05/18/18 05:35 B-Natriuretic Peptide 404.0 pg/mL (5.0-100.0) H 05/19/18 06:11 Total Protein 5.9 gm/dL (6.0-8.3) L 05/18/18 05:35 Albumin 2.9 gm/dL (3.7-5.3) L 05/18/18 05:35 Globulin 3.0 gm/dL 05/18/18 05:35 Albumin/Globulin Ratio 1.0 (1.0-1.8) 05/18/18 05:35 Amylase 167 U/L (29-103) H 05/19/18 06:11 Lipase 364 U/L (11-82) H 05/19/18 06:11 TSH 3.59 uIU/ml (0.34-5.60) 05/19/18 06:11 Urine Source MIDSTREAM 05/18/18 15:50 Urine Color RED 05/18/18 15:50 Urine Clarity HAZY (CLEAR) 05/18/18 15:50 Urine pH 6.0 (4.6 - 8.0) 05/18/18 15:50 Ur Specific [place] <= 1.005 (1.005-1.030) 05/18/18 15:50 Urine Protein 30 mg/dL (NEGATIVE) H 05/18/18 15:50 Urine Glucose (UA) NEGATIVE mg/dL (NEGATIVE) 05/18/18 15:50 Urine Ketones NEGATIVE mg/dL (NEGATIVE) 05/18/18 15:50 Urine Blood LARGE (NEGATIVE) H 05/18/18 15:50 Urine Nitrate NEGATIVE (NEGATIVE) 05/18/18 15:50 Urine Bilirubin NEGATIVE (NEGATIVE) 05/18/18 15:50 Urine Urobilinogen 0.2 E.U./dL (0.2 - 1.0) 05/18/18 15:50 Ur Leukocyte Esterase NEGATIVE (NEGATIVE) 05/18/18 15:50 Urine RBC 25-50 /hpf (0-5) H 05/18/18 15:50 Urine WBC 6-10 /hpf (0-5) H 05/18/18 15:50 Ur Epithelial Cells FEW /lpf (FEW) 05/18/18 15:50 Urine Bacteria MODERATE /hpf (NONE SEEN) H 05/18/18 15:50 Urine Osmolality 171 mOsmol/kg 05/18/18 15:50 Ur Random Sodium 69 mmol/L 05/18/18 15:50 Urine Creatinine 36.0 mg/dl (28.0-217.0) 05/18/18 15:50 Stool Occult Blood POSITIVE (NEGATIVE) H 05/20/18 10:20 Vancomycin Trough 42.4 ug/mL (5-10) H 05/15/18 20:00 Random Vancomycin 11.1 ug/mL (5.0-40.0) 05/19/18 06:11 Blood Type A POSITIVE 05/21/18 10:25 Antibody Screen NEGATIVE 05/21/18 10:25 Crossmatch See Detail 05/21/18 10:25 - Physical Exam Vitals and I&O: Vital Signs Temp 98.0 F 05/25/18 07:49 Pulse 95 05/25/18 11:00 Resp 18 05/25/18 11:00 BP 115/83 05/25/18 11:00 Pulse Ox 96 05/25/18 07:49 Intake & Output 05/24/18 05/25/18 05/25/18 18:59 06:59 18:59 Intake Total 1775 Balance 1775 Weight (lbs) 65.771 kg 62.596 kg Intake: Intake, IV Amount 405 Levetiracetam 500 mg In 105 Sodium Chloride 0.9% 100 ml @ 400 mls/hr IV Q12H [facility] Rx#:[id number] Linezolid 600mg/300mL 600 300 mg In 300 ml @ 300 mls/ hr IV Q12HR@0500,1700 [facility] Rx#:[id number] Tube Feeding 1370 Other: # Voids 3 3 # Bowel Movements 3 Stool Characteristics Soft Soft Soft Weight Source Bedscale Bedscale Active Medications: Current Medications Acetaminophen (Tylenol 650mg/20.3ml Suspension) 650 mg GT Q4HR PRN PRN Reason: Pain or Fever >101 Stop: 07/12/18 16:33 Last Admin: 05/21/18 17:56 Dose: 650 mg Bisacodyl (Dulcolax 10 Mg Supp) 10 mg RC DAILY PRN PRN Reason: Constipation Stop: 07/12/18 16:33 Citric Acid/Sodium Citrate (Bicitra) 30 ml PO BID [facility] Stop: 07/17/18 16:59 Last Admin: 05/25/18 09:55 Dose: 30 ml Docusate Sodium (Colace) 100 mg PO DAILY [facility] Stop: 07/13/18 08:59 Last Admin: 05/25/18 09:55 Dose: 100 mg Epoetin Vern (Epogen) 5,000 units SUBQ MoWeFr [facility] Stop: 07/18/18 14:59 Last Admin: 05/23/18 16:44 Dose: 5,000 units Ferrous Sulfate (Iron) 450 mg GT BID [facility] Stop: 07/12/18 16:59 Last Admin: 05/25/18 09:55 Dose: 450 mg Hydralazine HCl (Apresoline 20 Mg/Ml) 10 mg IV Q4HR PRN PRN Reason: SBP ABOVE 160 Stop: 07/17/18 11:46 Linezolid (Zyvox) 600 mg in 300 mls @ 300 mls/hr IV Q12HR@0500,1700 [facility] Stop: 07/17/18 16:59 Last Admin: 05/25/18 04:05 Dose: 300 mls/hr Levetiracetam 500 mg/ Sodium (Chloride) 105 mls @ 400 mls/hr IV Q12H [facility] Stop: 07/21/18 16:59 Last Admin: 05/25/18 05:11 Dose: 400 mls/hr Dextrose (D5w) 1,000 mls @ 125 mls/hr IV .Q8H [facility] Stop: 07/23/18 12:44 Last Admin: 05/24/18 14:04 Dose: 125 mls/hr Levetiracetam (Keppra) 500 mg GT BID [facility] Stop: 07/12/18 16:59 Last Admin: 05/25/18 09:56 Dose: 500 mg Magnesium Hydroxide (Milk Of Magnesia) 30 ml GT Q72HR PRN PRN Reason: Constipation Stop: 07/12/18 16:33 Metoprolol Succinate (Toprol Xl) 25 mg PO DAILY [facility] Stop: 07/17/18 14:44 Last Admin: 05/25/18 11:00 Dose: Not Given Miscellaneous (Clinical Monitoring) 1 ea MC DAILY PRN PRN Reason: RENAL DOSING Stop: 07/23/18 08:29 Pantoprazole Sodium (Protonix) 40 mg PO DAILY [facility] Stop: 07/19/18 19:59 Last Admin: 05/25/18 09:56 Dose: 40 mg Potassium Chloride (Potassium Chloride Elixir) 20 meq GT TID [facility] Stop: 07/22/18 16:44 Last Admin: 05/25/18 09:55 Dose: 20 meq Sodium Phosphate (Fleet Enema) 135 ml RC Q96HR PRN PRN Reason: IF DULCOLAX INEFFECTIVE Stop: 07/12/18 16:33 Valproate Sodium (Depakene) 500 mg GT Q12H [facility]; Protocol Stop: 07/12/18 16:59 Last Admin: 05/25/18 05:10 Dose: Not Given Physical Exam: 22 y/o female patient has generalized weakness, severe malnutrition. General: weak HEENT: NC/AT, PERRLA Neck: Supple Lungs: CTAB Abdomen: soft, non-tender, non-distended Extremities: excoriation Neurological: no change, unable to follow command - Procedures Procedures: Procedures Procedure Code Date EXCISION OF DUODENUM, ENDO, DIAGN [id number] 05/13/18 EXCISION OF RECTUM, ENDO, DIAGN [id number] 05/13/18 EXCISION OF STOMACH, PYLORUS, ENDO, DIAGN [id number] 05/13/18 TRANSFUSE NONAUT RED BLOOD CELLS IN PERIPH VEIN, PERC 13847V2 05/13/18 Internal Medicine Assmt/Plan - Assessment Assessment: JAYLIN Hypernatremia Severe Malnutrition Leukocytosis HTN Cerebral Palsy Intellectual Disability Developmental Delay Anemia - Plan Plan: Continuation of care continue present meds as directed Monitor vitals and diet fall precaution supportive care Continue present care management.
[2018-05-25] MEDS: Dextrose 5% 1,000 ML IV SCH ×2 (12:14→20:46)
--- NOTE | 2018-05-25 12:48 | General Progress Note ---
Subjective - Review of Systems Service Date: 05/25/18 Subjective: sleeping, comfortable Objective - Results Result Diagrams: 05/25/18 05:10 05/25/18 05:10 Recent Labs: Laboratory Last Values WBC 22.7 Th/cmm (4.8-10.8) H* 05/25/18 05:10 RBC 3.47 Mil/cmm (3.80-5.10) L 05/25/18 05:10 Hgb 9.8 gm/dL (12-16) L 05/25/18 05:10 Hct 29.9 % (41.0-60) L 05/25/18 05:10 MCV 86.1 fl (81-100) 05/25/18 05:10 MCH 28.3 pg (27.0-31.0) 05/25/18 05:10 MCHC Differential 32.9 pg (28.0-36.0) 05/25/18 05:10 RDW 14.8 % (11.5-20.0) 05/25/18 05:10 Plt Count 173 Th/cmm (150-400) 05/25/18 05:10 MPV 9.3 fl 05/25/18 05:10 Add Manual Diff YES 05/25/18 05:10 Neutrophils % [employer]ATION ATTENDANT 05/17/18 05:00 Band Neutrophils % 5 % (0-10) 05/23/18 04:55 Lymphocytes % [employer] STATION ATTENDANT 05/17/18 05:00 Monocytes % [employer]ATION ATTENDANT 05/17/18 05:00 Eosinophils % [employer]ATION ATTENDANT 05/17/18 05:00 Basophils % [employer]ICE STATION ATTENDANT 05/17/18 05:00 Neutrophils (Manual) 90 % (40-80) H 05/25/18 05:10 Lymphocytes 5 % (20-50) L 05/25/18 05:10 Monocytes 4 % (2-10) 05/25/18 05:10 Eosinophils 1 % (0-5) 05/25/18 05:10 Basophils 0 % (0-3) 05/23/18 04:55 Metamyelocytes 6 % (0-0) H 05/17/18 05:00 Platelet Estimate ADEQUATE (NORMAL) 05/25/18 05:10 Smear Path Review 05/21/18 05:25 Eos Smear Source URINE 05/18/18 15:50 Eos Smear Total Cells NONE SEEN (NONE SEEN) 05/18/18 15:50 PT 10.3 SECONDS (9.5-11.5) 05/22/18 06:10 INR 0.99 (0.5-1.4) 05/22/18 06:10 PTT (Actin FS) 29.8 SECONDS (26.0-38.0) 05/22/18 06:10 Specimen Source Arterial 05/18/18 14:48 Sample Site Right Radial 05/18/18 14:48 pH 7.409 (7.35-7.45) 05/18/18 14:48 pCO2 28.7 mmHg (35.0-45.0) L 05/18/18 14:48 pO2 60.5 mmHg (80.0-100.0) L 05/18/18 14:48 HCO3 17.7 mEq/L (20.0-26.0) L 05/18/18 14:48 Base Excess -5.4 mEq/L (-3.0-3.0) L 05/18/18 14:48 O2 Saturation 92.0 % (92.0-100.0) 05/18/18 14:48 Yoel Test Positive 05/18/18 14:48 Vent Rate NA 05/18/18 14:48 Inspired O2 21 05/18/18 14:48 Tidal Volume NA 05/18/18 14:48 PEEP NA 05/18/18 14:48 Pressure (ins/psv/peep) NA 05/18/18 14:48 Critical Value SH 05/18/18 14:48 Sodium 143 mEq/L (136-145) 05/25/18 05:10 Potassium 3.5 mEq/L (3.5-5.1) 05/25/18 05:10 Chloride 109 mEq/L (98-107) H 05/25/18 05:10 Carbon Dioxide 22.9 mEq/L (21.0-31.0) 05/25/18 05:10 Anion Gap 14.6 (7.0-16.0) 05/25/18 05:10 BUN 20 mg/dL (7-25) 05/25/18 05:10 Creatinine 1.7 mg/dL (0.6-1.2) H 05/25/18 05:10 Est GFR ( Amer) 48.3 ml/min (>90) 05/25/18 05:10 Est GFR (Non-Af Amer) 39.9 ml/min 05/25/18 05:10 BUN/Creatinine Ratio 11.8 05/25/18 05:10 Glucose 161 mg/dL (70-105) H 05/25/18 05:10 POC Glucose 116 MG/DL (70 - 105) H 05/22/18 06:42 Whole Bld Lactic Acid 0.81 mmol/L (0.60-1.99) 05/18/18 14:20 Uric Acid 6.3 mg/dL (2.3-6.6) 05/19/18 06:11 Calcium 8.5 mg/dL (8.6-10.3) L 05/25/18 05:10 Phosphorus 4.1 mg/dL (2.5-5.0) 05/19/18 06:11 Magnesium 2.7 mg/dL (1.9-2.7) 05/19/18 06:11 Total Bilirubin 0.6 mg/dL (0.3-1.0) 05/18/18 05:35 AST 24 U/L (13-39) 05/18/18 05:35 ALT 5 U/L (7-52) L 05/18/18 05:35 Alkaline Phosphatase 96 U/L (34-104) 05/18/18 05:35 B-Natriuretic Peptide 404.0 pg/mL (5.0-100.0) H 05/19/18 06:11 Total Protein 5.9 gm/dL (6.0-8.3) L 05/18/18 05:35 Albumin 2.9 gm/dL (3.7-5.3) L 05/18/18 05:35 Globulin 3.0 gm/dL 05/18/18 05:35 Albumin/Globulin Ratio 1.0 (1.0-1.8) 05/18/18 05:35 Amylase 167 U/L (29-103) H 05/19/18 06:11 Lipase 364 U/L (11-82) H 05/19/18 06:11 TSH 3.59 uIU/ml (0.34-5.60) 05/19/18 06:11 Urine Source MIDSTREAM 05/18/18 15:50 Urine Color RED 05/18/18 15:50 Urine Clarity HAZY (CLEAR) 05/18/18 15:50 Urine pH 6.0 (4.6 - 8.0) 05/18/18 15:50 Ur Specific [place] <= 1.005 (1.005-1.030) 05/18/18 15:50 Urine Protein 30 mg/dL (NEGATIVE) H 05/18/18 15:50 Urine Glucose (UA) NEGATIVE mg/dL (NEGATIVE) 05/18/18 15:50 Urine Ketones NEGATIVE mg/dL (NEGATIVE) 05/18/18 15:50 Urine Blood LARGE (NEGATIVE) H 05/18/18 15:50 Urine Nitrate NEGATIVE (NEGATIVE) 05/18/18 15:50 Urine Bilirubin NEGATIVE (NEGATIVE) 05/18/18 15:50 Urine Urobilinogen 0.2 E.U./dL (0.2 - 1.0) 05/18/18 15:50 Ur Leukocyte Esterase NEGATIVE (NEGATIVE) 05/18/18 15:50 Urine RBC 25-50 /hpf (0-5) H 05/18/18 15:50 Urine WBC 6-10 /hpf (0-5) H 05/18/18 15:50 Ur Epithelial Cells FEW /lpf (FEW) 05/18/18 15:50 Urine Bacteria MODERATE /hpf (NONE SEEN) H 05/18/18 15:50 Urine Osmolality 171 mOsmol/kg 05/18/18 15:50 Ur Random Sodium 69 mmol/L 05/18/18 15:50 Urine Creatinine 36.0 mg/dl (28.0-217.0) 05/18/18 15:50 Stool Occult Blood POSITIVE (NEGATIVE) H 05/20/18 10:20 Vancomycin Trough 42.4 ug/mL (5-10) H 05/15/18 20:00 Random Vancomycin 11.1 ug/mL (5.0-40.0) 05/19/18 06:11 Blood Type A POSITIVE 05/21/18 10:25 Antibody Screen NEGATIVE 05/21/18 10:25 Crossmatch See Detail 05/21/18 10:25 - Physical Exam Vitals and I&O: Vital Signs Temp 98.5 F 05/25/18 12:12 Pulse 101 05/25/18 12:12 Resp 18 05/25/18 12:12 BP 118/73 05/25/18 12:12 Pulse Ox 98 05/25/18 12:12 Intake & Output 05/24/18 05/25/18 05/25/18 18:59 06:59 18:59 Intake Total 1775 1000 Balance 1775 1000 Weight (lbs) 65.771 kg 62.596 kg Intake: Intake, IV Amount 405 1000 Dextrose 5% 1,000 ml @ 1000 125 mls/hr IV .Q8H [facility] Rx #:[id number] Levetiracetam 500 mg In 105 Sodium Chloride 0.9% 100 ml @ 400 mls/hr IV Q12H [facility] Rx#:[id number] Linezolid 600mg/300mL 600 300 mg In 300 ml @ 300 mls/ hr IV Q12HR@0500,1700 [facility] Rx#:[id number] Tube Feeding 1370 Other: # Voids 3 3 # Bowel Movements 3 Stool Characteristics Soft Soft Soft Weight Source Bedscale Bedscale Active Medications: Current Medications Acetaminophen (Tylenol 650mg/20.3ml Suspension) 650 mg GT Q4HR PRN PRN Reason: Pain or Fever >101 Stop: 07/12/18 16:33 Last Admin: 05/21/18 17:56 Dose: 650 mg Bisacodyl (Dulcolax 10 Mg Supp) 10 mg RC DAILY PRN PRN Reason: Constipation Stop: 07/12/18 16:33 Citric Acid/Sodium Citrate (Bicitra) 30 ml PO BID [facility] Stop: 07/17/18 16:59 Last Admin: 05/25/18 09:55 Dose: 30 ml Docusate Sodium (Colace) 100 mg PO DAILY [facility] Stop: 07/13/18 08:59 Last Admin: 05/25/18 09:55 Dose: 100 mg Epoetin Vern (Epogen) 5,000 units SUBQ MoWeFr [facility] Stop: 07/18/18 14:59 Last Admin: 05/23/18 16:44 Dose: 5,000 units Ferrous Sulfate (Iron) 450 mg GT BID [facility] Stop: 07/12/18 16:59 Last Admin: 05/25/18 09:55 Dose: 450 mg Hydralazine HCl (Apresoline 20 Mg/Ml) 10 mg IV Q4HR PRN PRN Reason: SBP ABOVE 160 Stop: 07/17/18 11:46 Linezolid (Zyvox) 600 mg in 300 mls @ 300 mls/hr IV Q12HR@0500,1700 [facility] Stop: 07/17/18 16:59 Last Admin: 05/25/18 04:05 Dose: 300 mls/hr Levetiracetam 500 mg/ Sodium (Chloride) 105 mls @ 400 mls/hr IV Q12H [facility] Stop: 07/21/18 16:59 Last Admin: 05/25/18 05:11 Dose: 400 mls/hr Dextrose (D5w) 1,000 mls @ 125 mls/hr IV .Q8H [facility] Stop: 07/23/18 12:44 Last Admin: 05/25/18 12:14 Dose: 125 mls/hr Levetiracetam (Keppra) 500 mg GT BID [facility] Stop: 07/12/18 16:59 Last Admin: 05/25/18 09:56 Dose: 500 mg Magnesium Hydroxide (Milk Of Magnesia) 30 ml GT Q72HR PRN PRN Reason: Constipation Stop: 07/12/18 16:33 Metoprolol Succinate (Toprol Xl) 25 mg PO DAILY [facility] Stop: 07/17/18 14:44 Last Admin: 05/25/18 11:00 Dose: Not Given Miscellaneous (Clinical Monitoring) 1 ea MC DAILY PRN PRN Reason: RENAL DOSING Stop: 07/23/18 08:29 Pantoprazole Sodium (Protonix) 40 mg PO DAILY [facility] Stop: 07/19/18 19:59 Last Admin: 05/25/18 09:56 Dose: 40 mg Potassium Chloride (Potassium Chloride Elixir) 20 meq GT TID [facility] Stop: 07/22/18 16:44 Last Admin: 05/25/18 09:55 Dose: 20 meq Sodium Phosphate (Fleet Enema) 135 ml RC Q96HR PRN PRN Reason: IF DULCOLAX INEFFECTIVE Stop: 07/12/18 16:33 Valproate Sodium (Depakene) 500 mg GT Q12H [facility]; Protocol Stop: 07/12/18 16:59 Last Admin: 05/25/18 05:10 Dose: Not Given General: No acute distress HEENT: Atraumatic, Mucous membr. moist/pink Neck: Supple, JVD Cardiovascular: Regular rate Lungs: Clear to auscultation, Normal air movement Abdomen: Bowel sounds, Soft, Other (G-tube in place), no Tender, no Hepatomegaly , no Splenomegaly, no Distended, no Rebound, no Mass Extremities: Pulses (normal) Neurological: Normal tone, Sensation intact, Reflexes 2+ Skin: Rash Psych/Mental Status: Mood NL - Procedures Procedures: Procedures Procedure Code Date EXCISION OF DUODENUM, ENDO, DIAGN [id number] 05/13/18 EXCISION OF RECTUM, ENDO, DIAGN [id number] 05/13/18 EXCISION OF STOMACH, PYLORUS, ENDO, DIAGN [id number] 05/13/18 TRANSFUSE NONAUT RED BLOOD CELLS IN PERIPH VEIN, PERC [id number] 05/13/18 Assessment/Plan - Assessment Assessment: JAYLIN Hypernatremia 2/2 dehydration Severe Malnutrition Leukocytosis possible LGI Bleed, C. diff Ess Htn Dev Delay Cerebral Palsy Int. Disability Anemia of CD? - Plan Plan: Lab - Result Diagrams 05/19/18 06:11 05/19/18 06:11 Current Medications Acetaminophen (Tylenol 650mg/20.3ml Suspension) 650 mg GT Q4HR PRN PRN Reason: Pain or Fever >101 Stop: 07/12/18 16:33 Last Admin: 05/19/18 02:21 Dose: 650 mg Bisacodyl (Dulcolax 10 Mg Supp) 10 mg RC DAILY PRN PRN Reason: Constipation Stop: 07/12/18 16:33 Citric Acid/Sodium Citrate (Bicitra) 30 ml PO BID [facility] Stop: 07/17/18 16:59 Last Admin: 05/19/18 11:54 Dose: 30 ml Docusate Sodium (Colace) 100 mg PO DAILY [facility] Stop: 07/13/18 08:59 Last Admin: 05/19/18 08:36 Dose: 100 mg Epoetin Vern (Epogen) 5,000 units SUBQ MoWeFr [facility] Stop: 07/18/18 13:44 Ferrous Sulfate (Iron) 450 mg GT BID [facility] Stop: 07/12/18 16:59 Last Admin: 05/19/18 08:38 Dose: 450 mg Hydralazine HCl (Apresoline 20 Mg/Ml) 10 mg IV Q4HR PRN PRN Reason: SBP ABOVE 160 Stop: 07/17/18 11:46 Piperacillin Sod/Tazobactam (Sod 3.375 gm/ Sodium Chloride) 50 mls @ 100 mls/ hr IV Q6HR [facility] Stop: 07/12/18 05:59 Last Admin: 05/19/18 11:54 Dose: 100 mls/hr Dextrose (D5w) 1,000 mls @ 100 mls/hr IV .Q10H [facility] Stop: 07/17/18 12:59 Last Admin: 05/19/18 01:00 Dose: 100 mls/hr Linezolid (Zyvox) 600 mg in 300 mls @ 300 mls/hr IV Q12HR@0500,1700 [facility] Stop: 07/17/18 16:59 Last Infusion: 05/19/18 05:50 Dose: Infused Levetiracetam (Keppra) 500 mg GT BID [facility] Stop: 07/12/18 16:59 Last Admin: 05/19/18 08:36 Dose: 500 mg Lorazepam (Ativan) 1 mg IVP Q6HR PRN; Protocol PRN Reason: Anxiety Stop: 07/12/18 04:24 Last Admin: 05/14/18 00:06 Dose: 1 mg Magnesium Hydroxide (Milk Of Magnesia) 30 ml GT Q72HR PRN PRN Reason: Constipation Stop: 07/12/18 16:33 Metoprolol Succinate (Toprol Xl) 25 mg PO DAILY [facility] Stop: 07/17/18 14:44 Last Admin: 05/19/18 08:36 Dose: 25 mg Mupirocin (Bactroban Oint) 1 appl NS BID [facility] Stop: 05/19/18 17:01 Last Admin: 05/19/18 08:36 Dose: 1 appl Potassium Chloride (Klor-Con) 20 meq PO DAILY [facility] Stop: 07/18/18 13:44 Sodium Phosphate (Fleet Enema) 135 ml RC Q96HR PRN PRN Reason: IF DULCOLAX INEFFECTIVE Stop: 07/12/18 16:33 Valproate Sodium (Depakene) 500 mg GT Q12H [facility]; Protocol Stop: 07/12/18 16:59 Last Admin: 05/19/18 05:00 Dose: 500 m Lab - Result Diagrams 05/25/18 05:10 05/25/18 05:10 Kidney fnc continues to improve w/ BUN/CR of 20/1.7 FE Na 3.15% suggestive of intrinc renal involvement Na down to 143 continue water flushes, IVF D5W replace K WBC up to 22 Hgb/Hct now 9.8/29.9 f/u electrolytes, cbc
--- NOTE | 2018-05-25 19:20 | Infectious Disease Prog Note ---
Infectious Disease Subjective - Review of Systems Service Date: 05/25/18 Subjective: There is no new change, no fever. Infectious Disease Objective - Results Result Diagrams: 05/25/18 05:10 05/25/18 05:10 Recent Labs: Laboratory Last Values WBC 22.7 Th/cmm (4.8-10.8) H* 05/25/18 05:10 RBC 3.47 Mil/cmm (3.80-5.10) L 05/25/18 05:10 Hgb 9.8 gm/dL (12-16) L 05/25/18 05:10 Hct 29.9 % (41.0-60) L 05/25/18 05:10 MCV 86.1 fl (81-100) 05/25/18 05:10 MCH 28.3 pg (27.0-31.0) 05/25/18 05:10 MCHC Differential 32.9 pg (28.0-36.0) 05/25/18 05:10 RDW 14.8 % (11.5-20.0) 05/25/18 05:10 Plt Count 173 Th/cmm (150-400) 05/25/18 05:10 MPV 9.3 fl 05/25/18 05:10 Add Manual Diff YES 05/25/18 05:10 Neutrophils % [employer]AMPING PRESS OPERATOR 05/17/18 05:00 Band Neutrophils % 5 % (0-10) 05/23/18 04:55 Lymphocytes % STAMPING PRESS OPERATOR 05/17/18 05:00 Monocytes % STAMPING PRESS OPERATOR 05/17/18 05:00 Eosinophils % STAMPING PRESS OPERATOR 05/17/18 05:00 Basophils % STAMPING PRESS OPERATOR 05/17/18 05:00 Neutrophils (Manual) 90 % (40-80) H 05/25/18 05:10 Lymphocytes 5 % (20-50) L 05/25/18 05:10 Monocytes 4 % (2-10) 05/25/18 05:10 Eosinophils 1 % (0-5) 05/25/18 05:10 Basophils 0 % (0-3) 05/23/18 04:55 Metamyelocytes 6 % (0-0) H 05/17/18 05:00 Platelet Estimate ADEQUATE (NORMAL) 05/25/18 05:10 Smear Path Review 05/21/18 05:25 Eos Smear Source URINE 05/18/18 15:50 Eos Smear Total Cells NONE SEEN (NONE SEEN) 05/18/18 15:50 PT 10.3 SECONDS (9.5-11.5) 05/22/18 06:10 INR 0.99 (0.5-1.4) 05/22/18 06:10 PTT (Actin FS) 29.8 SECONDS (26.0-38.0) 05/22/18 06:10 Specimen Source Arterial 05/18/18 14:48 Sample Site Right Radial 05/18/18 14:48 pH 7.409 (7.35-7.45) 05/18/18 14:48 pCO2 28.7 mmHg (35.0-45.0) L 05/18/18 14:48 pO2 60.5 mmHg (80.0-100.0) L 05/18/18 14:48 HCO3 17.7 mEq/L (20.0-26.0) L 05/18/18 14:48 Base Excess -5.4 mEq/L (-3.0-3.0) L 05/18/18 14:48 O2 Saturation 92.0 % (92.0-100.0) 05/18/18 14:48 Yoel Test Positive 05/18/18 14:48 Vent Rate NA 05/18/18 14:48 Inspired O2 21 05/18/18 14:48 Tidal Volume NA 05/18/18 14:48 PEEP NA 05/18/18 14:48 Pressure (ins/psv/peep) NA 05/18/18 14:48 Critical Value SH 05/18/18 14:48 Sodium 143 mEq/L (136-145) 05/25/18 05:10 Potassium 3.5 mEq/L (3.5-5.1) 05/25/18 05:10 Chloride 109 mEq/L (98-107) H 05/25/18 05:10 Carbon Dioxide 22.9 mEq/L (21.0-31.0) 05/25/18 05:10 Anion Gap 14.6 (7.0-16.0) 05/25/18 05:10 BUN 20 mg/dL (7-25) 05/25/18 05:10 Creatinine 1.7 mg/dL (0.6-1.2) H 05/25/18 05:10 Est GFR ( Amer) 48.3 ml/min (>90) 05/25/18 05:10 Est GFR (Non-Af Amer) 39.9 ml/min 05/25/18 05:10 BUN/Creatinine Ratio 11.8 05/25/18 05:10 Glucose 161 mg/dL (70-105) H 05/25/18 05:10 POC Glucose 116 MG/DL (70 - 105) H 05/22/18 06:42 Whole Bld Lactic Acid 0.81 mmol/L (0.60-1.99) 05/18/18 14:20 Uric Acid 6.3 mg/dL (2.3-6.6) 05/19/18 06:11 Calcium 8.5 mg/dL (8.6-10.3) L 05/25/18 05:10 Phosphorus 4.1 mg/dL (2.5-5.0) 05/19/18 06:11 Magnesium 2.7 mg/dL (1.9-2.7) 05/19/18 06:11 Total Bilirubin 0.6 mg/dL (0.3-1.0) 05/18/18 05:35 AST 24 U/L (13-39) 05/18/18 05:35 ALT 5 U/L (7-52) L 05/18/18 05:35 Alkaline Phosphatase 96 U/L (34-104) 05/18/18 05:35 B-Natriuretic Peptide 404.0 pg/mL (5.0-100.0) H 05/19/18 06:11 Total Protein 5.9 gm/dL (6.0-8.3) L 05/18/18 05:35 Albumin 2.9 gm/dL (3.7-5.3) L 05/18/18 05:35 Globulin 3.0 gm/dL 05/18/18 05:35 Albumin/Globulin Ratio 1.0 (1.0-1.8) 05/18/18 05:35 Amylase 167 U/L (29-103) H 05/19/18 06:11 Lipase 364 U/L (11-82) H 05/19/18 06:11 TSH 3.59 uIU/ml (0.34-5.60) 05/19/18 06:11 Urine Source MIDSTREAM 05/18/18 15:50 Urine Color RED 05/18/18 15:50 Urine Clarity HAZY (CLEAR) 05/18/18 15:50 Urine pH 6.0 (4.6 - 8.0) 05/18/18 15:50 Ur Specific [place] <= 1.005 (1.005-1.030) 05/18/18 15:50 Urine Protein 30 mg/dL (NEGATIVE) H 05/18/18 15:50 Urine Glucose (UA) NEGATIVE mg/dL (NEGATIVE) 05/18/18 15:50 Urine Ketones NEGATIVE mg/dL (NEGATIVE) 05/18/18 15:50 Urine Blood LARGE (NEGATIVE) H 05/18/18 15:50 Urine Nitrate NEGATIVE (NEGATIVE) 05/18/18 15:50 Urine Bilirubin NEGATIVE (NEGATIVE) 05/18/18 15:50 Urine Urobilinogen 0.2 E.U./dL (0.2 - 1.0) 05/18/18 15:50 Ur Leukocyte Esterase NEGATIVE (NEGATIVE) 05/18/18 15:50 Urine RBC 25-50 /hpf (0-5) H 05/18/18 15:50 Urine WBC 6-10 /hpf (0-5) H 05/18/18 15:50 Ur Epithelial Cells FEW /lpf (FEW) 05/18/18 15:50 Urine Bacteria MODERATE /hpf (NONE SEEN) H 05/18/18 15:50 Urine Osmolality 171 mOsmol/kg 05/18/18 15:50 Ur Random Sodium 69 mmol/L 05/18/18 15:50 Urine Creatinine 36.0 mg/dl (28.0-217.0) 05/18/18 15:50 Stool Occult Blood POSITIVE (NEGATIVE) H 05/20/18 10:20 Vancomycin Trough 42.4 ug/mL (5-10) H 05/15/18 20:00 Random Vancomycin 11.1 ug/mL (5.0-40.0) 05/19/18 06:11 Blood Type A POSITIVE 05/21/18 10:25 Antibody Screen NEGATIVE 05/21/18 10:25 Crossmatch See Detail 05/21/18 10:25 - Physical Exam Vitals and I&O: Vital Signs Temp 98 F 05/25/18 18:25 Pulse 98 05/25/18 18:25 Resp 18 05/25/18 18:25 BP 115/80 05/25/18 18:25 Pulse Ox 96 05/25/18 16:00 Intake & Output 05/25/18 05/25/18 05/26/18 06:59 18:59 06:59 Intake Total 1405 700 Balance 1405 700 Weight (lbs) 62.596 kg 65.771 kg Intake: Intake, IV Amount 1405 Dextrose 5% 1,000 ml @ 1000 125 mls/hr IV .Q8H [facility] Rx #:[id number] Levetiracetam 500 mg In 105 Sodium Chloride 0.9% 100 ml @ 400 mls/hr IV Q12H [facility] Rx#:[id number] Linezolid 600mg/300mL 600 300 mg In 300 ml @ 300 mls/ hr IV Q12HR@0500,1700 [facility] Rx#:[id number] Tube Feeding 700 Other: # Voids 3 3 # Bowel Movements 3 Stool Characteristics Soft Soft Weight Source Bedscale Bedscale Active Medications: Current Medications Acetaminophen (Tylenol 650mg/20.3ml Suspension) 650 mg GT Q4HR PRN PRN Reason: Pain or Fever >101 Stop: 07/12/18 16:33 Last Admin: 05/21/18 17:56 Dose: 650 mg Bisacodyl (Dulcolax 10 Mg Supp) 10 mg RC DAILY PRN PRN Reason: Constipation Stop: 07/12/18 16:33 Citric Acid/Sodium Citrate (Bicitra) 30 ml PO BID [facility] Stop: 07/17/18 16:59 Last Admin: 05/25/18 17:07 Dose: 30 ml Docusate Sodium (Colace) 100 mg PO DAILY [facility] Stop: 07/13/18 08:59 Last Admin: 05/25/18 09:55 Dose: 100 mg Epoetin Vern (Epogen) 5,000 units SUBQ MoWeFr [facility] Stop: 07/18/18 14:59 Last Admin: 05/23/18 16:44 Dose: 5,000 units Ferrous Sulfate (Iron) 450 mg GT BID [facility] Stop: 07/12/18 16:59 Last Admin: 05/25/18 17:07 Dose: 450 mg Hydralazine HCl (Apresoline 20 Mg/Ml) 10 mg IV Q4HR PRN PRN Reason: SBP ABOVE 160 Stop: 07/17/18 11:46 Linezolid (Zyvox) 600 mg in 300 mls @ 300 mls/hr IV Q12HR@0500,1700 [facility] Stop: 07/17/18 16:59 Last Admin: 05/25/18 17:06 Dose: 300 mls/hr Levetiracetam 500 mg/ Sodium (Chloride) 105 mls @ 400 mls/hr IV Q12H [facility] Stop: 07/21/18 16:59 Last Admin: 05/25/18 17:06 Dose: 400 mls/hr Dextrose (D5w) 1,000 mls @ 125 mls/hr IV .Q8H [facility] Stop: 07/23/18 12:44 Last Admin: 05/25/18 12:14 Dose: 125 mls/hr Levetiracetam (Keppra) 500 mg GT BID [facility] Stop: 07/12/18 16:59 Last Admin: 05/25/18 17:07 Dose: 500 mg Magnesium Hydroxide (Milk Of Magnesia) 30 ml GT Q72HR PRN PRN Reason: Constipation Stop: 07/12/18 16:33 Metoprolol Succinate (Toprol Xl) 25 mg PO DAILY [facility] Stop: 07/17/18 14:44 Last Admin: 05/25/18 11:00 Dose: Not Given Miscellaneous (Clinical Monitoring) 1 ea MC DAILY PRN PRN Reason: RENAL DOSING Stop: 07/23/18 08:29 Pantoprazole Sodium (Protonix) 40 mg PO DAILY [facility] Stop: 07/19/18 19:59 Last Admin: 05/25/18 09:56 Dose: 40 mg Potassium Chloride (Potassium Chloride Elixir) 20 meq GT TID [facility] Stop: 07/22/18 16:44 Last Admin: 05/25/18 14:26 Dose: 20 meq Sodium Phosphate (Fleet Enema) 135 ml RC Q96HR PRN PRN Reason: IF DULCOLAX INEFFECTIVE Stop: 07/12/18 16:33 Valproate Sodium (Depakene) 500 mg GT Q12H [facility]; Protocol Stop: 07/12/18 16:59 Last Admin: 05/25/18 17:07 Dose: 500 mg General: no acute distress, other (short statur) HEENT: atraumatic, normocephalic, PERRLA, EOMI Neck: supple, no thyromegaly, no lymphadenopathy Cardiovascular: S1S2, regular Lungs: clear to auscultation bilaterally, clear to percussion Abdomen: soft, no tender, no distended Extremities: no cyanosis, no clubbing, no edema Neurological: awake Skin: intact - Procedures Procedures: Procedures Procedure Code Date EXCISION OF DUODENUM, ENDO, DIAGN [id number] 05/13/18 EXCISION OF RECTUM, ENDO, DIAGN [id number] 05/13/18 EXCISION OF STOMACH, PYLORUS, ENDO, DIAGN [id number] 05/13/18 TRANSFUSE NONAUT RED BLOOD CELLS IN PERIPH VEIN, PERC [id number] 05/13/18 Infectious Disease Assmt/Plan - Assessment Assessment: 1. Leukocytosis. Sepsis 2. Lactic acidosis improved. 3. UTI. 4. Tachycardia. 5. cerebral palsy. 6. mental retardation. 7. Seizure disorder. 8. JAYLIN. 9. Pancreatitis. - Plan Plan: DC zyvox for few more days. blood cultures negative.
[2018-05-26] MEDS: Dextrose 5% 1,000 ML IV SCH ×2 (04:59→13:12)
[2018-05-26 06:35] LABS: HEMATOCRIT 29.5 % (41.0-60); MEAN CELL VOLUME 85.8 fl (81-100); MEAN CORPUSCULAR HEMOGLOBIN 28.9 pg (27.0-31.0); MEAN CORPUSCULAR HGB CONC 33.7 pg (28.0-36.0); PLATELET COUNT 180 Th/cmm (150-400); RED BLOOD COUNT 3.44 Mil/cmm (3.80-5.10); RED CELL DISTRIBUTION WIDTH 13.9 % (11.5-20.0)
[2018-05-26 06:53] LABS: WHITE BLOOD COUNT 17.4 Th/cmm (4.8-10.8)
[2018-05-26 06:55] LABS: ANION GAP 14.1 (7.0-16.0); CALCIUM SERUM 8.5 mg/dL (8.6-10.3); CARBON DIOXIDE 23.7 mEq/L (21.0-31.0); CREATININE - SERUM 1.6 mg/dL (0.6-1.2); GFR AFRICAN-AMERICAN 51.8 ml/min (>90); GFR NON AFRICAN-AMERICAN 42.8 ml/min; POTASSIUM SERUM 3.8 mEq/L (3.5-5.1)
[2018-05-26 07:31] LABS: BAND NEUTROPHILE 0 % (0-10); BASOPHIL 0 % (0-3); EOSINOPHIL 1 % (0-5); MONOCYTE 4 % (2-10)
[2018-05-26 07:32] LABS: LYMPHOCYTE 8 % (20-50); NEUTROPHILS 87 % (40-80)
--- NOTE | 2018-05-26 08:40 | GI Progress Note ---
Subjective - Review of Systems Service Date: 05/26/18 Subjective: No overnight events Objective - Results Result Diagrams: 05/26/18 06:05 05/26/18 06:05 Recent Labs: Laboratory Last Values WBC 17.4 Th/cmm (4.8-10.8) H 05/26/18 06:05 RBC 3.44 Mil/cmm (3.80-5.10) L 05/26/18 06:05 Hgb 10.0 gm/dL (12-16) L 05/26/18 06:05 Hct 29.5 % (41.0-60) L 05/26/18 06:05 MCV 85.8 fl (81-100) 05/26/18 06:05 MCH 28.9 pg (27.0-31.0) 05/26/18 06:05 MCHC Differential 33.7 pg (28.0-36.0) 05/26/18 06:05 RDW 13.9 % (11.5-20.0) 05/26/18 06:05 Plt Count 180 Th/cmm (150-400) 05/26/18 06:05 MPV 9.0 fl 05/26/18 06:05 Add Manual Diff YES 05/26/18 06:05 Neutrophils % EMBOSSER OPERATOR 05/17/18 05:00 Band Neutrophils % 0 % (0-10) 05/26/18 06:05 Lymphocytes % EMBOSSER OPERATOR 05/17/18 05:00 Monocytes % EMBOSSER OPERATOR 05/17/18 05:00 Eosinophils % EMBOSSER OPERATOR 05/17/18 05:00 Basophils % EMBOSSER OPERATOR 05/17/18 05:00 Neutrophils (Manual) 87 % (40-80) H 05/26/18 06:05 Lymphocytes 8 % (20-50) L 05/26/18 06:05 Monocytes 4 % (2-10) 05/26/18 06:05 Eosinophils 1 % (0-5) 05/26/18 06:05 Basophils 0 % (0-3) 05/26/18 06:05 Metamyelocytes 6 % (0-0) H 05/17/18 05:00 Platelet Estimate ADEQUATE (NORMAL) 05/25/18 05:10 Smear Path Review 05/21/18 05:25 Eos Smear Source URINE 05/18/18 15:50 Eos Smear Total Cells NONE SEEN (NONE SEEN) 05/18/18 15:50 PT 10.3 SECONDS (9.5-11.5) 05/22/18 06:10 INR 0.99 (0.5-1.4) 05/22/18 06:10 PTT (Actin FS) 29.8 SECONDS (26.0-38.0) 05/22/18 06:10 Specimen Source Arterial 05/18/18 14:48 Sample Site Right Radial 05/18/18 14:48 pH 7.409 (7.35-7.45) 05/18/18 14:48 pCO2 28.7 mmHg (35.0-45.0) L 05/18/18 14:48 pO2 60.5 mmHg (80.0-100.0) L 05/18/18 14:48 HCO3 17.7 mEq/L (20.0-26.0) L 05/18/18 14:48 Base Excess -5.4 mEq/L (-3.0-3.0) L 05/18/18 14:48 O2 Saturation 92.0 % (92.0-100.0) 05/18/18 14:48 Yoel Test Positive 05/18/18 14:48 Vent Rate NA 05/18/18 14:48 Inspired O2 21 05/18/18 14:48 Tidal Volume NA 05/18/18 14:48 PEEP NA 05/18/18 14:48 Pressure (ins/psv/peep) NA 05/18/18 14:48 Critical Value SH 05/18/18 14:48 Sodium 139 mEq/L (136-145) 05/26/18 06:05 Potassium 3.8 mEq/L (3.5-5.1) 05/26/18 06:05 Chloride 105 mEq/L (98-107) 05/26/18 06:05 Carbon Dioxide 23.7 mEq/L (21.0-31.0) 05/26/18 06:05 Anion Gap 14.1 (7.0-16.0) 05/26/18 06:05 BUN 17 mg/dL (7-25) 05/26/18 06:05 Creatinine 1.6 mg/dL (0.6-1.2) H 05/26/18 06:05 Est GFR ( Amer) 51.8 ml/min (>90) 05/26/18 06:05 Est GFR (Non-Af Amer) 42.8 ml/min 05/26/18 06:05 BUN/Creatinine Ratio 10.6 05/26/18 06:05 Glucose 122 mg/dL (70-105) H 05/26/18 06:05 POC Glucose 116 MG/DL (70 - 105) H 05/22/18 06:42 Whole Bld Lactic Acid 0.81 mmol/L (0.60-1.99) 05/18/18 14:20 Uric Acid 6.3 mg/dL (2.3-6.6) 05/19/18 06:11 Calcium 8.5 mg/dL (8.6-10.3) L 05/26/18 06:05 Phosphorus 4.1 mg/dL (2.5-5.0) 05/19/18 06:11 Magnesium 2.7 mg/dL (1.9-2.7) 05/19/18 06:11 Total Bilirubin 0.6 mg/dL (0.3-1.0) 05/18/18 05:35 AST 24 U/L (13-39) 05/18/18 05:35 ALT 5 U/L (7-52) L 05/18/18 05:35 Alkaline Phosphatase 96 U/L (34-104) 05/18/18 05:35 B-Natriuretic Peptide 404.0 pg/mL (5.0-100.0) H 05/19/18 06:11 Total Protein 5.9 gm/dL (6.0-8.3) L 05/18/18 05:35 Albumin 2.9 gm/dL (3.7-5.3) L 05/18/18 05:35 Globulin 3.0 gm/dL 05/18/18 05:35 Albumin/Globulin Ratio 1.0 (1.0-1.8) 05/18/18 05:35 Amylase 167 U/L (29-103) H 05/19/18 06:11 Lipase 364 U/L (11-82) H 05/19/18 06:11 TSH 3.59 uIU/ml (0.34-5.60) 05/19/18 06:11 Urine Source MIDSTREAM 05/18/18 15:50 Urine Color RED 05/18/18 15:50 Urine Clarity HAZY (CLEAR) 05/18/18 15:50 Urine pH 6.0 (4.6 - 8.0) 05/18/18 15:50 Ur Specific [place] <= 1.005 (1.005-1.030) 05/18/18 15:50 Urine Protein 30 mg/dL (NEGATIVE) H 05/18/18 15:50 Urine Glucose (UA) NEGATIVE mg/dL (NEGATIVE) 05/18/18 15:50 Urine Ketones NEGATIVE mg/dL (NEGATIVE) 05/18/18 15:50 Urine Blood LARGE (NEGATIVE) H 05/18/18 15:50 Urine Nitrate NEGATIVE (NEGATIVE) 05/18/18 15:50 Urine Bilirubin NEGATIVE (NEGATIVE) 05/18/18 15:50 Urine Urobilinogen 0.2 E.U./dL (0.2 - 1.0) 05/18/18 15:50 Ur Leukocyte Esterase NEGATIVE (NEGATIVE) 05/18/18 15:50 Urine RBC 25-50 /hpf (0-5) H 05/18/18 15:50 Urine WBC 6-10 /hpf (0-5) H 05/18/18 15:50 Ur Epithelial Cells FEW /lpf (FEW) 05/18/18 15:50 Urine Bacteria MODERATE /hpf (NONE SEEN) H 05/18/18 15:50 Urine Osmolality 171 mOsmol/kg 05/18/18 15:50 Ur Random Sodium 69 mmol/L 05/18/18 15:50 Urine Creatinine 36.0 mg/dl (28.0-217.0) 05/18/18 15:50 Stool Occult Blood POSITIVE (NEGATIVE) H 05/20/18 10:20 Vancomycin Trough 42.4 ug/mL (5-10) H 05/15/18 20:00 Random Vancomycin 11.1 ug/mL (5.0-40.0) 05/19/18 06:11 Blood Type A POSITIVE 05/21/18 10:25 Antibody Screen NEGATIVE 05/21/18 10:25 Crossmatch See Detail 05/21/18 10:25 - Physical Exam Vitals and I&O: Vital Signs Temp 99.4 F 05/26/18 05:00 Pulse 97 05/26/18 05:00 Resp 18 05/26/18 05:00 BP 129/88 05/26/18 05:00 Pulse Ox 97 05/26/18 03:56 Intake & Output 04/05/26/18 05/26/18 18:59 06:59 18:59 Intake Total 805 1999 Balance 805 1999 Weight (lbs) 65.771 kg Intake: Intake, IV Amount 105 2000 Dextrose 5% 1,000 ml @ 2000 125 mls/hr IV .Q8H [facility] Rx #:[id number] Levetiracetam 500 mg In 105 Sodium Chloride 0.9% 100 ml @ 400 mls/hr IV Q12H [facility] Rx#:[id number] Tube Feeding 700 Other: # Voids 3 # Bowel Movements 3 Stool Characteristics Soft Soft Weight Source Bedscale Active Medications: Current Medications Acetaminophen (Tylenol 650mg/20.3ml Suspension) 650 mg GT Q4HR PRN PRN Reason: Pain or Fever >101 Stop: 07/12/18 16:33 Last Admin: 05/21/18 17:56 Dose: 650 mg Bisacodyl (Dulcolax 10 Mg Supp) 10 mg RC DAILY PRN PRN Reason: Constipation Stop: 07/12/18 16:33 Citric Acid/Sodium Citrate (Bicitra) 30 ml PO BID [facility] Stop: 07/17/18 16:59 Last Admin: 05/25/18 17:07 Dose: 30 ml Docusate Sodium (Colace) 100 mg PO DAILY [facility] Stop: 07/13/18 08:59 Last Admin: 05/25/18 09:55 Dose: 100 mg Epoetin Vern (Epogen) 5,000 units SUBQ MoWeFr [facility] Stop: 07/18/18 14:59 Last Admin: 05/23/18 16:44 Dose: 5,000 units Ferrous Sulfate (Iron) 450 mg GT BID [facility] Stop: 07/12/18 16:59 Last Admin: 05/25/18 17:07 Dose: 450 mg Hydralazine HCl (Apresoline 20 Mg/Ml) 10 mg IV Q4HR PRN PRN Reason: SBP ABOVE 160 Stop: 07/17/18 11:46 Levetiracetam 500 mg/ Sodium (Chloride) 105 mls @ 400 mls/hr IV Q12H [facility] Stop: 07/21/18 16:59 Last Admin: 05/26/18 04:55 Dose: 400 mls/hr Dextrose (D5w) 1,000 mls @ 125 mls/hr IV .Q8H [facility] Stop: 07/23/18 12:44 Last Admin: 05/26/18 04:59 Dose: 125 mls/hr Levetiracetam (Keppra) 500 mg GT BID [facility] Stop: 07/12/18 16:59 Last Admin: 05/25/18 17:07 Dose: 500 mg Magnesium Hydroxide (Milk Of Magnesia) 30 ml GT Q72HR PRN PRN Reason: Constipation Stop: 07/12/18 16:33 Metoprolol Succinate (Toprol Xl) 25 mg PO DAILY [facility] Stop: 07/17/18 14:44 Last Admin: 05/25/18 11:00 Dose: Not Given Miscellaneous (Clinical Monitoring) 1 ea MC DAILY PRN PRN Reason: RENAL DOSING Stop: 07/23/18 08:29 Pantoprazole Sodium (Protonix) 40 mg PO DAILY [facility] Stop: 07/19/18 19:59 Last Admin: 05/25/18 09:56 Dose: 40 mg Potassium Chloride (Potassium Chloride Elixir) 20 meq GT TID [facility] Stop: 07/22/18 16:44 Last Admin: 05/25/18 20:32 Dose: 20 meq Sodium Phosphate (Fleet Enema) 135 ml RC Q96HR PRN PRN Reason: IF DULCOLAX INEFFECTIVE Stop: 07/12/18 16:33 Valproate Sodium (Depakene) 500 mg GT Q12H [facility]; Protocol Stop: 07/12/18 16:59 Last Admin: 05/26/18 04:55 Dose: 500 mg General: No acute distress HEENT: Atraumatic, Mucous membr. moist/pink Neck: Supple, JVD Cardiovascular: Regular rate Abdomen: Bowel sounds, Soft, Other (G-tube in place), no Tender, no Hepatomegaly , no Splenomegaly, no Distended, no Rebound, no Mass Extremities: Pulses (normal) Skin: Rash - Procedures Procedures: Procedures Procedure Code Date EXCISION OF DUODENUM, ENDO, DIAGN [id number] 05/13/18 EXCISION OF RECTUM, ENDO, DIAGN [id number] 05/13/18 EXCISION OF STOMACH, PYLORUS, ENDO, DIAGN [id number] 05/13/18 TRANSFUSE NONAUT RED BLOOD CELLS IN PERIPH VEIN, PERC 75303V5 05/13/18 Assessment/Plan - Assessment Assessment: # Anemia # Cerebral palsy # Dysphagia with G tube # Diarrhea # Leukocytosis Acute GI bleed is not suspected given the brown color of her stool. Would advise against using FOB testing as this is notoriously falsely positive for a litany of reasons, one of which being chronic iron therapy. If diarrhea recurs, will need to rule out CDiff EGD/colo on 05/22 showed gastritis, and proctitis with a possible rectal polyp vs thrombosed hemorrhoid. Biopsies taken. G tube changed to 20f on 05/23 Plan: - follow biopsies, specifically of the rectal polyp. If this is non adenamotous , then pt can be treated with 1 week of hydrocortisone supp. If this is adenoma , will recommend repeat flex sig in 4-6 weeks for attempt at removal - continue G tube feeding - send CDiff from stool if diarrhea - sepsis mgmt as per ID [facility]
[2018-05-26] MEDS: Ferrous Sulfate 300 MG/5 ML UDC GT SCH ×2 (09:02→18:44)
[2018-05-26] MEDS: Potassium Chloride Elixir 20 mEq /15 mL UDC GT SCH ×3 (09:02→21:30)
[2018-05-26] MEDS: Pantoprazole 40 mg EC Tab PO SCH (09:03)
[2018-05-26] MEDS: Levetiracetam 500 mg/5mL 5mL UDSyr *for ORAL USE ONLY GT SCH ×2 (09:03→18:44)
--- NOTE | 2018-05-26 10:55 | General Progress Note ---
Subjective - Review of Systems Service Date: 05/26/18 Subjective: awake, not in distress Objective - Results Result Diagrams: 05/26/18 06:05 05/26/18 06:05 Recent Labs: Laboratory Last Values WBC 17.4 Th/cmm (4.8-10.8) H 05/26/18 06:05 RBC 3.44 Mil/cmm (3.80-5.10) L 05/26/18 06:05 Hgb 10.0 gm/dL (12-16) L 05/26/18 06:05 Hct 29.5 % (41.0-60) L 05/26/18 06:05 MCV 85.8 fl (81-100) 05/26/18 06:05 MCH 28.9 pg (27.0-31.0) 05/26/18 06:05 MCHC Differential 33.7 pg (28.0-36.0) 05/26/18 06:05 RDW 13.9 % (11.5-20.0) 05/26/18 06:05 Plt Count 180 Th/cmm (150-400) 05/26/18 06:05 MPV 9.0 fl 05/26/18 06:05 Add Manual Diff YES 05/26/18 06:05 Neutrophils % SHEET METAL ROOFER 05/17/18 05:00 Band Neutrophils % 0 % (0-10) 05/26/18 06:05 Lymphocytes % SHEET METAL ROOFER 05/17/18 05:00 Monocytes % SHEET METAL ROOFER 05/17/18 05:00 Eosinophils % SHEET METAL ROOFER 05/17/18 05:00 Basophils % SHEET METAL ROOFER 05/17/18 05:00 Neutrophils (Manual) 87 % (40-80) H 05/26/18 06:05 Lymphocytes 8 % (20-50) L 05/26/18 06:05 Monocytes 4 % (2-10) 05/26/18 06:05 Eosinophils 1 % (0-5) 05/26/18 06:05 Basophils 0 % (0-3) 05/26/18 06:05 Metamyelocytes 6 % (0-0) H 05/17/18 05:00 Platelet Estimate ADEQUATE (NORMAL) 05/25/18 05:10 Smear Path Review 05/21/18 05:25 Eos Smear Source URINE 05/18/18 15:50 Eos Smear Total Cells NONE SEEN (NONE SEEN) 05/18/18 15:50 PT 10.3 SECONDS (9.5-11.5) 05/22/18 06:10 INR 0.99 (0.5-1.4) 05/22/18 06:10 PTT (Actin FS) 29.8 SECONDS (26.0-38.0) 05/22/18 06:10 Specimen Source Arterial 05/18/18 14:48 Sample Site Right Radial 05/18/18 14:48 pH 7.409 (7.35-7.45) 05/18/18 14:48 pCO2 28.7 mmHg (35.0-45.0) L 05/18/18 14:48 pO2 60.5 mmHg (80.0-100.0) L 05/18/18 14:48 HCO3 17.7 mEq/L (20.0-26.0) L 05/18/18 14:48 Base Excess -5.4 mEq/L (-3.0-3.0) L 05/18/18 14:48 O2 Saturation 92.0 % (92.0-100.0) 05/18/18 14:48 Yoel Test Positive 05/18/18 14:48 Vent Rate NA 05/18/18 14:48 Inspired O2 21 05/18/18 14:48 Tidal Volume NA 05/18/18 14:48 PEEP NA 05/18/18 14:48 Pressure (ins/psv/peep) NA 05/18/18 14:48 Critical Value SH 05/18/18 14:48 Sodium 139 mEq/L (136-145) 05/26/18 06:05 Potassium 3.8 mEq/L (3.5-5.1) 05/26/18 06:05 Chloride 105 mEq/L (98-107) 05/26/18 06:05 Carbon Dioxide 23.7 mEq/L (21.0-31.0) 05/26/18 06:05 Anion Gap 14.1 (7.0-16.0) 05/26/18 06:05 BUN 17 mg/dL (7-25) 05/26/18 06:05 Creatinine 1.6 mg/dL (0.6-1.2) H 05/26/18 06:05 Est GFR ( Amer) 51.8 ml/min (>90) 05/26/18 06:05 Est GFR (Non-Af Amer) 42.8 ml/min 05/26/18 06:05 BUN/Creatinine Ratio 10.6 05/26/18 06:05 Glucose 122 mg/dL (70-105) H 05/26/18 06:05 POC Glucose 116 MG/DL (70 - 105) H 05/22/18 06:42 Whole Bld Lactic Acid 0.81 mmol/L (0.60-1.99) 05/18/18 14:20 Uric Acid 6.3 mg/dL (2.3-6.6) 05/19/18 06:11 Calcium 8.5 mg/dL (8.6-10.3) L 05/26/18 06:05 Phosphorus 4.1 mg/dL (2.5-5.0) 05/19/18 06:11 Magnesium 2.7 mg/dL (1.9-2.7) 05/19/18 06:11 Total Bilirubin 0.6 mg/dL (0.3-1.0) 05/18/18 05:35 AST 24 U/L (13-39) 05/18/18 05:35 ALT 5 U/L (7-52) L 05/18/18 05:35 Alkaline Phosphatase 96 U/L (34-104) 05/18/18 05:35 B-Natriuretic Peptide 404.0 pg/mL (5.0-100.0) H 05/19/18 06:11 Total Protein 5.9 gm/dL (6.0-8.3) L 05/18/18 05:35 Albumin 2.9 gm/dL (3.7-5.3) L 05/18/18 05:35 Globulin 3.0 gm/dL 05/18/18 05:35 Albumin/Globulin Ratio 1.0 (1.0-1.8) 05/18/18 05:35 Amylase 167 U/L (29-103) H 05/19/18 06:11 Lipase 364 U/L (11-82) H 05/19/18 06:11 TSH 3.59 uIU/ml (0.34-5.60) 05/19/18 06:11 Urine Source MIDSTREAM 05/18/18 15:50 Urine Color RED 05/18/18 15:50 Urine Clarity HAZY (CLEAR) 05/18/18 15:50 Urine pH 6.0 (4.6 - 8.0) 05/18/18 15:50 Ur Specific [place] <= 1.005 (1.005-1.030) 05/18/18 15:50 Urine Protein 30 mg/dL (NEGATIVE) H 05/18/18 15:50 Urine Glucose (UA) NEGATIVE mg/dL (NEGATIVE) 05/18/18 15:50 Urine Ketones NEGATIVE mg/dL (NEGATIVE) 05/18/18 15:50 Urine Blood LARGE (NEGATIVE) H 05/18/18 15:50 Urine Nitrate NEGATIVE (NEGATIVE) 05/18/18 15:50 Urine Bilirubin NEGATIVE (NEGATIVE) 05/18/18 15:50 Urine Urobilinogen 0.2 E.U./dL (0.2 - 1.0) 05/18/18 15:50 Ur Leukocyte Esterase NEGATIVE (NEGATIVE) 05/18/18 15:50 Urine RBC 25-50 /hpf (0-5) H 05/18/18 15:50 Urine WBC 6-10 /hpf (0-5) H 05/18/18 15:50 Ur Epithelial Cells FEW /lpf (FEW) 05/18/18 15:50 Urine Bacteria MODERATE /hpf (NONE SEEN) H 05/18/18 15:50 Urine Osmolality 171 mOsmol/kg 05/18/18 15:50 Ur Random Sodium 69 mmol/L 05/18/18 15:50 Urine Creatinine 36.0 mg/dl (28.0-217.0) 05/18/18 15:50 Stool Occult Blood POSITIVE (NEGATIVE) H 05/20/18 10:20 Vancomycin Trough 42.4 ug/mL (5-10) H 05/15/18 20:00 Random Vancomycin 11.1 ug/mL (5.0-40.0) 05/19/18 06:11 Blood Type A POSITIVE 05/21/18 10:25 Antibody Screen NEGATIVE 05/21/18 10:25 Crossmatch See Detail 05/21/18 10:25 - Physical Exam Vitals and I&O: Vital Signs Temp 98.3 F 05/26/18 08:00 Pulse 105 05/26/18 09:02 Resp 19 05/26/18 08:00 BP 129/90 05/26/18 09:02 Pulse Ox 98 05/26/18 08:00 Intake & Output 05/25/18 05/26/18 05/26/18 18:59 06:59 18:59 Intake Total 805 1999 Balance 805 1999 Weight (lbs) 65.771 kg Intake: Intake, IV Amount 105 2000 Dextrose 5% 1,000 ml @ 2000 125 mls/hr IV .Q8H [facility] Rx #:[id number] Levetiracetam 500 mg In 105 Sodium Chloride 0.9% 100 ml @ 400 mls/hr IV Q12H [facility] Rx#:[id number] Tube Feeding 700 Other: # Voids 3 # Bowel Movements 3 Stool Characteristics Soft Soft Weight Source Bedscale Active Medications: Current Medications Acetaminophen (Tylenol 650mg/20.3ml Suspension) 650 mg GT Q4HR PRN PRN Reason: Pain or Fever >101 Stop: 07/12/18 16:33 Last Admin: 05/21/18 17:56 Dose: 650 mg Bisacodyl (Dulcolax 10 Mg Supp) 10 mg RC DAILY PRN PRN Reason: Constipation Stop: 07/12/18 16:33 Citric Acid/Sodium Citrate (Bicitra) 30 ml PO BID [facility] Stop: 07/17/18 16:59 Last Admin: 05/26/18 09:03 Dose: 30 ml Docusate Sodium (Colace) 100 mg PO DAILY [facility] Stop: 07/13/18 08:59 Last Admin: 05/26/18 09:04 Dose: Not Given Epoetin Vern (Epogen) 5,000 units SUBQ MoWeFr [facility] Stop: 07/18/18 14:59 Last Admin: 05/23/18 16:44 Dose: 5,000 units Ferrous Sulfate (Iron) 450 mg GT BID [facility] Stop: 07/12/18 16:59 Last Admin: 05/26/18 09:02 Dose: 450 mg Hydralazine HCl (Apresoline 20 Mg/Ml) 10 mg IV Q4HR PRN PRN Reason: SBP ABOVE 160 Stop: 07/17/18 11:46 Levetiracetam 500 mg/ Sodium (Chloride) 105 mls @ 400 mls/hr IV Q12H [facility] Stop: 07/21/18 16:59 Last Admin: 05/26/18 04:55 Dose: 400 mls/hr Dextrose (D5w) 1,000 mls @ 125 mls/hr IV .Q8H [facility] Stop: 07/23/18 12:44 Last Admin: 05/26/18 04:59 Dose: 125 mls/hr Levetiracetam (Keppra) 500 mg GT BID [facility] Stop: 07/12/18 16:59 Last Admin: 05/26/18 09:03 Dose: 500 mg Magnesium Hydroxide (Milk Of Magnesia) 30 ml GT Q72HR PRN PRN Reason: Constipation Stop: 07/12/18 16:33 Metoprolol Succinate (Toprol Xl) 25 mg PO DAILY [facility] Stop: 07/17/18 14:44 Last Admin: 05/26/18 09:02 Dose: 25 mg Miscellaneous (Clinical Monitoring) 1 ea MC DAILY PRN PRN Reason: RENAL DOSING Stop: 07/23/18 08:29 Pantoprazole Sodium (Protonix) 40 mg PO DAILY [facility] Stop: 07/19/18 19:59 Last Admin: 05/26/18 09:03 Dose: 40 mg Potassium Chloride (Potassium Chloride Elixir) 20 meq GT TID [facility] Stop: 07/22/18 16:44 Last Admin: 05/26/18 09:02 Dose: 20 meq Sodium Phosphate (Fleet Enema) 135 ml RC Q96HR PRN PRN Reason: IF DULCOLAX INEFFECTIVE Stop: 07/12/18 16:33 Valproate Sodium (Depakene) 500 mg GT Q12H [facility]; Protocol Stop: 07/12/18 16:59 Last Admin: 05/26/18 04:55 Dose: 500 mg General: No acute distress HEENT: Atraumatic, Mucous membr. moist/pink Neck: Supple, JVD Cardiovascular: Regular rate Lungs: Clear to auscultation, Normal air movement Abdomen: Bowel sounds, Soft, Other (G-tube in place), no Tender, no Hepatomegaly , no Splenomegaly, no Distended, no Rebound, no Mass Extremities: Pulses (normal) Neurological: Normal tone, Sensation intact, Reflexes 2+ Skin: Rash Psych/Mental Status: Mood NL - Procedures Procedures: Procedures Procedure Code Date EXCISION OF DUODENUM, ENDO, DIAGN [id number] 05/13/18 EXCISION OF RECTUM, ENDO, DIAGN [id number] 05/13/18 EXCISION OF STOMACH, PYLORUS, ENDO, DIAGN [id number] 05/13/18 TRANSFUSE NONAUT RED BLOOD CELLS IN PERIPH VEIN, PERC [id number] 05/13/18 Assessment/Plan - Assessment Assessment: * Reactive leukocytosis improving * UTI * Anemia better * JAYLIN; renal function improving Monitor cbc, anemia [place]
--- NOTE | 2018-05-26 11:02 | Internal Medicine Prog Note ---
Internal Medicine Subjective - Subjective Service Date: 05/26/18 Patient seen and examined:: with staff, chart reviewed Patient is:: awake, non-verbal, non-interactive, confused, other (hx of cerebral pasy, developmetal delay tolerating tube feeding well ) Patient Complaints of:: other (weakness.) Per staff patient has:: no adverse event, no episodes of fall, noncompliant, confused, other (unable to comprehend commands ) Internal Medicine Objective - Results Result Diagrams: 05/26/18 06:05 05/26/18 06:05 Recent Labs: Laboratory Last Values WBC 17.4 Th/cmm (4.8-10.8) H 05/26/18 06:05 RBC 3.44 Mil/cmm (3.80-5.10) L 05/26/18 06:05 Hgb 10.0 gm/dL (12-16) L 05/26/18 06:05 Hct 29.5 % (41.0-60) L 05/26/18 06:05 MCV 85.8 fl (81-100) 05/26/18 06:05 MCH 28.9 pg (27.0-31.0) 05/26/18 06:05 MCHC Differential 33.7 pg (28.0-36.0) 05/26/18 06:05 RDW 13.9 % (11.5-20.0) 05/26/18 06:05 Plt Count 180 Th/cmm (150-400) 05/26/18 06:05 MPV 9.0 fl 05/26/18 06:05 Add Manual Diff YES 05/26/18 06:05 Neutrophils % MACHINE PACKAGER 05/17/18 05:00 Band Neutrophils % 0 % (0-10) 05/26/18 06:05 Lymphocytes % MACHINE PACKAGER 05/17/18 05:00 Monocytes % MACHINE PACKAGER 05/17/18 05:00 Eosinophils % MACHINE PACKAGER 05/17/18 05:00 Basophils % MACHINE PACKAGER 05/17/18 05:00 Neutrophils (Manual) 87 % (40-80) H 05/26/18 06:05 Lymphocytes 8 % (20-50) L 05/26/18 06:05 Monocytes 4 % (2-10) 05/26/18 06:05 Eosinophils 1 % (0-5) 05/26/18 06:05 Basophils 0 % (0-3) 05/26/18 06:05 Metamyelocytes 6 % (0-0) H 05/17/18 05:00 Platelet Estimate ADEQUATE (NORMAL) 05/25/18 05:10 Smear Path Review 05/21/18 05:25 Eos Smear Source URINE 05/18/18 15:50 Eos Smear Total Cells NONE SEEN (NONE SEEN) 05/18/18 15:50 PT 10.3 SECONDS (9.5-11.5) 05/22/18 06:10 INR 0.99 (0.5-1.4) 05/22/18 06:10 PTT (Actin FS) 29.8 SECONDS (26.0-38.0) 05/22/18 06:10 Specimen Source Arterial 05/18/18 14:48 Sample Site Right Radial 05/18/18 14:48 pH 7.409 (7.35-7.45) 05/18/18 14:48 pCO2 28.7 mmHg (35.0-45.0) L 05/18/18 14:48 pO2 60.5 mmHg (80.0-100.0) L 05/18/18 14:48 HCO3 17.7 mEq/L (20.0-26.0) L 05/18/18 14:48 Base Excess -5.4 mEq/L (-3.0-3.0) L 05/18/18 14:48 O2 Saturation 92.0 % (92.0-100.0) 05/18/18 14:48 Yoel Test Positive 05/18/18 14:48 Vent Rate NA 05/18/18 14:48 Inspired O2 21 05/18/18 14:48 Tidal Volume NA 05/18/18 14:48 PEEP NA 05/18/18 14:48 Pressure (ins/psv/peep) NA 05/18/18 14:48 Critical Value SH 05/18/18 14:48 Sodium 139 mEq/L (136-145) 05/26/18 06:05 Potassium 3.8 mEq/L (3.5-5.1) 05/26/18 06:05 Chloride 105 mEq/L (98-107) 05/26/18 06:05 Carbon Dioxide 23.7 mEq/L (21.0-31.0) 05/26/18 06:05 Anion Gap 14.1 (7.0-16.0) 05/26/18 06:05 BUN 17 mg/dL (7-25) 05/26/18 06:05 Creatinine 1.6 mg/dL (0.6-1.2) H 05/26/18 06:05 Est GFR ( Amer) 51.8 ml/min (>90) 05/26/18 06:05 Est GFR (Non-Af Amer) 42.8 ml/min 05/26/18 06:05 BUN/Creatinine Ratio 10.6 05/26/18 06:05 Glucose 122 mg/dL (70-105) H 05/26/18 06:05 POC Glucose 116 MG/DL (70 - 105) H 05/22/18 06:42 Whole Bld Lactic Acid 0.81 mmol/L (0.60-1.99) 05/18/18 14:20 Uric Acid 6.3 mg/dL (2.3-6.6) 05/19/18 06:11 Calcium 8.5 mg/dL (8.6-10.3) L 05/26/18 06:05 Phosphorus 4.1 mg/dL (2.5-5.0) 05/19/18 06:11 Magnesium 2.7 mg/dL (1.9-2.7) 05/19/18 06:11 Total Bilirubin 0.6 mg/dL (0.3-1.0) 05/18/18 05:35 AST 24 U/L (13-39) 05/18/18 05:35 ALT 5 U/L (7-52) L 05/18/18 05:35 Alkaline Phosphatase 96 U/L (34-104) 05/18/18 05:35 B-Natriuretic Peptide 404.0 pg/mL (5.0-100.0) H 05/19/18 06:11 Total Protein 5.9 gm/dL (6.0-8.3) L 05/18/18 05:35 Albumin 2.9 gm/dL (3.7-5.3) L 05/18/18 05:35 Globulin 3.0 gm/dL 05/18/18 05:35 Albumin/Globulin Ratio 1.0 (1.0-1.8) 05/18/18 05:35 Amylase 167 U/L (29-103) H 05/19/18 06:11 Lipase 364 U/L (11-82) H 05/19/18 06:11 TSH 3.59 uIU/ml (0.34-5.60) 05/19/18 06:11 Urine Source MIDSTREAM 05/18/18 15:50 Urine Color RED 05/18/18 15:50 Urine Clarity HAZY (CLEAR) 05/18/18 15:50 Urine pH 6.0 (4.6 - 8.0) 05/18/18 15:50 Ur Specific [place] <= 1.005 (1.005-1.030) 05/18/18 15:50 Urine Protein 30 mg/dL (NEGATIVE) H 05/18/18 15:50 Urine Glucose (UA) NEGATIVE mg/dL (NEGATIVE) 05/18/18 15:50 Urine Ketones NEGATIVE mg/dL (NEGATIVE) 05/18/18 15:50 Urine Blood LARGE (NEGATIVE) H 05/18/18 15:50 Urine Nitrate NEGATIVE (NEGATIVE) 05/18/18 15:50 Urine Bilirubin NEGATIVE (NEGATIVE) 05/18/18 15:50 Urine Urobilinogen 0.2 E.U./dL (0.2 - 1.0) 05/18/18 15:50 Ur Leukocyte Esterase NEGATIVE (NEGATIVE) 05/18/18 15:50 Urine RBC 25-50 /hpf (0-5) H 05/18/18 15:50 Urine WBC 6-10 /hpf (0-5) H 05/18/18 15:50 Ur Epithelial Cells FEW /lpf (FEW) 05/18/18 15:50 Urine Bacteria MODERATE /hpf (NONE SEEN) H 05/18/18 15:50 Urine Osmolality 171 mOsmol/kg 05/18/18 15:50 Ur Random Sodium 69 mmol/L 05/18/18 15:50 Urine Creatinine 36.0 mg/dl (28.0-217.0) 05/18/18 15:50 Stool Occult Blood POSITIVE (NEGATIVE) H 05/20/18 10:20 Vancomycin Trough 42.4 ug/mL (5-10) H 05/15/18 20:00 Random Vancomycin 11.1 ug/mL (5.0-40.0) 05/19/18 06:11 Blood Type A POSITIVE 05/21/18 10:25 Antibody Screen NEGATIVE 05/21/18 10:25 Crossmatch See Detail 05/21/18 10:25 - Physical Exam Vitals and I&O: Vital Signs Temp 98.3 F 05/26/18 08:00 Pulse 105 05/26/18 09:02 Resp 19 05/26/18 08:00 BP 129/90 05/26/18 09:02 Pulse Ox 98 05/26/18 08:00 Intake & Output 05/25/18 05/26/18 05/26/18 18:59 06:59 18:59 Intake Total 805 2000 Balance 805 2000 Weight (lbs) 65.771 kg Intake: Intake, IV Amount 105 2000 Dextrose 5% 1,000 ml @ 2000 125 mls/hr IV .Q8H [facility] Rx #:[id number] Levetiracetam 500 mg In 105 Sodium Chloride 0.9% 100 ml @ 400 mls/hr IV Q12H [facility] Rx#:[id number] Tube Feeding 700 Other: # Voids 3 # Bowel Movements 3 Stool Characteristics Soft Soft Weight Source Bedscale Active Medications: Current Medications Acetaminophen (Tylenol 650mg/20.3ml Suspension) 650 mg GT Q4HR PRN PRN Reason: Pain or Fever >101 Stop: 07/12/18 16:33 Last Admin: 05/21/18 17:56 Dose: 650 mg Bisacodyl (Dulcolax 10 Mg Supp) 10 mg RC DAILY PRN PRN Reason: Constipation Stop: 07/12/18 16:33 Citric Acid/Sodium Citrate (Bicitra) 30 ml PO BID [facility] Stop: 07/17/18 16:59 Last Admin: 05/26/18 09:03 Dose: 30 ml Docusate Sodium (Colace) 100 mg PO DAILY [facility] Stop: 07/13/18 08:59 Last Admin: 05/26/18 09:04 Dose: Not Given Epoetin Vern (Epogen) 5,000 units SUBQ MoWeFr [facility] Stop: 07/18/18 14:59 Last Admin: 05/23/18 16:44 Dose: 5,000 units Ferrous Sulfate (Iron) 450 mg GT BID [facility] Stop: 07/12/18 16:59 Last Admin: 05/26/18 09:02 Dose: 450 mg Hydralazine HCl (Apresoline 20 Mg/Ml) 10 mg IV Q4HR PRN PRN Reason: SBP ABOVE 160 Stop: 07/17/18 11:46 Levetiracetam 500 mg/ Sodium (Chloride) 105 mls @ 400 mls/hr IV Q12H [facility] Stop: 07/21/18 16:59 Last Admin: 05/26/18 04:55 Dose: 400 mls/hr Dextrose (D5w) 1,000 mls @ 125 mls/hr IV .Q8H [facility] Stop: 07/23/18 12:44 Last Admin: 05/26/18 04:59 Dose: 125 mls/hr Levetiracetam (Keppra) 500 mg GT BID [facility] Stop: 07/12/18 16:59 Last Admin: 05/26/18 09:03 Dose: 500 mg Magnesium Hydroxide (Milk Of Magnesia) 30 ml GT Q72HR PRN PRN Reason: Constipation Stop: 07/12/18 16:33 Metoprolol Succinate (Toprol Xl) 25 mg PO DAILY [facility] Stop: 07/17/18 14:44 Last Admin: 05/26/18 09:02 Dose: 25 mg Miscellaneous (Clinical Monitoring) 1 ea MC DAILY PRN PRN Reason: RENAL DOSING Stop: 07/23/18 08:29 Pantoprazole Sodium (Protonix) 40 mg PO DAILY [facility] Stop: 07/19/18 19:59 Last Admin: 05/26/18 09:03 Dose: 40 mg Potassium Chloride (Potassium Chloride Elixir) 20 meq GT TID [facility] Stop: 07/22/18 16:44 Last Admin: 05/26/18 09:02 Dose: 20 meq Sodium Phosphate (Fleet Enema) 135 ml RC Q96HR PRN PRN Reason: IF DULCOLAX INEFFECTIVE Stop: 07/12/18 16:33 Valproate Sodium (Depakene) 500 mg GT Q12H [facility]; Protocol Stop: 07/12/18 16:59 Last Admin: 05/26/18 04:55 Dose: 500 mg Physical Exam: 22 y/o female patient has generalized weakness, severe malnutrition. Reactive leukocytosis improving and anemia is better. General: weak HEENT: NC/AT, PERRLA Neck: Supple Lungs: CTAB Abdomen: soft, non-tender, non-distended Extremities: excoriation Neurological: no change, unable to follow command - Procedures Procedures: Procedures Procedure Code Date EXCISION OF DUODENUM, ENDO, DIAGN [id number] 05/13/18 EXCISION OF RECTUM, ENDO, DIAGN [id number] 05/13/18 EXCISION OF STOMACH, PYLORUS, ENDO, DIAGN [id number] 05/13/18 TRANSFUSE NONAUT RED BLOOD CELLS IN PERIPH VEIN, PERC [id number] 05/13/18 Internal Medicine Assmt/Plan - Assessment Assessment: JAYLIN; Renal function -Improving. Hypernatremia Severe Malnutrition Leukocytosis-Improving. HTN Cerebral Palsy Intellectual Disability Developmental Delay Anemia-Better. - Plan Plan: Continuation of care continue present meds as directed Monitor vitals and diet fall precaution supportive care Continue present care management. Nutritional Asmnt/Malnutr-PDOC - Dietary Evaluation Malnutrition Findings (Please click <Entered> for more info): see orders.
--- NOTE | 2018-05-26 11:41 | Infectious Disease Prog Note ---
Infectious Disease Subjective - Review of Systems Service Date: 05/26/18 Subjective: There is no new change, no fever. Antibiotics are discontinued, WBC count is improving. Infectious Disease Objective - Results Result Diagrams: 05/26/18 06:05 05/26/18 06:05 Recent Labs: Laboratory Last Values WBC 17.4 Th/cmm (4.8-10.8) H 05/26/18 06:05 RBC 3.44 Mil/cmm (3.80-5.10) L 05/26/18 06:05 Hgb 10.0 gm/dL (12-16) L 05/26/18 06:05 Hct 29.5 % (41.0-60) L 05/26/18 06:05 MCV 85.8 fl (81-100) 05/26/18 06:05 MCH 28.9 pg (27.0-31.0) 05/26/18 06:05 MCHC Differential 33.7 pg (28.0-36.0) 05/26/18 06:05 RDW 13.9 % (11.5-20.0) 05/26/18 06:05 Plt Count 180 Th/cmm (150-400) 05/26/18 06:05 MPV 9.0 fl 05/26/18 06:05 Add Manual Diff YES 05/26/18 06:05 Neutrophils % CIRCUIT RECORDER 05/17/18 05:00 Band Neutrophils % 0 % (0-10) 05/26/18 06:05 Lymphocytes % CIRCUIT RECORDER 05/17/18 05:00 Monocytes % CIRCUIT RECORDER 05/17/18 05:00 Eosinophils % CIRCUIT RECORDER 05/17/18 05:00 Basophils % CIRCUIT RECORDER 05/17/18 05:00 Neutrophils (Manual) 87 % (40-80) H 05/26/18 06:05 Lymphocytes 8 % (20-50) L 05/26/18 06:05 Monocytes 4 % (2-10) 05/26/18 06:05 Eosinophils 1 % (0-5) 05/26/18 06:05 Basophils 0 % (0-3) 05/26/18 06:05 Metamyelocytes 6 % (0-0) H 05/17/18 05:00 Platelet Estimate ADEQUATE (NORMAL) 05/25/18 05:10 Smear Path Review 05/21/18 05:25 Eos Smear Source URINE 05/18/18 15:50 Eos Smear Total Cells NONE SEEN (NONE SEEN) 05/18/18 15:50 PT 10.3 SECONDS (9.5-11.5) 05/22/18 06:10 INR 0.99 (0.5-1.4) 05/22/18 06:10 PTT (Actin FS) 29.8 SECONDS (26.0-38.0) 05/22/18 06:10 Specimen Source Arterial 05/18/18 14:48 Sample Site Right Radial 05/18/18 14:48 pH 7.409 (7.35-7.45) 05/18/18 14:48 pCO2 28.7 mmHg (35.0-45.0) L 05/18/18 14:48 pO2 60.5 mmHg (80.0-100.0) L 05/18/18 14:48 HCO3 17.7 mEq/L (20.0-26.0) L 05/18/18 14:48 Base Excess -5.4 mEq/L (-3.0-3.0) L 05/18/18 14:48 O2 Saturation 92.0 % (92.0-100.0) 05/18/18 14:48 Yoel Test Positive 05/18/18 14:48 Vent Rate NA 05/18/18 14:48 Inspired O2 21 05/18/18 14:48 Tidal Volume NA 05/18/18 14:48 PEEP NA 05/18/18 14:48 Pressure (ins/psv/peep) NA 05/18/18 14:48 Critical Value SH 05/18/18 14:48 Sodium 139 mEq/L (136-145) 05/26/18 06:05 Potassium 3.8 mEq/L (3.5-5.1) 05/26/18 06:05 Chloride 105 mEq/L (98-107) 05/26/18 06:05 Carbon Dioxide 23.7 mEq/L (21.0-31.0) 05/26/18 06:05 Anion Gap 14.1 (7.0-16.0) 05/26/18 06:05 BUN 17 mg/dL (7-25) 05/26/18 06:05 Creatinine 1.6 mg/dL (0.6-1.2) H 05/26/18 06:05 Est GFR ( Amer) 51.8 ml/min (>90) 05/26/18 06:05 Est GFR (Non-Af Amer) 42.8 ml/min 05/26/18 06:05 BUN/Creatinine Ratio 10.6 05/26/18 06:05 Glucose 122 mg/dL (70-105) H 05/26/18 06:05 POC Glucose 116 MG/DL (70 - 105) H 05/22/18 06:42 Whole Bld Lactic Acid 0.81 mmol/L (0.60-1.99) 05/18/18 14:20 Uric Acid 6.3 mg/dL (2.3-6.6) 05/19/18 06:11 Calcium 8.5 mg/dL (8.6-10.3) L 05/26/18 06:05 Phosphorus 4.1 mg/dL (2.5-5.0) 05/19/18 06:11 Magnesium 2.7 mg/dL (1.9-2.7) 05/19/18 06:11 Total Bilirubin 0.6 mg/dL (0.3-1.0) 05/18/18 05:35 AST 24 U/L (13-39) 05/18/18 05:35 ALT 5 U/L (7-52) L 05/18/18 05:35 Alkaline Phosphatase 96 U/L (34-104) 05/18/18 05:35 B-Natriuretic Peptide 404.0 pg/mL (5.0-100.0) H 05/19/18 06:11 Total Protein 5.9 gm/dL (6.0-8.3) L 05/18/18 05:35 Albumin 2.9 gm/dL (3.7-5.3) L 05/18/18 05:35 Globulin 3.0 gm/dL 05/18/18 05:35 Albumin/Globulin Ratio 1.0 (1.0-1.8) 05/18/18 05:35 Amylase 167 U/L (29-103) H 05/19/18 06:11 Lipase 364 U/L (11-82) H 05/19/18 06:11 TSH 3.59 uIU/ml (0.34-5.60) 05/19/18 06:11 Urine Source MIDSTREAM 05/18/18 15:50 Urine Color RED 05/18/18 15:50 Urine Clarity HAZY (CLEAR) 05/18/18 15:50 Urine pH 6.0 (4.6 - 8.0) 05/18/18 15:50 Ur Specific [place] <= 1.005 (1.005-1.030) 05/18/18 15:50 Urine Protein 30 mg/dL (NEGATIVE) H 05/18/18 15:50 Urine Glucose (UA) NEGATIVE mg/dL (NEGATIVE) 05/18/18 15:50 Urine Ketones NEGATIVE mg/dL (NEGATIVE) 05/18/18 15:50 Urine Blood LARGE (NEGATIVE) H 05/18/18 15:50 Urine Nitrate NEGATIVE (NEGATIVE) 05/18/18 15:50 Urine Bilirubin NEGATIVE (NEGATIVE) 05/18/18 15:50 Urine Urobilinogen 0.2 E.U./dL (0.2 - 1.0) 05/18/18 15:50 Ur Leukocyte Esterase NEGATIVE (NEGATIVE) 05/18/18 15:50 Urine RBC 25-50 /hpf (0-5) H 05/18/18 15:50 Urine WBC 6-10 /hpf (0-5) H 05/18/18 15:50 Ur Epithelial Cells FEW /lpf (FEW) 05/18/18 15:50 Urine Bacteria MODERATE /hpf (NONE SEEN) H 05/18/18 15:50 Urine Osmolality 171 mOsmol/kg 05/18/18 15:50 Ur Random Sodium 69 mmol/L 05/18/18 15:50 Urine Creatinine 36.0 mg/dl (28.0-217.0) 05/18/18 15:50 Stool Occult Blood POSITIVE (NEGATIVE) H 05/20/18 10:20 Vancomycin Trough 42.4 ug/mL (5-10) H 05/15/18 20:00 Random Vancomycin 11.1 ug/mL (5.0-40.0) 05/19/18 06:11 Blood Type A POSITIVE 05/21/18 10:25 Antibody Screen NEGATIVE 05/21/18 10:25 Crossmatch See Detail 05/21/18 10:25 - Physical Exam Vitals and I&O: Vital Signs Temp 98.3 F 05/26/18 11:00 Pulse 105 05/26/18 11:00 Resp 18 05/26/18 11:00 BP 119/73 05/26/18 11:00 Pulse Ox 98 05/26/18 08:00 Intake & Output 05/25/18 05/26/18 05/26/18 18:59 06:59 18:59 Intake Total 805 1999 Balance 805 1999 Weight (lbs) 65.771 kg Intake: Intake, IV Amount 105 2000 Dextrose 5% 1,000 ml @ 2000 125 mls/hr IV .Q8H [facility] Rx #:[id number] Levetiracetam 500 mg In 105 Sodium Chloride 0.9% 100 ml @ 400 mls/hr IV Q12H [facility] Rx#:[id number] Tube Feeding 700 Other: # Voids 3 # Bowel Movements 3 Stool Characteristics Soft Soft Soft Brown Weight Source Bedscale Active Medications: Current Medications Acetaminophen (Tylenol 650mg/20.3ml Suspension) 650 mg GT Q4HR PRN PRN Reason: Pain or Fever >101 Stop: 07/12/18 16:33 Last Admin: 05/21/18 17:56 Dose: 650 mg Bisacodyl (Dulcolax 10 Mg Supp) 10 mg RC DAILY PRN PRN Reason: Constipation Stop: 07/12/18 16:33 Citric Acid/Sodium Citrate (Bicitra) 30 ml PO BID [facility] Stop: 07/17/18 16:59 Last Admin: 05/26/18 09:03 Dose: 30 ml Docusate Sodium (Colace) 100 mg PO DAILY [facility] Stop: 07/13/18 08:59 Last Admin: 05/26/18 09:04 Dose: Not Given Epoetin Vern (Epogen) 5,000 units SUBQ MoWeFr [facility] Stop: 07/18/18 14:59 Last Admin: 05/23/18 16:44 Dose: 5,000 units Ferrous Sulfate (Iron) 450 mg GT BID [facility] Stop: 07/12/18 16:59 Last Admin: 05/26/18 09:02 Dose: 450 mg Hydralazine HCl (Apresoline 20 Mg/Ml) 10 mg IV Q4HR PRN PRN Reason: SBP ABOVE 160 Stop: 07/17/18 11:46 Levetiracetam 500 mg/ Sodium (Chloride) 105 mls @ 400 mls/hr IV Q12H [facility] Stop: 07/21/18 16:59 Last Admin: 05/26/18 04:55 Dose: 400 mls/hr Dextrose (D5w) 1,000 mls @ 125 mls/hr IV .Q8H [facility] Stop: 07/23/18 12:44 Last Admin: 05/26/18 04:59 Dose: 125 mls/hr Levetiracetam (Keppra) 500 mg GT BID [facility] Stop: 07/12/18 16:59 Last Admin: 05/26/18 09:03 Dose: 500 mg Magnesium Hydroxide (Milk Of Magnesia) 30 ml GT Q72HR PRN PRN Reason: Constipation Stop: 07/12/18 16:33 Metoprolol Succinate (Toprol Xl) 25 mg PO DAILY [facility] Stop: 07/17/18 14:44 Last Admin: 05/26/18 09:02 Dose: 25 mg Miscellaneous (Clinical Monitoring) 1 ea MC DAILY PRN PRN Reason: RENAL DOSING Stop: 07/23/18 08:29 Pantoprazole Sodium (Protonix) 40 mg PO DAILY [facility] Stop: 07/19/18 19:59 Last Admin: 05/26/18 09:03 Dose: 40 mg Potassium Chloride (Potassium Chloride Elixir) 20 meq GT TID [facility] Stop: 07/22/18 16:44 Last Admin: 05/26/18 09:02 Dose: 20 meq Sodium Phosphate (Fleet Enema) 135 ml RC Q96HR PRN PRN Reason: IF DULCOLAX INEFFECTIVE Stop: 07/12/18 16:33 Valproate Sodium (Depakene) 500 mg GT Q12H [facility]; Protocol Stop: 07/12/18 16:59 Last Admin: 05/26/18 04:55 Dose: 500 mg General: no acute distress, well developed, well nourished HEENT: atraumatic, normocephalic, PERRLA, EOMI Neck: supple, no thyromegaly Cardiovascular: S1S2, regular Lungs: clear to auscultation bilaterally, clear to percussion Abdomen: soft, no tender, no distended Extremities: no cyanosis, no clubbing, no edema Neurological: other (mentally challenged.) Skin: intact - Procedures Procedures: Procedures Procedure Code Date EXCISION OF DUODENUM, ENDO, DIAGN [id number] 05/13/18 EXCISION OF RECTUM, ENDO, DIAGN [id number] 05/13/18 EXCISION OF STOMACH, PYLORUS, ENDO, DIAGN [id number] 05/13/18 TRANSFUSE NONAUT RED BLOOD CELLS IN PERIPH VEIN, PERC 36818Y1 05/13/18 Infectious Disease Assmt/Plan - Assessment Assessment: 1. Leukocytosis. Sepsis 2. Lactic acidosis improved. 3. UTI. 4. Tachycardia. 5. cerebral palsy. 6. mental retardation. 7. Seizure disorder. 8. JAYLIN. 9. Pancreatitis. - Plan Plan: Off antibiotics, monitor leukocytosis.
--- NOTE | 2018-05-26 12:39 | General Progress Note ---
Subjective - Review of Systems Service Date: 05/26/18 Subjective: Patient awake alert no complaints Patient has diarrhea Stool for occult blood positive EGD and colonoscopy done Objective - Results Result Diagrams: 05/26/18 06:05 05/26/18 06:05 Recent Labs: Laboratory Last Values WBC 17.4 Th/cmm (4.8-10.8) H 05/26/18 06:05 RBC 3.44 Mil/cmm (3.80-5.10) L 05/26/18 06:05 Hgb 10.0 gm/dL (12-16) L 05/26/18 06:05 Hct 29.5 % (41.0-60) L 05/26/18 06:05 MCV 85.8 fl (81-100) 05/26/18 06:05 MCH 28.9 pg (27.0-31.0) 05/26/18 06:05 MCHC Differential 33.7 pg (28.0-36.0) 05/26/18 06:05 RDW 13.9 % (11.5-20.0) 05/26/18 06:05 Plt Count 180 Th/cmm (150-400) 05/26/18 06:05 MPV 9.0 fl 05/26/18 06:05 Add Manual Diff YES 05/26/18 06:05 Neutrophils % MAINTENANCE MECHANIC TELEPHONE 05/17/18 05:00 Band Neutrophils % 0 % (0-10) 05/26/18 06:05 Lymphocytes % MAINTENANCE MECHANIC TELEPHONE 05/17/18 05:00 Monocytes % MAINTENANCE MECHANIC TELEPHONE 05/17/18 05:00 Eosinophils % MAINTENANCE MECHANIC TELEPHONE 05/17/18 05:00 Basophils % MAINTENANCE MECHANIC TELEPHONE 05/17/18 05:00 Neutrophils (Manual) 87 % (40-80) H 05/26/18 06:05 Lymphocytes 8 % (20-50) L 05/26/18 06:05 Monocytes 4 % (2-10) 05/26/18 06:05 Eosinophils 1 % (0-5) 05/26/18 06:05 Basophils 0 % (0-3) 05/26/18 06:05 Metamyelocytes 6 % (0-0) H 05/17/18 05:00 Platelet Estimate ADEQUATE (NORMAL) 05/25/18 05:10 Smear Path Review 05/21/18 05:25 Eos Smear Source URINE 05/18/18 15:50 Eos Smear Total Cells NONE SEEN (NONE SEEN) 05/18/18 15:50 PT 10.3 SECONDS (9.5-11.5) 05/22/18 06:10 INR 0.99 (0.5-1.4) 05/22/18 06:10 PTT (Actin FS) 29.8 SECONDS (26.0-38.0) 05/22/18 06:10 Specimen Source Arterial 05/18/18 14:48 Sample Site Right Radial 05/18/18 14:48 pH 7.409 (7.35-7.45) 05/18/18 14:48 pCO2 28.7 mmHg (35.0-45.0) L 05/18/18 14:48 pO2 60.5 mmHg (80.0-100.0) L 05/18/18 14:48 HCO3 17.7 mEq/L (20.0-26.0) L 05/18/18 14:48 Base Excess -5.4 mEq/L (-3.0-3.0) L 05/18/18 14:48 O2 Saturation 92.0 % (92.0-100.0) 05/18/18 14:48 Yoel Test Positive 05/18/18 14:48 Vent Rate NA 05/18/18 14:48 Inspired O2 21 05/18/18 14:48 Tidal Volume NA 05/18/18 14:48 PEEP NA 05/18/18 14:48 Pressure (ins/psv/peep) NA 05/18/18 14:48 Critical Value SH 05/18/18 14:48 Sodium 139 mEq/L (136-145) 05/26/18 06:05 Potassium 3.8 mEq/L (3.5-5.1) 05/26/18 06:05 Chloride 105 mEq/L (98-107) 05/26/18 06:05 Carbon Dioxide 23.7 mEq/L (21.0-31.0) 05/26/18 06:05 Anion Gap 14.1 (7.0-16.0) 05/26/18 06:05 BUN 17 mg/dL (7-25) 05/26/18 06:05 Creatinine 1.6 mg/dL (0.6-1.2) H 05/26/18 06:05 Est GFR ( Amer) 51.8 ml/min (>90) 05/26/18 06:05 Est GFR (Non-Af Amer) 42.8 ml/min 05/26/18 06:05 BUN/Creatinine Ratio 10.6 05/26/18 06:05 Glucose 122 mg/dL (70-105) H 05/26/18 06:05 POC Glucose 116 MG/DL (70 - 105) H 05/22/18 06:42 Whole Bld Lactic Acid 0.81 mmol/L (0.60-1.99) 05/18/18 14:20 Uric Acid 6.3 mg/dL (2.3-6.6) 05/19/18 06:11 Calcium 8.5 mg/dL (8.6-10.3) L 05/26/18 06:05 Phosphorus 4.1 mg/dL (2.5-5.0) 05/19/18 06:11 Magnesium 2.7 mg/dL (1.9-2.7) 05/19/18 06:11 Total Bilirubin 0.6 mg/dL (0.3-1.0) 05/18/18 05:35 AST 24 U/L (13-39) 05/18/18 05:35 ALT 5 U/L (7-52) L 05/18/18 05:35 Alkaline Phosphatase 96 U/L (34-104) 05/18/18 05:35 B-Natriuretic Peptide 404.0 pg/mL (5.0-100.0) H 05/19/18 06:11 Total Protein 5.9 gm/dL (6.0-8.3) L 05/18/18 05:35 Albumin 2.9 gm/dL (3.7-5.3) L 05/18/18 05:35 Globulin 3.0 gm/dL 05/18/18 05:35 Albumin/Globulin Ratio 1.0 (1.0-1.8) 05/18/18 05:35 Amylase 167 U/L (29-103) H 05/19/18 06:11 Lipase 364 U/L (11-82) H 05/19/18 06:11 TSH 3.59 uIU/ml (0.34-5.60) 05/19/18 06:11 Urine Source MIDSTREAM 05/18/18 15:50 Urine Color RED 05/18/18 15:50 Urine Clarity HAZY (CLEAR) 05/18/18 15:50 Urine pH 6.0 (4.6 - 8.0) 05/18/18 15:50 Ur Specific [place] <= 1.005 (1.005-1.030) 05/18/18 15:50 Urine Protein 30 mg/dL (NEGATIVE) H 05/18/18 15:50 Urine Glucose (UA) NEGATIVE mg/dL (NEGATIVE) 05/18/18 15:50 Urine Ketones NEGATIVE mg/dL (NEGATIVE) 05/18/18 15:50 Urine Blood LARGE (NEGATIVE) H 05/18/18 15:50 Urine Nitrate NEGATIVE (NEGATIVE) 05/18/18 15:50 Urine Bilirubin NEGATIVE (NEGATIVE) 05/18/18 15:50 Urine Urobilinogen 0.2 E.U./dL (0.2 - 1.0) 05/18/18 15:50 Ur Leukocyte Esterase NEGATIVE (NEGATIVE) 05/18/18 15:50 Urine RBC 25-50 /hpf (0-5) H 05/18/18 15:50 Urine WBC 6-10 /hpf (0-5) H 05/18/18 15:50 Ur Epithelial Cells FEW /lpf (FEW) 05/18/18 15:50 Urine Bacteria MODERATE /hpf (NONE SEEN) H 05/18/18 15:50 Urine Osmolality 171 mOsmol/kg 05/18/18 15:50 Ur Random Sodium 69 mmol/L 05/18/18 15:50 Urine Creatinine 36.0 mg/dl (28.0-217.0) 05/18/18 15:50 Stool Occult Blood POSITIVE (NEGATIVE) H 05/20/18 10:20 Vancomycin Trough 42.4 ug/mL (5-10) H 05/15/18 20:00 Random Vancomycin 11.1 ug/mL (5.0-40.0) 05/19/18 06:11 Blood Type A POSITIVE 05/21/18 10:25 Antibody Screen NEGATIVE 05/21/18 10:25 Crossmatch See Detail 05/21/18 10:25 - Physical Exam Vitals and I&O: Vital Signs Temp 98.3 F 05/26/18 12:07 Pulse 104 05/26/18 12:07 Resp 18 05/26/18 12:07 BP 118/72 05/26/18 12:07 Pulse Ox 98 05/26/18 12:00 Intake & Output 05/25/18 05/26/18 05/26/18 18:59 06:59 18:59 Intake Total 805 1999 Balance 805 1999 Weight (lbs) 65.771 kg Intake: Intake, IV Amount 105 2000 Dextrose 5% 1,000 ml @ 2000 125 mls/hr IV .Q8H [facility] Rx #:[id number] Levetiracetam 500 mg In 105 Sodium Chloride 0.9% 100 ml @ 400 mls/hr IV Q12H [facility] Rx#:[id number] Tube Feeding 700 Other: # Voids 3 # Bowel Movements 3 Stool Characteristics Soft Soft Soft Brown Weight Source Bedscale Active Medications: Current Medications Acetaminophen (Tylenol 650mg/20.3ml Suspension) 650 mg GT Q4HR PRN PRN Reason: Pain or Fever >101 Stop: 07/12/18 16:33 Last Admin: 05/21/18 17:56 Dose: 650 mg Bisacodyl (Dulcolax 10 Mg Supp) 10 mg RC DAILY PRN PRN Reason: Constipation Stop: 07/12/18 16:33 Citric Acid/Sodium Citrate (Bicitra) 30 ml PO BID [facility] Stop: 07/17/18 16:59 Last Admin: 05/26/18 09:03 Dose: 30 ml Docusate Sodium (Colace) 100 mg PO DAILY [facility] Stop: 07/13/18 08:59 Last Admin: 05/26/18 09:04 Dose: Not Given Epoetin Vern (Epogen) 5,000 units SUBQ MoWeFr [facility] Stop: 07/18/18 14:59 Last Admin: 05/23/18 16:44 Dose: 5,000 units Ferrous Sulfate (Iron) 450 mg GT BID [facility] Stop: 07/12/18 16:59 Last Admin: 05/26/18 09:02 Dose: 450 mg Hydralazine HCl (Apresoline 20 Mg/Ml) 10 mg IV Q4HR PRN PRN Reason: SBP ABOVE 160 Stop: 07/17/18 11:46 Levetiracetam 500 mg/ Sodium (Chloride) 105 mls @ 400 mls/hr IV Q12H [facility] Stop: 07/21/18 16:59 Last Admin: 05/26/18 04:55 Dose: 400 mls/hr Dextrose (D5w) 1,000 mls @ 125 mls/hr IV .Q8H [facility] Stop: 07/23/18 12:44 Last Admin: 05/26/18 04:59 Dose: 125 mls/hr Levetiracetam (Keppra) 500 mg GT BID [facility] Stop: 07/12/18 16:59 Last Admin: 05/26/18 09:03 Dose: 500 mg Magnesium Hydroxide (Milk Of Magnesia) 30 ml GT Q72HR PRN PRN Reason: Constipation Stop: 07/12/18 16:33 Metoprolol Succinate (Toprol Xl) 25 mg PO DAILY [facility] Stop: 07/17/18 14:44 Last Admin: 05/26/18 09:02 Dose: 25 mg Miscellaneous (Clinical Monitoring) 1 ea MC DAILY PRN PRN Reason: RENAL DOSING Stop: 07/23/18 08:29 Pantoprazole Sodium (Protonix) 40 mg PO DAILY [facility] Stop: 07/19/18 19:59 Last Admin: 05/26/18 09:03 Dose: 40 mg Potassium Chloride (Potassium Chloride Elixir) 20 meq GT TID [facility] Stop: 07/22/18 16:44 Last Admin: 05/26/18 09:02 Dose: 20 meq Sodium Phosphate (Fleet Enema) 135 ml RC Q96HR PRN PRN Reason: IF DULCOLAX INEFFECTIVE Stop: 07/12/18 16:33 Valproate Sodium (Depakene) 500 mg GT Q12H [facility]; Protocol Stop: 07/12/18 16:59 Last Admin: 05/26/18 04:55 Dose: 500 mg General: No acute distress HEENT: Atraumatic, Mucous membr. moist/pink Neck: Supple, JVD Cardiovascular: Regular rate Lungs: Clear to auscultation, Normal air movement Abdomen: Bowel sounds, Soft, Other (G-tube in place), no Tender, no Hepatomegaly , no Splenomegaly, no Distended, no Rebound, no Mass Extremities: Pulses (normal) Neurological: Normal tone, Sensation intact, Reflexes 2+ Skin: Rash Psych/Mental Status: Mood NL - Procedures Procedures: Procedures Procedure Code Date EXCISION OF DUODENUM, ENDO, DIAGN [id number] 05/13/18 EXCISION OF RECTUM, ENDO, DIAGN [id number] 05/13/18 EXCISION OF STOMACH, PYLORUS, ENDO, DIAGN [id number] 05/13/18 TRANSFUSE NONAUT RED BLOOD CELLS IN PERIPH VEIN, PERC [id number] 05/13/18 Assessment/Plan - Assessment Assessment: Acute renal failure Hypertension Hyponatremia 9 deficiency anemia Mental retardation Down syndrome Cerebral palsy 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 difficile colitis Hypokalemia - Plan Plan: Continue present management continue IV antibiotics controlled blood pressure Stool for C. difficile colitis potassium supplement A GI workup EGD colonoscope transfusion
--- NOTE | 2018-05-26 14:11 | General Progress Note ---
Subjective - Review of Systems Service Date: 05/26/18 Subjective: sleeping, comfortable Objective - Results Result Diagrams: 05/26/18 06:05 05/26/18 06:05 Recent Labs: Laboratory Last Values WBC 17.4 Th/cmm (4.8-10.8) H 05/26/18 06:05 RBC 3.44 Mil/cmm (3.80-5.10) L 05/26/18 06:05 Hgb 10.0 gm/dL (12-16) L 05/26/18 06:05 Hct 29.5 % (41.0-60) L 05/26/18 06:05 MCV 85.8 fl (81-100) 05/26/18 06:05 MCH 28.9 pg (27.0-31.0) 05/26/18 06:05 MCHC Differential 33.7 pg (28.0-36.0) 05/26/18 06:05 RDW 13.9 % (11.5-20.0) 05/26/18 06:05 Plt Count 180 Th/cmm (150-400) 05/26/18 06:05 MPV 9.0 fl 05/26/18 06:05 Add Manual Diff YES 05/26/18 06:05 Neutrophils % CONTINUITY WRITER 05/17/18 05:00 Band Neutrophils % 0 % (0-10) 05/26/18 06:05 Lymphocytes % CONTINUITY WRITER 05/17/18 05:00 Monocytes % CONTINUITY WRITER 05/17/18 05:00 Eosinophils % CONTINUITY WRITER 05/17/18 05:00 Basophils % CONTINUITY WRITER 05/17/18 05:00 Neutrophils (Manual) 87 % (40-80) H 05/26/18 06:05 Lymphocytes 8 % (20-50) L 05/26/18 06:05 Monocytes 4 % (2-10) 05/26/18 06:05 Eosinophils 1 % (0-5) 05/26/18 06:05 Basophils 0 % (0-3) 05/26/18 06:05 Metamyelocytes 6 % (0-0) H 05/17/18 05:00 Platelet Estimate ADEQUATE (NORMAL) 05/25/18 05:10 Smear Path Review 05/21/18 05:25 Eos Smear Source URINE 05/18/18 15:50 Eos Smear Total Cells NONE SEEN (NONE SEEN) 05/18/18 15:50 PT 10.3 SECONDS (9.5-11.5) 05/22/18 06:10 INR 0.99 (0.5-1.4) 05/22/18 06:10 PTT (Actin FS) 29.8 SECONDS (26.0-38.0) 05/22/18 06:10 Specimen Source Arterial 05/18/18 14:48 Sample Site Right Radial 05/18/18 14:48 pH 7.409 (7.35-7.45) 05/18/18 14:48 pCO2 28.7 mmHg (35.0-45.0) L 05/18/18 14:48 pO2 60.5 mmHg (80.0-100.0) L 05/18/18 14:48 HCO3 17.7 mEq/L (20.0-26.0) L 05/18/18 14:48 Base Excess -5.4 mEq/L (-3.0-3.0) L 05/18/18 14:48 O2 Saturation 92.0 % (92.0-100.0) 05/18/18 14:48 Yoel Test Positive 05/18/18 14:48 Vent Rate NA 05/18/18 14:48 Inspired O2 21 05/18/18 14:48 Tidal Volume NA 05/18/18 14:48 PEEP NA 05/18/18 14:48 Pressure (ins/psv/peep) NA 05/18/18 14:48 Critical Value SH 05/18/18 14:48 Sodium 139 mEq/L (136-145) 05/26/18 06:05 Potassium 3.8 mEq/L (3.5-5.1) 05/26/18 06:05 Chloride 105 mEq/L (98-107) 05/26/18 06:05 Carbon Dioxide 23.7 mEq/L (21.0-31.0) 05/26/18 06:05 Anion Gap 14.1 (7.0-16.0) 05/26/18 06:05 BUN 17 mg/dL (7-25) 05/26/18 06:05 Creatinine 1.6 mg/dL (0.6-1.2) H 05/26/18 06:05 Est GFR ( Amer) 51.8 ml/min (>90) 05/26/18 06:05 Est GFR (Non-Af Amer) 42.8 ml/min 05/26/18 06:05 BUN/Creatinine Ratio 10.6 05/26/18 06:05 Glucose 122 mg/dL (70-105) H 05/26/18 06:05 POC Glucose 116 MG/DL (70 - 105) H 05/22/18 06:42 Whole Bld Lactic Acid 0.81 mmol/L (0.60-1.99) 05/18/18 14:20 Uric Acid 6.3 mg/dL (2.3-6.6) 05/19/18 06:11 Calcium 8.5 mg/dL (8.6-10.3) L 05/26/18 06:05 Phosphorus 4.1 mg/dL (2.5-5.0) 05/19/18 06:11 Magnesium 2.7 mg/dL (1.9-2.7) 05/19/18 06:11 Total Bilirubin 0.6 mg/dL (0.3-1.0) 05/18/18 05:35 AST 24 U/L (13-39) 05/18/18 05:35 ALT 5 U/L (7-52) L 05/18/18 05:35 Alkaline Phosphatase 96 U/L (34-104) 05/18/18 05:35 B-Natriuretic Peptide 404.0 pg/mL (5.0-100.0) H 05/19/18 06:11 Total Protein 5.9 gm/dL (6.0-8.3) L 05/18/18 05:35 Albumin 2.9 gm/dL (3.7-5.3) L 05/18/18 05:35 Globulin 3.0 gm/dL 05/18/18 05:35 Albumin/Globulin Ratio 1.0 (1.0-1.8) 05/18/18 05:35 Amylase 167 U/L (29-103) H 05/19/18 06:11 Lipase 364 U/L (11-82) H 05/19/18 06:11 TSH 3.59 uIU/ml (0.34-5.60) 05/19/18 06:11 Urine Source MIDSTREAM 05/18/18 15:50 Urine Color RED 05/18/18 15:50 Urine Clarity HAZY (CLEAR) 05/18/18 15:50 Urine pH 6.0 (4.6 - 8.0) 05/18/18 15:50 Ur Specific [place] <= 1.005 (1.005-1.030) 05/18/18 15:50 Urine Protein 30 mg/dL (NEGATIVE) H 05/18/18 15:50 Urine Glucose (UA) NEGATIVE mg/dL (NEGATIVE) 05/18/18 15:50 Urine Ketones NEGATIVE mg/dL (NEGATIVE) 05/18/18 15:50 Urine Blood LARGE (NEGATIVE) H 05/18/18 15:50 Urine Nitrate NEGATIVE (NEGATIVE) 05/18/18 15:50 Urine Bilirubin NEGATIVE (NEGATIVE) 05/18/18 15:50 Urine Urobilinogen 0.2 E.U./dL (0.2 - 1.0) 05/18/18 15:50 Ur Leukocyte Esterase NEGATIVE (NEGATIVE) 05/18/18 15:50 Urine RBC 25-50 /hpf (0-5) H 05/18/18 15:50 Urine WBC 6-10 /hpf (0-5) H 05/18/18 15:50 Ur Epithelial Cells FEW /lpf (FEW) 05/18/18 15:50 Urine Bacteria MODERATE /hpf (NONE SEEN) H 05/18/18 15:50 Urine Osmolality 171 mOsmol/kg 05/18/18 15:50 Ur Random Sodium 69 mmol/L 05/18/18 15:50 Urine Creatinine 36.0 mg/dl (28.0-217.0) 05/18/18 15:50 Stool Occult Blood POSITIVE (NEGATIVE) H 05/20/18 10:20 Vancomycin Trough 42.4 ug/mL (5-10) H 05/15/18 20:00 Random Vancomycin 11.1 ug/mL (5.0-40.0) 05/19/18 06:11 Blood Type A POSITIVE 05/21/18 10:25 Antibody Screen NEGATIVE 05/21/18 10:25 Crossmatch See Detail 05/21/18 10:25 - Physical Exam Vitals and I&O: Vital Signs Temp 98.3 F 05/26/18 12:07 Pulse 104 05/26/18 12:07 Resp 18 05/26/18 12:07 BP 118/72 05/26/18 12:07 Pulse Ox 98 05/26/18 12:00 Intake & Output 04/05/26/18 05/26/18 18:59 06:59 18:59 Intake Total 805 1999 1000 Balance 805 1999 1000 Weight (lbs) 65.771 kg Intake: Intake, IV Amount 105 2000 1000 Dextrose 5% 1,000 ml @ 2000 1000 125 mls/hr IV .Q8H [facility] Rx #:[id number] Levetiracetam 500 mg In 105 Sodium Chloride 0.9% 100 ml @ 400 mls/hr IV Q12H [facility] Rx#:[id number] Tube Feeding 700 Other: # Voids 3 # Bowel Movements 3 Stool Characteristics Soft Soft Soft Brown Weight Source Bedscale Active Medications: Current Medications Acetaminophen (Tylenol 650mg/20.3ml Suspension) 650 mg GT Q4HR PRN PRN Reason: Pain or Fever >101 Stop: 07/12/18 16:33 Last Admin: 05/21/18 17:56 Dose: 650 mg Bisacodyl (Dulcolax 10 Mg Supp) 10 mg RC DAILY PRN PRN Reason: Constipation Stop: 07/12/18 16:33 Citric Acid/Sodium Citrate (Bicitra) 30 ml PO BID [facility] Stop: 07/17/18 16:59 Last Admin: 05/26/18 09:03 Dose: 30 ml Docusate Sodium (Colace) 100 mg PO DAILY [facility] Stop: 07/13/18 08:59 Last Admin: 05/26/18 09:04 Dose: Not Given Epoetin Vern (Epogen) 5,000 units SUBQ MoWeFr [facility] Stop: 07/18/18 14:59 Last Admin: 05/23/18 16:44 Dose: 5,000 units Ferrous Sulfate (Iron) 450 mg GT BID [facility] Stop: 07/12/18 16:59 Last Admin: 05/26/18 09:02 Dose: 450 mg Hydralazine HCl (Apresoline 20 Mg/Ml) 10 mg IV Q4HR PRN PRN Reason: SBP ABOVE 160 Stop: 07/17/18 11:46 Levetiracetam 500 mg/ Sodium (Chloride) 105 mls @ 400 mls/hr IV Q12H [facility] Stop: 07/21/18 16:59 Last Admin: 05/26/18 04:55 Dose: 400 mls/hr Dextrose (D5w) 1,000 mls @ 60 mls/hr IV .[id number] [facility] Stop: 07/25/18 14:14 Levetiracetam (Keppra) 500 mg GT BID [facility] Stop: 07/12/18 16:59 Last Admin: 05/26/18 09:03 Dose: 500 mg Magnesium Hydroxide (Milk Of Magnesia) 30 ml GT Q72HR PRN PRN Reason: Constipation Stop: 07/12/18 16:33 Metoprolol Succinate (Toprol Xl) 25 mg PO DAILY [facility] Stop: 07/17/18 14:44 Last Admin: 05/26/18 09:02 Dose: 25 mg Miscellaneous (Clinical Monitoring) 1 ea MC DAILY PRN PRN Reason: RENAL DOSING Stop: 07/23/18 08:29 Pantoprazole Sodium (Protonix) 40 mg PO DAILY [facility] Stop: 07/19/18 19:59 Last Admin: 05/26/18 09:03 Dose: 40 mg Potassium Chloride (Potassium Chloride Elixir) 20 meq GT TID [facility] Stop: 07/22/18 16:44 Last Admin: 05/26/18 13:05 Dose: 20 meq Sodium Phosphate (Fleet Enema) 135 ml RC Q96HR PRN PRN Reason: IF DULCOLAX INEFFECTIVE Stop: 07/12/18 16:33 Valproate Sodium (Depakene) 500 mg GT Q12H [facility]; Protocol Stop: 07/12/18 16:59 Last Admin: 05/26/18 04:55 Dose: 500 mg General: No acute distress HEENT: Atraumatic, Mucous membr. moist/pink Neck: Supple, JVD Cardiovascular: Regular rate Lungs: Clear to auscultation, Normal air movement Abdomen: Bowel sounds, Soft, Other (G-tube in place), no Tender, no Hepatomegaly , no Splenomegaly, no Distended, no Rebound, no Mass Extremities: Pulses (normal) Neurological: Normal tone, Sensation intact, Reflexes 2+ Skin: Rash Psych/Mental Status: Mood NL - Procedures Procedures: Procedures Procedure Code Date EXCISION OF DUODENUM, ENDO, DIAGN [id number] 05/13/18 EXCISION OF RECTUM, ENDO, DIAGN [id number] 05/13/18 EXCISION OF STOMACH, PYLORUS, ENDO, DIAGN [id number] 05/13/18 TRANSFUSE NONAUT RED BLOOD CELLS IN PERIPH VEIN, PERC [id number] 05/13/18 Assessment/Plan - Assessment Assessment: JAYLIN Hypernatremia 2/2 dehydration Severe Malnutrition Leukocytosis possible LGI Bleed, C. diff Ess Htn Dev Delay Cerebral Palsy Int. Disability Anemia of CD? - Plan Plan: Lab - Result Diagrams 05/19/18 06:11 05/19/18 06:11 Current Medications Acetaminophen (Tylenol 650mg/20.3ml Suspension) 650 mg GT Q4HR PRN PRN Reason: Pain or Fever >101 Stop: 07/12/18 16:33 Last Admin: 05/19/18 02:21 Dose: 650 mg Bisacodyl (Dulcolax 10 Mg Supp) 10 mg RC DAILY PRN PRN Reason: Constipation Stop: 07/12/18 16:33 Citric Acid/Sodium Citrate (Bicitra) 30 ml PO BID [facility] Stop: 07/17/18 16:59 Last Admin: 05/19/18 11:54 Dose: 30 ml Docusate Sodium (Colace) 100 mg PO DAILY [facility] Stop: 07/13/18 08:59 Last Admin: 05/19/18 08:36 Dose: 100 mg Epoetin Vern (Epogen) 5,000 units SUBQ MoWeFr [facility] Stop: 07/18/18 13:44 Ferrous Sulfate (Iron) 450 mg GT BID [facility] Stop: 07/12/18 16:59 Last Admin: 05/19/18 08:38 Dose: 450 mg Hydralazine HCl (Apresoline 20 Mg/Ml) 10 mg IV Q4HR PRN PRN Reason: SBP ABOVE 160 Stop: 07/17/18 11:46 Piperacillin Sod/Tazobactam (Sod 3.375 gm/ Sodium Chloride) 50 mls @ 100 mls/ hr IV Q6HR [facility] Stop: 07/12/18 05:59 Last Admin: 05/19/18 11:54 Dose: 100 mls/hr Dextrose (D5w) 1,000 mls @ 100 mls/hr IV .Q10H [facility] Stop: 07/17/18 12:59 Last Admin: 05/19/18 01:00 Dose: 100 mls/hr Linezolid (Zyvox) 600 mg in 300 mls @ 300 mls/hr IV Q12HR@0500,1700 [facility] Stop: 07/17/18 16:59 Last Infusion: 05/19/18 05:50 Dose: Infused Levetiracetam (Keppra) 500 mg GT BID [facility] Stop: 07/12/18 16:59 Last Admin: 05/19/18 08:36 Dose: 500 mg Lorazepam (Ativan) 1 mg IVP Q6HR PRN; Protocol PRN Reason: Anxiety Stop: 07/12/18 04:24 Last Admin: 05/14/18 00:06 Dose: 1 mg Magnesium Hydroxide (Milk Of Magnesia) 30 ml GT Q72HR PRN PRN Reason: Constipation Stop: 07/12/18 16:33 Metoprolol Succinate (Toprol Xl) 25 mg PO DAILY [facility] Stop: 07/17/18 14:44 Last Admin: 05/19/18 08:36 Dose: 25 mg Mupirocin (Bactroban Oint) 1 appl NS BID [facility] Stop: 05/19/18 17:01 Last Admin: 05/19/18 08:36 Dose: 1 appl Potassium Chloride (Klor-Con) 20 meq PO DAILY [facility] Stop: 07/18/18 13:44 Sodium Phosphate (Fleet Enema) 135 ml RC Q96HR PRN PRN Reason: IF DULCOLAX INEFFECTIVE Stop: 07/12/18 16:33 Valproate Sodium (Depakene) 500 mg GT Q12H [facility]; Protocol Stop: 07/12/18 16:59 Last Admin: 05/19/18 05:00 Dose: 500 m Lab - Result Diagrams 05/26/18 06:05 05/26/18 06:05 Kidney fnc continues to improve w/ BUN/CR of 17/1.6 FE Na 3.15% suggestive of intrinc renal involvement Na down to 139 decrease water flushes, IVF D5W replace K WBC down to 17 Hgb/Hct now 10/29.5 f/u electrolytes, cbc
[2018-05-26] MEDS: Epoetin Alfa 20000 Units/mL Vial SUBQ SCH (16:39)
[2018-05-27 06:10] LABS: FERRITIN 948 ng/mL (15-150); IRON LC 65 ug/dL (27-159); TIBC (LC) 199 ug/dL (250-450); UIBC 134 ug/dL (131-425)
[2018-05-27 06:29] LABS: CALCIUM SERUM 8.8 mg/dL (8.6-10.3); CARBON DIOXIDE 24.2 mEq/L (21.0-31.0); CREATININE - SERUM 1.5 mg/dL (0.6-1.2); GFR AFRICAN-AMERICAN 55.8 ml/min (>90); GFR NON AFRICAN-AMERICAN 46.2 ml/min; POTASSIUM SERUM 4.2 mEq/L (3.5-5.1)
--- NOTE | 2018-05-27 08:28 | GI Progress Note ---
Subjective - Review of Systems Service Date: 05/27/18 Subjective: No overnight events Objective - Results Result Diagrams: 05/26/18 06:05 05/27/18 05:10 Recent Labs: Laboratory Last Values WBC 17.4 Th/cmm (4.8-10.8) H 05/26/18 06:05 RBC 3.44 Mil/cmm (3.80-5.10) L 05/26/18 06:05 Hgb 10.0 gm/dL (12-16) L 05/26/18 06:05 Hct 29.5 % (41.0-60) L 05/26/18 06:05 MCV 85.8 fl (81-100) 05/26/18 06:05 MCH 28.9 pg (27.0-31.0) 05/26/18 06:05 MCHC Differential 33.7 pg (28.0-36.0) 05/26/18 06:05 RDW 13.9 % (11.5-20.0) 05/26/18 06:05 Plt Count 180 Th/cmm (150-400) 05/26/18 06:05 MPV 9.0 fl 05/26/18 06:05 Add Manual Diff YES 05/26/18 06:05 Neutrophils % SENIOR QA ENGINEER 05/17/18 05:00 Band Neutrophils % 0 % (0-10) 05/26/18 06:05 Lymphocytes % SENIOR QA ENGINEER 05/17/18 05:00 Monocytes % SENIOR QA ENGINEER 05/17/18 05:00 Eosinophils % SENIOR QA ENGINEER 05/17/18 05:00 Basophils % SENIOR QA ENGINEER 05/17/18 05:00 Neutrophils (Manual) 87 % (40-80) H 05/26/18 06:05 Lymphocytes 8 % (20-50) L 05/26/18 06:05 Monocytes 4 % (2-10) 05/26/18 06:05 Eosinophils 1 % (0-5) 05/26/18 06:05 Basophils 0 % (0-3) 05/26/18 06:05 Metamyelocytes 6 % (0-0) H 05/17/18 05:00 Platelet Estimate ADEQUATE (NORMAL) 05/25/18 05:10 Smear Path Review 05/21/18 05:25 Eos Smear Source URINE 05/18/18 15:50 Eos Smear Total Cells NONE SEEN (NONE SEEN) 05/18/18 15:50 PT 10.3 SECONDS (9.5-11.5) 05/22/18 06:10 INR 0.99 (0.5-1.4) 05/22/18 06:10 PTT (Actin FS) 29.8 SECONDS (26.0-38.0) 05/22/18 06:10 Specimen Source Arterial 05/18/18 14:48 Sample Site Right Radial 05/18/18 14:48 pH 7.409 (7.35-7.45) 05/18/18 14:48 pCO2 28.7 mmHg (35.0-45.0) L 05/18/18 14:48 pO2 60.5 mmHg (80.0-100.0) L 05/18/18 14:48 HCO3 17.7 mEq/L (20.0-26.0) L 05/18/18 14:48 Base Excess -5.4 mEq/L (-3.0-3.0) L 05/18/18 14:48 O2 Saturation 92.0 % (92.0-100.0) 05/18/18 14:48 Yoel Test Positive 05/18/18 14:48 Vent Rate NA 05/18/18 14:48 Inspired O2 21 05/18/18 14:48 Tidal Volume NA 05/18/18 14:48 PEEP NA 05/18/18 14:48 Pressure (ins/psv/peep) NA 05/18/18 14:48 Critical Value SH 05/18/18 14:48 Sodium 143 mEq/L (136-145) 05/27/18 05:10 Potassium 4.2 mEq/L (3.5-5.1) 05/27/18 05:10 Chloride 108 mEq/L (98-107) H 05/27/18 05:10 Carbon Dioxide 24.2 mEq/L (21.0-31.0) 05/27/18 05:10 Anion Gap 15.0 (7.0-16.0) 05/27/18 05:10 BUN 19 mg/dL (7-25) 05/27/18 05:10 Creatinine 1.5 mg/dL (0.6-1.2) H 05/27/18 05:10 Est GFR ( Amer) 55.8 ml/min (>90) 05/27/18 05:10 Est GFR (Non-Af Amer) 46.2 ml/min 05/27/18 05:10 BUN/Creatinine Ratio 12.7 05/27/18 05:10 Glucose 114 mg/dL (70-105) H 05/27/18 05:10 POC Glucose 116 MG/DL (70 - 105) H 05/22/18 06:42 Whole Bld Lactic Acid 0.81 mmol/L (0.60-1.99) 05/18/18 14:20 Uric Acid 6.3 mg/dL (2.3-6.6) 05/19/18 06:11 Calcium 8.8 mg/dL (8.6-10.3) 05/27/18 05:10 Phosphorus 4.1 mg/dL (2.5-5.0) 05/19/18 06:11 Magnesium 2.7 mg/dL (1.9-2.7) 05/19/18 06:11 Iron 65 ug/dL (27-159) 05/24/18 17:00 TIBC 199 ug/dL (250-450) L 05/24/18 17:00 Iron Saturation 33 % (15-55) 05/24/18 17:00 Unsaturated IBC 134 ug/dL (131-425) 05/24/18 17:00 Ferritin 948 ng/mL (15-150) H 05/24/18 17:00 Total Bilirubin 0.6 mg/dL (0.3-1.0) 05/18/18 05:35 AST 24 U/L (13-39) 05/18/18 05:35 ALT 5 U/L (7-52) L 05/18/18 05:35 Alkaline Phosphatase 96 U/L (34-104) 05/18/18 05:35 B-Natriuretic Peptide 404.0 pg/mL (5.0-100.0) H 05/19/18 06:11 Total Protein 5.9 gm/dL (6.0-8.3) L 05/18/18 05:35 Albumin 2.9 gm/dL (3.7-5.3) L 05/18/18 05:35 Globulin 3.0 gm/dL 05/18/18 05:35 Albumin/Globulin Ratio 1.0 (1.0-1.8) 05/18/18 05:35 Amylase 167 U/L (29-103) H 05/19/18 06:11 Lipase 364 U/L (11-82) H 05/19/18 06:11 TSH 3.59 uIU/ml (0.34-5.60) 05/19/18 06:11 Urine Source MIDSTREAM 05/18/18 15:50 Urine Color RED 05/18/18 15:50 Urine Clarity HAZY (CLEAR) 05/18/18 15:50 Urine pH 6.0 (4.6 - 8.0) 05/18/18 15:50 Ur Specific [place] <= 1.005 (1.005-1.030) 05/18/18 15:50 Urine Protein 30 mg/dL (NEGATIVE) H 05/18/18 15:50 Urine Glucose (UA) NEGATIVE mg/dL (NEGATIVE) 05/18/18 15:50 Urine Ketones NEGATIVE mg/dL (NEGATIVE) 05/18/18 15:50 Urine Blood LARGE (NEGATIVE) H 05/18/18 15:50 Urine Nitrate NEGATIVE (NEGATIVE) 05/18/18 15:50 Urine Bilirubin NEGATIVE (NEGATIVE) 05/18/18 15:50 Urine Urobilinogen 0.2 E.U./dL (0.2 - 1.0) 05/18/18 15:50 Ur Leukocyte Esterase NEGATIVE (NEGATIVE) 05/18/18 15:50 Urine RBC 25-50 /hpf (0-5) H 05/18/18 15:50 Urine WBC 6-10 /hpf (0-5) H 05/18/18 15:50 Ur Epithelial Cells FEW /lpf (FEW) 05/18/18 15:50 Urine Bacteria MODERATE /hpf (NONE SEEN) H 05/18/18 15:50 Urine Osmolality 171 mOsmol/kg 05/18/18 15:50 Ur Random Sodium 69 mmol/L 05/18/18 15:50 Urine Creatinine 36.0 mg/dl (28.0-217.0) 05/18/18 15:50 Stool Occult Blood POSITIVE (NEGATIVE) H 05/20/18 10:20 Vancomycin Trough 42.4 ug/mL (5-10) H 05/15/18 20:00 Random Vancomycin 11.1 ug/mL (5.0-40.0) 05/19/18 06:11 Blood Type A POSITIVE 05/21/18 10:25 Antibody Screen NEGATIVE 05/21/18 10:25 Crossmatch See Detail 05/21/18 10:25 - Physical Exam Vitals and I&O: Vital Signs Temp 98.4 F 05/27/18 08:00 Pulse 116 05/27/18 08:00 Resp 18 05/27/18 08:00 BP 114/70 05/27/18 08:00 Pulse Ox 98 05/27/18 08:00 Intake & Output 05/26/18 05/27/18 05/27/18 18:59 06:59 18:59 Intake Total 1900 905 Balance 1900 905 Weight (lbs) 65.771 kg 65.771 kg Intake: Intake, IV Amount 1000 105 Dextrose 5% 1,000 ml @ 1000 125 mls/hr IV .Q8H [facility] Rx #:[id number] Levetiracetam 500 mg In 105 Sodium Chloride 0.9% 100 ml @ 400 mls/hr IV Q12H [facility] Rx#:[id number] Tube Feeding 900 800 Other: # Voids 2 Stool Characteristics Soft Soft Brown Brown Weight Source Bedscale Bedscale Active Medications: Current Medications Acetaminophen (Tylenol 650mg/20.3ml Suspension) 650 mg GT Q4HR PRN PRN Reason: Pain or Fever >101 Stop: 07/12/18 16:33 Last Admin: 05/21/18 17:56 Dose: 650 mg Bisacodyl (Dulcolax 10 Mg Supp) 10 mg RC DAILY PRN PRN Reason: Constipation Stop: 07/12/18 16:33 Citric Acid/Sodium Citrate (Bicitra) 30 ml PO BID [facility] Stop: 07/17/18 16:59 Last Admin: 05/26/18 18:53 Dose: 30 ml Docusate Sodium (Colace) 100 mg PO DAILY [facility] Stop: 07/13/18 08:59 Last Admin: 05/26/18 09:04 Dose: Not Given Ferrous Sulfate (Iron) 450 mg GT BID [facility] Stop: 07/12/18 16:59 Last Admin: 05/26/18 18:44 Dose: 450 mg Hydralazine HCl (Apresoline 20 Mg/Ml) 10 mg IV Q4HR PRN PRN Reason: SBP ABOVE 160 Stop: 07/17/18 11:46 Hydrocortisone (Anusol-Hc) 25 mg RC DAILY [facility] Stop: 06/24/19 08:59 Levetiracetam 500 mg/ Sodium (Chloride) 105 mls @ 400 mls/hr IV Q12H [facility] Stop: 07/21/18 16:59 Last Admin: 05/27/18 05:13 Dose: 400 mls/hr Dextrose (D5w) 1,000 mls @ 60 mls/hr IV .[id number] [facility] Stop: 07/25/18 14:14 Levetiracetam (Keppra) 500 mg GT BID [facility] Stop: 07/12/18 16:59 Last Admin: 05/26/18 18:44 Dose: 500 mg Magnesium Hydroxide (Milk Of Magnesia) 30 ml GT Q72HR PRN PRN Reason: Constipation Stop: 07/12/18 16:33 Metoprolol Succinate (Toprol Xl) 25 mg PO DAILY [facility] Stop: 07/17/18 14:44 Last Admin: 05/26/18 09:02 Dose: 25 mg Miscellaneous (Clinical Monitoring) 1 ea MC DAILY PRN PRN Reason: RENAL DOSING Stop: 07/23/18 08:29 Pantoprazole Sodium (Protonix) 40 mg PO DAILY [facility] Stop: 07/19/18 19:59 Last Admin: 05/26/18 09:03 Dose: 40 mg Potassium Chloride (Potassium Chloride Elixir) 20 meq GT TID [facility] Stop: 07/22/18 16:44 Last Admin: 05/26/18 21:30 Dose: 20 meq Sodium Phosphate (Fleet Enema) 135 ml RC Q96HR PRN PRN Reason: IF DULCOLAX INEFFECTIVE Stop: 07/12/18 16:33 Valproate Sodium (Depakene) 500 mg GT Q12H [facility]; Protocol Stop: 07/12/18 16:59 Last Admin: 05/27/18 05:13 Dose: 500 mg General: No acute distress HEENT: Atraumatic, Mucous membr. moist/pink Neck: Supple, JVD Cardiovascular: Regular rate Lungs: Clear to auscultation, Normal air movement Abdomen: Bowel sounds, Soft, Other (G-tube in place), no Tender, no Hepatomegaly , no Splenomegaly, no Distended, no Rebound, no Mass Extremities: Pulses (normal) Neurological: Normal tone, Sensation intact, Reflexes 2+ Skin: Rash Psych/Mental Status: Mood NL - Procedures Procedures: Procedures Procedure Code Date EXCISION OF DUODENUM, ENDO, DIAGN [id number] 05/13/18 EXCISION OF RECTUM, ENDO, DIAGN [id number] 05/13/18 EXCISION OF STOMACH, PYLORUS, ENDO, DIAGN [id number] 05/13/18 TRANSFUSE NONAUT RED BLOOD CELLS IN PERIPH VEIN, PERC 78057I4 05/13/18 Assessment/Plan - Assessment Assessment: # Anemia # Cerebral palsy # Dysphagia with G tube # Diarrhea # Leukocytosis Acute GI bleed is not suspected given the brown color of her stool. Would advise against using FOB testing as this is notoriously falsely positive for a litany of reasons, one of which being chronic iron therapy. If diarrhea recurs, will need to rule out CDiff EGD/colo on 05/22 showed gastritis, and proctitis with a possible rectal polyp vs thrombosed hemorrhoid. Biopsies taken. G tube changed to 20f on 05/23 Path returned on 05/26, shows no H pylori. Rectal polyp is inflammatory tissue ( no adenoma or malignancy) Plan: - will Rx hydrocortisone spp for 1 week to treat inflamed proctitis and hemorrhoid - continue G tube feeding - send CDiff from stool if diarrhea - sepsis mgmt as per ID GI CANCINO STABLE. Will see intermittently
[2018-05-27] MEDS: Potassium Chloride Elixir 20 mEq /15 mL UDC GT SCH ×3 (08:48→21:45)
[2018-05-27] MEDS: Levetiracetam 500 mg/5mL 5mL UDSyr *for ORAL USE ONLY GT SCH ×2 (08:49→16:34)
[2018-05-27] MEDS: Pantoprazole 40 mg EC Tab PO SCH (08:49)
[2018-05-27] MEDS: Ferrous Sulfate 300 MG/5 ML UDC GT SCH ×2 (08:50→16:33)
[2018-05-27 10:45] LABS: WHITE BLOOD COUNT 15.7 Th/cmm (4.8-10.8)
[2018-05-27 10:46] LABS: HEMATOCRIT 31.8 % (41.0-60); HEMOGLOBIN 9.9 gm/dL (12-16); MEAN CORPUSCULAR HEMOGLOBIN 28.4 pg (27.0-31.0); MEAN CORPUSCULAR HGB CONC 31.2 pg (28.0-36.0); PLATELET COUNT 195 Th/cmm (150-400); RED BLOOD COUNT 3.49 Mil/cmm (3.80-5.10); RED CELL DISTRIBUTION WIDTH 15.5 % (11.5-20.0)
[2018-05-27 10:47] LABS: MEAN PLATELET VOLUME 9.9 fl
[2018-05-27 10:48] LABS: BAND NEUTROPHILE 0 % (0-10); BASOPHIL 0 % (0-3); EOSINOPHIL 1.9 % (0-5); LYMPHOCYTE 8.7 % (20-50); MONOCYTE 7.2 % (2-10); NEUTROPHILS 81.8 % (40-80)
[2018-05-27] MEDS: Dextrose 5% 1,000 ML IV SCH (11:31)
--- NOTE | 2018-05-27 11:49 | General Progress Note ---
Subjective - Review of Systems Service Date: 05/27/18 Subjective: Patient awake alert no complaints Patient has diarrhea Stool for occult blood positive EGD and colonoscopy done Patient feels better Objective - Results Result Diagrams: 05/27/18 05:10 05/27/18 05:10 Recent Labs: Laboratory Last Values WBC 15.7 Th/cmm (4.8-10.8) H 05/27/18 05:10 RBC 3.49 Mil/cmm (3.80-5.10) L 05/27/18 05:10 Hgb 9.9 gm/dL (12-16) L 05/27/18 05:10 Hct 31.8 % (41.0-60) L 05/27/18 05:10 MCV 91.0 fl (81-100) 05/27/18 05:10 MCH 28.4 pg (27.0-31.0) 05/27/18 05:10 MCHC Differential 31.2 pg (28.0-36.0) 05/27/18 05:10 RDW 15.5 % (11.5-20.0) 05/27/18 05:10 Plt Count 195 Th/cmm (150-400) 05/27/18 05:10 MPV 9.9 fl 05/27/18 05:10 Add Manual Diff YES 05/27/18 05:10 Neutrophils % INSPECTOR FINISHING 05/17/18 05:00 Band Neutrophils % 0 % (0-10) 05/27/18 05:10 Lymphocytes % INSPECTOR FINISHING 05/17/18 05:00 Monocytes % INSPECTOR FINISHING 05/17/18 05:00 Eosinophils % INSPECTOR FINISHING 05/17/18 05:00 Basophils % INSPECTOR FINISHING 05/17/18 05:00 Neutrophils (Manual) 81.8 % (40-80) H 05/27/18 05:10 Lymphocytes 8.7 % (20-50) L 05/27/18 05:10 Monocytes 7.2 % (2-10) 05/27/18 05:10 Eosinophils 1.9 % (0-5) 05/27/18 05:10 Basophils 0 % (0-3) 05/27/18 05:10 Metamyelocytes 6 % (0-0) H 05/17/18 05:00 Platelet Estimate ADEQUATE (NORMAL) 05/25/18 05:10 Smear Path Review 05/21/18 05:25 Eos Smear Source URINE 05/18/18 15:50 Eos Smear Total Cells NONE SEEN (NONE SEEN) 05/18/18 15:50 PT 10.3 SECONDS (9.5-11.5) 05/22/18 06:10 INR 0.99 (0.5-1.4) 05/22/18 06:10 PTT (Actin FS) 29.8 SECONDS (26.0-38.0) 05/22/18 06:10 Specimen Source Arterial 05/18/18 14:48 Sample Site Right Radial 05/18/18 14:48 pH 7.409 (7.35-7.45) 05/18/18 14:48 pCO2 28.7 mmHg (35.0-45.0) L 05/18/18 14:48 pO2 60.5 mmHg (80.0-100.0) L 05/18/18 14:48 HCO3 17.7 mEq/L (20.0-26.0) L 05/18/18 14:48 Base Excess -5.4 mEq/L (-3.0-3.0) L 05/18/18 14:48 O2 Saturation 92.0 % (92.0-100.0) 05/18/18 14:48 Yoel Test Positive 05/18/18 14:48 Vent Rate NA 05/18/18 14:48 Inspired O2 21 05/18/18 14:48 Tidal Volume NA 05/18/18 14:48 PEEP NA 05/18/18 14:48 Pressure (ins/psv/peep) NA 05/18/18 14:48 Critical Value SH 05/18/18 14:48 Sodium 143 mEq/L (136-145) 05/27/18 05:10 Potassium 4.2 mEq/L (3.5-5.1) 05/27/18 05:10 Chloride 108 mEq/L (98-107) H 05/27/18 05:10 Carbon Dioxide 24.2 mEq/L (21.0-31.0) 05/27/18 05:10 Anion Gap 15.0 (7.0-16.0) 05/27/18 05:10 BUN 19 mg/dL (7-25) 05/27/18 05:10 Creatinine 1.5 mg/dL (0.6-1.2) H 05/27/18 05:10 Est GFR ( Amer) 55.8 ml/min (>90) 05/27/18 05:10 Est GFR (Non-Af Amer) 46.2 ml/min 05/27/18 05:10 BUN/Creatinine Ratio 12.7 05/27/18 05:10 Glucose 114 mg/dL (70-105) H 05/27/18 05:10 POC Glucose 116 MG/DL (70 - 105) H 05/22/18 06:42 Whole Bld Lactic Acid 0.81 mmol/L (0.60-1.99) 05/18/18 14:20 Uric Acid 6.3 mg/dL (2.3-6.6) 05/19/18 06:11 Calcium 8.8 mg/dL (8.6-10.3) 05/27/18 05:10 Phosphorus 4.1 mg/dL (2.5-5.0) 05/19/18 06:11 Magnesium 2.7 mg/dL (1.9-2.7) 05/19/18 06:11 Iron 65 ug/dL (27-159) 05/24/18 17:00 TIBC 199 ug/dL (250-450) L 05/24/18 17:00 Iron Saturation 33 % (15-55) 05/24/18 17:00 Unsaturated IBC 134 ug/dL (131-425) 05/24/18 17:00 Ferritin 948 ng/mL (15-150) H 05/24/18 17:00 Total Bilirubin 0.6 mg/dL (0.3-1.0) 05/18/18 05:35 AST 24 U/L (13-39) 05/18/18 05:35 ALT 5 U/L (7-52) L 05/18/18 05:35 Alkaline Phosphatase 96 U/L (34-104) 05/18/18 05:35 B-Natriuretic Peptide 404.0 pg/mL (5.0-100.0) H 05/19/18 06:11 Total Protein 5.9 gm/dL (6.0-8.3) L 05/18/18 05:35 Albumin 2.9 gm/dL (3.7-5.3) L 05/18/18 05:35 Globulin 3.0 gm/dL 05/18/18 05:35 Albumin/Globulin Ratio 1.0 (1.0-1.8) 05/18/18 05:35 Amylase 167 U/L (29-103) H 05/19/18 06:11 Lipase 364 U/L (11-82) H 05/19/18 06:11 TSH 3.59 uIU/ml (0.34-5.60) 05/19/18 06:11 Urine Source MIDSTREAM 05/18/18 15:50 Urine Color RED 05/18/18 15:50 Urine Clarity HAZY (CLEAR) 05/18/18 15:50 Urine pH 6.0 (4.6 - 8.0) 05/18/18 15:50 Ur Specific [place] <= 1.005 (1.005-1.030) 05/18/18 15:50 Urine Protein 30 mg/dL (NEGATIVE) H 05/18/18 15:50 Urine Glucose (UA) NEGATIVE mg/dL (NEGATIVE) 05/18/18 15:50 Urine Ketones NEGATIVE mg/dL (NEGATIVE) 05/18/18 15:50 Urine Blood LARGE (NEGATIVE) H 05/18/18 15:50 Urine Nitrate NEGATIVE (NEGATIVE) 05/18/18 15:50 Urine Bilirubin NEGATIVE (NEGATIVE) 05/18/18 15:50 Urine Urobilinogen 0.2 E.U./dL (0.2 - 1.0) 05/18/18 15:50 Ur Leukocyte Esterase NEGATIVE (NEGATIVE) 05/18/18 15:50 Urine RBC 25-50 /hpf (0-5) H 05/18/18 15:50 Urine WBC 6-10 /hpf (0-5) H 05/18/18 15:50 Ur Epithelial Cells FEW /lpf (FEW) 05/18/18 15:50 Urine Bacteria MODERATE /hpf (NONE SEEN) H 05/18/18 15:50 Urine Osmolality 171 mOsmol/kg 05/18/18 15:50 Ur Random Sodium 69 mmol/L 05/18/18 15:50 Urine Creatinine 36.0 mg/dl (28.0-217.0) 05/18/18 15:50 Stool Occult Blood POSITIVE (NEGATIVE) H 05/20/18 10:20 Vancomycin Trough 42.4 ug/mL (5-10) H 05/15/18 20:00 Random Vancomycin 11.1 ug/mL (5.0-40.0) 05/19/18 06:11 Blood Type A POSITIVE 05/21/18 10:25 Antibody Screen NEGATIVE 05/21/18 10:25 Crossmatch See Detail 05/21/18 10:25 - Physical Exam Vitals and I&O: Vital Signs Temp 98 F 05/27/18 11:38 Pulse 109 05/27/18 11:38 Resp 18 05/27/18 11:38 BP 117/76 05/27/18 11:38 Pulse Ox 99 05/27/18 11:38 Intake & Output 05/26/18 05/27/18 05/27/18 18:59 06:59 18:59 Intake Total 1900 905 Balance 1900 905 Weight (lbs) 65.771 kg 65.771 kg Intake: Intake, IV Amount 1000 105 Dextrose 5% 1,000 ml @ 1000 125 mls/hr IV .Q8H [facility] Rx #:[id number] Levetiracetam 500 mg In 105 Sodium Chloride 0.9% 100 ml @ 400 mls/hr IV Q12H [facility] Rx#:[id number] Tube Feeding 900 800 Other: # Voids 2 Stool Characteristics Soft Soft Soft Brown Brown Brown Weight Source Bedscale Bedscale Active Medications: Current Medications Acetaminophen (Tylenol 650mg/20.3ml Suspension) 650 mg GT Q4HR PRN PRN Reason: Pain or Fever >101 Stop: 07/12/18 16:33 Last Admin: 05/21/18 17:56 Dose: 650 mg Bisacodyl (Dulcolax 10 Mg Supp) 10 mg RC DAILY PRN PRN Reason: Constipation Stop: 07/12/18 16:33 Citric Acid/Sodium Citrate (Bicitra) 30 ml PO BID [facility] Stop: 07/17/18 16:59 Last Admin: 05/27/18 08:50 Dose: 30 ml Docusate Sodium (Colace) 100 mg PO DAILY [facility] Stop: 07/13/18 08:59 Last Admin: 05/27/18 08:50 Dose: Not Given Ferrous Sulfate (Iron) 450 mg GT BID [facility] Stop: 07/12/18 16:59 Last Admin: 05/27/18 08:50 Dose: 450 mg Hydralazine HCl (Apresoline 20 Mg/Ml) 10 mg IV Q4HR PRN PRN Reason: SBP ABOVE 160 Stop: 07/17/18 11:46 Hydrocortisone (Anusol-Hc) 25 mg RC DAILY [facility] Stop: 08/04/18 08:59 Last Admin: 05/27/18 09:52 Dose: 25 mg Levetiracetam 500 mg/ Sodium (Chloride) 105 mls @ 400 mls/hr IV Q12H [facility] Stop: 07/21/18 16:59 Last Admin: 05/27/18 05:13 Dose: 400 mls/hr Dextrose (D5w) 1,000 mls @ 60 mls/hr IV .[id number] [facility] Stop: 07/25/18 14:14 Last Admin: 05/27/18 11:31 Dose: 60 mls/hr Levetiracetam (Keppra) 500 mg GT BID [facility] Stop: 07/12/18 16:59 Last Admin: 05/27/18 08:49 Dose: 500 mg Magnesium Hydroxide (Milk Of Magnesia) 30 ml GT Q72HR PRN PRN Reason: Constipation Stop: 07/12/18 16:33 Metoprolol Succinate (Toprol Xl) 25 mg PO DAILY [facility] Stop: 07/17/18 14:44 Last Admin: 05/27/18 08:49 Dose: 25 mg Miscellaneous (Clinical Monitoring) 1 ea MC DAILY PRN PRN Reason: RENAL DOSING Stop: 07/23/18 08:29 Pantoprazole Sodium (Protonix) 40 mg PO DAILY [facility] Stop: 07/19/18 19:59 Last Admin: 05/27/18 08:49 Dose: 40 mg Potassium Chloride (Potassium Chloride Elixir) 20 meq GT TID [facility] Stop: 07/22/18 16:44 Last Admin: 05/27/18 08:48 Dose: 20 meq Sodium Phosphate (Fleet Enema) 135 ml RC Q96HR PRN PRN Reason: IF DULCOLAX INEFFECTIVE Stop: 07/12/18 16:33 Valproate Sodium (Depakene) 500 mg GT Q12H [facility]; Protocol Stop: 07/12/18 16:59 Last Admin: 05/27/18 05:13 Dose: 500 mg General: No acute distress HEENT: Atraumatic, Mucous membr. moist/pink Neck: Supple, JVD Cardiovascular: Regular rate Lungs: Clear to auscultation, Normal air movement Abdomen: Bowel sounds, Soft, Other (G-tube in place), no Tender, no Hepatomegaly , no Splenomegaly, no Distended, no Rebound, no Mass Extremities: Pulses (normal) Neurological: Normal tone, Sensation intact, Reflexes 2+ Skin: Rash Psych/Mental Status: Mood NL - Procedures Procedures: Procedures Procedure Code Date EXCISION OF DUODENUM, ENDO, DIAGN [id number] 05/13/18 EXCISION OF RECTUM, ENDO, DIAGN [id number] 05/13/18 EXCISION OF STOMACH, PYLORUS, ENDO, DIAGN [id number] 05/13/18 TRANSFUSE NONAUT RED BLOOD CELLS IN PERIPH VEIN, PERC [id number] 05/13/18 Assessment/Plan - Assessment Assessment: Acute renal failure Hypertension Hyponatremia 9 deficiency anemia Mental retardation Down syndrome Cerebral palsy 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 difficile colitis Hypokalemia - Plan Plan: Continue present management continue IV antibiotics controlled blood pressure Stool for C. difficile colitis potassium supplement A GI workup EGD colonoscope transfusion Patient's BUN/creatinine is improving WBC decreased on antibiotics
[2018-05-27 12:09] LABS: FOLIC ACID 17.3 ng/mL (>3.0)
--- NOTE | 2018-05-27 12:30 | General Progress Note ---
Subjective - Review of Systems Service Date: 05/27/18 Subjective: awake, comfortable Objective - Results Result Diagrams: 05/27/18 05:10 05/27/18 05:10 Recent Labs: Laboratory Last Values WBC 15.7 Th/cmm (4.8-10.8) H 05/27/18 05:10 RBC 3.49 Mil/cmm (3.80-5.10) L 05/27/18 05:10 Hgb 9.9 gm/dL (12-16) L 05/27/18 05:10 Hct 31.8 % (41.0-60) L 05/27/18 05:10 MCV 91.0 fl (81-100) 05/27/18 05:10 MCH 28.4 pg (27.0-31.0) 05/27/18 05:10 MCHC Differential 31.2 pg (28.0-36.0) 05/27/18 05:10 RDW 15.5 % (11.5-20.0) 05/27/18 05:10 Plt Count 195 Th/cmm (150-400) 05/27/18 05:10 MPV 9.9 fl 05/27/18 05:10 Add Manual Diff YES 05/27/18 05:10 Neutrophils % BATH MIX OPERATOR 05/17/18 05:00 Band Neutrophils % 0 % (0-10) 05/27/18 05:10 Lymphocytes % BATH MIX OPERATOR 05/17/18 05:00 Monocytes % BATH MIX OPERATOR 05/17/18 05:00 Eosinophils % BATH MIX OPERATOR 05/17/18 05:00 Basophils % BATH MIX OPERATOR 05/17/18 05:00 Neutrophils (Manual) 81.8 % (40-80) H 05/27/18 05:10 Lymphocytes 8.7 % (20-50) L 05/27/18 05:10 Monocytes 7.2 % (2-10) 05/27/18 05:10 Eosinophils 1.9 % (0-5) 05/27/18 05:10 Basophils 0 % (0-3) 05/27/18 05:10 Metamyelocytes 6 % (0-0) H 05/17/18 05:00 Platelet Estimate ADEQUATE (NORMAL) 05/25/18 05:10 Smear Path Review 05/21/18 05:25 Eos Smear Source URINE 05/18/18 15:50 Eos Smear Total Cells NONE SEEN (NONE SEEN) 05/18/18 15:50 PT 10.3 SECONDS (9.5-11.5) 05/22/18 06:10 INR 0.99 (0.5-1.4) 05/22/18 06:10 PTT (Actin FS) 29.8 SECONDS (26.0-38.0) 05/22/18 06:10 Specimen Source Arterial 05/18/18 14:48 Sample Site Right Radial 05/18/18 14:48 pH 7.409 (7.35-7.45) 05/18/18 14:48 pCO2 28.7 mmHg (35.0-45.0) L 05/18/18 14:48 pO2 60.5 mmHg (80.0-100.0) L 05/18/18 14:48 HCO3 17.7 mEq/L (20.0-26.0) L 05/18/18 14:48 Base Excess -5.4 mEq/L (-3.0-3.0) L 05/18/18 14:48 O2 Saturation 92.0 % (92.0-100.0) 05/18/18 14:48 Yoel Test Positive 05/18/18 14:48 Vent Rate NA 05/18/18 14:48 Inspired O2 21 05/18/18 14:48 Tidal Volume NA 05/18/18 14:48 PEEP NA 05/18/18 14:48 Pressure (ins/psv/peep) NA 05/18/18 14:48 Critical Value SH 05/18/18 14:48 Sodium 143 mEq/L (136-145) 05/27/18 05:10 Potassium 4.2 mEq/L (3.5-5.1) 05/27/18 05:10 Chloride 108 mEq/L (98-107) H 05/27/18 05:10 Carbon Dioxide 24.2 mEq/L (21.0-31.0) 05/27/18 05:10 Anion Gap 15.0 (7.0-16.0) 05/27/18 05:10 BUN 19 mg/dL (7-25) 05/27/18 05:10 Creatinine 1.5 mg/dL (0.6-1.2) H 05/27/18 05:10 Est GFR ( Amer) 55.8 ml/min (>90) 05/27/18 05:10 Est GFR (Non-Af Amer) 46.2 ml/min 05/27/18 05:10 BUN/Creatinine Ratio 12.7 05/27/18 05:10 Glucose 114 mg/dL (70-105) H 05/27/18 05:10 POC Glucose 116 MG/DL (70 - 105) H 05/22/18 06:42 Whole Bld Lactic Acid 0.81 mmol/L (0.60-1.99) 05/18/18 14:20 Uric Acid 6.3 mg/dL (2.3-6.6) 05/19/18 06:11 Calcium 8.8 mg/dL (8.6-10.3) 05/27/18 05:10 Phosphorus 4.1 mg/dL (2.5-5.0) 05/19/18 06:11 Magnesium 2.7 mg/dL (1.9-2.7) 05/19/18 06:11 Iron 65 ug/dL (27-159) 05/24/18 17:00 TIBC 199 ug/dL (250-450) L 05/24/18 17:00 Iron Saturation 33 % (15-55) 05/24/18 17:00 Unsaturated IBC 134 ug/dL (131-425) 05/24/18 17:00 Ferritin 948 ng/mL (15-150) H 05/24/18 17:00 Total Bilirubin 0.6 mg/dL (0.3-1.0) 05/18/18 05:35 AST 24 U/L (13-39) 05/18/18 05:35 ALT 5 U/L (7-52) L 05/18/18 05:35 Alkaline Phosphatase 96 U/L (34-104) 05/18/18 05:35 B-Natriuretic Peptide 404.0 pg/mL (5.0-100.0) H 05/19/18 06:11 Total Protein 5.9 gm/dL (6.0-8.3) L 05/18/18 05:35 Albumin 2.9 gm/dL (3.7-5.3) L 05/18/18 05:35 Globulin 3.0 gm/dL 05/18/18 05:35 Albumin/Globulin Ratio 1.0 (1.0-1.8) 05/18/18 05:35 Amylase 167 U/L (29-103) H 05/19/18 06:11 Lipase 364 U/L (11-82) H 05/19/18 06:11 Vitamin B12 1172 pg/mL (232-1245) 05/26/18 06:05 Folic Acid 17.3 ng/mL (>3.0) 05/26/18 06:05 TSH 3.59 uIU/ml (0.34-5.60) 05/19/18 06:11 Urine Source MIDSTREAM 05/18/18 15:50 Urine Color RED 05/18/18 15:50 Urine Clarity HAZY (CLEAR) 05/18/18 15:50 Urine pH 6.0 (4.6 - 8.0) 05/18/18 15:50 Ur Specific [place] <= 1.005 (1.005-1.030) 05/18/18 15:50 Urine Protein 30 mg/dL (NEGATIVE) H 05/18/18 15:50 Urine Glucose (UA) NEGATIVE mg/dL (NEGATIVE) 05/18/18 15:50 Urine Ketones NEGATIVE mg/dL (NEGATIVE) 05/18/18 15:50 Urine Blood LARGE (NEGATIVE) H 05/18/18 15:50 Urine Nitrate NEGATIVE (NEGATIVE) 05/18/18 15:50 Urine Bilirubin NEGATIVE (NEGATIVE) 05/18/18 15:50 Urine Urobilinogen 0.2 E.U./dL (0.2 - 1.0) 05/18/18 15:50 Ur Leukocyte Esterase NEGATIVE (NEGATIVE) 05/18/18 15:50 Urine RBC 25-50 /hpf (0-5) H 05/18/18 15:50 Urine WBC 6-10 /hpf (0-5) H 05/18/18 15:50 Ur Epithelial Cells FEW /lpf (FEW) 05/18/18 15:50 Urine Bacteria MODERATE /hpf (NONE SEEN) H 05/18/18 15:50 Urine Osmolality 171 mOsmol/kg 05/18/18 15:50 Ur Random Sodium 69 mmol/L 05/18/18 15:50 Urine Creatinine 36.0 mg/dl (28.0-217.0) 05/18/18 15:50 Stool Occult Blood POSITIVE (NEGATIVE) H 05/20/18 10:20 Vancomycin Trough 42.4 ug/mL (5-10) H 05/15/18 20:00 Random Vancomycin 11.1 ug/mL (5.0-40.0) 05/19/18 06:11 Blood Type A POSITIVE 05/21/18 10:25 Antibody Screen NEGATIVE 05/21/18 10:25 Crossmatch See Detail 05/21/18 10:25 - Physical Exam Vitals and I&O: Vital Signs Temp 98 F 05/27/18 11:38 Pulse 109 05/27/18 11:38 Resp 18 05/27/18 11:38 BP 117/76 05/27/18 11:38 Pulse Ox 99 05/27/18 11:38 Intake & Output 05/26/18 05/27/18 05/27/18 18:59 06:59 18:59 Intake Total 1900 905 Balance 1900 905 Weight (lbs) 65.771 kg 65.771 kg Intake: Intake, IV Amount 1000 105 Dextrose 5% 1,000 ml @ 1000 125 mls/hr IV .Q8H [facility] Rx #:[id number] Levetiracetam 500 mg In 105 Sodium Chloride 0.9% 100 ml @ 400 mls/hr IV Q12H [facility] Rx#:[id number] Tube Feeding 900 800 Other: # Voids 2 Stool Characteristics Soft Soft Soft Brown Brown Brown Weight Source Bedscale Bedscale Active Medications: Current Medications Acetaminophen (Tylenol 650mg/20.3ml Suspension) 650 mg GT Q4HR PRN PRN Reason: Pain or Fever >101 Stop: 07/12/18 16:33 Last Admin: 05/21/18 17:56 Dose: 650 mg Bisacodyl (Dulcolax 10 Mg Supp) 10 mg RC DAILY PRN PRN Reason: Constipation Stop: 07/12/18 16:33 Citric Acid/Sodium Citrate (Bicitra) 30 ml PO BID [facility] Stop: 07/17/18 16:59 Last Admin: 05/27/18 08:50 Dose: 30 ml Docusate Sodium (Colace) 100 mg PO DAILY [facility] Stop: 07/13/18 08:59 Last Admin: 05/27/18 08:50 Dose: Not Given Ferrous Sulfate (Iron) 450 mg GT BID [facility] Stop: 07/12/18 16:59 Last Admin: 05/27/18 08:50 Dose: 450 mg Hydralazine HCl (Apresoline 20 Mg/Ml) 10 mg IV Q4HR PRN PRN Reason: SBP ABOVE 160 Stop: 07/17/18 11:46 Hydrocortisone (Anusol-Hc) 25 mg RC DAILY [facility] Stop: 08/04/18 08:59 Last Admin: 05/27/18 09:52 Dose: 25 mg Levetiracetam 500 mg/ Sodium (Chloride) 105 mls @ 400 mls/hr IV Q12H [facility] Stop: 07/21/18 16:59 Last Admin: 05/27/18 05:13 Dose: 400 mls/hr Dextrose (D5w) 1,000 mls @ 60 mls/hr IV .[id number] [facility] Stop: 07/25/18 14:14 Last Admin: 05/27/18 11:31 Dose: 60 mls/hr Levetiracetam (Keppra) 500 mg GT BID [facility] Stop: 07/12/18 16:59 Last Admin: 05/27/18 08:49 Dose: 500 mg Magnesium Hydroxide (Milk Of Magnesia) 30 ml GT Q72HR PRN PRN Reason: Constipation Stop: 07/12/18 16:33 Metoprolol Succinate (Toprol Xl) 25 mg PO DAILY [facility] Stop: 07/17/18 14:44 Last Admin: 05/27/18 08:49 Dose: 25 mg Miscellaneous (Clinical Monitoring) 1 ea MC DAILY PRN PRN Reason: RENAL DOSING Stop: 07/23/18 08:29 Pantoprazole Sodium (Protonix) 40 mg PO DAILY [facility] Stop: 07/19/18 19:59 Last Admin: 05/27/18 08:49 Dose: 40 mg Potassium Chloride (Potassium Chloride Elixir) 20 meq GT TID [facility] Stop: 07/22/18 16:44 Last Admin: 05/27/18 08:48 Dose: 20 meq Sodium Phosphate (Fleet Enema) 135 ml RC Q96HR PRN PRN Reason: IF DULCOLAX INEFFECTIVE Stop: 07/12/18 16:33 Valproate Sodium (Depakene) 500 mg GT Q12H [facility]; Protocol Stop: 07/12/18 16:59 Last Admin: 05/27/18 05:13 Dose: 500 mg General: Alert, No acute distress HEENT: Atraumatic, Mucous membr. moist/pink Neck: Supple, JVD Cardiovascular: Regular rate Lungs: Clear to auscultation, Normal air movement Abdomen: Bowel sounds, Soft, Other (G-tube in place), no Tender, no Hepatomegaly , no Splenomegaly, no Distended, no Rebound, no Mass Extremities: Pulses (normal) Neurological: Normal tone, Sensation intact, Reflexes 2+ Skin: Rash Psych/Mental Status: Mood NL - Procedures Procedures: Procedures Procedure Code Date EXCISION OF DUODENUM, ENDO, DIAGN [id number] 05/13/18 EXCISION OF RECTUM, ENDO, DIAGN [id number] 05/13/18 EXCISION OF STOMACH, PYLORUS, ENDO, DIAGN [id number] 05/13/18 TRANSFUSE NONAUT RED BLOOD CELLS IN PERIPH VEIN, PERC [id number] 05/13/18 Assessment/Plan - Assessment Assessment: JAYLIN Hypernatremia 2/2 dehydration Severe Malnutrition Leukocytosis possible LGI Bleed, C. diff Ess Htn Dev Delay Cerebral Palsy Int. Disability Anemia of CD? - Plan Plan: Lab - Result Diagrams 05/19/18 06:11 05/19/18 06:11 Current Medications Acetaminophen (Tylenol 650mg/20.3ml Suspension) 650 mg GT Q4HR PRN PRN Reason: Pain or Fever >101 Stop: 07/12/18 16:33 Last Admin: 05/19/18 02:21 Dose: 650 mg Bisacodyl (Dulcolax 10 Mg Supp) 10 mg RC DAILY PRN PRN Reason: Constipation Stop: 07/12/18 16:33 Citric Acid/Sodium Citrate (Bicitra) 30 ml PO BID [facility] Stop: 07/17/18 16:59 Last Admin: 05/19/18 11:54 Dose: 30 ml Docusate Sodium (Colace) 100 mg PO DAILY [facility] Stop: 07/13/18 08:59 Last Admin: 05/19/18 08:36 Dose: 100 mg Epoetin Vern (Epogen) 5,000 units SUBQ MoWeFr [facility] Stop: 07/18/18 13:44 Ferrous Sulfate (Iron) 450 mg GT BID [facility] Stop: 07/12/18 16:59 Last Admin: 05/19/18 08:38 Dose: 450 mg Hydralazine HCl (Apresoline 20 Mg/Ml) 10 mg IV Q4HR PRN PRN Reason: SBP ABOVE 160 Stop: 07/17/18 11:46 Piperacillin Sod/Tazobactam (Sod 3.375 gm/ Sodium Chloride) 50 mls @ 100 mls/ hr IV Q6HR [facility] Stop: 07/12/18 05:59 Last Admin: 05/19/18 11:54 Dose: 100 mls/hr Dextrose (D5w) 1,000 mls @ 100 mls/hr IV .Q10H [facility] Stop: 07/17/18 12:59 Last Admin: 05/19/18 01:00 Dose: 100 mls/hr Linezolid (Zyvox) 600 mg in 300 mls @ 300 mls/hr IV Q12HR@0500,1700 [facility] Stop: 07/17/18 16:59 Last Infusion: 05/19/18 05:50 Dose: Infused Levetiracetam (Keppra) 500 mg GT BID [facility] Stop: 07/12/18 16:59 Last Admin: 05/19/18 08:36 Dose: 500 mg Lorazepam (Ativan) 1 mg IVP Q6HR PRN; Protocol PRN Reason: Anxiety Stop: 07/12/18 04:24 Last Admin: 05/14/18 00:06 Dose: 1 mg Magnesium Hydroxide (Milk Of Magnesia) 30 ml GT Q72HR PRN PRN Reason: Constipation Stop: 07/12/18 16:33 Metoprolol Succinate (Toprol Xl) 25 mg PO DAILY [facility] Stop: 07/17/18 14:44 Last Admin: 05/19/18 08:36 Dose: 25 mg Mupirocin (Bactroban Oint) 1 appl NS BID [facility] Stop: 05/19/18 17:01 Last Admin: 05/19/18 08:36 Dose: 1 appl Potassium Chloride (Klor-Con) 20 meq PO DAILY [facility] Stop: 07/18/18 13:44 Sodium Phosphate (Fleet Enema) 135 ml RC Q96HR PRN PRN Reason: IF DULCOLAX INEFFECTIVE Stop: 07/12/18 16:33 Valproate Sodium (Depakene) 500 mg GT Q12H [facility]; Protocol Stop: 07/12/18 16:59 Last Admin: 05/19/18 05:00 Dose: 500 m Lab - Result Diagrams 05/27/18 05:10 05/27/18 05:10 Kidney fnc continues to improve w/ BUN/CR of 19/1.5 FE Na 3.15% suggestive of intrinc renal involvement Na stable @ 143; decrease water flushes, IVF D5W replace K WBC down to 15.7 Hgb/Hct now stable f/u electrolytes, cbc
--- NOTE | 2018-05-27 16:54 | Internal Medicine Prog Note ---
Internal Medicine Subjective - Subjective Service Date: 05/27/18 Patient is:: awake, non-verbal, non-interactive, confused, other (hx of cerebral pasy, developmetal delay tolerating tube feeding well ) Patient Complaints of:: other (weakness.) Per staff patient has:: no adverse event, no episodes of fall, noncompliant, confused, other (unable to comprehend commands ) Internal Medicine Objective - Results Result Diagrams: 05/27/18 05:10 05/27/18 05:10 Recent Labs: Laboratory Last Values WBC 15.7 Th/cmm (4.8-10.8) H 05/27/18 05:10 RBC 3.49 Mil/cmm (3.80-5.10) L 05/27/18 05:10 Hgb 9.9 gm/dL (12-16) L 05/27/18 05:10 Hct 31.8 % (41.0-60) L 05/27/18 05:10 MCV 91.0 fl (81-100) 05/27/18 05:10 MCH 28.4 pg (27.0-31.0) 05/27/18 05:10 MCHC Differential 31.2 pg (28.0-36.0) 05/27/18 05:10 RDW 15.5 % (11.5-20.0) 05/27/18 05:10 Plt Count 195 Th/cmm (150-400) 05/27/18 05:10 MPV 9.9 fl 05/27/18 05:10 Add Manual Diff YES 05/27/18 05:10 Neutrophils % DATA ANALYTICS ANALYST 05/17/18 05:00 Band Neutrophils % 0 % (0-10) 05/27/18 05:10 Lymphocytes % DATA ANALYTICS ANALYST 05/17/18 05:00 Monocytes % DATA ANALYTICS ANALYST 05/17/18 05:00 Eosinophils % DATA ANALYTICS ANALYST 05/17/18 05:00 Basophils % DATA ANALYTICS ANALYST 05/17/18 05:00 Neutrophils (Manual) 81.8 % (40-80) H 05/27/18 05:10 Lymphocytes 8.7 % (20-50) L 05/27/18 05:10 Monocytes 7.2 % (2-10) 05/27/18 05:10 Eosinophils 1.9 % (0-5) 05/27/18 05:10 Basophils 0 % (0-3) 05/27/18 05:10 Metamyelocytes 6 % (0-0) H 05/17/18 05:00 Platelet Estimate ADEQUATE (NORMAL) 05/25/18 05:10 Smear Path Review 05/21/18 05:25 Eos Smear Source URINE 05/18/18 15:50 Eos Smear Total Cells NONE SEEN (NONE SEEN) 05/18/18 15:50 PT 10.3 SECONDS (9.5-11.5) 05/22/18 06:10 INR 0.99 (0.5-1.4) 05/22/18 06:10 PTT (Actin FS) 29.8 SECONDS (26.0-38.0) 05/22/18 06:10 Specimen Source Arterial 05/18/18 14:48 Sample Site Right Radial 05/18/18 14:48 pH 7.409 (7.35-7.45) 05/18/18 14:48 pCO2 28.7 mmHg (35.0-45.0) L 05/18/18 14:48 pO2 60.5 mmHg (80.0-100.0) L 05/18/18 14:48 HCO3 17.7 mEq/L (20.0-26.0) L 05/18/18 14:48 Base Excess -5.4 mEq/L (-3.0-3.0) L 05/18/18 14:48 O2 Saturation 92.0 % (92.0-100.0) 05/18/18 14:48 Yoel Test Positive 05/18/18 14:48 Vent Rate NA 05/18/18 14:48 Inspired O2 21 05/18/18 14:48 Tidal Volume NA 05/18/18 14:48 PEEP NA 05/18/18 14:48 Pressure (ins/psv/peep) NA 05/18/18 14:48 Critical Value SH 05/18/18 14:48 Sodium 143 mEq/L (136-145) 05/27/18 05:10 Potassium 4.2 mEq/L (3.5-5.1) 05/27/18 05:10 Chloride 108 mEq/L (98-107) H 05/27/18 05:10 Carbon Dioxide 24.2 mEq/L (21.0-31.0) 05/27/18 05:10 Anion Gap 15.0 (7.0-16.0) 05/27/18 05:10 BUN 19 mg/dL (7-25) 05/27/18 05:10 Creatinine 1.5 mg/dL (0.6-1.2) H 05/27/18 05:10 Est GFR ( Amer) 55.8 ml/min (>90) 05/27/18 05:10 Est GFR (Non-Af Amer) 46.2 ml/min 05/27/18 05:10 BUN/Creatinine Ratio 12.7 05/27/18 05:10 Glucose 114 mg/dL (70-105) H 05/27/18 05:10 POC Glucose 116 MG/DL (70 - 105) H 05/22/18 06:42 Whole Bld Lactic Acid 0.81 mmol/L (0.60-1.99) 05/18/18 14:20 Uric Acid 6.3 mg/dL (2.3-6.6) 05/19/18 06:11 Calcium 8.8 mg/dL (8.6-10.3) 05/27/18 05:10 Phosphorus 4.1 mg/dL (2.5-5.0) 05/19/18 06:11 Magnesium 2.7 mg/dL (1.9-2.7) 05/19/18 06:11 Iron 65 ug/dL (27-159) 05/24/18 17:00 TIBC 199 ug/dL (250-450) L 05/24/18 17:00 Iron Saturation 33 % (15-55) 05/24/18 17:00 Unsaturated IBC 134 ug/dL (131-425) 05/24/18 17:00 Ferritin 948 ng/mL (15-150) H 05/24/18 17:00 Total Bilirubin 0.6 mg/dL (0.3-1.0) 05/18/18 05:35 AST 24 U/L (13-39) 05/18/18 05:35 ALT 5 U/L (7-52) L 05/18/18 05:35 Alkaline Phosphatase 96 U/L (34-104) 05/18/18 05:35 B-Natriuretic Peptide 404.0 pg/mL (5.0-100.0) H 05/19/18 06:11 Total Protein 5.9 gm/dL (6.0-8.3) L 05/18/18 05:35 Albumin 2.9 gm/dL (3.7-5.3) L 05/18/18 05:35 Globulin 3.0 gm/dL 05/18/18 05:35 Albumin/Globulin Ratio 1.0 (1.0-1.8) 05/18/18 05:35 Amylase 167 U/L (29-103) H 05/19/18 06:11 Lipase 364 U/L (11-82) H 05/19/18 06:11 Vitamin B12 1172 pg/mL (232-1245) 05/26/18 06:05 Folic Acid 17.3 ng/mL (>3.0) 05/26/18 06:05 TSH 3.59 uIU/ml (0.34-5.60) 05/19/18 06:11 Urine Source MIDSTREAM 05/18/18 15:50 Urine Color RED 05/18/18 15:50 Urine Clarity HAZY (CLEAR) 05/18/18 15:50 Urine pH 6.0 (4.6 - 8.0) 05/18/18 15:50 Ur Specific [place] <= 1.005 (1.005-1.030) 05/18/18 15:50 Urine Protein 30 mg/dL (NEGATIVE) H 05/18/18 15:50 Urine Glucose (UA) NEGATIVE mg/dL (NEGATIVE) 05/18/18 15:50 Urine Ketones NEGATIVE mg/dL (NEGATIVE) 05/18/18 15:50 Urine Blood LARGE (NEGATIVE) H 05/18/18 15:50 Urine Nitrate NEGATIVE (NEGATIVE) 05/18/18 15:50 Urine Bilirubin NEGATIVE (NEGATIVE) 05/18/18 15:50 Urine Urobilinogen 0.2 E.U./dL (0.2 - 1.0) 05/18/18 15:50 Ur Leukocyte Esterase NEGATIVE (NEGATIVE) 05/18/18 15:50 Urine RBC 25-50 /hpf (0-5) H 05/18/18 15:50 Urine WBC 6-10 /hpf (0-5) H 05/18/18 15:50 Ur Epithelial Cells FEW /lpf (FEW) 05/18/18 15:50 Urine Bacteria MODERATE /hpf (NONE SEEN) H 05/18/18 15:50 Urine Osmolality 171 mOsmol/kg 05/18/18 15:50 Ur Random Sodium 69 mmol/L 05/18/18 15:50 Urine Creatinine 36.0 mg/dl (28.0-217.0) 05/18/18 15:50 Stool Occult Blood POSITIVE (NEGATIVE) H 05/20/18 10:20 Vancomycin Trough 42.4 ug/mL (5-10) H 05/15/18 20:00 Random Vancomycin 11.1 ug/mL (5.0-40.0) 05/19/18 06:11 Blood Type A POSITIVE 05/21/18 10:25 Antibody Screen NEGATIVE 05/21/18 10:25 Crossmatch See Detail 05/21/18 10:25 - Physical Exam Vitals and I&O: Vital Signs Temp 98.4 F 05/27/18 15:00 Pulse 105 05/27/18 15:00 Resp 18 05/27/18 15:00 BP 113/77 05/27/18 15:00 Pulse Ox 98 05/27/18 15:00 Intake & Output 05/26/18 05/27/18 05/27/18 18:59 06:59 18:59 Intake Total 1900 905 Balance 1900 905 Weight (lbs) 145 lb 145 lb Intake: Intake, IV Amount 1000 105 Dextrose 5% 1,000 ml @ 1000 125 mls/hr IV .Q8H [facility] Rx #:[id number] Levetiracetam 500 mg In 105 Sodium Chloride 0.9% 100 ml @ 400 mls/hr IV Q12H [facility] Rx#:[id number] Tube Feeding 900 800 Other: # Voids 2 Stool Characteristics Soft Soft Soft Brown Brown Brown Weight Source Bedscale Bedscale Active Medications: Current Medications Acetaminophen (Tylenol 650mg/20.3ml Suspension) 650 mg GT Q4HR PRN PRN Reason: Pain or Fever >101 Stop: 07/12/18 16:33 Last Admin: 05/21/18 17:56 Dose: 650 mg Bisacodyl (Dulcolax 10 Mg Supp) 10 mg RC DAILY PRN PRN Reason: Constipation Stop: 07/12/18 16:33 Citric Acid/Sodium Citrate (Bicitra) 30 ml PO BID [facility] Stop: 07/17/18 16:59 Last Admin: 05/27/18 16:33 Dose: 30 ml Docusate Sodium (Colace) 100 mg PO DAILY [facility] Stop: 07/13/18 08:59 Last Admin: 05/27/18 08:50 Dose: Not Given Epoetin Vern (Epogen) 5,000 units SUBQ MoWeFr [facility] Stop: 07/27/18 14:59 Ferrous Sulfate (Iron) 450 mg GT BID [facility] Stop: 07/12/18 16:59 Last Admin: 05/27/18 16:33 Dose: 450 mg Hydralazine HCl (Apresoline 20 Mg/Ml) 10 mg IV Q4HR PRN PRN Reason: SBP ABOVE 160 Stop: 07/17/18 11:46 Hydrocortisone (Anusol-Hc) 25 mg RC DAILY [facility] Stop: 08/04/18 08:59 Last Admin: 05/27/18 09:52 Dose: 25 mg Dextrose (D5w) 1,000 mls @ 60 mls/hr IV .[id number] [facility] Stop: 07/25/18 14:14 Last Admin: 05/27/18 11:31 Dose: 60 mls/hr Levetiracetam (Keppra) 500 mg GT BID [facility] Stop: 07/12/18 16:59 Last Admin: 05/27/18 16:34 Dose: 500 mg Magnesium Hydroxide (Milk Of Magnesia) 30 ml GT Q72HR PRN PRN Reason: Constipation Stop: 07/12/18 16:33 Metoprolol Succinate (Toprol Xl) 25 mg PO DAILY [facility] Stop: 07/17/18 14:44 Last Admin: 05/27/18 08:49 Dose: 25 mg Miscellaneous (Clinical Monitoring) 1 ea MC DAILY PRN PRN Reason: RENAL DOSING Stop: 07/23/18 08:29 Pantoprazole Sodium (Protonix) 40 mg PO DAILY [facility] Stop: 07/19/18 19:59 Last Admin: 05/27/18 08:49 Dose: 40 mg Potassium Chloride (Potassium Chloride Elixir) 20 meq GT TID [facility] Stop: 07/22/18 16:44 Last Admin: 05/27/18 14:04 Dose: 20 meq Sodium Phosphate (Fleet Enema) 135 ml RC Q96HR PRN PRN Reason: IF DULCOLAX INEFFECTIVE Stop: 07/12/18 16:33 Valproate Sodium (Depakene) 500 mg GT Q12H YOVANNY; Protocol Stop: 07/12/18 16:59 Last Admin: 05/27/18 16:33 Dose: 500 mg General: weak HEENT: NC/AT, PERRLA Neck: Supple Lungs: CTAB Abdomen: soft, non-tender, non-distended Extremities: excoriation Neurological: no change, unable to follow command - Procedures Procedures: Procedures Procedure Code Date EXCISION OF DUODENUM, ENDO, DIAGN [id number] 05/13/18 EXCISION OF RECTUM, ENDO, DIAGN [id number] 05/13/18 EXCISION OF STOMACH, PYLORUS, ENDO, DIAGN [id number] 05/13/18 TRANSFUSE NONAUT RED BLOOD CELLS IN PERIPH VEIN, PERC [id number] 05/13/18 Internal Medicine Assmt/Plan - Assessment Assessment: Acute uti sepsis 2/2 above Leukocytosis Cerebral palsy MR seizure disorder - Plan Plan: continue ivabx as per ID am labs fall precautions continue current plan of care
--- NOTE | 2018-05-27 19:20 | General Progress Note ---
Subjective - Review of Systems Service Date: 05/27/18 Subjective: awake, not in distress on gastric tube feeding Objective - Results Result Diagrams: 05/27/18 05:10 05/27/18 05:10 Recent Labs: Laboratory Last Values WBC 15.7 Th/cmm (4.8-10.8) H 05/27/18 05:10 RBC 3.49 Mil/cmm (3.80-5.10) L 05/27/18 05:10 Hgb 9.9 gm/dL (12-16) L 05/27/18 05:10 Hct 31.8 % (41.0-60) L 05/27/18 05:10 MCV 91.0 fl (81-100) 05/27/18 05:10 MCH 28.4 pg (27.0-31.0) 05/27/18 05:10 MCHC Differential 31.2 pg (28.0-36.0) 05/27/18 05:10 RDW 15.5 % (11.5-20.0) 05/27/18 05:10 Plt Count 195 Th/cmm (150-400) 05/27/18 05:10 MPV 9.9 fl 05/27/18 05:10 Add Manual Diff YES 05/27/18 05:10 Neutrophils % DAMPPROOFER 05/17/18 05:00 Band Neutrophils % 0 % (0-10) 05/27/18 05:10 Lymphocytes % DAMPPROOFER 05/17/18 05:00 Monocytes % DAMPPROOFER 05/17/18 05:00 Eosinophils % DAMPPROOFER 05/17/18 05:00 Basophils % DAMPPROOFER 05/17/18 05:00 Neutrophils (Manual) 81.8 % (40-80) H 05/27/18 05:10 Lymphocytes 8.7 % (20-50) L 05/27/18 05:10 Monocytes 7.2 % (2-10) 05/27/18 05:10 Eosinophils 1.9 % (0-5) 05/27/18 05:10 Basophils 0 % (0-3) 05/27/18 05:10 Metamyelocytes 6 % (0-0) H 05/17/18 05:00 Platelet Estimate ADEQUATE (NORMAL) 05/25/18 05:10 Smear Path Review 05/21/18 05:25 Eos Smear Source URINE 05/18/18 15:50 Eos Smear Total Cells NONE SEEN (NONE SEEN) 05/18/18 15:50 PT 10.3 SECONDS (9.5-11.5) 05/22/18 06:10 INR 0.99 (0.5-1.4) 05/22/18 06:10 PTT (Actin FS) 29.8 SECONDS (26.0-38.0) 05/22/18 06:10 Specimen Source Arterial 05/18/18 14:48 Sample Site Right Radial 05/18/18 14:48 pH 7.409 (7.35-7.45) 05/18/18 14:48 pCO2 28.7 mmHg (35.0-45.0) L 05/18/18 14:48 pO2 60.5 mmHg (80.0-100.0) L 05/18/18 14:48 HCO3 17.7 mEq/L (20.0-26.0) L 05/18/18 14:48 Base Excess -5.4 mEq/L (-3.0-3.0) L 05/18/18 14:48 O2 Saturation 92.0 % (92.0-100.0) 05/18/18 14:48 Yoel Test Positive 05/18/18 14:48 Vent Rate NA 05/18/18 14:48 Inspired O2 21 05/18/18 14:48 Tidal Volume NA 05/18/18 14:48 PEEP NA 05/18/18 14:48 Pressure (ins/psv/peep) NA 05/18/18 14:48 Critical Value SH 05/18/18 14:48 Sodium 143 mEq/L (136-145) 05/27/18 05:10 Potassium 4.2 mEq/L (3.5-5.1) 05/27/18 05:10 Chloride 108 mEq/L (98-107) H 05/27/18 05:10 Carbon Dioxide 24.2 mEq/L (21.0-31.0) 05/27/18 05:10 Anion Gap 15.0 (7.0-16.0) 05/27/18 05:10 BUN 19 mg/dL (7-25) 05/27/18 05:10 Creatinine 1.5 mg/dL (0.6-1.2) H 05/27/18 05:10 Est GFR ( Amer) 55.8 ml/min (>90) 05/27/18 05:10 Est GFR (Non-Af Amer) 46.2 ml/min 05/27/18 05:10 BUN/Creatinine Ratio 12.7 05/27/18 05:10 Glucose 114 mg/dL (70-105) H 05/27/18 05:10 POC Glucose 116 MG/DL (70 - 105) H 05/22/18 06:42 Whole Bld Lactic Acid 0.81 mmol/L (0.60-1.99) 05/18/18 14:20 Uric Acid 6.3 mg/dL (2.3-6.6) 05/19/18 06:11 Calcium 8.8 mg/dL (8.6-10.3) 05/27/18 05:10 Phosphorus 4.1 mg/dL (2.5-5.0) 05/19/18 06:11 Magnesium 2.7 mg/dL (1.9-2.7) 05/19/18 06:11 Iron 65 ug/dL (27-159) 05/24/18 17:00 TIBC 199 ug/dL (250-450) L 05/24/18 17:00 Iron Saturation 33 % (15-55) 05/24/18 17:00 Unsaturated IBC 134 ug/dL (131-425) 05/24/18 17:00 Ferritin 948 ng/mL (15-150) H 05/24/18 17:00 Total Bilirubin 0.6 mg/dL (0.3-1.0) 05/18/18 05:35 AST 24 U/L (13-39) 05/18/18 05:35 ALT 5 U/L (7-52) L 05/18/18 05:35 Alkaline Phosphatase 96 U/L (34-104) 05/18/18 05:35 B-Natriuretic Peptide 404.0 pg/mL (5.0-100.0) H 05/19/18 06:11 Total Protein 5.9 gm/dL (6.0-8.3) L 05/18/18 05:35 Albumin 2.9 gm/dL (3.7-5.3) L 05/18/18 05:35 Globulin 3.0 gm/dL 05/18/18 05:35 Albumin/Globulin Ratio 1.0 (1.0-1.8) 05/18/18 05:35 Amylase 167 U/L (29-103) H 05/19/18 06:11 Lipase 364 U/L (11-82) H 05/19/18 06:11 Vitamin B12 1172 pg/mL (232-1245) 05/26/18 06:05 Folic Acid 17.3 ng/mL (>3.0) 05/26/18 06:05 TSH 3.59 uIU/ml (0.34-5.60) 05/19/18 06:11 Urine Source MIDSTREAM 05/18/18 15:50 Urine Color RED 05/18/18 15:50 Urine Clarity HAZY (CLEAR) 05/18/18 15:50 Urine pH 6.0 (4.6 - 8.0) 05/18/18 15:50 Ur Specific [place] <= 1.005 (1.005-1.030) 05/18/18 15:50 Urine Protein 30 mg/dL (NEGATIVE) H 05/18/18 15:50 Urine Glucose (UA) NEGATIVE mg/dL (NEGATIVE) 05/18/18 15:50 Urine Ketones NEGATIVE mg/dL (NEGATIVE) 05/18/18 15:50 Urine Blood LARGE (NEGATIVE) H 05/18/18 15:50 Urine Nitrate NEGATIVE (NEGATIVE) 05/18/18 15:50 Urine Bilirubin NEGATIVE (NEGATIVE) 05/18/18 15:50 Urine Urobilinogen 0.2 E.U./dL (0.2 - 1.0) 05/18/18 15:50 Ur Leukocyte Esterase NEGATIVE (NEGATIVE) 05/18/18 15:50 Urine RBC 25-50 /hpf (0-5) H 05/18/18 15:50 Urine WBC 6-10 /hpf (0-5) H 05/18/18 15:50 Ur Epithelial Cells FEW /lpf (FEW) 05/18/18 15:50 Urine Bacteria MODERATE /hpf (NONE SEEN) H 05/18/18 15:50 Urine Osmolality 171 mOsmol/kg 05/18/18 15:50 Ur Random Sodium 69 mmol/L 05/18/18 15:50 Urine Creatinine 36.0 mg/dl (28.0-217.0) 05/18/18 15:50 Stool Occult Blood POSITIVE (NEGATIVE) H 05/20/18 10:20 Vancomycin Trough 42.4 ug/mL (5-10) H 05/15/18 20:00 Random Vancomycin 11.1 ug/mL (5.0-40.0) 05/19/18 06:11 Blood Type A POSITIVE 05/21/18 10:25 Antibody Screen NEGATIVE 05/21/18 10:25 Crossmatch See Detail 05/21/18 10:25 - Physical Exam Vitals and I&O: Vital Signs Temp 98.1 F 05/27/18 17:00 Pulse 90 05/27/18 17:00 Resp 18 05/27/18 17:00 BP 121/67 05/27/18 17:00 Pulse Ox 98 05/27/18 15:00 Intake & Output 05/27/18 05/27/18 05/28/18 06:59 18:59 06:59 Intake Total 905 630 Balance 905 630 Weight (lbs) 65.771 kg 65.771 kg Intake: Intake, IV Amount 105 Levetiracetam 500 mg In 105 Sodium Chloride 0.9% 100 ml @ 400 mls/hr IV Q12H [facility] Rx#:[id number] Tube Feeding 800 630 Other: # Voids 2 4 # Bowel Movements 0 Stool Characteristics Soft Soft Brown Brown Weight Source Bedscale Bedscale Active Medications: Current Medications Acetaminophen (Tylenol 650mg/20.3ml Suspension) 650 mg GT Q4HR PRN PRN Reason: Pain or Fever >101 Stop: 07/12/18 16:33 Last Admin: 05/21/18 17:56 Dose: 650 mg Bisacodyl (Dulcolax 10 Mg Supp) 10 mg RC DAILY PRN PRN Reason: Constipation Stop: 07/12/18 16:33 Citric Acid/Sodium Citrate (Bicitra) 30 ml PO BID [facility] Stop: 07/17/18 16:59 Last Admin: 05/27/18 16:33 Dose: 30 ml Docusate Sodium (Colace) 100 mg PO DAILY [facility] Stop: 07/13/18 08:59 Last Admin: 05/27/18 08:50 Dose: Not Given Epoetin Vern (Epogen) 5,000 units SUBQ MoWeFr [facility] Stop: 07/27/18 14:59 Ferrous Sulfate (Iron) 450 mg GT BID [facility] Stop: 07/12/18 16:59 Last Admin: 05/27/18 16:33 Dose: 450 mg Hydralazine HCl (Apresoline 20 Mg/Ml) 10 mg IV Q4HR PRN PRN Reason: SBP ABOVE 160 Stop: 07/17/18 11:46 Hydrocortisone (Anusol-Hc) 25 mg RC DAILY [facility] Stop: 08/04/18 08:59 Last Admin: 05/27/18 09:52 Dose: 25 mg Dextrose (D5w) 1,000 mls @ 60 mls/hr IV .[id number] [facility] Stop: 07/25/18 14:14 Last Admin: 05/27/18 11:31 Dose: 60 mls/hr Levetiracetam (Keppra) 500 mg GT BID [facility] Stop: 07/12/18 16:59 Last Admin: 05/27/18 16:34 Dose: 500 mg Magnesium Hydroxide (Milk Of Magnesia) 30 ml GT Q72HR PRN PRN Reason: Constipation Stop: 07/12/18 16:33 Metoprolol Succinate (Toprol Xl) 25 mg PO DAILY [facility] Stop: 07/17/18 14:44 Last Admin: 05/27/18 08:49 Dose: 25 mg Miscellaneous (Clinical Monitoring) 1 ea MC DAILY PRN PRN Reason: RENAL DOSING Stop: 07/23/18 08:29 Pantoprazole Sodium (Protonix) 40 mg PO DAILY [facility] Stop: 07/19/18 19:59 Last Admin: 05/27/18 08:49 Dose: 40 mg Potassium Chloride (Potassium Chloride Elixir) 20 meq GT TID [facility] Stop: 07/22/18 16:44 Last Admin: 05/27/18 14:04 Dose: 20 meq Sodium Phosphate (Fleet Enema) 135 ml RC Q96HR PRN PRN Reason: IF DULCOLAX INEFFECTIVE Stop: 07/12/18 16:33 Valproate Sodium (Depakene) 500 mg GT Q12H [facility]; Protocol Stop: 07/12/18 16:59 Last Admin: 05/27/18 16:33 Dose: 500 mg General: Alert, No acute distress HEENT: Atraumatic, Mucous membr. moist/pink Neck: Supple, JVD Cardiovascular: Regular rate Lungs: Clear to auscultation, Normal air movement Abdomen: Bowel sounds, Soft, Other (G-tube in place), no Tender, no Hepatomegaly , no Splenomegaly, no Distended, no Rebound, no Mass Extremities: Pulses (normal) Neurological: Normal tone, Sensation intact, Reflexes 2+ Skin: Rash Psych/Mental Status: Mood NL - Procedures Procedures: Procedures Procedure Code Date EXCISION OF DUODENUM, ENDO, DIAGN [id number] 05/13/18 EXCISION OF RECTUM, ENDO, DIAGN [id number] 05/13/18 EXCISION OF STOMACH, PYLORUS, ENDO, DIAGN [id number] 05/13/18 TRANSFUSE NONAUT RED BLOOD CELLS IN PERIPH VEIN, PERC [id number] 05/13/18 Assessment/Plan - Assessment Assessment: * Reactive leukocytosis improving * UTI * Anemia of chronic disease * JAYLIN; renal function improving Monitor cbc,
[2018-05-28] MEDS: Dextrose 5% 1,000 ML IV SCH (05:16)
[2018-05-28 05:30] LABS: % BASOPHILS 0.6 % (0.0-2.0); % EOSINOPHILS 2.2 % (0.0-5.0); % LYMPHOCYTES 7.3 % (20.0-50.0); % NEUTROPHILS 80.9 % (40.0-80.0); BASOPHILE ABSOLUTE 0.1 Th/cumm (0-0.2); EOSINOPHILE ABSOLUTE 0.4 Th/cmm (0.1-0.4); HEMATOCRIT 30.6 % (41.0-60); LYMPHOCYTE ABSOLUTE 1.2 Th/cmm (1.5-3.0); MEAN CELL VOLUME 87.8 fl (81-100); MEAN CORPUSCULAR HEMOGLOBIN 28.6 pg (27.0-31.0); MEAN CORPUSCULAR HGB CONC 32.6 pg (28.0-36.0); MEAN PLATELET VOLUME 9.1 fl; MONOCYTE ABSOLUTE 1.5 Th/cmm (0.3-1.0); NEUTROPHILE ABSOLUTE 13.7 Th/cmm (1.8-8.0); RED BLOOD COUNT 3.49 Mil/cmm (3.80-5.10); RED CELL DISTRIBUTION WIDTH 14.5 % (11.5-20.0)
[2018-05-28 05:44] LABS: WHITE BLOOD COUNT 16.9 Th/cmm (4.8-10.8)
[2018-05-28 05:45] LABS: PLATELET COUNT 249 Th/cmm (150-400)
[2018-05-28 05:48] LABS: ANION GAP 13.8 (7.0-16.0); BUN - UREA NITROGEN 19 mg/dL (7-25); CALCIUM SERUM 8.9 mg/dL (8.6-10.3); CARBON DIOXIDE 26.4 mEq/L (21.0-31.0); CHLORIDE 110 mEq/L (98-107); CREATININE - SERUM 1.4 mg/dL (0.6-1.2); GFR AFRICAN-AMERICAN > 60.0 ml/min (>90); GLUCOSE 90 mg/dL (70-105); POTASSIUM SERUM 4.2 mEq/L (3.5-5.1); SODIUM SERUM 146 mEq/L (136-145)
[2018-05-28 07:17] LABS: BAND NEUTROPHILE 0 % (0-10); EOSINOPHIL 2 % (0-5); LYMPHOCYTE 7 % (20-50); MONOCYTE 8 % (2-10); NEUTROPHILS 83 % (40-80)
[2018-05-28] MEDS: Levetiracetam 500 mg/5mL 5mL UDSyr *for ORAL USE ONLY GT SCH ×2 (09:02→16:28)
[2018-05-28] MEDS: Pantoprazole 40 mg EC Tab PO SCH (09:03)
[2018-05-28] MEDS: Ferrous Sulfate 300 MG/5 ML UDC GT SCH ×2 (09:03→16:28)
[2018-05-28] MEDS: Potassium Chloride Elixir 20 mEq /15 mL UDC GT SCH ×2 (09:04→13:01)
[2018-05-28] MEDS ORDERED: Menthol/Zinc Oxide Oint 113gm Tube TP PRN (09:21)
--- NOTE | 2018-05-28 09:58 | General Progress Note ---
Subjective - Review of Systems Service Date: 05/28/18 Subjective: awake, not in distress on gastric tube feeding Objective - Results Result Diagrams: 05/28/18 04:50 05/28/18 04:50 Recent Labs: Laboratory Last Values WBC 16.9 Th/cmm (4.8-10.8) H 05/28/18 04:50 RBC 3.49 Mil/cmm (3.80-5.10) L 05/28/18 04:50 Hgb 10.0 gm/dL (12-16) L 05/28/18 04:50 Hct 30.6 % (41.0-60) L 05/28/18 04:50 MCV 87.8 fl (81-100) 05/28/18 04:50 MCH 28.6 pg (27.0-31.0) 05/28/18 04:50 MCHC Differential 32.6 pg (28.0-36.0) 05/28/18 04:50 RDW 14.5 % (11.5-20.0) 05/28/18 04:50 Plt Count 249 Th/cmm (150-400) D 05/28/18 04:50 MPV 9.1 fl 05/28/18 04:50 Add Manual Diff YES 05/27/18 05:10 Neutrophils % 80.9 % (40.0-80.0) H 05/28/18 04:50 Band Neutrophils % 0 % (0-10) 05/28/18 04:50 Lymphocytes % 7.3 % (20.0-50.0) L 05/28/18 04:50 Monocytes % 9.0 % (2.0-10.0) 05/28/18 04:50 Eosinophils % 2.2 % (0.0-5.0) 05/28/18 04:50 Basophils % 0.6 % (0.0-2.0) 05/28/18 04:50 Neutrophils (Manual) 83 % (40-80) H 05/28/18 04:50 Lymphocytes 7 % (20-50) L 05/28/18 04:50 Monocytes 8 % (2-10) 05/28/18 04:50 Eosinophils 2 % (0-5) 05/28/18 04:50 Basophils 0 % (0-3) 05/27/18 05:10 Metamyelocytes 6 % (0-0) H 05/17/18 05:00 Platelet Estimate ADEQUATE (NORMAL) 05/25/18 05:10 Smear Path Review 05/21/18 05:25 Eos Smear Source URINE 05/18/18 15:50 Eos Smear Total Cells NONE SEEN (NONE SEEN) 05/18/18 15:50 PT 10.3 SECONDS (9.5-11.5) 05/22/18 06:10 INR 0.99 (0.5-1.4) 05/22/18 06:10 PTT (Actin FS) 29.8 SECONDS (26.0-38.0) 05/22/18 06:10 Specimen Source Arterial 05/18/18 14:48 Sample Site Right Radial 05/18/18 14:48 pH 7.409 (7.35-7.45) 05/18/18 14:48 pCO2 28.7 mmHg (35.0-45.0) L 05/18/18 14:48 pO2 60.5 mmHg (80.0-100.0) L 05/18/18 14:48 HCO3 17.7 mEq/L (20.0-26.0) L 05/18/18 14:48 Base Excess -5.4 mEq/L (-3.0-3.0) L 05/18/18 14:48 O2 Saturation 92.0 % (92.0-100.0) 05/18/18 14:48 Yoel Test Positive 05/18/18 14:48 Vent Rate NA 05/18/18 14:48 Inspired O2 21 05/18/18 14:48 Tidal Volume NA 05/18/18 14:48 PEEP NA 05/18/18 14:48 Pressure (ins/psv/peep) NA 05/18/18 14:48 Critical Value SH 05/18/18 14:48 Sodium 146 mEq/L (136-145) H 05/28/18 04:50 Potassium 4.2 mEq/L (3.5-5.1) 05/28/18 04:50 Chloride 110 mEq/L (98-107) H 05/28/18 04:50 Carbon Dioxide 26.4 mEq/L (21.0-31.0) 05/28/18 04:50 Anion Gap 13.8 (7.0-16.0) 05/28/18 04:50 BUN 19 mg/dL (7-25) 05/28/18 04:50 Creatinine 1.4 mg/dL (0.6-1.2) H 05/28/18 04:50 Est GFR ( Amer) > 60.0 ml/min (>90) 05/28/18 04:50 Est GFR (Non-Af Amer) 50.0 ml/min 05/28/18 04:50 BUN/Creatinine Ratio 13.6 05/28/18 04:50 Glucose 90 mg/dL (70-105) 05/28/18 04:50 POC Glucose 116 MG/DL (70 - 105) H 05/22/18 06:42 Whole Bld Lactic Acid 0.81 mmol/L (0.60-1.99) 05/18/18 14:20 Uric Acid 6.3 mg/dL (2.3-6.6) 05/19/18 06:11 Calcium 8.9 mg/dL (8.6-10.3) 05/28/18 04:50 Phosphorus 4.1 mg/dL (2.5-5.0) 05/19/18 06:11 Magnesium 2.7 mg/dL (1.9-2.7) 05/19/18 06:11 Iron 65 ug/dL (27-159) 05/24/18 17:00 TIBC 199 ug/dL (250-450) L 05/24/18 17:00 Iron Saturation 33 % (15-55) 05/24/18 17:00 Unsaturated IBC 134 ug/dL (131-425) 05/24/18 17:00 Ferritin 948 ng/mL (15-150) H 05/24/18 17:00 Total Bilirubin 0.6 mg/dL (0.3-1.0) 05/18/18 05:35 AST 24 U/L (13-39) 05/18/18 05:35 ALT 5 U/L (7-52) L 05/18/18 05:35 Alkaline Phosphatase 96 U/L (34-104) 05/18/18 05:35 B-Natriuretic Peptide 404.0 pg/mL (5.0-100.0) H 05/19/18 06:11 Total Protein 5.9 gm/dL (6.0-8.3) L 05/18/18 05:35 Albumin 2.9 gm/dL (3.7-5.3) L 05/18/18 05:35 Globulin 3.0 gm/dL 05/18/18 05:35 Albumin/Globulin Ratio 1.0 (1.0-1.8) 05/18/18 05:35 Amylase 167 U/L (29-103) H 05/19/18 06:11 Lipase 364 U/L (11-82) H 05/19/18 06:11 Vitamin B12 1172 pg/mL (232-1245) 05/26/18 06:05 Folic Acid 17.3 ng/mL (>3.0) 05/26/18 06:05 TSH 3.59 uIU/ml (0.34-5.60) 05/19/18 06:11 Urine Source MIDSTREAM 05/18/18 15:50 Urine Color RED 05/18/18 15:50 Urine Clarity HAZY (CLEAR) 05/18/18 15:50 Urine pH 6.0 (4.6 - 8.0) 05/18/18 15:50 Ur Specific [place] <= 1.005 (1.005-1.030) 05/18/18 15:50 Urine Protein 30 mg/dL (NEGATIVE) H 05/18/18 15:50 Urine Glucose (UA) NEGATIVE mg/dL (NEGATIVE) 05/18/18 15:50 Urine Ketones NEGATIVE mg/dL (NEGATIVE) 05/18/18 15:50 Urine Blood LARGE (NEGATIVE) H 05/18/18 15:50 Urine Nitrate NEGATIVE (NEGATIVE) 05/18/18 15:50 Urine Bilirubin NEGATIVE (NEGATIVE) 05/18/18 15:50 Urine Urobilinogen 0.2 E.U./dL (0.2 - 1.0) 05/18/18 15:50 Ur Leukocyte Esterase NEGATIVE (NEGATIVE) 05/18/18 15:50 Urine RBC 25-50 /hpf (0-5) H 05/18/18 15:50 Urine WBC 6-10 /hpf (0-5) H 05/18/18 15:50 Ur Epithelial Cells FEW /lpf (FEW) 05/18/18 15:50 Urine Bacteria MODERATE /hpf (NONE SEEN) H 05/18/18 15:50 Urine Osmolality 171 mOsmol/kg 05/18/18 15:50 Ur Random Sodium 69 mmol/L 05/18/18 15:50 Urine Creatinine 36.0 mg/dl (28.0-217.0) 05/18/18 15:50 Stool Occult Blood POSITIVE (NEGATIVE) H 05/20/18 10:20 Vancomycin Trough 42.4 ug/mL (5-10) H 05/15/18 20:00 Random Vancomycin 11.1 ug/mL (5.0-40.0) 05/19/18 06:11 Blood Type A POSITIVE 05/21/18 10:25 Antibody Screen NEGATIVE 05/21/18 10:25 Crossmatch See Detail 05/21/18 10:25 - Physical Exam Vitals and I&O: Vital Signs Temp 97.2 F 05/28/18 07:41 Pulse 98 05/28/18 09:03 Resp 18 05/28/18 07:41 BP 114/83 05/28/18 09:03 Pulse Ox 97 05/28/18 07:41 Intake & Output 05/27/18 05/28/18 05/28/18 18:59 06:59 18:59 Intake Total 630 1900 Balance 630 1900 Weight (lbs) 65.771 kg 65.771 kg Intake: Intake, IV Amount 1000 Dextrose 5% 1,000 ml @ 60 1000 mls/hr IV .[id number] [facility] Rx#:[id number] Tube Feeding 630 Other 900 Other: # Voids 4 3 # Bowel Movements 0 1 Stool Characteristics Soft Soft Brown Brown Weight Source Bedscale Bedscale Active Medications: Current Medications Acetaminophen (Tylenol 650mg/20.3ml Suspension) 650 mg GT Q4HR PRN PRN Reason: Pain or Fever >101 Stop: 07/12/18 16:33 Last Admin: 05/21/18 17:56 Dose: 650 mg Bisacodyl (Dulcolax 10 Mg Supp) 10 mg RC DAILY PRN PRN Reason: Constipation Stop: 07/12/18 16:33 Calamine/Phenol (Calmoseptine) 1 appl TP PRN PRN PRN Reason: Rash Stop: 07/27/18 09:20 Citric Acid/Sodium Citrate (Bicitra) 30 ml PO BID [facility] Stop: 07/17/18 16:59 Last Admin: 05/28/18 09:02 Dose: 30 ml Docusate Sodium (Colace) 100 mg PO DAILY [facility] Stop: 07/13/18 08:59 Last Admin: 05/28/18 09:05 Dose: Not Given Epoetin Vern (Epogen) 5,000 units SUBQ MoWeFr [facility] Stop: 07/27/18 14:59 Ferrous Sulfate (Iron) 450 mg GT BID [facility] Stop: 07/12/18 16:59 Last Admin: 05/28/18 09:03 Dose: 450 mg Hydralazine HCl (Apresoline 20 Mg/Ml) 10 mg IV Q4HR PRN PRN Reason: SBP ABOVE 160 Stop: 07/17/18 11:46 Hydrocortisone (Anusol-Hc) 25 mg RC DAILY [facility] Stop: 08/04/18 08:59 Last Admin: 05/28/18 09:04 Dose: 25 mg Dextrose (D5w) 1,000 mls @ 60 mls/hr IV .[id number] [facility] Stop: 07/25/18 14:14 Last Admin: 05/28/18 05:16 Dose: 60 mls/hr Levetiracetam (Keppra) 500 mg GT BID [facility] Stop: 07/12/18 16:59 Last Admin: 05/28/18 09:02 Dose: 500 mg Magnesium Hydroxide (Milk Of Magnesia) 30 ml GT Q72HR PRN PRN Reason: Constipation Stop: 07/12/18 16:33 Metoprolol Succinate (Toprol Xl) 25 mg PO DAILY [facility] Stop: 07/17/18 14:44 Last Admin: 05/28/18 09:03 Dose: 25 mg Miscellaneous (Clinical Monitoring) 1 ea MC DAILY PRN PRN Reason: RENAL DOSING Stop: 07/23/18 08:29 Pantoprazole Sodium (Protonix) 40 mg PO DAILY [facility] Stop: 07/19/18 19:59 Last Admin: 05/28/18 09:03 Dose: 40 mg Potassium Chloride (Potassium Chloride Elixir) 20 meq GT TID [facility] Stop: 07/22/18 16:44 Last Admin: 05/28/18 09:04 Dose: 20 meq Sodium Phosphate (Fleet Enema) 135 ml RC Q96HR PRN PRN Reason: IF DULCOLAX INEFFECTIVE Stop: 07/12/18 16:33 Valproate Sodium (Depakene) 500 mg GT Q12H [facility]; Protocol Stop: 07/12/18 16:59 Last Admin: 05/28/18 05:16 Dose: 500 mg General: Alert, No acute distress HEENT: Atraumatic, Mucous membr. moist/pink Neck: Supple, JVD Cardiovascular: Regular rate Lungs: Clear to auscultation, Normal air movement Abdomen: Bowel sounds, Soft, Other (G-tube in place), no Tender, no Hepatomegaly , no Splenomegaly, no Distended, no Rebound, no Mass Extremities: Pulses (normal) Neurological: Normal tone, Sensation intact, Reflexes 2+ Skin: Rash Psych/Mental Status: Mood NL - Procedures Procedures: Procedures Procedure Code Date EXCISION OF DUODENUM, ENDO, DIAGN [id number] 05/13/18 EXCISION OF RECTUM, ENDO, DIAGN [id number] 05/13/18 EXCISION OF STOMACH, PYLORUS, ENDO, DIAGN [id number] 05/13/18 TRANSFUSE NONAUT RED BLOOD CELLS IN PERIPH VEIN, PERC [id number] 05/13/18 Assessment/Plan - Assessment Assessment: * Reactive leukocytosis improving * UTI * Anemia of chronic disease * AJYLIN; renal function improving Monitor cbc,
--- NOTE | 2018-05-28 11:30 | Internal Medicine Prog Note ---
Internal Medicine Subjective - Subjective Service Date: 05/28/18 Patient seen and examined:: with staff, chart reviewed Patient is:: awake, non-verbal, non-interactive, confused, other (hx of cerebral pasy, developmetal delay tolerating tube feeding well ) Patient Complaints of:: other (weakness.) Per staff patient has:: no adverse event, no episodes of fall, noncompliant, confused, other (unable to comprehend commands.) Internal Medicine Objective - Results Result Diagrams: 05/28/18 04:50 05/28/18 04:50 Recent Labs: Laboratory Last Values WBC 16.9 Th/cmm (4.8-10.8) H 05/28/18 04:50 RBC 3.49 Mil/cmm (3.80-5.10) L 05/28/18 04:50 Hgb 10.0 gm/dL (12-16) L 05/28/18 04:50 Hct 30.6 % (41.0-60) L 05/28/18 04:50 MCV 87.8 fl (81-100) 05/28/18 04:50 MCH 28.6 pg (27.0-31.0) 05/28/18 04:50 MCHC Differential 32.6 pg (28.0-36.0) 05/28/18 04:50 RDW 14.5 % (11.5-20.0) 05/28/18 04:50 Plt Count 249 Th/cmm (150-400) D 05/28/18 04:50 MPV 9.1 fl 05/28/18 04:50 Add Manual Diff YES 05/27/18 05:10 Neutrophils % 80.9 % (40.0-80.0) H 05/28/18 04:50 Band Neutrophils % 0 % (0-10) 05/28/18 04:50 Lymphocytes % 7.3 % (20.0-50.0) L 05/28/18 04:50 Monocytes % 9.0 % (2.0-10.0) 05/28/18 04:50 Eosinophils % 2.2 % (0.0-5.0) 05/28/18 04:50 Basophils % 0.6 % (0.0-2.0) 05/28/18 04:50 Neutrophils (Manual) 83 % (40-80) H 05/28/18 04:50 Lymphocytes 7 % (20-50) L 05/28/18 04:50 Monocytes 8 % (2-10) 05/28/18 04:50 Eosinophils 2 % (0-5) 05/28/18 04:50 Basophils 0 % (0-3) 05/27/18 05:10 Metamyelocytes 6 % (0-0) H 05/17/18 05:00 Platelet Estimate ADEQUATE (NORMAL) 05/25/18 05:10 Smear Path Review 05/21/18 05:25 Eos Smear Source URINE 05/18/18 15:50 Eos Smear Total Cells NONE SEEN (NONE SEEN) 05/18/18 15:50 PT 10.3 SECONDS (9.5-11.5) 05/22/18 06:10 INR 0.99 (0.5-1.4) 05/22/18 06:10 PTT (Actin FS) 29.8 SECONDS (26.0-38.0) 05/22/18 06:10 Specimen Source Arterial 05/18/18 14:48 Sample Site Right Radial 05/18/18 14:48 pH 7.409 (7.35-7.45) 05/18/18 14:48 pCO2 28.7 mmHg (35.0-45.0) L 05/18/18 14:48 pO2 60.5 mmHg (80.0-100.0) L 05/18/18 14:48 HCO3 17.7 mEq/L (20.0-26.0) L 05/18/18 14:48 Base Excess -5.4 mEq/L (-3.0-3.0) L 05/18/18 14:48 O2 Saturation 92.0 % (92.0-100.0) 05/18/18 14:48 Yoel Test Positive 05/18/18 14:48 Vent Rate NA 05/18/18 14:48 Inspired O2 21 05/18/18 14:48 Tidal Volume NA 05/18/18 14:48 PEEP NA 05/18/18 14:48 Pressure (ins/psv/peep) NA 05/18/18 14:48 Critical Value SH 05/18/18 14:48 Sodium 146 mEq/L (136-145) H 05/28/18 04:50 Potassium 4.2 mEq/L (3.5-5.1) 05/28/18 04:50 Chloride 110 mEq/L (98-107) H 05/28/18 04:50 Carbon Dioxide 26.4 mEq/L (21.0-31.0) 05/28/18 04:50 Anion Gap 13.8 (7.0-16.0) 05/28/18 04:50 BUN 19 mg/dL (7-25) 05/28/18 04:50 Creatinine 1.4 mg/dL (0.6-1.2) H 05/28/18 04:50 Est GFR ( Amer) > 60.0 ml/min (>90) 05/28/18 04:50 Est GFR (Non-Af Amer) 50.0 ml/min 05/28/18 04:50 BUN/Creatinine Ratio 13.6 05/28/18 04:50 Glucose 90 mg/dL (70-105) 05/28/18 04:50 POC Glucose 116 MG/DL (70 - 105) H 05/22/18 06:42 Whole Bld Lactic Acid 0.81 mmol/L (0.60-1.99) 05/18/18 14:20 Uric Acid 6.3 mg/dL (2.3-6.6) 05/19/18 06:11 Calcium 8.9 mg/dL (8.6-10.3) 05/28/18 04:50 Phosphorus 4.1 mg/dL (2.5-5.0) 05/19/18 06:11 Magnesium 2.7 mg/dL (1.9-2.7) 05/19/18 06:11 Iron 65 ug/dL (27-159) 05/24/18 17:00 TIBC 199 ug/dL (250-450) L 05/24/18 17:00 Iron Saturation 33 % (15-55) 05/24/18 17:00 Unsaturated IBC 134 ug/dL (131-425) 05/24/18 17:00 Ferritin 948 ng/mL (15-150) H 05/24/18 17:00 Total Bilirubin 0.6 mg/dL (0.3-1.0) 05/18/18 05:35 AST 24 U/L (13-39) 05/18/18 05:35 ALT 5 U/L (7-52) L 05/18/18 05:35 Alkaline Phosphatase 96 U/L (34-104) 05/18/18 05:35 B-Natriuretic Peptide 404.0 pg/mL (5.0-100.0) H 05/19/18 06:11 Total Protein 5.9 gm/dL (6.0-8.3) L 05/18/18 05:35 Albumin 2.9 gm/dL (3.7-5.3) L 05/18/18 05:35 Globulin 3.0 gm/dL 05/18/18 05:35 Albumin/Globulin Ratio 1.0 (1.0-1.8) 05/18/18 05:35 Amylase 167 U/L (29-103) H 05/19/18 06:11 Lipase 364 U/L (11-82) H 05/19/18 06:11 Vitamin B12 1172 pg/mL (232-1245) 05/26/18 06:05 Folic Acid 17.3 ng/mL (>3.0) 05/26/18 06:05 TSH 3.59 uIU/ml (0.34-5.60) 05/19/18 06:11 Urine Source MIDSTREAM 05/18/18 15:50 Urine Color RED 05/18/18 15:50 Urine Clarity HAZY (CLEAR) 05/18/18 15:50 Urine pH 6.0 (4.6 - 8.0) 05/18/18 15:50 Ur Specific [place] <= 1.005 (1.005-1.030) 05/18/18 15:50 Urine Protein 30 mg/dL (NEGATIVE) H 05/18/18 15:50 Urine Glucose (UA) NEGATIVE mg/dL (NEGATIVE) 05/18/18 15:50 Urine Ketones NEGATIVE mg/dL (NEGATIVE) 05/18/18 15:50 Urine Blood LARGE (NEGATIVE) H 05/18/18 15:50 Urine Nitrate NEGATIVE (NEGATIVE) 05/18/18 15:50 Urine Bilirubin NEGATIVE (NEGATIVE) 05/18/18 15:50 Urine Urobilinogen 0.2 E.U./dL (0.2 - 1.0) 05/18/18 15:50 Ur Leukocyte Esterase NEGATIVE (NEGATIVE) 05/18/18 15:50 Urine RBC 25-50 /hpf (0-5) H 05/18/18 15:50 Urine WBC 6-10 /hpf (0-5) H 05/18/18 15:50 Ur Epithelial Cells FEW /lpf (FEW) 05/18/18 15:50 Urine Bacteria MODERATE /hpf (NONE SEEN) H 05/18/18 15:50 Urine Osmolality 171 mOsmol/kg 05/18/18 15:50 Ur Random Sodium 69 mmol/L 05/18/18 15:50 Urine Creatinine 36.0 mg/dl (28.0-217.0) 05/18/18 15:50 Stool Occult Blood POSITIVE (NEGATIVE) H 05/20/18 10:20 Vancomycin Trough 42.4 ug/mL (5-10) H 05/15/18 20:00 Random Vancomycin 11.1 ug/mL (5.0-40.0) 05/19/18 06:11 Blood Type A POSITIVE 05/21/18 10:25 Antibody Screen NEGATIVE 05/21/18 10:25 Crossmatch See Detail 05/21/18 10:25 - Physical Exam Vitals and I&O: Vital Signs Temp 97.2 F 05/28/18 09:00 Pulse 98 05/28/18 09:03 Resp 18 05/28/18 11:00 BP 114/83 05/28/18 09:03 Pulse Ox 97 05/28/18 07:41 Intake & Output 05/27/18 05/28/18 05/28/18 18:59 06:59 18:59 Intake Total 630 1900 Balance 630 1900 Weight (lbs) 65.771 kg 65.771 kg Intake: Intake, IV Amount 1000 Dextrose 5% 1,000 ml @ 60 1000 mls/hr IV .[id number] [facility] Rx#:[id number] Tube Feeding 630 Other 900 Other: # Voids 4 3 # Bowel Movements 0 1 Stool Characteristics Soft Soft Brown Brown Weight Source Bedscale Bedscale Active Medications: Current Medications Acetaminophen (Tylenol 650mg/20.3ml Suspension) 650 mg GT Q4HR PRN PRN Reason: Pain or Fever >101 Stop: 07/12/18 16:33 Last Admin: 05/21/18 17:56 Dose: 650 mg Bisacodyl (Dulcolax 10 Mg Supp) 10 mg RC DAILY PRN PRN Reason: Constipation Stop: 07/12/18 16:33 Calamine/Phenol (Calmoseptine) 1 appl TP PRN PRN PRN Reason: Rash Stop: 07/27/18 09:20 Citric Acid/Sodium Citrate (Bicitra) 30 ml PO BID YOVANNY Stop: 07/17/18 16:59 Last Admin: 05/28/18 09:02 Dose: 30 ml Docusate Sodium (Colace) 100 mg PO DAILY YOVANNY Stop: 07/13/18 08:59 Last Admin: 05/28/18 09:05 Dose: Not Given Epoetin Vern (Epogen) 5,000 units SUBQ MoWeFr YOVANNY Stop: 07/27/18 14:59 Ferrous Sulfate (Iron) 450 mg GT BID [facility] Stop: 07/12/18 16:59 Last Admin: 05/28/18 09:03 Dose: 450 mg Hydralazine HCl (Apresoline 20 Mg/Ml) 10 mg IV Q4HR PRN PRN Reason: SBP ABOVE 160 Stop: 07/17/18 11:46 Hydrocortisone (Anusol-Hc) 25 mg RC DAILY [facility] Stop: 08/04/18 08:59 Last Admin: 05/28/18 09:04 Dose: 25 mg Dextrose (D5w) 1,000 mls @ 60 mls/hr IV .[id number] [facility] Stop: 07/25/18 14:14 Last Admin: 05/28/18 05:16 Dose: 60 mls/hr Levetiracetam (Keppra) 500 mg GT BID [facility] Stop: 07/12/18 16:59 Last Admin: 05/28/18 09:02 Dose: 500 mg Magnesium Hydroxide (Milk Of Magnesia) 30 ml GT Q72HR PRN PRN Reason: Constipation Stop: 07/12/18 16:33 Metoprolol Succinate (Toprol Xl) 25 mg PO DAILY [facility] Stop: 07/17/18 14:44 Last Admin: 05/28/18 09:03 Dose: 25 mg Miscellaneous (Clinical Monitoring) 1 ea MC DAILY PRN PRN Reason: RENAL DOSING Stop: 07/23/18 08:29 Pantoprazole Sodium (Protonix) 40 mg PO DAILY [facility] Stop: 07/19/18 19:59 Last Admin: 05/28/18 09:03 Dose: 40 mg Potassium Chloride (Potassium Chloride Elixir) 20 meq GT TID YOVANNY Stop: 07/22/18 16:44 Last Admin: 05/28/18 09:04 Dose: 20 meq Sodium Phosphate (Fleet Enema) 135 ml RC Q96HR PRN PRN Reason: IF DULCOLAX INEFFECTIVE Stop: 07/12/18 16:33 Valproate Sodium (Depakene) 500 mg GT Q12H YOVANNY; Protocol Stop: 07/12/18 16:59 Last Admin: 05/28/18 05:16 Dose: 500 mg Physical Exam: 22 y/o female patient has generalized weakness, severe malnutrition. Reactive leukocytosis improving and anemia is better. General: weak HEENT: NC/AT, PERRLA Neck: Supple Lungs: CTAB Abdomen: soft, non-tender, non-distended Extremities: excoriation Neurological: no change, unable to follow command - Procedures Procedures: Procedures Procedure Code Date EXCISION OF DUODENUM, ENDO, DIAGN 2PM08OY 05/13/18 EXCISION OF RECTUM, ENDO, DIAGN [id number] 05/13/18 EXCISION OF STOMACH, PYLORUS, ENDO, DIAGN [id number] 05/13/18 TRANSFUSE NONAUT RED BLOOD CELLS IN PERIPH VEIN, PERC 64087S2 05/13/18 Internal Medicine Assmt/Plan - Assessment Assessment: JAYLIN; Renal function -Improving. Hypernatremia Severe Malnutrition Leukocytosis-Improving. HTN Cerebral Palsy Intellectual Disability Developmental Delay Anemia-Better. - Plan Plan: Continuation of care continue present meds as directed Monitor vitals and diet fall precaution supportive care Continue present care management. Nutritional Asmnt/Malnutr-PDOC - Dietary Evaluation Malnutrition Findings (Please click <Entered> for more info): see orders.
--- NOTE | 2018-05-28 13:41 | General Progress Note ---
Subjective - Review of Systems Service Date: 05/28/18 Subjective: awake, comfortable Objective - Results Result Diagrams: 05/28/18 04:50 05/28/18 04:50 Recent Labs: Laboratory Last Values WBC 16.9 Th/cmm (4.8-10.8) H 05/28/18 04:50 RBC 3.49 Mil/cmm (3.80-5.10) L 05/28/18 04:50 Hgb 10.0 gm/dL (12-16) L 05/28/18 04:50 Hct 30.6 % (41.0-60) L 05/28/18 04:50 MCV 87.8 fl (81-100) 05/28/18 04:50 MCH 28.6 pg (27.0-31.0) 05/28/18 04:50 MCHC Differential 32.6 pg (28.0-36.0) 05/28/18 04:50 RDW 14.5 % (11.5-20.0) 05/28/18 04:50 Plt Count 249 Th/cmm (150-400) D 05/28/18 04:50 MPV 9.1 fl 05/28/18 04:50 Add Manual Diff YES 05/27/18 05:10 Neutrophils % 80.9 % (40.0-80.0) H 05/28/18 04:50 Band Neutrophils % 0 % (0-10) 05/28/18 04:50 Lymphocytes % 7.3 % (20.0-50.0) L 05/28/18 04:50 Monocytes % 9.0 % (2.0-10.0) 05/28/18 04:50 Eosinophils % 2.2 % (0.0-5.0) 05/28/18 04:50 Basophils % 0.6 % (0.0-2.0) 05/28/18 04:50 Neutrophils (Manual) 83 % (40-80) H 05/28/18 04:50 Lymphocytes 7 % (20-50) L 05/28/18 04:50 Monocytes 8 % (2-10) 05/28/18 04:50 Eosinophils 2 % (0-5) 05/28/18 04:50 Basophils 0 % (0-3) 05/27/18 05:10 Metamyelocytes 6 % (0-0) H 05/17/18 05:00 Platelet Estimate ADEQUATE (NORMAL) 05/25/18 05:10 Smear Path Review 05/21/18 05:25 Eos Smear Source URINE 05/18/18 15:50 Eos Smear Total Cells NONE SEEN (NONE SEEN) 05/18/18 15:50 PT 10.3 SECONDS (9.5-11.5) 05/22/18 06:10 INR 0.99 (0.5-1.4) 05/22/18 06:10 PTT (Actin FS) 29.8 SECONDS (26.0-38.0) 05/22/18 06:10 Specimen Source Arterial 05/18/18 14:48 Sample Site Right Radial 05/18/18 14:48 pH 7.409 (7.35-7.45) 05/18/18 14:48 pCO2 28.7 mmHg (35.0-45.0) L 05/18/18 14:48 pO2 60.5 mmHg (80.0-100.0) L 05/18/18 14:48 HCO3 17.7 mEq/L (20.0-26.0) L 05/18/18 14:48 Base Excess -5.4 mEq/L (-3.0-3.0) L 05/18/18 14:48 O2 Saturation 92.0 % (92.0-100.0) 05/18/18 14:48 Yoel Test Positive 05/18/18 14:48 Vent Rate NA 05/18/18 14:48 Inspired O2 21 05/18/18 14:48 Tidal Volume NA 05/18/18 14:48 PEEP NA 05/18/18 14:48 Pressure (ins/psv/peep) NA 05/18/18 14:48 Critical Value SH 05/18/18 14:48 Sodium 146 mEq/L (136-145) H 05/28/18 04:50 Potassium 4.2 mEq/L (3.5-5.1) 05/28/18 04:50 Chloride 110 mEq/L (98-107) H 05/28/18 04:50 Carbon Dioxide 26.4 mEq/L (21.0-31.0) 05/28/18 04:50 Anion Gap 13.8 (7.0-16.0) 05/28/18 04:50 BUN 19 mg/dL (7-25) 05/28/18 04:50 Creatinine 1.4 mg/dL (0.6-1.2) H 05/28/18 04:50 Est GFR ( Amer) > 60.0 ml/min (>90) 05/28/18 04:50 Est GFR (Non-Af Amer) 50.0 ml/min 05/28/18 04:50 BUN/Creatinine Ratio 13.6 05/28/18 04:50 Glucose 90 mg/dL (70-105) 05/28/18 04:50 POC Glucose 116 MG/DL (70 - 105) H 05/22/18 06:42 Whole Bld Lactic Acid 0.81 mmol/L (0.60-1.99) 05/18/18 14:20 Uric Acid 6.3 mg/dL (2.3-6.6) 05/19/18 06:11 Calcium 8.9 mg/dL (8.6-10.3) 05/28/18 04:50 Phosphorus 4.1 mg/dL (2.5-5.0) 05/19/18 06:11 Magnesium 2.7 mg/dL (1.9-2.7) 05/19/18 06:11 Iron 65 ug/dL (27-159) 05/24/18 17:00 TIBC 199 ug/dL (250-450) L 05/24/18 17:00 Iron Saturation 33 % (15-55) 05/24/18 17:00 Unsaturated IBC 134 ug/dL (131-425) 05/24/18 17:00 Ferritin 948 ng/mL (15-150) H 05/24/18 17:00 Total Bilirubin 0.6 mg/dL (0.3-1.0) 05/18/18 05:35 AST 24 U/L (13-39) 05/18/18 05:35 ALT 5 U/L (7-52) L 05/18/18 05:35 Alkaline Phosphatase 96 U/L (34-104) 05/18/18 05:35 B-Natriuretic Peptide 404.0 pg/mL (5.0-100.0) H 05/19/18 06:11 Total Protein 5.9 gm/dL (6.0-8.3) L 05/18/18 05:35 Albumin 2.9 gm/dL (3.7-5.3) L 05/18/18 05:35 Globulin 3.0 gm/dL 05/18/18 05:35 Albumin/Globulin Ratio 1.0 (1.0-1.8) 05/18/18 05:35 Amylase 167 U/L (29-103) H 05/19/18 06:11 Lipase 364 U/L (11-82) H 05/19/18 06:11 Vitamin B12 1172 pg/mL (232-1245) 05/26/18 06:05 Folic Acid 17.3 ng/mL (>3.0) 05/26/18 06:05 TSH 3.59 uIU/ml (0.34-5.60) 05/19/18 06:11 Urine Source MIDSTREAM 05/18/18 15:50 Urine Color RED 05/18/18 15:50 Urine Clarity HAZY (CLEAR) 05/18/18 15:50 Urine pH 6.0 (4.6 - 8.0) 05/18/18 15:50 Ur Specific [place] <= 1.005 (1.005-1.030) 05/18/18 15:50 Urine Protein 30 mg/dL (NEGATIVE) H 05/18/18 15:50 Urine Glucose (UA) NEGATIVE mg/dL (NEGATIVE) 05/18/18 15:50 Urine Ketones NEGATIVE mg/dL (NEGATIVE) 05/18/18 15:50 Urine Blood LARGE (NEGATIVE) H 05/18/18 15:50 Urine Nitrate NEGATIVE (NEGATIVE) 05/18/18 15:50 Urine Bilirubin NEGATIVE (NEGATIVE) 05/18/18 15:50 Urine Urobilinogen 0.2 E.U./dL (0.2 - 1.0) 05/18/18 15:50 Ur Leukocyte Esterase NEGATIVE (NEGATIVE) 05/18/18 15:50 Urine RBC 25-50 /hpf (0-5) H 05/18/18 15:50 Urine WBC 6-10 /hpf (0-5) H 05/18/18 15:50 Ur Epithelial Cells FEW /lpf (FEW) 05/18/18 15:50 Urine Bacteria MODERATE /hpf (NONE SEEN) H 05/18/18 15:50 Urine Osmolality 171 mOsmol/kg 05/18/18 15:50 Ur Random Sodium 69 mmol/L 05/18/18 15:50 Urine Creatinine 36.0 mg/dl (28.0-217.0) 05/18/18 15:50 Stool Occult Blood POSITIVE (NEGATIVE) H 05/20/18 10:20 Vancomycin Trough 42.4 ug/mL (5-10) H 05/15/18 20:00 Random Vancomycin 11.1 ug/mL (5.0-40.0) 05/19/18 06:11 Blood Type A POSITIVE 05/21/18 10:25 Antibody Screen NEGATIVE 05/21/18 10:25 Crossmatch See Detail 05/21/18 10:25 - Physical Exam Vitals and I&O: Vital Signs Temp 98.3 F 05/28/18 11:34 Pulse 99 05/28/18 11:34 Resp 18 05/28/18 11:34 BP 108/72 05/28/18 11:34 Pulse Ox 98 05/28/18 11:34 Intake & Output 05/27/18 05/28/18 05/28/18 18:59 06:59 18:59 Intake Total 630 1900 Balance 630 1900 Weight (lbs) 65.771 kg 65.771 kg Intake: Intake, IV Amount 1000 Dextrose 5% 1,000 ml @ 60 1000 mls/hr IV .[id number] [facility] Rx#:[id number] Tube Feeding 630 Other 900 Other: # Voids 4 3 # Bowel Movements 0 1 Stool Characteristics Soft Soft Brown Brown Weight Source Bedscale Bedscale Active Medications: Current Medications Acetaminophen (Tylenol 650mg/20.3ml Suspension) 650 mg GT Q4HR PRN PRN Reason: Pain or Fever >101 Stop: 07/12/18 16:33 Last Admin: 05/21/18 17:56 Dose: 650 mg Bisacodyl (Dulcolax 10 Mg Supp) 10 mg RC DAILY PRN PRN Reason: Constipation Stop: 07/12/18 16:33 Calamine/Phenol (Calmoseptine) 1 appl TP PRN PRN PRN Reason: Rash Stop: 07/27/18 09:20 Citric Acid/Sodium Citrate (Bicitra) 30 ml PO BID [facility] Stop: 07/17/18 16:59 Last Admin: 05/28/18 09:02 Dose: 30 ml Docusate Sodium (Colace) 100 mg PO DAILY [facility] Stop: 07/13/18 08:59 Last Admin: 05/28/18 09:05 Dose: Not Given Epoetin Vern (Epogen) 5,000 units SUBQ MoWeFr [facility] Stop: 07/27/18 14:59 Ferrous Sulfate (Iron) 450 mg GT BID [facility] Stop: 07/12/18 16:59 Last Admin: 05/28/18 09:03 Dose: 450 mg Hydralazine HCl (Apresoline 20 Mg/Ml) 10 mg IV Q4HR PRN PRN Reason: SBP ABOVE 160 Stop: 07/17/18 11:46 Hydrocortisone (Anusol-Hc) 25 mg RC DAILY [facility] Stop: 08/04/18 08:59 Last Admin: 05/28/18 09:04 Dose: 25 mg Dextrose (D5w) 1,000 mls @ 60 mls/hr IV .[id number] [facility] Stop: 07/25/18 14:14 Last Admin: 05/28/18 05:16 Dose: 60 mls/hr Levetiracetam (Keppra) 500 mg GT BID [facility] Stop: 07/12/18 16:59 Last Admin: 05/28/18 09:02 Dose: 500 mg Magnesium Hydroxide (Milk Of Magnesia) 30 ml GT Q72HR PRN PRN Reason: Constipation Stop: 07/12/18 16:33 Metoprolol Succinate (Toprol Xl) 25 mg PO DAILY [facility] Stop: 07/17/18 14:44 Last Admin: 05/28/18 09:03 Dose: 25 mg Miscellaneous (Clinical Monitoring) 1 ea MC DAILY PRN PRN Reason: RENAL DOSING Stop: 07/23/18 08:29 Pantoprazole Sodium (Protonix) 40 mg PO DAILY [facility] Stop: 07/19/18 19:59 Last Admin: 05/28/18 09:03 Dose: 40 mg Potassium Chloride (Potassium Chloride Elixir) 20 meq GT TID [facility] Stop: 07/22/18 16:44 Last Admin: 05/28/18 13:01 Dose: 20 meq Sodium Phosphate (Fleet Enema) 135 ml RC Q96HR PRN PRN Reason: IF DULCOLAX INEFFECTIVE Stop: 07/12/18 16:33 Valproate Sodium (Depakene) 500 mg GT Q12H [facility]; Protocol Stop: 07/12/18 16:59 Last Admin: 05/28/18 05:16 Dose: 500 mg General: Alert, No acute distress HEENT: Atraumatic, Mucous membr. moist/pink Neck: Supple, JVD Cardiovascular: Regular rate Lungs: Clear to auscultation, Normal air movement Abdomen: Bowel sounds, Soft, Other (G-tube in place), no Tender, no Hepatomegaly , no Splenomegaly, no Distended, no Rebound, no Mass Extremities: Pulses (normal) Neurological: Normal tone, Sensation intact, Reflexes 2+ Skin: Rash Psych/Mental Status: Mood NL - Procedures Procedures: Procedures Procedure Code Date EXCISION OF DUODENUM, ENDO, DIAGN [id number] 05/13/18 EXCISION OF RECTUM, ENDO, DIAGN [id number] 05/13/18 EXCISION OF STOMACH, PYLORUS, ENDO, DIAGN [id number] 05/13/18 TRANSFUSE NONAUT RED BLOOD CELLS IN PERIPH VEIN, PERC [id number] 05/13/18 Assessment/Plan - Assessment Assessment: JAYLIN Hypernatremia 2/2 dehydration Severe Malnutrition Leukocytosis possible LGI Bleed, C. diff Ess Htn Dev Delay Cerebral Palsy Int. Disability Anemia of CD? - Plan Plan: Lab - Result Diagrams 05/19/18 06:11 05/19/18 06:11 Current Medications Acetaminophen (Tylenol 650mg/20.3ml Suspension) 650 mg GT Q4HR PRN PRN Reason: Pain or Fever >101 Stop: 07/12/18 16:33 Last Admin: 05/19/18 02:21 Dose: 650 mg Bisacodyl (Dulcolax 10 Mg Supp) 10 mg RC DAILY PRN PRN Reason: Constipation Stop: 07/12/18 16:33 Citric Acid/Sodium Citrate (Bicitra) 30 ml PO BID [facility]ANNY Stop: 07/17/18 16:59 Last Admin: 05/19/18 11:54 Dose: 30 ml Docusate Sodium (Colace) 100 mg PO DAILY [facility] Stop: 07/13/18 08:59 Last Admin: 05/19/18 08:36 Dose: 100 mg Epoetin Vern (Epogen) 5,000 units SUBQ MoWeFr [facility] Stop: 07/18/18 13:44 Ferrous Sulfate (Iron) 450 mg GT BID [facility] Stop: 07/12/18 16:59 Last Admin: 05/19/18 08:38 Dose: 450 mg Hydralazine HCl (Apresoline 20 Mg/Ml) 10 mg IV Q4HR PRN PRN Reason: SBP ABOVE 160 Stop: 07/17/18 11:46 Piperacillin Sod/Tazobactam (Sod 3.375 gm/ Sodium Chloride) 50 mls @ 100 mls/ hr IV Q6HR [facility] Stop: 07/12/18 05:59 Last Admin: 05/19/18 11:54 Dose: 100 mls/hr Dextrose (D5w) 1,000 mls @ 100 mls/hr IV .Q10H [facility] Stop: 07/17/18 12:59 Last Admin: 05/19/18 01:00 Dose: 100 mls/hr Linezolid (Zyvox) 600 mg in 300 mls @ 300 mls/hr IV Q12HR@0500,1700 [facility] Stop: 07/17/18 16:59 Last Infusion: 05/19/18 05:50 Dose: Infused Levetiracetam (Keppra) 500 mg GT BID [facility] Stop: 07/12/18 16:59 Last Admin: 05/19/18 08:36 Dose: 500 mg Lorazepam (Ativan) 1 mg IVP Q6HR PRN; Protocol PRN Reason: Anxiety Stop: 07/12/18 04:24 Last Admin: 05/14/18 00:06 Dose: 1 mg Magnesium Hydroxide (Milk Of Magnesia) 30 ml GT Q72HR PRN PRN Reason: Constipation Stop: 07/12/18 16:33 Metoprolol Succinate (Toprol Xl) 25 mg PO DAILY [facility] Stop: 07/17/18 14:44 Last Admin: 05/19/18 08:36 Dose: 25 mg Mupirocin (Bactroban Oint) 1 appl NS BID [facility] Stop: 05/19/18 17:01 Last Admin: 05/19/18 08:36 Dose: 1 appl Potassium Chloride (Klor-Con) 20 meq PO DAILY [facility] Stop: 07/18/18 13:44 Sodium Phosphate (Fleet Enema) 135 ml RC Q96HR PRN PRN Reason: IF DULCOLAX INEFFECTIVE Stop: 07/12/18 16:33 Valproate Sodium (Depakene) 500 mg GT Q12H [facility]; Protocol Stop: 07/12/18 16:59 Last Admin: 05/19/18 05:00 Dose: 500 m Lab - Result Diagrams 05/28/18 04:50 04/17/19 04:50 Kidney fnc continues to improve w/ BUN/CR of /1.4 FE Na 3.15% suggestive of intrinc renal involvement Na stable @ 146; decrease water flushes, IVF D5W replace K WBC up increased to 16.9 Hgb/Hct now stable f/u electrolytes, cbc
--- NOTE | 2018-05-28 14:41 | General Progress Note ---
Subjective - Review of Systems Service Date: 05/28/18 Subjective: Patient awake alert no complaints Patient has diarrhea Stool for occult blood positive EGD and colonoscopy done Patient feels better Objective - Results Result Diagrams: 05/28/18 04:50 05/28/18 04:50 Recent Labs: Laboratory Last Values WBC 16.9 Th/cmm (4.8-10.8) H 05/28/18 04:50 RBC 3.49 Mil/cmm (3.80-5.10) L 05/28/18 04:50 Hgb 10.0 gm/dL (12-16) L 05/28/18 04:50 Hct 30.6 % (41.0-60) L 05/28/18 04:50 MCV 87.8 fl (81-100) 05/28/18 04:50 MCH 28.6 pg (27.0-31.0) 05/28/18 04:50 MCHC Differential 32.6 pg (28.0-36.0) 05/28/18 04:50 RDW 14.5 % (11.5-20.0) 05/28/18 04:50 Plt Count 249 Th/cmm (150-400) D 05/28/18 04:50 MPV 9.1 fl 05/28/18 04:50 Add Manual Diff YES 05/27/18 05:10 Neutrophils % 80.9 % (40.0-80.0) H 05/28/18 04:50 Band Neutrophils % 0 % (0-10) 05/28/18 04:50 Lymphocytes % 7.3 % (20.0-50.0) L 05/28/18 04:50 Monocytes % 9.0 % (2.0-10.0) 05/28/18 04:50 Eosinophils % 2.2 % (0.0-5.0) 05/28/18 04:50 Basophils % 0.6 % (0.0-2.0) 05/28/18 04:50 Neutrophils (Manual) 83 % (40-80) H 05/28/18 04:50 Lymphocytes 7 % (20-50) L 05/28/18 04:50 Monocytes 8 % (2-10) 05/28/18 04:50 Eosinophils 2 % (0-5) 05/28/18 04:50 Basophils 0 % (0-3) 05/27/18 05:10 Metamyelocytes 6 % (0-0) H 05/17/18 05:00 Platelet Estimate ADEQUATE (NORMAL) 05/25/18 05:10 Smear Path Review 05/21/18 05:25 Eos Smear Source URINE 05/18/18 15:50 Eos Smear Total Cells NONE SEEN (NONE SEEN) 05/18/18 15:50 PT 10.3 SECONDS (9.5-11.5) 05/22/18 06:10 INR 0.99 (0.5-1.4) 05/22/18 06:10 PTT (Actin FS) 29.8 SECONDS (26.0-38.0) 05/22/18 06:10 Specimen Source Arterial 05/18/18 14:48 Sample Site Right Radial 05/18/18 14:48 pH 7.409 (7.35-7.45) 05/18/18 14:48 pCO2 28.7 mmHg (35.0-45.0) L 05/18/18 14:48 pO2 60.5 mmHg (80.0-100.0) L 05/18/18 14:48 HCO3 17.7 mEq/L (20.0-26.0) L 05/18/18 14:48 Base Excess -5.4 mEq/L (-3.0-3.0) L 05/18/18 14:48 O2 Saturation 92.0 % (92.0-100.0) 05/18/18 14:48 Yoel Test Positive 05/18/18 14:48 Vent Rate NA 05/18/18 14:48 Inspired O2 21 05/18/18 14:48 Tidal Volume NA 05/18/18 14:48 PEEP NA 05/18/18 14:48 Pressure (ins/psv/peep) NA 05/18/18 14:48 Critical Value SH 05/18/18 14:48 Sodium 146 mEq/L (136-145) H 05/28/18 04:50 Potassium 4.2 mEq/L (3.5-5.1) 05/28/18 04:50 Chloride 110 mEq/L (98-107) H 05/28/18 04:50 Carbon Dioxide 26.4 mEq/L (21.0-31.0) 05/28/18 04:50 Anion Gap 13.8 (7.0-16.0) 05/28/18 04:50 BUN 19 mg/dL (7-25) 05/28/18 04:50 Creatinine 1.4 mg/dL (0.6-1.2) H 05/28/18 04:50 Est GFR ( Amer) > 60.0 ml/min (>90) 05/28/18 04:50 Est GFR (Non-Af Amer) 50.0 ml/min 05/28/18 04:50 BUN/Creatinine Ratio 13.6 05/28/18 04:50 Glucose 90 mg/dL (70-105) 05/28/18 04:50 POC Glucose 116 MG/DL (70 - 105) H 05/22/18 06:42 Whole Bld Lactic Acid 0.81 mmol/L (0.60-1.99) 05/18/18 14:20 Uric Acid 6.3 mg/dL (2.3-6.6) 05/19/18 06:11 Calcium 8.9 mg/dL (8.6-10.3) 05/28/18 04:50 Phosphorus 4.1 mg/dL (2.5-5.0) 05/19/18 06:11 Magnesium 2.7 mg/dL (1.9-2.7) 05/19/18 06:11 Iron 65 ug/dL (27-159) 05/24/18 17:00 TIBC 199 ug/dL (250-450) L 05/24/18 17:00 Iron Saturation 33 % (15-55) 05/24/18 17:00 Unsaturated IBC 134 ug/dL (131-425) 05/24/18 17:00 Ferritin 948 ng/mL (15-150) H 05/24/18 17:00 Total Bilirubin 0.6 mg/dL (0.3-1.0) 05/18/18 05:35 AST 24 U/L (13-39) 05/18/18 05:35 ALT 5 U/L (7-52) L 05/18/18 05:35 Alkaline Phosphatase 96 U/L (34-104) 05/18/18 05:35 B-Natriuretic Peptide 404.0 pg/mL (5.0-100.0) H 05/19/18 06:11 Total Protein 5.9 gm/dL (6.0-8.3) L 05/18/18 05:35 Albumin 2.9 gm/dL (3.7-5.3) L 05/18/18 05:35 Globulin 3.0 gm/dL 05/18/18 05:35 Albumin/Globulin Ratio 1.0 (1.0-1.8) 05/18/18 05:35 Amylase 167 U/L (29-103) H 05/19/18 06:11 Lipase 364 U/L (11-82) H 05/19/18 06:11 Vitamin B12 1172 pg/mL (232-1245) 05/26/18 06:05 Folic Acid 17.3 ng/mL (>3.0) 05/26/18 06:05 TSH 3.59 uIU/ml (0.34-5.60) 05/19/18 06:11 Urine Source MIDSTREAM 05/18/18 15:50 Urine Color RED 05/18/18 15:50 Urine Clarity HAZY (CLEAR) 05/18/18 15:50 Urine pH 6.0 (4.6 - 8.0) 05/18/18 15:50 Ur Specific [place] <= 1.005 (1.005-1.030) 05/18/18 15:50 Urine Protein 30 mg/dL (NEGATIVE) H 05/18/18 15:50 Urine Glucose (UA) NEGATIVE mg/dL (NEGATIVE) 05/18/18 15:50 Urine Ketones NEGATIVE mg/dL (NEGATIVE) 05/18/18 15:50 Urine Blood LARGE (NEGATIVE) H 05/18/18 15:50 Urine Nitrate NEGATIVE (NEGATIVE) 05/18/18 15:50 Urine Bilirubin NEGATIVE (NEGATIVE) 05/18/18 15:50 Urine Urobilinogen 0.2 E.U./dL (0.2 - 1.0) 05/18/18 15:50 Ur Leukocyte Esterase NEGATIVE (NEGATIVE) 05/18/18 15:50 Urine RBC 25-50 /hpf (0-5) H 05/18/18 15:50 Urine WBC 6-10 /hpf (0-5) H 05/18/18 15:50 Ur Epithelial Cells FEW /lpf (FEW) 05/18/18 15:50 Urine Bacteria MODERATE /hpf (NONE SEEN) H 05/18/18 15:50 Urine Osmolality 171 mOsmol/kg 05/18/18 15:50 Ur Random Sodium 69 mmol/L 05/18/18 15:50 Urine Creatinine 36.0 mg/dl (28.0-217.0) 05/18/18 15:50 Stool Occult Blood POSITIVE (NEGATIVE) H 05/20/18 10:20 Vancomycin Trough 42.4 ug/mL (5-10) H 05/15/18 20:00 Random Vancomycin 11.1 ug/mL (5.0-40.0) 05/19/18 06:11 Blood Type A POSITIVE 05/21/18 10:25 Antibody Screen NEGATIVE 05/21/18 10:25 Crossmatch See Detail 05/21/18 10:25 - Physical Exam Vitals and I&O: Vital Signs Temp 98.3 F 05/28/18 11:34 Pulse 99 05/28/18 11:34 Resp 18 05/28/18 11:34 BP 108/72 05/28/18 11:34 Pulse Ox 98 05/28/18 11:34 Intake & Output 05/27/18 05/28/18 05/28/18 18:59 06:59 18:59 Intake Total 630 1900 Balance 630 1900 Weight (lbs) 65.771 kg 65.771 kg Intake: Intake, IV Amount 1000 Dextrose 5% 1,000 ml @ 60 1000 mls/hr IV .[id number] [facility] Rx#:[id number] Tube Feeding 630 Other 900 Other: # Voids 4 3 # Bowel Movements 0 1 Stool Characteristics Soft Soft Brown Brown Weight Source Bedscale Bedscale Active Medications: Current Medications Acetaminophen (Tylenol 650mg/20.3ml Suspension) 650 mg GT Q4HR PRN PRN Reason: Pain or Fever >101 Stop: 07/12/18 16:33 Last Admin: 05/21/18 17:56 Dose: 650 mg Bisacodyl (Dulcolax 10 Mg Supp) 10 mg RC DAILY PRN PRN Reason: Constipation Stop: 07/12/18 16:33 Calamine/Phenol (Calmoseptine) 1 appl TP PRN PRN PRN Reason: Rash Stop: 07/27/18 09:20 Citric Acid/Sodium Citrate (Bicitra) 30 ml PO BID [facility] Stop: 07/17/18 16:59 Last Admin: 05/28/18 09:02 Dose: 30 ml Docusate Sodium (Colace) 100 mg PO DAILY [facility] Stop: 07/13/18 08:59 Last Admin: 05/28/18 09:05 Dose: Not Given Epoetin Vern (Epogen) 5,000 units SUBQ MoWeFr [facility] Stop: 07/27/18 14:59 Ferrous Sulfate (Iron) 450 mg GT BID [facility] Stop: 07/12/18 16:59 Last Admin: 05/28/18 09:03 Dose: 450 mg Hydralazine HCl (Apresoline 20 Mg/Ml) 10 mg IV Q4HR PRN PRN Reason: SBP ABOVE 160 Stop: 07/17/18 11:46 Hydrocortisone (Anusol-Hc) 25 mg RC DAILY [facility] Stop: 08/04/18 08:59 Last Admin: 05/28/18 09:04 Dose: 25 mg Dextrose (D5w) 1,000 mls @ 60 mls/hr IV .[id number] [facility] Stop: 07/25/18 14:14 Last Admin: 05/28/18 05:16 Dose: 60 mls/hr Levetiracetam (Keppra) 500 mg GT BID [facility] Stop: 07/12/18 16:59 Last Admin: 05/28/18 09:02 Dose: 500 mg Magnesium Hydroxide (Milk Of Magnesia) 30 ml GT Q72HR PRN PRN Reason: Constipation Stop: 07/12/18 16:33 Metoprolol Succinate (Toprol Xl) 25 mg PO DAILY [facility] Stop: 07/17/18 14:44 Last Admin: 05/28/18 09:03 Dose: 25 mg Miscellaneous (Clinical Monitoring) 1 ea MC DAILY PRN PRN Reason: RENAL DOSING Stop: 07/23/18 08:29 Pantoprazole Sodium (Protonix) 40 mg PO DAILY [facility] Stop: 07/19/18 19:59 Last Admin: 05/28/18 09:03 Dose: 40 mg Potassium Chloride (Potassium Chloride Elixir) 20 meq GT TID [facility] Stop: 07/22/18 16:44 Last Admin: 05/28/18 13:01 Dose: 20 meq Sodium Phosphate (Fleet Enema) 135 ml RC Q96HR PRN PRN Reason: IF DULCOLAX INEFFECTIVE Stop: 07/12/18 16:33 Valproate Sodium (Depakene) 500 mg GT Q12H YOVANNY; Protocol Stop: 07/12/18 16:59 Last Admin: 05/28/18 05:16 Dose: 500 mg General: Alert, No acute distress HEENT: Atraumatic, Mucous membr. moist/pink Neck: Supple, JVD Cardiovascular: Regular rate Lungs: Clear to auscultation, Normal air movement Abdomen: Bowel sounds, Soft, Other (G-tube in place), no Tender, no Hepatomegaly , no Splenomegaly, no Distended, no Rebound, no Mass Extremities: Pulses (normal) Neurological: Normal tone, Sensation intact, Reflexes 2+ Skin: Rash Psych/Mental Status: Mood NL - Procedures Procedures: Procedures Procedure Code Date EXCISION OF DUODENUM, ENDO, DIAGN [id number] 05/13/18 EXCISION OF RECTUM, ENDO, DIAGN [id number] 05/13/18 EXCISION OF STOMACH, PYLORUS, ENDO, DIAGN [id number] 05/13/18 TRANSFUSE NONAUT RED BLOOD CELLS IN PERIPH VEIN, PERC [id number] 05/13/18 Assessment/Plan - Assessment Assessment: Acute renal failure Hypertension Hyponatremia 9 deficiency anemia Mental retardation Down syndrome Cerebral palsy 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 difficile colitis Hypokalemia - Plan Plan: Continue present management continue IV antibiotics controlled blood pressure Stool for C. difficile colitis potassium supplement A GI workup EGD colonoscope transfusion Patient's BUN/creatinine is improving WBC decreased on antibiotics
[2018-05-28] MEDS ORDERED: Epoetin Alfa 20000 Units/mL Vial SUBQ SCH (15:00)
== END 2018-05-28 19:38 | DRG 720 ==
LOC: ER 01:26 → TELE 04:00 → ICU 05-14 12:17 → TELE 05-15 07:49
PROVIDERS: ADMIT Internal Medicine; ATTEND Internal Medicine
PROC: 30233N1 Transfusion of Nonautologous Red Blood Cells into Peripheral Vein, Percutaneous Approach (ICD-10-PCS; 2018-05-21)
PROC: 0DB98ZX Excision of Duodenum, Via Natural or Artificial Opening Endoscopic, Diagnostic (ICD-10-PCS; principal; 2018-05-22)
PROC: 0DB78ZX Excision of Stomach, Pylorus, Via Natural or Artificial Opening Endoscopic, Diagnostic (ICD-10-PCS; 2018-05-22)
PROC: 0DBP8ZX Excision of Rectum, Via Natural or Artificial Opening Endoscopic, Diagnostic (ICD-10-PCS; 2018-05-22)
DX: A41.9 Sepsis, unspecified organism (principal); N17.0 Acute kidney failure with tubular necrosis; E43 Unspecified severe protein-calorie malnutrition; E87.2 Acidosis; K85.90 Acute pancreatitis without necrosis or infection, unspecified; F72 Severe intellectual disabilities; E87.0 Hyperosmolality and hypernatremia; G80.9 Cerebral palsy, unspecified; N39.0 Urinary tract infection, site not specified; I34.0 Nonrheumatic mitral (valve) insufficiency; D72.829 Elevated white blood cell count, unspecified; F79 Unspecified intellectual disabilities; E87.1 Hypo-osmolality and hyponatremia; D64.9 Anemia, unspecified; I10 Essential (primary) hypertension; K62.1 Rectal polyp; F29 Unspecified psychosis not due to a substance or known physiological condition; K29.70 Gastritis, unspecified, without bleeding; G40.909 Epilepsy, unspecified, not intractable, without status epilepticus; K64.9 Unspecified hemorrhoids; Z68.26 Body mass index [BMI] 26.0-26.9, adult; Z93.1 Gastrostomy status
CPT/HCPCS: 36415-UA; 36600-90; 71045-TC; 76770-TC; 80048-TC; 80053-TC; 80202-TC; 81001-TC; 81015-TC; 82043-90; 82150-TC; 82270-TC; 82570-TC; 82607-90; 82728-90; 82746-90; 82803-TC; 82948-90; 83540-90; 83550-90; 83605; 83690-TC; 83735-TC; 83880-TC; 83935-90; 84100-TC; 84300-TC; 84443-TC; 84550-TC; 85007-TC; 85025-TC; 85610-TC; 86850-TC; 86900-TC; 86901-TC; 86922-TC; 87086-90; 87230-TC; 94760; J0696; J0885; J1953; J2020; J2060; J2543; J2704; J3370; J3480; J7030; J7042; J7070; P9016; X7704; Z7610

== ENCOUNTER 2018-06-16 20:06 | Inpatient (IN) | payer MEDICAID ==
--- NOTE | 2018-06-16 20:26 | ED Physician Chart ---
ED Chief Complaint/HPI - Patient Information Date Seen:: 06/16/18 Time Seen:: 20:23 Chief Complaint:: Abnormal lab results with elevated BUN/Cr and hypernatremia. History of Present Illness:: Brought in by ambulance from nursing facility because pt's lab report from this morning demonstrated increased BUN/Creatinine of 47/1.66, and Na 166. Pt has h/ o cerebral palsy with profound intellectual disability. Pt appears to be comfortable without distress. Pt is alert and reponsive to voice and tactile stimuli. Pt is essentially nonverbal and is not cooperative; thus, H & P are limited. Info is primarily from review of limited transfer documents. Allergies:: Allergies Allergy/AdvReac Type Severity Reaction Status Date / Time No Known Allergies Allergy Verified 05/13/18 01:36 Vitals:: Vital Signs - 8 hr 06/16/18 20:10 Temp 98.2 F HR 115 RR 18 BP 135/81 O2 Sat % 99 Family MD/PCP:: Dr. Dustin Alamo. LMP:: unknown. Review:: Nurse's Note Reviewed, Transfer documents Reviewed ED Review of Systems - Review of Systems General/Constitutional: Other (Pt does not cooperate for ROS.) ED Past Medical History - Past Medical History Past Medical History: Dementia, Other (cerebral palsy, spina bifida, intellectual disability.) Family History: Other (Pt does not cooperate to provide info for FHx.) Social History: Care Facility, Other (Pt does not cooperate to provide info on SHx.) Surgical History: PEG/GTube Psychiatricy History: Dementia Medication: Reviewed Family Medical History - Family Member Mother History Unknown: Yes ED Physical Exam - Physical Examination General/Constitutional: Awake, Well-developed, well-nourished (female), Alert, Non-toxic appearing Other Gen/Cons comments:: Pt breathes comfortably but is not cooperative. Pt responds to voice and tactile stimuli. Head: Atraumatic Eyes: Lids, conjuctiva normal, PERRL, EOMI Other Eyes comments:: Eye exam is limited due to pt 's lack of cooperation. Skin: No rash, No lymphadenopathy Other Skin comments:: Mucous membrane is dry. ENMT: External ears, nose nl, Nasal exam nl, Oropharynx nl Other ENMT comments:: Mucous membrane is dry. Neck: Nontender, Full ROM w/o pain, No JVD, No nuchal rigidity Respiratory: Nl effort/Exclusion, Clear to Auscultation, No Wheeze/Rhonchi/Rales Other Cardio Vascular comments:: Regular rhythm with mild tachycardia. HR 106 GI: No tenderness/rebounding/guarding, No organomegaly, Normal BS's, Nondistended, No mass/bruits Other GI comments:: Gastrostomy tube is noticed at epigastric region. Extremities: No edema Other Neuro/Psych comments:: Alert and responds to voice/tactile stimuli. Spontaneous movements noticed in all 4 extremities. Pt does not cooperate for full neurological exam. ED Labs/Radiology/EKG Results - Lab Results Results: Laboratory Results - last 24 hr 06/16/18 06/16/18 06/16/18 20:40 20:40 20:40 WBC 12.3 H RBC 4.34 Hgb 12.2 Hct 38.9 L MCV 89.6 MCH 28.1 MCHC Differential 31.4 RDW 17.4 Plt Count 261 MPV 9.6 Neutrophils % 68.5 Lymphocytes % 22.3 Monocytes % 6.6 Eosinophils % 2.2 Basophils % 0.4 PT 10.4 INR 1.00 PTT (Actin FS) 34.4 Sodium 164 H* Potassium 3.4 L Chloride 123 H Carbon Dioxide 25.6 Anion Gap 18.8 H BUN 52 H Creatinine 1.8 H Est GFR ( Amer) 45.2 Est GFR (Non-Af Amer) 37.4 BUN/Creatinine Ratio 28.9 Glucose 74 Whole Bld Lactic Acid Calcium 9.9 Total Bilirubin 0.5 AST 25 ALT 14 Alkaline Phosphatase 89 Total Protein 9.3 H Albumin 4.4 Globulin 4.9 Albumin/Globulin Ratio 0.9 L Urine Source Urine Color Urine Clarity Urine pH Ur Specific [place] Urine Protein Urine Glucose (UA) Urine Ketones Urine Blood Urine Nitrate Urine Bilirubin Urine Urobilinogen Ur Leukocyte Esterase Urine RBC Urine WBC Ur Epithelial Cells Urine Bacteria Urine Test 06/16/18 06/16/18 06/16/18 20:40 21:52 21:52 WBC RBC Hgb Hct MCV MCH MCHC Differential RDW Plt Count MPV Neutrophils % Lymphocytes % Monocytes % Eosinophils % Basophils % PT INR PTT (Actin FS) Sodium Potassium Chloride Carbon Dioxide Anion Gap BUN Creatinine Est GFR ( Amer) Est GFR (Non-Af Amer) BUN/Creatinine Ratio Glucose Whole Bld Lactic Acid 1.78 Calcium Total Bilirubin AST ALT Alkaline Phosphatase Total Protein Albumin Globulin Albumin/Globulin Ratio Urine Source [place] Urine Color YELLOW Urine Clarity CLEAR Urine pH 8.0 Ur Specific [place] 1.015 Urine Protein TRACE Urine Glucose (UA) NEGATIVE Urine Ketones NEGATIVE Urine Blood NEGATIVE Urine Nitrate NEGATIVE Urine Bilirubin NEGATIVE Urine Urobilinogen 0.2 Ur Leukocyte Esterase SMALL H Urine RBC 0-2 Urine WBC 6-10 H Ur Epithelial Cells MODERATE Urine Bacteria 1+ H Urine Test NEGATIVE Pending lab results to be followed by admitting attending physician: urine culture. ED Septic Shock - . Is Septic Shock (SBP<90, OR Lactate>4 mmol\L) present?: No - <6hrs of presentation: Vital Signs: Vital Signs - 8 hr 06/16/18 20:10 Temp 98.2 F HR 115 RR 18 BP 135/81 O2 Sat % 99 ED Reassessment (Disposition) - Reassessment Reassessment:: 2225 Pt remains stable and is comfortable. Case was discussed with Dr. Kirby with pertinent info reviewed. Pt is to be admitted to Telemetry [facility] under his care. Reassessment Condition:: Improved - Diagnosis Diagnosis:: Renal insufficiency with dehydration and hypernatremia. Urinary tract infection. H/O cerebral palsy with severe intellectual disability. - Patient Disposition Admitted to:: Telemetry Admitting Medical Physician:: Sunny Kirby Time:: 22:30 Condition at Disposition:: Stable, Improved
[2018-06-16] MEDS ORDERED: Sodium Chloride 0.45% 1,000 ML IV ONE (20:33)
[2018-06-16 20:53] LABS: % BASOPHILS 0.4 % (0.0-2.0); % EOSINOPHILS 2.2 % (0.0-5.0); % LYMPHOCYTES 22.3 % (20.0-50.0); % MONOCYTES 6.6 % (2.0-10.0); % NEUTROPHILS 68.5 % (40.0-80.0); EOSINOPHILE ABSOLUTE 0.3 Th/cmm (0.1-0.4); HEMATOCRIT 38.9 % (41.0-60); HEMOGLOBIN 12.2 gm/dL (12-16); LYMPHOCYTE ABSOLUTE 2.7 Th/cmm (1.5-3.0); MEAN CELL VOLUME 89.6 fl (81-100); MEAN CORPUSCULAR HEMOGLOBIN 28.1 pg (27.0-31.0); MEAN CORPUSCULAR HGB CONC 31.4 pg (28.0-36.0); MEAN PLATELET VOLUME 9.6 fl; MONOCYTE ABSOLUTE 0.8 Th/cmm (0.3-1.0); NEUTROPHILE ABSOLUTE 8.5 Th/cmm (1.8-8.0); PLATELET COUNT 261 Th/cmm (150-400); RED BLOOD COUNT 4.34 Mil/cmm (3.80-5.10); RED CELL DISTRIBUTION WIDTH 17.4 % (11.5-20.0); WHITE BLOOD COUNT 12.3 Th/cmm (4.8-10.8)
[2018-06-16 21:05] LABS: PROTHROMBIN TIME (TEST) 10.4 SECONDS (9.5-11.5)
[2018-06-16 21:09] LABS: ALB/GLOB RATIO 0.9 (1.0-1.8); ALBUMIN 4.4 gm/dL (3.7-5.3); ANION GAP 18.8 (7.0-16.0); BILIRUBIN,TOTAL 0.5 mg/dL (0.3-1.0); CALCIUM SERUM 9.9 mg/dL (8.6-10.3); CARBON DIOXIDE 25.6 mEq/L (21.0-31.0); CREATININE - SERUM 1.8 mg/dL (0.6-1.2); GFR AFRICAN-AMERICAN 45.2 ml/min (>90); GFR NON AFRICAN-AMERICAN 37.4 ml/min; POTASSIUM SERUM 3.4 mEq/L (3.5-5.1); TOTAL PROTEIN,SERUM 9.3 gm/dL (6.0-8.3)
[2018-06-16 21:54] LABS: URINE SOURCE FOLEY PORT
[2018-06-16 21:57] LABS: URINE BILIRUBIN NEGATIVE (NEGATIVE); URINE BLOOD NEGATIVE (NEGATIVE); URINE GLUCOSE (UA) NEGATIVE (NEGATIVE); URINE KETONE NEGATIVE (NEGATIVE); URINE LEUKOCYTE ESTERASE SMALL (NEGATIVE); URINE MICROSCOPIC INDICATED? YES; URINE NITRATE NEGATIVE (NEGATIVE); URINE PROTEIN TRACE mg/dL (NEGATIVE); URINE UROBILINOGEN 0.2 E.U./dL (0.2 - 1.0)
[2018-06-16 21:59] LABS: URINE CLARITY CLEAR (CLEAR); URINE COLOR YELLOW
[2018-06-16 22:01] LABS: URINE BACTERIA 1+ /hpf (NONE SEEN); URINE EPITHELIAL CELLS MODERATE /lpf (FEW); URINE RBC 0-2 /hpf (0-5)
[2018-06-16] MEDS ORDERED: Levofloxacin 500mg/100mL 500 MG/100 ML BAG IV ONE ×2 (22:26→22:33)
[2018-06-16] MEDS ORDERED: Fleet Enema 135 mL RC PRN (23:40)
[2018-06-16] MEDS ORDERED: Magnesium Hydroxide (MOM) 30 mL UDC GT PRN (23:41)
[2018-06-17] MEDS: Sodium Chloride 0.45% 1,000 ML IV SCH ×2 (00:13→11:03)
[2018-06-17] MEDS ORDERED: Pneumococcal Vaccine 0.5 mL Vial IM ONE (01:45)
[2018-06-17 05:02] LABS: % BASOPHILS 0.4 % (0.0-2.0); % EOSINOPHILS 2.9 % (0.0-5.0); % LYMPHOCYTES 22.1 % (20.0-50.0); % MONOCYTES 7.4 % (2.0-10.0); % NEUTROPHILS 67.2 % (40.0-80.0); EOSINOPHILE ABSOLUTE 0.3 Th/cmm (0.1-0.4); HEMATOCRIT 35.4 % (41.0-60); HEMOGLOBIN 11.2 gm/dL (12-16); LYMPHOCYTE ABSOLUTE 2.3 Th/cmm (1.5-3.0); MEAN CELL VOLUME 90.3 fl (81-100); MEAN CORPUSCULAR HEMOGLOBIN 28.5 pg (27.0-31.0); MEAN CORPUSCULAR HGB CONC 31.6 pg (28.0-36.0); MEAN PLATELET VOLUME 10.2 fl; MONOCYTE ABSOLUTE 0.8 Th/cmm (0.3-1.0); NEUTROPHILE ABSOLUTE 7.2 Th/cmm (1.8-8.0); RED BLOOD COUNT 3.92 Mil/cmm (3.80-5.10); RED CELL DISTRIBUTION WIDTH 17.6 % (11.5-20.0); WHITE BLOOD COUNT 10.6 Th/cmm (4.8-10.8)
[2018-06-17 05:50] LABS: PLATELET COUNT 197 Th/cmm (150-400)
[2018-06-17 05:57] LABS: ANION GAP 16.5 (7.0-16.0); CALCIUM SERUM 9.1 mg/dL (8.6-10.3); CARBON DIOXIDE 26.5 mEq/L (21.0-31.0); CREATININE - SERUM 1.7 mg/dL (0.6-1.2); GFR AFRICAN-AMERICAN 48.3 ml/min (>90); GFR NON AFRICAN-AMERICAN 39.9 ml/min
[2018-06-17 07:25] VITALS: BP 114/74
[2018-06-17] MEDS: Ferrous Sulfate 300 MG/5 ML UDC GT SCH ×2 (09:30→16:49)
[2018-06-17] MEDS: Levetiracetam 500 mg/5mL 5mL UDSyr *for ORAL USE ONLY GT SCH ×2 (09:30→16:46)
[2018-06-17] MEDS ORDERED: Potassium Chloride Elixir 20 mEq /15 mL UDC GT ONE (10:36)
--- NOTE | 2018-06-17 15:11 | History & Physical ---
ADMIT DATE: 06/17/2018 CHIEF COMPLAINT: Elevated BUN and creatinine. HISTORY OF PRESENT ILLNESS: This is a 22-year-old female who is a prison resident, admitted to the telemetry unit due to abnormal labs. The patient had a BUN and creatinine of 47 and 1.6 and sodium 166. No reports of any fevers at the prison. For this reason, the patient admitted to the telemetry unit. PAST MEDICAL HISTORY: Cerebral palsy, dementia, spina bifida, intellectual disability. FAMILY HISTORY: Noncontributory. SOCIAL HISTORY: The patient is a prison resident. PAST SURGICAL HISTORY: PEG. MEDICATIONS: See medication list. REVIEW OF SYSTEMS: Unable to obtain due to the patient's mental status. PHYSICAL EXAMINATION: GENERAL: The patient is well developed, well nourished, no apparent distress. VITAL SIGNS: Temperature 98.3, heart rate 61, respirations 18, blood pressure 111/78, O2 is 98%. HEENT: Head normocephalic, atraumatic. NECK: Supple. No mass. LUNGS: Clear bilaterally. HEART: Regular rate and rhythm. ABDOMEN: Soft, nontender. EXTREMITIES: No edema noted. LABORATORY DATA: WBC 10.6, H and H 11.2 and 35.4, platelet of 197. Sodium 162, potassium 3.0, chloride 123, BUN 46, creatinine 1.7. The patient had a urinalysis done, positive for UTI. ASSESSMENT: Acute renal failure secondary to dehydration, acute urinary tract infection, cerebral palsy, spina bifida, intellectual disability. PLAN: The patient to be admitted to the telemetry unit. We will send urine for culture. We will also get Nephrology on the case as well as ID. We will switch the patient's IV fluids to D5W. Treat the patient with IV Levaquin. We will get followup labs. We will continue to monitor this patient. [facility]# [id number]
[2018-06-17] MEDS: Dextrose 5% 1,000 ML IV SCH (16:58)
[2018-06-17] MEDS: Levofloxacin 500mg/100mL 500 MG/100 ML BAG IV SCH (21:01)
[2018-06-18] MEDS: Dextrose 5% 1,000 ML IV SCH ×2 (03:00→17:00)
--- NOTE | 2018-06-18 05:16 | Consultation ---
DATE OF CONSULTATION: 06/17/2018 ATTENDING PHYSICIAN: Dr. Ronaldo Kirby REASON FOR CONSULT: Worsening kidney function, electrolyte imbalance, and fluid management. HISTORY OF PRESENT ILLNESS: This is a 22-year-old female with past medical history of severe intellectual disability, who came in because of abnormal labs. A few hours prior to admission, the patient had labs drawn at the [facility]. This revealed a sodium of 166, potassium of 3.4 and a BUN/creatinine of 47/1.66. She was then transported to the Emergency Room. Her sodium at the Emergency Room was 164 with BUN/creatinine of 52/1.8 and potassium of 3.4. She was then admitted for further management. There was no history of nausea and vomiting, no diarrhea. PAST MEDICAL HISTORY: 1. Severe intellectual disability. 2. Cerebral palsy. 3. Spina bifida. 4. Epilepsy. 5. Cortical blindness. CURRENT MEDICATIONS: She is currently on acetaminophen, Dulcolax, ferrous sulfate, Keppra, levofloxacin, lorazepam, magnesium hydroxide, valproic acid. ALLERGIES: No known drug allergies. SOCIAL AND FAMILY HISTORY: Unable to obtain directly from the patient because she remains nonverbal. REVIEW OF SYSTEMS: Again, I was not able to decipher directly from the patient because of the same reason. PHYSICAL EXAMINATION: GENERAL: The patient is sleeping, but arousable, comfortable, nonverbal. VITAL SIGNS: Her blood pressure was 140/56, pulse 108, temperature 97.3 degrees. SKIN: Poor turgor, warm, no rash, no jaundice appreciated. HEENT: Head normocephalic, atraumatic. Eyes: Unable to assess her extraocular muscles. Pupils are equal, round, reactive to light and accommodates. Anicteric sclerae. Pale conjunctivae. Nose: Midline nasal septum. Mouth: Dry mucosa. Poor dentition. NECK: Supple, no adenopathy, no thyromegaly, no bruits. Trachea palpated in the midline. CHEST AND CARDIOVASCULAR: S1, S2. No rub, murmur nor gallop appreciated. Point of maximal impulse fifth intercostal space, left midclavicular line. No abdominal or femoral bruits appreciated. LUNGS: Equal expansion. No use of accessory muscles. No supraclavicular retractions. Decreased breath sounds, few rhonchi, but no rales nor wheezes appreciated. BREASTS: Symmetrical, without any discharge. ABDOMEN: Mildly globular, soft. Positive for bowel sounds. No bruits either diastolic or systolic. RECTAL: Lax sphincter tone. GENITOURINARY: Normal appearing female genitalia. MUSCULOSKELETAL: No effusions present in her joints, but unable to assess her range of motion. EXTREMITIES: No evidence of edema, cyanosis or clubbing with palpable femoral, but unable to fully appreciate popliteal and dorsalis pedis pulses because of contracted lower extremities. NEUROLOGIC: As mentioned, the patient is asleep, so I was not able to pursue further my neuro exam. LABORATORY AND DIAGNOSTIC DATA: Labs did reveal white count 10.6, hemoglobin 11.2, hematocrit 35.4, platelets 197. Sodium 163, potassium 3, chloride 123, BUN 46, creatinine 1.7, calcium 9.1, albumin 4.4. IMPRESSION: 1. Hypernatremia with concomitant hypokalemia, possibility of Iberia syndrome should be considered in this case. 2. Acute kidney injury. Prerenal azotemia is the initial reason for her kidney failure. Although the patient has gastrostomy tube feeding with water flushes, these were not enough to replenish both sensible and insensible fluid losses. This was supported by poor skin turgor with dry oral mucosa on physical exam. Her prerenal azotemia eventually progressed to acute tubular injury. Because of the very large BUN to creatinine ratio, the possibility of gastrointestinal bleed should be considered, but I doubt this with very stable hemoglobin, hematocrit and no evidence of coffee-ground vomitus. 3. Severe intellectual disability. 4. Cerebral palsy. 5. Spina bifida. 6. Epilepsy. 7. Cortical blindness. PLAN: 1. Continue with D5W. 2. Replace potassium. 3. Urine sodium, eosinophils, and creatinine. 4. Renal ultrasound. 5. Follow up electrolytes, CBC, uric acid, aldosterone, and cortisol level. [facility]# [id number]
[2018-06-18 06:32] LABS: % BASOPHILS 0.5 % (0.0-2.0); % EOSINOPHILS 3.2 % (0.0-5.0); % LYMPHOCYTES 17.4 % (20.0-50.0); % MONOCYTES 6.6 % (2.0-10.0); % NEUTROPHILS 72.3 % (40.0-80.0); BASOPHILE ABSOLUTE 0.1 Th/cumm (0-0.2); EOSINOPHILE ABSOLUTE 0.3 Th/cmm (0.1-0.4); HEMATOCRIT 35.3 % (41.0-60); HEMOGLOBIN 11.3 gm/dL (12-16); LYMPHOCYTE ABSOLUTE 1.9 Th/cmm (1.5-3.0); MEAN CELL VOLUME 90.1 fl (81-100); MEAN CORPUSCULAR HEMOGLOBIN 28.9 pg (27.0-31.0); MEAN CORPUSCULAR HGB CONC 32.1 pg (28.0-36.0); MEAN PLATELET VOLUME 9.9 fl; MONOCYTE ABSOLUTE 0.7 Th/cmm (0.3-1.0); NEUTROPHILE ABSOLUTE 7.7 Th/cmm (1.8-8.0); PLATELET COUNT 185 Th/cmm (150-400); RED BLOOD COUNT 3.91 Mil/cmm (3.80-5.10); RED CELL DISTRIBUTION WIDTH 17.7 % (11.5-20.0); WHITE BLOOD COUNT 10.7 Th/cmm (4.8-10.8)
[2018-06-18 06:39] LABS: ANION GAP 15.7 (7.0-16.0); BUN - UREA NITROGEN 32 mg/dL (7-25); CALCIUM SERUM 9.8 mg/dL (8.6-10.3); CARBON DIOXIDE 22.7 mEq/L (21.0-31.0); CHLORIDE 124 mEq/L (98-107); CREATININE - SERUM 1.4 mg/dL (0.6-1.2); GFR AFRICAN-AMERICAN > 60.0 ml/min (>90); GLUCOSE 108 mg/dL (70-105); MAGNESIUM 2.9 mg/dL (1.9-2.7); PHOSPHOROUS 3.3 mg/dL (2.5-5.0); POTASSIUM SERUM 3.4 mEq/L (3.5-5.1); URIC ACID 8.2 mg/dL (2.3-6.6)
[2018-06-18 06:46] LABS: SODIUM SERUM 159 mEq/L (136-145)
[2018-06-18] MEDS: Ferrous Sulfate 300 MG/5 ML UDC GT SCH ×2 (09:20→16:58)
[2018-06-18] MEDS: Levetiracetam 500 mg/5mL 5mL UDSyr *for ORAL USE ONLY GT SCH ×2 (09:21→16:58)
[2018-06-18] MEDS ORDERED: KCL 20mEq/100mL Premix 20 MEQ/100 ML PIGGYBACK IV ONE (10:04)
--- NOTE | 2018-06-18 12:36 | Diagnostic Imaging Report ---
Renal ultrasound HISTORY: Abnormal renal function test The right kidney is normal in size (10.7 x 4.9 x 5.8 cm). Normal cortical contour and echogenicity. No focal lesions. No hydronephrosis. The left kidney is normal in size (11.5 x 5.2 x 5.4 cm). No focal lesions. No hydronephrosis. The urinary bladder cannot be evaluated due to lack of distention associated with a Brunner catheter. IMPRESSION: Negative examination of the kidneys
--- NOTE | 2018-06-18 13:03 | General Progress Note ---
Subjective - Review of Systems Service Date: 06/18/18 Subjective: awake, comfortable Objective - Results Result Diagrams: 06/18/18 05:50 06/18/18 05:50 Recent Labs: Laboratory Last Values WBC 10.7 Th/cmm (4.8-10.8) 06/18/18 05:50 RBC 3.91 Mil/cmm (3.80-5.10) 06/18/18 05:50 Hgb 11.3 gm/dL (12-16) L 06/18/18 05:50 Hct 35.3 % (41.0-60) L 06/18/18 05:50 MCV 90.1 fl (81-100) 06/18/18 05:50 MCH 28.9 pg (27.0-31.0) 06/18/18 05:50 MCHC Differential 32.1 pg (28.0-36.0) 06/18/18 05:50 RDW 17.7 % (11.5-20.0) 06/18/18 05:50 Plt Count 185 Th/cmm (150-400) 06/18/18 05:50 MPV 9.9 fl 06/18/18 05:50 Neutrophils % 72.3 % (40.0-80.0) 06/18/18 05:50 Lymphocytes % 17.4 % (20.0-50.0) L 06/18/18 05:50 Monocytes % 6.6 % (2.0-10.0) 06/18/18 05:50 Eosinophils % 3.2 % (0.0-5.0) 06/18/18 05:50 Basophils % 0.5 % (0.0-2.0) 06/18/18 05:50 PT 10.4 SECONDS (9.5-11.5) 06/16/18 20:40 INR 1.00 (0.5-1.4) 06/16/18 20:40 PTT (Actin FS) 34.4 SECONDS (26.0-38.0) 06/16/18 20:40 Sodium 159 mEq/L (136-145) H* 06/18/18 05:50 Potassium 3.4 mEq/L (3.5-5.1) L 06/18/18 05:50 Chloride 124 mEq/L (98-107) H 06/18/18 05:50 Carbon Dioxide 22.7 mEq/L (21.0-31.0) 06/18/18 05:50 Anion Gap 15.7 (7.0-16.0) 06/18/18 05:50 BUN 32 mg/dL (7-25) H 06/18/18 05:50 Creatinine 1.4 mg/dL (0.6-1.2) H 06/18/18 05:50 Est GFR ( Amer) > 60.0 ml/min (>90) 06/18/18 05:50 Est GFR (Non-Af Amer) 50.0 ml/min 06/18/18 05:50 BUN/Creatinine Ratio 22.9 06/18/18 05:50 Glucose 108 mg/dL (70-105) H 06/18/18 05:50 POC Glucose 92 MG/DL (70 - 105) 06/17/18 06:26 Whole Bld Lactic Acid 1.78 mmol/L (0.60-1.99) 06/16/18 20:40 Uric Acid 8.2 mg/dL (2.3-6.6) H 06/18/18 05:50 Calcium 9.8 mg/dL (8.6-10.3) 06/18/18 05:50 Phosphorus 3.3 mg/dL (2.5-5.0) 06/18/18 05:50 Magnesium 2.9 mg/dL (1.9-2.7) H 06/18/18 05:50 Total Bilirubin 0.5 mg/dL (0.3-1.0) 06/16/18 20:40 AST 25 U/L (13-39) 06/16/18 20:40 ALT 14 U/L (7-52) 06/16/18 20:40 Alkaline Phosphatase 89 U/L (34-104) 06/16/18 20:40 Total Protein 9.3 gm/dL (6.0-8.3) H 06/16/18 20:40 Albumin 4.4 gm/dL (3.7-5.3) 06/16/18 20:40 Globulin 4.9 gm/dL 06/16/18 20:40 Albumin/Globulin Ratio 0.9 (1.0-1.8) L 06/16/18 20:40 Urine Source [place] 06/16/18 21:52 Urine Color YELLOW 06/16/18 21:52 Urine Clarity CLEAR (CLEAR) 06/16/18 21:52 Urine pH 8.0 (4.6 - 8.0) 06/16/18 21:52 Ur Specific Levels 1.015 (1.005-1.030) 06/16/18 21:52 Urine Protein TRACE mg/dL (NEGATIVE) 06/16/18 21:52 Urine Glucose (UA) NEGATIVE mg/dL (NEGATIVE) 06/16/18 21:52 Urine Ketones NEGATIVE mg/dL (NEGATIVE) 06/16/18 21:52 Urine Blood NEGATIVE (NEGATIVE) 06/16/18 21:52 Urine Nitrate NEGATIVE (NEGATIVE) 06/16/18 21:52 Urine Bilirubin NEGATIVE (NEGATIVE) 06/16/18 21:52 Urine Urobilinogen 0.2 E.U./dL (0.2 - 1.0) 06/16/18 21:52 Ur Leukocyte Esterase SMALL (NEGATIVE) H 06/16/18 21:52 Urine RBC 0-2 /hpf (0-5) 06/16/18 21:52 Urine WBC 6-10 /hpf (0-5) H 06/16/18 21:52 Ur Epithelial Cells MODERATE /lpf (FEW) 06/16/18 21:52 Urine Bacteria 1+ /hpf (NONE SEEN) H 06/16/18 21:52 Urine Test NEGATIVE 06/16/18 21:52 - Physical Exam Vitals and I&O: Vital Signs Temp 97.7 F 06/18/18 12:00 Pulse 106 06/18/18 12:00 Resp 19 06/18/18 12:00 BP 114/72 06/18/18 12:00 Pulse Ox 97 06/18/18 12:00 Intake & Output 06/17/18 06/18/18 06/18/18 18:59 06:59 18:59 Intake Total 1000 1000 Output Total 1999 Balance -1000 1000 Weight (lbs) 53.524 kg Intake: Intake, IV Amount 1000 1000 Dextrose 5% 1,000 ml @ 1000 100 mls/hr IV .Q10H [facility] Rx#:[id number] Sodium Chloride 0.45% 1, 1000 000 ml @ 125 mls/hr IV . Q8H [facility] Rx#:[id number] Output: Urine 1999 Other: Weight Source Bedscale Active Medications: Current Medications Acetaminophen (Tylenol) 650 mg GT Q4HR PRN PRN Reason: Pain or Fever >101 Stop: 08/15/18 23:39 Bisacodyl (Dulcolax 10 Mg Supp) 10 mg RC DAILY PRN PRN Reason: Constipation Stop: 08/15/18 23:39 Ferrous Sulfate (Iron) 450 mg GT BID [facility] Stop: 08/16/18 08:59 Last Admin: 06/18/18 09:20 Dose: 450 mg Levofloxacin (Levaquin Pb) 500 mg in 100 mls @ 100 mls/hr IV Q24HR [facility] Stop: 08/16/18 21:59 Last Admin: 06/17/18 21:01 Dose: 100 mls/hr Dextrose (D5w) 1,000 mls @ 100 mls/hr IV .Q10H [facility] Stop: 08/16/18 14:59 Last Admin: 06/18/18 03:00 Dose: 100 mls/hr Levetiracetam (Keppra) 500 mg GT BID [facility] Stop: 08/16/18 08:59 Last Admin: 06/18/18 09:21 Dose: 500 mg Lorazepam (Ativan) 1 mg IV Q4HR PRN; Protocol PRN Reason: Agitation Stop: 08/15/18 23:47 Last Admin: 06/17/18 00:11 Dose: 1 mg Magnesium Hydroxide (Milk Of Magnesia) 30 ml GT Q72HR PRN PRN Reason: Constipation Stop: 08/15/18 23:40 Potassium Chloride (Potassium Chloride Elixir) 20 meq GT DAILY [facility] Stop: 08/18/18 08:59 Sodium Phosphate (Fleet Enema) 135 ml RC Q96HR PRN PRN Reason: Constipation Stop: 08/15/18 23:39 Valproate Sodium (Depakene) 500 mg GT BID [facility]; Protocol Stop: 08/16/18 00:00 Last Admin: 06/18/18 09:21 Dose: 500 mg General: Alert, No acute distress HEENT: Atraumatic, EOMI, Mucous membr. moist/pink Neck: Supple, +2 carotid pulse wo bruit Cardiovascular: Regular rate, Normal S1, Normal S2 Lungs: Clear to auscultation Abdomen: Bowel sounds, Soft Extremities: no Edema Neurological: Sensation intact Skin: no Rash Psych/Mental Status: Mood NL - Procedures Procedures: Procedures Procedure Code Date EXCISION OF DUODENUM, ENDO, DIAGN [id number] 05/13/18 EXCISION OF RECTUM, ENDO, DIAGN [id number] 05/13/18 EXCISION OF STOMACH, PYLORUS, ENDO, DIAGN [id number] 05/13/18 TRANSFUSE NONAUT RED BLOOD CELLS IN PERIPH VEIN, PERC 01104J8 05/13/18 Assessment/Plan - Assessment Assessment: Hypernatremia JAYLIN Severe ID Cerebral Palsy Spina Bifida Epilepsy Cortical Blindness - Plan Plan: Lab - Result Diagrams 06/18/18 05:50 06/18/18 05:50 Current Medications Acetaminophen (Tylenol) 650 mg GT Q4HR PRN PRN Reason: Pain or Fever >101 Stop: 08/15/18 23:39 Bisacodyl (Dulcolax 10 Mg Supp) 10 mg RC DAILY PRN PRN Reason: Constipation Stop: 08/15/18 23:39 Ferrous Sulfate (Iron) 450 mg GT BID [facility] Stop: 08/16/18 08:59 Last Admin: 06/18/18 09:20 Dose: 450 mg Levofloxacin (Levaquin Pb) 500 mg in 100 mls @ 100 mls/hr IV Q24HR [facility] Stop: 08/16/18 21:59 Last Admin: 06/17/18 21:01 Dose: 100 mls/hr Dextrose (D5w) 1,000 mls @ 100 mls/hr IV .Q10H [facility] Stop: 08/16/18 14:59 Last Admin: 06/18/18 03:00 Dose: 100 mls/hr Levetiracetam (Keppra) 500 mg GT BID [facility] Stop: 08/16/18 08:59 Last Admin: 06/18/18 09:21 Dose: 500 mg Lorazepam (Ativan) 1 mg IV Q4HR PRN; Protocol PRN Reason: Agitation Stop: 08/15/18 23:47 Last Admin: 06/17/18 00:11 Dose: 1 mg Magnesium Hydroxide (Milk Of Magnesia) 30 ml GT Q72HR PRN PRN Reason: Constipation Stop: 08/15/18 23:40 Potassium Chloride (Potassium Chloride Elixir) 20 meq GT DAILY [facility] Stop: 08/18/18 08:59 Sodium Phosphate (Fleet Enema) 135 ml RC Q96HR PRN PRN Reason: Constipation Stop: 08/15/18 23:39 Valproate Sodium (Depakene) 500 mg GT BID [facility]; Protocol Stop: 08/16/18 00:00 Last Admin: 06/18/18 09:21 Dose: 500 mg Lab - Result Diagrams 06/18/18 05:50 06/18/18 05:50 Kidney fnc better w/ BUN/CR of 32/1.4 Na was 159 replace K continue IVF Nutritional Asmnt/Malnutr-PDOC - Dietary Evaluation Malnutrition Findings (Please click <Entered> for more info): Nutritional Asmnt/Malnutrition Start: 06/17/18 17: 42 Text: Status: Active Freq: Protocol: Document 06/17/18 17:44 MBONUS (Rec: 06/17/18 17:56 [id number] [id number]) Nutritional Asmnt/Malnutrition Patient General Information Nutritional Screening High Risk Diagnosis RENAL FAILURE, UTI, DEHYDRATION Pertinent Medical Hx/Surgical Hx CEREBRAL PALSY, DEMENTIA, SPINA BIFIDA, INTELLECTUAL DISABILITY Subjective Information HIGH RISK INITIAL NUTRITION SCREENING FOR ENTERAL NUTRITION SUPPORT . PATIENT IS A 22 Y/O FEMALE FROM ALF ADMITTED ON 06/16/2018 WITH RENAL FAILURE, UTI, DEHYDRATION. BMI: 23.2 KG/M2 (NORMAL) IBW: 50 KG %IBW: 115% CURRENT DIET: JEVITY 1.2 @ 60 ML/HR X 20 HRS/DAY DIET PRIOR TO ADMISSION: GTF CURRENT TF IS PROVIDING 1440 KCALS AND 67 GM PRO/DAY, TO MEET 100% EST KCAL AND 116% EST PRO NEEDS/DAY Current Diet Order/ Nutrition Support JEVITY 1.2 @ 60 ML/HR X 20 HRS /DAY Patient / S.O Can't verbalize diet edu Pertinent Medications DULCOLAX, IRON, KEPPRA, MOM Pertinent Labs HGB/HCT 11.2/35.4, NA 163, POTASS 3, BUN/CR 46/1.7 Estimated Nutritional Goals BEE in Kcals: Using Current wt Calories/Kcals/Kg 25-30 Kcals Calculated 5984-2670 Protein: Using Current wt Protein g/k.8-1 Protein Calculated 46-58 Fluid: ml PER MD Nutritional Problem 1. Problem Problem INADEQUATE ORAL INTAKE Etiology R/T MEDICAL CONDITION Signs/Symptoms: AEB ENTERAL NUTRITION SUPPORT Intervention/Recommendation Comments CURRENT TF IS PROVIDING 1440 KCALS AND 67 GM PRO/DAY, TO MEET 100% EST KCAL AND 116% EST PRO NEEDS/DAY RD TO FOLLOW-UP IN 2-3 DAYS PATIENT IS HIGH RISK. Expected Outcomes/Goals Expected Outcomes/Goals PT TO RECEIVE >90-100% ESTIMATED ENERGY AND PROTEIN VIA GTF DIETITIAN WILL MONITOR NUTRITION SUPPORT, NUTRITION- RELATED LABS TRENDING WNL, SKIN INTEGRITY, WEIGHTS, GI FUNCTION. DISCHARGE PLAN:CURRENT DIET REFLECTS PAST MEDICAL HISTORY AND IS APPROPRIATE FOR DISCHARGE.
--- NOTE | 2018-06-18 19:48 | Internal Medicine Prog Note ---
Internal Medicine Subjective - Subjective Service Date: 06/18/18 Patient seen and examined:: with staff, chart reviewed Patient is:: awake, in bed, other (Severe ID, hx of cerbral palsy.) Patient Complaints of:: other (Spina bifida.) Per staff patient has:: no adverse event, no episodes of fall Internal Medicine Objective - Results Result Diagrams: 06/18/18 05:50 06/18/18 05:50 Recent Labs: Laboratory Last Values WBC 10.7 Th/cmm (4.8-10.8) 06/18/18 05:50 RBC 3.91 Mil/cmm (3.80-5.10) 06/18/18 05:50 Hgb 11.3 gm/dL (12-16) L 06/18/18 05:50 Hct 35.3 % (41.0-60) L 06/18/18 05:50 MCV 90.1 fl (81-100) 06/18/18 05:50 MCH 28.9 pg (27.0-31.0) 06/18/18 05:50 MCHC Differential 32.1 pg (28.0-36.0) 06/18/18 05:50 RDW 17.7 % (11.5-20.0) 06/18/18 05:50 Plt Count 185 Th/cmm (150-400) 06/18/18 05:50 MPV 9.9 fl 06/18/18 05:50 Neutrophils % 72.3 % (40.0-80.0) 06/18/18 05:50 Lymphocytes % 17.4 % (20.0-50.0) L 06/18/18 05:50 Monocytes % 6.6 % (2.0-10.0) 06/18/18 05:50 Eosinophils % 3.2 % (0.0-5.0) 06/18/18 05:50 Basophils % 0.5 % (0.0-2.0) 06/18/18 05:50 PT 10.4 SECONDS (9.5-11.5) 06/16/18 20:40 INR 1.00 (0.5-1.4) 06/16/18 20:40 PTT (Actin FS) 34.4 SECONDS (26.0-38.0) 06/16/18 20:40 Sodium 159 mEq/L (136-145) H* 06/18/18 05:50 Potassium 3.4 mEq/L (3.5-5.1) L 06/18/18 05:50 Chloride 124 mEq/L (98-107) H 06/18/18 05:50 Carbon Dioxide 22.7 mEq/L (21.0-31.0) 06/18/18 05:50 Anion Gap 15.7 (7.0-16.0) 06/18/18 05:50 BUN 32 mg/dL (7-25) H 06/18/18 05:50 Creatinine 1.4 mg/dL (0.6-1.2) H 06/18/18 05:50 Est GFR ( Amer) > 60.0 ml/min (>90) 06/18/18 05:50 Est GFR (Non-Af Amer) 50.0 ml/min 06/18/18 05:50 BUN/Creatinine Ratio 22.9 06/18/18 05:50 Glucose 108 mg/dL (70-105) H 06/18/18 05:50 POC Glucose 92 MG/DL (70 - 105) 06/17/18 06:26 Whole Bld Lactic Acid 1.78 mmol/L (0.60-1.99) 06/16/18 20:40 Uric Acid 8.2 mg/dL (2.3-6.6) H 06/18/18 05:50 Calcium 9.8 mg/dL (8.6-10.3) 06/18/18 05:50 Phosphorus 3.3 mg/dL (2.5-5.0) 06/18/18 05:50 Magnesium 2.9 mg/dL (1.9-2.7) H 06/18/18 05:50 Total Bilirubin 0.5 mg/dL (0.3-1.0) 06/16/18 20:40 AST 25 U/L (13-39) 06/16/18 20:40 ALT 14 U/L (7-52) 06/16/18 20:40 Alkaline Phosphatase 89 U/L (34-104) 06/16/18 20:40 Total Protein 9.3 gm/dL (6.0-8.3) H 06/16/18 20:40 Albumin 4.4 gm/dL (3.7-5.3) 06/16/18 20:40 Globulin 4.9 gm/dL 06/16/18 20:40 Albumin/Globulin Ratio 0.9 (1.0-1.8) L 06/16/18 20:40 Urine Source [place] 06/16/18 21:52 Urine Color YELLOW 06/16/18 21:52 Urine Clarity CLEAR (CLEAR) 06/16/18 21:52 Urine pH 8.0 (4.6 - 8.0) 06/16/18 21:52 Ur Specific [place] 1.015 (1.005-1.030) 06/16/18 21:52 Urine Protein TRACE mg/dL (NEGATIVE) 06/16/18 21:52 Urine Glucose (UA) NEGATIVE mg/dL (NEGATIVE) 06/16/18 21:52 Urine Ketones NEGATIVE mg/dL (NEGATIVE) 06/16/18 21:52 Urine Blood NEGATIVE (NEGATIVE) 06/16/18 21:52 Urine Nitrate NEGATIVE (NEGATIVE) 06/16/18 21:52 Urine Bilirubin NEGATIVE (NEGATIVE) 06/16/18 21:52 Urine Urobilinogen 0.2 E.U./dL (0.2 - 1.0) 06/16/18 21:52 Ur Leukocyte Esterase SMALL (NEGATIVE) H 06/16/18 21:52 Urine RBC 0-2 /hpf (0-5) 06/16/18 21:52 Urine WBC 6-10 /hpf (0-5) H 06/16/18 21:52 Ur Epithelial Cells MODERATE /lpf (FEW) 06/16/18 21:52 Urine Bacteria 1+ /hpf (NONE SEEN) H 06/16/18 21:52 Urine Test NEGATIVE 06/16/18 21:52 - Physical Exam Vitals and I&O: Vital Signs Temp 98.1 F 06/18/18 16:00 Pulse 96 06/18/18 16:00 Resp 19 06/18/18 16:00 BP 120/79 06/18/18 16:00 Pulse Ox 97 06/18/18 15:58 Intake & Output 06/18/18 06/18/18 06/19/18 06:59 18:59 06:59 Intake Total 1000 1000 Balance 1000 1000 Intake: Intake, IV Amount 1000 1000 Dextrose 5% 1,000 ml @ 1000 1000 100 mls/hr IV .Q10H [facility] Rx#:[id number] Active Medications: Current Medications Acetaminophen (Tylenol) 650 mg GT Q4HR PRN PRN Reason: Pain or Fever >101 Stop: 08/15/18 23:39 Bisacodyl (Dulcolax 10 Mg Supp) 10 mg RC DAILY PRN PRN Reason: Constipation Stop: 08/15/18 23:39 Ferrous Sulfate (Iron) 450 mg GT BID [facility] Stop: 08/16/18 08:59 Last Admin: 06/18/18 16:58 Dose: 450 mg Levofloxacin (Levaquin Pb) 500 mg in 100 mls @ 100 mls/hr IV Q24HR [facility] Stop: 08/16/18 21:59 Last Admin: 06/17/18 21:01 Dose: 100 mls/hr Dextrose (D5w) 1,000 mls @ 100 mls/hr IV .Q10H [facility] Stop: 08/16/18 14:59 Last Admin: 06/18/18 17:00 Dose: 100 mls/hr Levetiracetam (Keppra) 500 mg GT BID [facility] Stop: 08/16/18 08:59 Last Admin: 06/18/18 16:58 Dose: 500 mg Lorazepam (Ativan) 1 mg IV Q4HR PRN; Protocol PRN Reason: Agitation Stop: 08/15/18 23:47 Last Admin: 06/17/18 00:11 Dose: 1 mg Magnesium Hydroxide (Milk Of Magnesia) 30 ml GT Q72HR PRN PRN Reason: Constipation Stop: 08/15/18 23:40 Potassium Chloride (Potassium Chloride Elixir) 20 meq GT DAILY [facility] Stop: 08/18/18 08:59 Sodium Phosphate (Fleet Enema) 135 ml RC Q96HR PRN PRN Reason: Constipation Stop: 08/15/18 23:39 Valproate Sodium (Depakene) 500 mg GT BID [facility]; Protocol Stop: 08/16/18 00:00 Last Admin: 06/18/18 16:58 Dose: 500 mg Physical Exam: 22 y/o female patient has hx of cerebral palsy and has severe Intellectual disability. General: weak, demented HEENT: NC/AT Neck: Supple Lungs: CTAB Cardiovascular: Normal S1 Abdomen: soft, non-tender Extremities: clear Neurological: no change, muscle weakness - Procedures Procedures: Procedures Procedure Code Date EXCISION OF DUODENUM, ENDO, DIAGN [id number] 05/13/18 EXCISION OF RECTUM, ENDO, DIAGN [id number] 05/13/18 EXCISION OF STOMACH, PYLORUS, ENDO, DIAGN [id number] 05/13/18 TRANSFUSE NONAUT RED BLOOD CELLS IN PERIPH VEIN, PERC 11852D4 05/13/18 Internal Medicine Assmt/Plan - Assessment Assessment: Hyponatremia. Severe ID. Crebral palsy. Spina bifida. Epilepsy. UTI. Cortical blindness. - Plan Plan: Continuation of care. Monitor vitals, diet and Labs. Continue present meds as directed. Monitor mental status progression. Monitor behavioral health status. Pain Management. Safety precaution. Supportive care. Fall precaution, frequent nursing rounds, and as needed restraints to prevent fall. CPM Nutritional Asmnt/Malnutr-PDOC - Dietary Evaluation Malnutrition Findings (Please click <Entered> for more info): Nutritional Asmnt/Malnutrition Start: 06/17/18 17: 42 Text: Status: Active Freq: Protocol: Document 06/17/18 17:44 MBONUS (Rec: 06/17/18 17:56 [email or web address] [id number]) Nutritional Asmnt/Malnutrition Patient General Information Nutritional Screening High Risk Diagnosis RENAL FAILURE, UTI, DEHYDRATION Pertinent Medical Hx/Surgical Hx CEREBRAL PALSY, DEMENTIA, SPINA BIFIDA, INTELLECTUAL DISABILITY Subjective Information HIGH RISK INITIAL NUTRITION SCREENING FOR ENTERAL NUTRITION SUPPORT . PATIENT IS A 22 Y/O FEMALE FROM [facility] ADMITTED ON 06/16/2018 WITH RENAL FAILURE, UTI, DEHYDRATION. BMI: 23.2 KG/M2 (NORMAL) IBW: 50 KG %IBW: 115% CURRENT DIET: JEVITY 1.2 @ 60 ML/HR X 20 HRS/DAY DIET PRIOR TO ADMISSION: GTF CURRENT TF IS PROVIDING 1440 KCALS AND 67 GM PRO/DAY, TO MEET 100% EST KCAL AND 116% EST PRO NEEDS/DAY Current Diet Order/ Nutrition Support JEVITY 1.2 @ 60 ML/HR X 20 HRS /DAY Patient / S.O Can't verbalize diet edu Pertinent Medications DULCOLAX, IRON, KEPPRA, MOM Pertinent Labs HGB/HCT 11.2/35.4, NA 163, POTASS 3, BUN/CR 46/1.7 Estimated Nutritional Goals BEE in Kcals: Using Current wt Calories/Kcals/Kg 25-30 Kcals Calculated 9907-3800 Protein: Using Current wt Protein g/k.8-1 Protein Calculated 46-58 Fluid: ml PER MD Nutritional Problem 1. Problem Problem INADEQUATE ORAL INTAKE Etiology R/T MEDICAL CONDITION Signs/Symptoms: AEB ENTERAL NUTRITION SUPPORT Intervention/Recommendation Comments CURRENT TF IS PROVIDING 1440 KCALS AND 67 GM PRO/DAY, TO MEET 100% EST KCAL AND 116% EST PRO NEEDS/DAY RD TO FOLLOW-UP IN 2-3 DAYS PATIENT IS HIGH RISK. Expected Outcomes/Goals Expected Outcomes/Goals PT TO RECEIVE >90-100% ESTIMATED ENERGY AND PROTEIN VIA GTF DIETITIAN WILL MONITOR NUTRITION SUPPORT, NUTRITION- RELATED LABS TRENDING WNL, SKIN INTEGRITY, WEIGHTS, GI FUNCTION. DISCHARGE PLAN:CURRENT DIET REFLECTS PAST MEDICAL HISTORY AND IS APPROPRIATE FOR DISCHARGE.
[2018-06-18] MEDS: Levofloxacin 500mg/100mL 500 MG/100 ML BAG IV SCH (21:00)
--- NOTE | 2018-06-18 23:19 | Consultation ---
DATE OF CONSULTATION: 06/18/2018 INFECTIOUS DISEASE CONSULTATION REFERRING PHYSICIAN: Sherrell Kirby M.D. REASON FOR CONSULTATION: UTI. HISTORY OF PRESENT ILLNESS: The patient is a 22-year-old female with past medical history of mental retardation, cerebral palsy, seizure disorder, and blindness, recently discharged with a diagnoses of leukocytosis, UTI, and lactic acidosis, which are improved. At this time, she came back again for abnormal lab results including elevation in BUN and creatinine. Her BUN was 1.8 with a baseline being 0.5. Further evaluation showed UTI. ID consult was called for further antibiotic management. Meanwhile, the patient was started on Levaquin. PAST MEDICAL HISTORY: Includes mental retardation, cerebral palsy, seizure disorder, and blindness. MEDICATIONS: As per medication reconciliation sheet. Antibiotic mooney, the patient is on Levaquin. ALLERGIES: NKDA. SOCIAL HISTORY: The patient lives in a nursing facility. No history of smoking, alcohol, or drug use. REVIEW OF SYSTEMS: In general, the patient has no fever, no chill; although, the patient is unable to give any history because of mental retardation. PHYSICAL EXAMINATION: GENERAL: The patient is comfortable, lying in bed, not in acute distress. The patient is sleeping most of the time. VITAL SIGNS: Show temperature is 97.7, pulse is 106, respirations 19, blood pressure is 114/72, and oxygen saturation is 97%. HEENT: Head is normocephalic, atraumatic. Oral cavity is moist, pink tongue. Eyes: Pallor is present. NECK: Supple, no JVD, no carotid bruit. Trachea in midline. CHEST: Bilateral breath sounds. No crackles or wheezing. HEART: S1, S2 within normal limits. Regular rhythm. No murmur, no gallop. ABDOMEN: Soft, nontender, nondistended. Bowel sounds present. EXTREMITIES: No cyanosis, no clubbing, no edema. NEUROLOGIC: She is alert, awake, and oriented x 3. LABORATORY DATA: Current lab shows WBC count is 10,700, hemoglobin is 11.3, hematocrit is ____, platelets 185,000, and neutrophils 72.3%. INR is 1.0. Sodium is 159, potassium is 3.4, chloride is 124, bicarbonate is 23, BUN is 32, creatinine is 1.4, improving; glucose is 108. DIAGNOSTIC DATA: Renal ultrasound is negative. IMPRESSION: 1. Urinary tract infection. 2. Leukocytosis, improved. 3. Renal insufficiency secondary to dehydration. 4. Hypernatremia. 5. Cerebral palsy. 6. Mental retardation. RECOMMENDATIONS: Continue Levaquin at this time. May change to p.o. to complete 7-day therapy. May change antibiotic according to the culture report. Thank you, Dr. Sherrell Kirby, for involving me in taking care of this patient. [facility]# [id number]
[2018-06-19] MEDS: Dextrose 5% 1,000 ML IV SCH (02:23)
[2018-06-19 05:44] LABS: % BASOPHILS 0.9 % (0.0-2.0); % EOSINOPHILS 3.5 % (0.0-5.0); % LYMPHOCYTES 16.4 % (20.0-50.0); % NEUTROPHILS 73.2 % (40.0-80.0); BASOPHILE ABSOLUTE 0.1 Th/cumm (0-0.2); EOSINOPHILE ABSOLUTE 0.3 Th/cmm (0.1-0.4); HEMOGLOBIN 10.5 gm/dL (12-16); LYMPHOCYTE ABSOLUTE 1.4 Th/cmm (1.5-3.0); MEAN CELL VOLUME 91.2 fl (81-100); MEAN CORPUSCULAR HEMOGLOBIN 29.1 pg (27.0-31.0); MEAN CORPUSCULAR HGB CONC 31.9 pg (28.0-36.0); MEAN PLATELET VOLUME 10.2 fl; MONOCYTE ABSOLUTE 0.5 Th/cmm (0.3-1.0); NEUTROPHILE ABSOLUTE 6.4 Th/cmm (1.8-8.0); PLATELET COUNT 153 Th/cmm (150-400); RED BLOOD COUNT 3.62 Mil/cmm (3.80-5.10); RED CELL DISTRIBUTION WIDTH 16.6 % (11.5-20.0); WHITE BLOOD COUNT 8.7 Th/cmm (4.8-10.8)
[2018-06-19 06:03] LABS: ANION GAP 13.9 (7.0-16.0); BUN - UREA NITROGEN 22 mg/dL (7-25); CALCIUM SERUM 9.3 mg/dL (8.6-10.3); CARBON DIOXIDE 21.4 mEq/L (21.0-31.0); CHLORIDE 112 mEq/L (98-107); CREATININE - SERUM 1.1 mg/dL (0.6-1.2); GFR AFRICAN-AMERICAN > 60.0 ml/min (>90); GFR NON AFRICAN-AMERICAN > 60.0 ml/min; GLUCOSE 127 mg/dL (70-105); MAGNESIUM 2.5 mg/dL (1.9-2.7); POTASSIUM SERUM 3.3 mEq/L (3.5-5.1); SODIUM SERUM 144 mEq/L (136-145)
[2018-06-19] MEDS: KCL 20mEq/100mL Premix 20 MEQ/100 ML PIGGYBACK IV SCH ×2 (06:48→08:48)
[2018-06-19] MEDS: Ferrous Sulfate 300 MG/5 ML UDC GT SCH ×2 (08:49→17:38)
[2018-06-19] MEDS: Levetiracetam 500 mg/5mL 5mL UDSyr *for ORAL USE ONLY GT SCH ×2 (08:52→17:38)
[2018-06-19] MEDS ORDERED: Potassium Chloride Elixir 20 mEq /15 mL UDC GT SCH (09:00)
--- NOTE | 2018-06-19 15:09 | General Progress Note ---
Subjective - Review of Systems Service Date: 06/19/18 Subjective: awake, comfortable Objective - Results Result Diagrams: 06/19/18 05:20 06/19/18 05:20 Recent Labs: Laboratory Last Values WBC 8.7 Th/cmm (4.8-10.8) 06/19/18 05:20 RBC 3.62 Mil/cmm (3.80-5.10) L 06/19/18 05:20 Hgb 10.5 gm/dL (12-16) L 06/19/18 05:20 Hct 33.0 % (41.0-60) L 06/19/18 05:20 MCV 91.2 fl (81-100) 06/19/18 05:20 MCH 29.1 pg (27.0-31.0) 06/19/18 05:20 MCHC Differential 31.9 pg (28.0-36.0) 06/19/18 05:20 RDW 16.6 % (11.5-20.0) 06/19/18 05:20 Plt Count 153 Th/cmm (150-400) 06/19/18 05:20 MPV 10.2 fl 06/19/18 05:20 Neutrophils % 73.2 % (40.0-80.0) 06/19/18 05:20 Lymphocytes % 16.4 % (20.0-50.0) L 06/19/18 05:20 Monocytes % 6.0 % (2.0-10.0) 06/19/18 05:20 Eosinophils % 3.5 % (0.0-5.0) 06/19/18 05:20 Basophils % 0.9 % (0.0-2.0) 06/19/18 05:20 PT 10.4 SECONDS (9.5-11.5) 06/16/18 20:40 INR 1.00 (0.5-1.4) 06/16/18 20:40 PTT (Actin FS) 34.4 SECONDS (26.0-38.0) 06/16/18 20:40 Sodium 144 mEq/L (136-145) 06/19/18 05:20 Potassium 3.3 mEq/L (3.5-5.1) L 06/19/18 05:20 Chloride 112 mEq/L (98-107) H 06/19/18 05:20 Carbon Dioxide 21.4 mEq/L (21.0-31.0) 06/19/18 05:20 Anion Gap 13.9 (7.0-16.0) 06/19/18 05:20 BUN 22 mg/dL (7-25) 06/19/18 05:20 Creatinine 1.1 mg/dL (0.6-1.2) 06/19/18 05:20 Est GFR ( Amer) > 60.0 ml/min (>90) 06/19/18 05:20 Est GFR (Non-Af Amer) > 60.0 ml/min 06/19/18 05:20 BUN/Creatinine Ratio 20.0 06/19/18 05:20 Glucose 127 mg/dL (70-105) H 06/19/18 05:20 POC Glucose 92 MG/DL (70 - 105) 06/17/18 06:26 Whole Bld Lactic Acid 1.78 mmol/L (0.60-1.99) 06/16/18 20:40 Uric Acid 8.2 mg/dL (2.3-6.6) H 06/18/18 05:50 Calcium 9.3 mg/dL (8.6-10.3) 06/19/18 05:20 Phosphorus 3.3 mg/dL (2.5-5.0) 06/18/18 05:50 Magnesium 2.5 mg/dL (1.9-2.7) 06/19/18 05:20 Total Bilirubin 0.5 mg/dL (0.3-1.0) 06/16/18 20:40 AST 25 U/L (13-39) 06/16/18 20:40 ALT 14 U/L (7-52) 06/16/18 20:40 Alkaline Phosphatase 89 U/L (34-104) 06/16/18 20:40 Total Protein 9.3 gm/dL (6.0-8.3) H 06/16/18 20:40 Albumin 4.4 gm/dL (3.7-5.3) 06/16/18 20:40 Globulin 4.9 gm/dL 06/16/18 20:40 Albumin/Globulin Ratio 0.9 (1.0-1.8) L 06/16/18 20:40 Urine Source [place] 06/16/18 21:52 Urine Color YELLOW 06/16/18 21:52 Urine Clarity CLEAR (CLEAR) 06/16/18 21:52 Urine pH 8.0 (4.6 - 8.0) 06/16/18 21:52 Ur Specific [place] 1.015 (1.005-1.030) 06/16/18 21:52 Urine Protein TRACE mg/dL (NEGATIVE) 06/16/18 21:52 Urine Glucose (UA) NEGATIVE mg/dL (NEGATIVE) 06/16/18 21:52 Urine Ketones NEGATIVE mg/dL (NEGATIVE) 06/16/18 21:52 Urine Blood NEGATIVE (NEGATIVE) 06/16/18 21:52 Urine Nitrate NEGATIVE (NEGATIVE) 06/16/18 21:52 Urine Bilirubin NEGATIVE (NEGATIVE) 06/16/18 21:52 Urine Urobilinogen 0.2 E.U./dL (0.2 - 1.0) 06/16/18 21:52 Ur Leukocyte Esterase SMALL (NEGATIVE) H 06/16/18 21:52 Urine RBC 0-2 /hpf (0-5) 06/16/18 21:52 Urine WBC 6-10 /hpf (0-5) H 06/16/18 21:52 Ur Epithelial Cells MODERATE /lpf (FEW) 06/16/18 21:52 Urine Bacteria 1+ /hpf (NONE SEEN) H 06/16/18 21:52 Urine Test NEGATIVE 06/16/18 21:52 - Physical Exam Vitals and I&O: Vital Signs Temp 98.4 F 06/19/18 12:00 Pulse 94 06/19/18 12:00 Resp 18 06/19/18 12:00 BP 119/80 06/19/18 12:00 Pulse Ox 96 06/19/18 12:00 Intake & Output 06/18/18 06/19/18 06/19/18 18:59 06:59 18:59 Intake Total 1000 1898.333 100 Output Total 300 Balance 1000 1598.333 100 Weight (lbs) 53.524 kg Intake: Intake, IV Amount 1000 1038.333 100 Dextrose 5% 1,000 ml @ 1000 938.333 100 mls/hr IV .Q10H [facility]OVANNY Rx#:[id number] KCL 20mEq/100mL Premix 20 100 meq In 100 ml @ 50 mls/ hr IV Q2H [facility]OVANNY Rx#: [id number] Levofloxacin 500mg/100mL 100 500 mg In 100 ml @ 100 mls/hr IV Q24HR [facility] Rx#: [id number] Tube Feeding 660 Other 200 Output: Urine 300 Other: # Bowel Movements 0 Weight Source Bedscale Active Medications: Current Medications Acetaminophen (Tylenol) 650 mg GT Q4HR PRN PRN Reason: Pain or Fever >101 Stop: 08/15/18 23:39 Bisacodyl (Dulcolax 10 Mg Supp) 10 mg RC DAILY PRN PRN Reason: Constipation Stop: 08/15/18 23:39 Ferrous Sulfate (Iron) 450 mg GT BID [facility] Stop: 08/16/18 08:59 Last Admin: 06/19/18 08:49 Dose: 450 mg Levofloxacin (Levaquin Pb) 500 mg in 100 mls @ 100 mls/hr IV Q24HR [facility] Stop: 08/16/18 21:59 Last Infusion: 06/18/18 22:00 Dose: Infused Dextrose (D5w) 1,000 mls @ 100 mls/hr IV .Q10H [facility] Stop: 08/16/18 14:59 Last Admin: 06/19/18 02:23 Dose: 100 mls/hr Levetiracetam (Keppra) 500 mg GT BID [facility] Stop: 08/16/18 08:59 Last Admin: 06/19/18 08:52 Dose: 500 mg Lorazepam (Ativan) 1 mg IV Q4HR PRN; Protocol PRN Reason: Agitation Stop: 08/15/18 23:47 Last Admin: 06/17/18 00:11 Dose: 1 mg Magnesium Hydroxide (Milk Of Magnesia) 30 ml GT Q72HR PRN PRN Reason: Constipation Stop: 08/15/18 23:40 Potassium Chloride (Potassium Chloride Elixir) 20 meq GT DAILY [facility] Stop: 08/18/18 08:59 Last Admin: 06/19/18 08:53 Dose: 20 meq Sodium Phosphate (Fleet Enema) 135 ml RC Q96HR PRN PRN Reason: Constipation Stop: 08/15/18 23:39 Valproate Sodium (Depakene) 500 mg GT BID [facility]; Protocol Stop: 08/16/18 00:00 Last Admin: 06/19/18 08:53 Dose: 500 mg General: Alert, No acute distress HEENT: Atraumatic, EOMI, Mucous membr. moist/pink Neck: Supple, +2 carotid pulse wo bruit Cardiovascular: Regular rate, Normal S1, Normal S2 Lungs: Clear to auscultation Abdomen: Bowel sounds, Soft Extremities: no Edema Neurological: Sensation intact Skin: no Rash Psych/Mental Status: Mood NL - Procedures Procedures: Procedures Procedure Code Date EXCISION OF DUODENUM, ENDO, DIAGN 6MA07OC 05/13/18 EXCISION OF RECTUM, ENDO, DIAGN [id number] 05/13/18 EXCISION OF STOMACH, PYLORUS, ENDO, DIAGN [id number] 05/13/18 TRANSFUSE NONAUT RED BLOOD CELLS IN PERIPH VEIN, PERC 72372Y9 05/13/18 Assessment/Plan - Assessment Assessment: Hypernatremia JAYLIN Severe ID Cerebral Palsy Spina Bifida Epilepsy Cortical Blindness - Plan Plan: Lab - Result Diagrams 06/18/18 05:50 06/18/18 05:50 Current Medications Acetaminophen (Tylenol) 650 mg GT Q4HR PRN PRN Reason: Pain or Fever >101 Stop: 08/15/18 23:39 Bisacodyl (Dulcolax 10 Mg Supp) 10 mg RC DAILY PRN PRN Reason: Constipation Stop: 08/15/18 23:39 Ferrous Sulfate (Iron) 450 mg GT BID [facility] Stop: 08/16/18 08:59 Last Admin: 06/18/18 09:20 Dose: 450 mg Levofloxacin (Levaquin Pb) 500 mg in 100 mls @ 100 mls/hr IV Q24HR [facility] Stop: 08/16/18 21:59 Last Admin: 06/17/18 21:01 Dose: 100 mls/hr Dextrose (D5w) 1,000 mls @ 100 mls/hr IV .Q10H [facility] Stop: 08/16/18 14:59 Last Admin: 06/18/18 03:00 Dose: 100 mls/hr Levetiracetam (Keppra) 500 mg GT BID [facility] Stop: 08/16/18 08:59 Last Admin: 06/18/18 09:21 Dose: 500 mg Lorazepam (Ativan) 1 mg IV Q4HR PRN; Protocol PRN Reason: Agitation Stop: 08/15/18 23:47 Last Admin: 06/17/18 00:11 Dose: 1 mg Magnesium Hydroxide (Milk Of Magnesia) 30 ml GT Q72HR PRN PRN Reason: Constipation Stop: 08/15/18 23:40 Potassium Chloride (Potassium Chloride Elixir) 20 meq GT DAILY [facility] Stop: 08/18/18 08:59 Sodium Phosphate (Fleet Enema) 135 ml RC Q96HR PRN PRN Reason: Constipation Stop: 08/15/18 23:39 Valproate Sodium (Depakene) 500 mg GT BID [facility]NY; Protocol Stop: 08/16/18 00:00 Last Admin: 06/18/18 09:21 Dose: 500 mg Lab - Result Diagrams 06/19/18 05:20 06/19/18 05:20 Kidney fnc better w/ BUN/CR of 22/1.1 Na was 144 replace K continue IVF but decrease rate Nutritional Asmnt/Malnutr-PDOC - Dietary Evaluation Malnutrition Findings (Please click <Entered> for more info): Nutritional Asmnt/Malnutrition Start: 06/17/18 17: 42 Text: Status: Active Freq: Protocol: Document 06/17/18 17:44 [email or web address] (Rec: 06/17/18 17:56 [email or web address]) Nutritional Asmnt/Malnutrition Patient General Information Nutritional Screening High Risk Diagnosis RENAL FAILURE, UTI, DEHYDRATION Pertinent Medical Hx/Surgical Hx CEREBRAL PALSY, DEMENTIA, SPINA BIFIDA, INTELLECTUAL DISABILITY Subjective Information HIGH RISK INITIAL NUTRITION SCREENING FOR ENTERAL NUTRITION SUPPORT . PATIENT IS A 22 Y/O FEMALE [facility] AD[facility] ON 06/16/2018 WITH RENAL FAILURE, UTI, DEHYDRATION. BMI: 23.2 KG/M2 (NORMAL) IBW: 50 KG %IBW: 115% CURRENT DIET: JEVITY 1.2 @ 60 ML/HR X 20 HRS/DAY DIET PRIOR TO ADMISSION: [facility] CURRENT TF IS PROVIDING 1440 KCALS AND 67 GM PRO/DAY, TO MEET 100% EST KCAL AND 116% EST PRO NEEDS/DAY Current Diet Order/ Nutrition Support JEVITY 1.2 @ 60 ML/HR X 20 HRS /DAY Patient / S.O Can't verbalize diet edu Pertinent Medications DULCOLAX, IRON, KEPPRA, MOM Pertinent Labs HGB/HCT 11.2/35.4, NA 163, POTASS 3, BUN/CR 46/1.7 Estimated Nutritional Goals BEE in Kcals: Using Current wt Calories/Kcals/Kg 25-30 Kcals Calculated 4330-9530 Protein: Using Current wt Protein g/k.8-1 Protein Calculated 46-58 Fluid: ml PER MD Nutritional Problem 1. Problem Problem INADEQUATE ORAL INTAKE Etiology R/T MEDICAL CONDITION Signs/Symptoms: AEB ENTERAL NUTRITION SUPPORT Intervention/Recommendation Comments CURRENT TF IS PROVIDING 1440 KCALS AND 67 GM PRO/DAY, TO MEET 100% EST KCAL AND 116% EST PRO NEEDS/DAY RD TO FOLLOW-UP IN 2-3 DAYS PATIENT IS HIGH RISK. Expected Outcomes/Goals Expected Outcomes/Goals PT TO RECEIVE >90-100% ESTIMATED ENERGY AND PROTEIN VIA [facility] DIETITIAN WILL MONITOR NUTRITION SUPPORT, NUTRITION- RELATED LABS TRENDING WNL, SKIN INTEGRITY, WEIGHTS, GI FUNCTION. DISCHARGE PLAN:CURRENT DIET REFLECTS PAST MEDICAL HISTORY AND IS APPROPRIATE FOR DISCHARGE.
[2018-06-19] MEDS ORDERED: Dextrose 5% 1,000 ML IV SCH (15:15)
[2018-06-19 18:04] LABS: EOSINOPHIL SMEAR SOURCE URINE
[2018-06-19 18:05] LABS: EOSINOPHILS SMEAR COUNT NONE SEEN (NONE SEEN)
--- NOTE | 2018-06-29 23:12 | Discharge Summary ---
DATE OF DISCHARGE: 06/19/2018 The patient was admitted on 06/16/2018 and discharged back to [facility] where PCP will follow up in a.m. on 06/19/2018. The patient came in because of abnormal labs including very high sodium 156, severe dehydration, UTI and acute renal failure, all of them are treated including renal consult as well as ID consult. The patient improved. The [facility] was [facility] with [facility]. PCP will follow the patient. JOB# [id number]
== END 2018-06-19 21:00 | DRG 720 ==
LOC: ER 20:06 → TELE 22:45
PROVIDERS: ADMIT Internal Medicine; ATTEND Internal Medicine
DX: A41.9 Sepsis, unspecified organism (principal); N17.9 Acute kidney failure, unspecified; H47.619 Cortical blindness, unspecified side of brain; E87.0 Hyperosmolality and hypernatremia; F72 Severe intellectual disabilities; E86.0 Dehydration; N39.0 Urinary tract infection, site not specified; E87.6 Hypokalemia; Q05.9 Spina bifida, unspecified; G40.909 Epilepsy, unspecified, not intractable, without status epilepticus; G80.9 Cerebral palsy, unspecified; F03.90 Unspecified dementia, unspecified severity, without behavioral disturbance, psychotic disturbance, mood disturbance, and anxiety; Z93.1 Gastrostomy status; R53.2 Functional quadriplegia
CPT/HCPCS: 36415-UA; 76770-TC; 80048-TC; 80053-TC; 81001-TC; 81015-TC; 81025-TC; 82043-90; 82088-90; 82533-90; 82570-TC; 82948-90; 83605; 83735-TC; 83935-90; 84100-TC; 84300-TC; 84550-TC; 85025-TC; 85610-TC; J1956; J2060; J3480; J7070; Z7610